=== PATIENT | female | born 1950 | race Caucasian/White ===

== ENCOUNTER 2022-04-30 12:49 | Outpatient (CLI) | payer MEDICARE, BC, SELFPAY ==
--- NOTE | 2022-04-30 13:10 | CRLHL7_ITS ---
For Patients: As a result of the Century Cures Act, medical imaging exams and procedure reports are released immediately into your electronic medical record. You may view this report before your referring provider. If you have questions, please contact your health care provider. Indication: foot pain, radiculopathy Technique: Noncontrast CT lumbar spine. Please note that all CT scans at this facility use dose modulation, iterative reconstruction, and/or weight-based dosing when appropriate to reduce radiation dose to as low as reasonably achievable. Comparison: MRI lumbar spine 05/05/2020 Findings: Multilevel solid osseous posterior fusion noted from the lower thoracic spine extending to the iliac bones. Multilevel fixation screw hardware intact. No fracture. Stable alignment at L5-S1. Dense vascular calcifications. No disc herniation. No foraminal or canal stenosis. Stable circumscribed fluid collection posterior to the spine with peripheral heterotopic calcification representing chronic postop seroma. Impression: No significant interval change since the prior exam. No foraminal or canal stenosis. Intact fusion hardware. Please note that all CT scans at this facility use dose modulation, iterative reconstruction, and/or weight-based dosing when appropriate to reduce radiation dose to as low as reasonably achievable. Dictated by Rei Ulloa MD @ 04/30/2022 2:25:19 PM (Electronically Signed)
== END 2022-04-30 12:50 | disposition home or self-care (01) ==
PROVIDERS: PCP Physician Assistant Medical
DX: M54.16 Radiculopathy, lumbar region (principal); M79.673 Pain in unspecified foot
CPT/HCPCS: 72131

== ENCOUNTER 2022-05-20 08:25 | Outpatient (CLI) | payer MEDICARE, BC, SELFPAY ==
[2022-05-20 08:43] LABS: Hematocrit 38.5 % (33.0-51.0); Hemoglobin* 12.4 gm/dL (12.0-16.0); Mean Corpuscular HGB Conc 32 gm/dL (32-36); Mean Corpuscular Hemoglobin 32 pg (26-34); Mean Corpuscular Volume 101 fL (80-100); Platelet Count* 241 K/uL (140-440); Red Blood Count 3.83 m/uL (4.00-5.20); White Blood Count* 8.12 K/uL (4.50-11.00)
[2022-05-20 08:45] LABS: Slide Review Reflex No
[2022-05-20 13:49] LABS: Albumin* 4.6 g/dL (3.3-5.0); Chloride* 99 mmol/L (96-114)
[2022-05-20 13:50] LABS: Potassium* 4.8 mmol/L (3.6-5.1); Sodium* 138 mmol/L (135-149)
[2022-05-20 13:52] LABS: Alkaline Phosphatase* 117 U/L (40-150); Aspartate Amino Transferase* 29 U/L (12-35); Bilirubin Total* 0.3 mg/dL (0.1-1.5); Blood Urea Nitrogen* 28 mg/dL (7-30); Carbon Dioxide* 30 mmol/L (20-32); Creatinine* 1.2 mg/dL (0.5-1.5); Estimated Glomerular Filt Rate 48 ml/min; Glucose* 156 mg/dL (60-115); Total Protein* 6.9 g/dL (6.0-8.3)
[2022-05-20 13:53] LABS: Alanine Aminotransferase* 22 U/L (4-35); Calcium* 10.1 mg/dL (8.4-10.6)
== END 2022-05-20 08:26 | disposition home or self-care (01) ==
LOC: FRMREF 08:27
PROVIDERS: PCP Physician Assistant Medical; Visit Provider Dermatology
DX: Z79.899 Other long term (current) drug therapy (principal); L20.9 Atopic dermatitis, unspecified
CPT/HCPCS: 80053; 85027

== ENCOUNTER 2022-05-21 13:22 | Outpatient (CLI) | payer MEDICARE, BC, SELFPAY ==
--- NOTE | 2022-05-21 13:56 | CRLHL7_ITS ---
For Patients: As a result of the Century Cures Act, medical imaging exams and procedure reports are released immediately into your electronic medical record. You may view this report before your referring provider. If you have questions, please contact your health care provider. Indication: Bilateral hip pain Technique: Pelvis and both hips 5 views Comparison: None Findings: Postop changes of lumbar fusion extend to the iliac bones. Small ossicle adjacent to the lateral acetabulum bilaterally. No acute fracture or intrinsic osseous lesion. Impression: Mild degenerative joint disease both hips. Dictated by Rei Ulloa MD @ 05/21/2022 2:40:40 PM (Electronically Signed)
== END 2022-05-21 13:23 | disposition home or self-care (01) ==
PROVIDERS: PCP Physician Assistant Medical; Visit Provider Psychiatry & Neurology Neurology
DX: M25.552 Pain in left hip (principal); M25.551 Pain in right hip; M16.0 Bilateral primary osteoarthritis of hip
CPT/HCPCS: 73521

== ENCOUNTER 2022-06-01 14:17 | Outpatient (CLI) | payer MEDICARE, BC, SELFPAY ==
--- NOTE | 2022-06-01 14:30 | CRLHL7_ITS ---
For Patients: As a result of the Century Cures Act, medical imaging exams and procedure reports are released immediately into your electronic medical record. You may view this report before your referring provider. If you have questions, please contact your health care provider. Examination: Bilateral lower extremity arterial Duplex ultrasound. Indication: Hip and foot pain. Technique: The bilateral lower extremity arteries were examined. Ultrasound performed using real-time cardenas scale imaging (B-mode 2D), color-flow Doppler and spectral analysis. Comparison: None available Findings: On the right, there is a triphasic waveform in the common femoral artery that persists throughout the profunda femoral, superficial femoral, popliteal, peroneal, posterior tibial, anterior tibial, and dorsalis pedis arteries. No focal velocity elevation to suggest hemodynamically significant stenosis. On the left, triphasic waveforms in the common femoral artery persists throughout the superficial femoral, popliteal, anterior tibial, and dorsalis pedis arteries. However, in the distal peroneal and posterior tibial arteries there is monophasic flow with significantly reduced velocity as compared to the other vessels. Impression: 1. No sonographic evidence of hemodynamically significant stenosis or arterial occlusion in the right leg. 2. On the left, no evidence of significant disease from the level of the common femoral artery through the popliteal artery. Decreased velocities and diminished waveforms in the left peroneal and posterior tibial arteries suggests some degree of disease in that region. Dictated by Parveen Miguel MD @ 06/02/2022 1:23:48 PM (Electronically Signed)
== END 2022-06-01 14:18 | disposition home or self-care (01) ==
LOC: US 14:18
PROVIDERS: PCP Physician Assistant Medical; Visit Provider Psychiatry & Neurology Neurology
DX: I70.213 Atherosclerosis of native arteries of extremities with intermittent claudication, bilateral legs (principal)
CPT/HCPCS: 93926

== ENCOUNTER 2022-06-18 23:21 | Emergency (ER) | payer MEDICARE, BC, SELFPAY ==
[2022-06-18 23:37] VITALS: BP 109/69; PULSE 90; RESP 18; TEMP 36.6; O2SAT 99; BMI 24.1
--- NOTE | 2022-06-18 23:46 | ED.GENADULT ---
HPI - General Adult General Chief complaint: Skin/Abscess/Foreign Body Stated complaint: Skin Rash, med reaction Time Seen by Provider: 06/18/22 23:22 History of Present Illness HPI narrative: Pt has a fungal skin infection for which she is under the care of a field human resources manager. She did reasonably well with topical terbinafine but after her second dose of oral terbinafine today, she has developed a drug eruption involving most of her torso and extremities. No mucus membrane involvement. No fever or chills. No bleeding. Rash is slightly raised and erythematous. No blisters or skin breakdown. Severe itching noted. Last dose of medication was 13 hours ago and rash followed 6 hours ago. No treatment taken prior to coming in. No other symptoms. Related Data Home Medications Medication Instructions Recorded Confirmed aspirin 81 mg tablet,delayed mg PO .Bedtime 05/20/22 06/02/22 release bimatoprost 0.01 % eye drops drp ophthalmic (eye) 05/20/22 06/02/22 bupropion HCl 300 mg 24 hr tablet, 300 mg PO DAILY 05/20/22 06/02/22 extended release carbidopa 25 mg-levodopa 100 mg 1 tab PO TID 05/20/22 06/02/22 tablet duloxetine 60 mg capsule,delayed 60 mg PO DAILY 05/20/22 06/02/22 release loperamide 2 mg capsule mg PO DAILY 05/20/22 05/20/22 mecobalamin (vitamin B12) 5,000 5,000 tab PO DAILY 05/20/22 06/02/22 mcg disintegrating tablet meloxicam 15 mg tablet mg PO DAILY 05/20/22 06/02/22 omeprazole 40 mg capsule,delayed mg PO DAILY 05/20/22 06/02/22 release fexofenadine 180 mg tablet 180 mg PO Q24H 06/02/22 06/02/22 (Neli Allergy) gabapentin 300 mg capsule mg PO BID 06/02/22 06/02/22 Previous Rx's Medication Instructions Recorded chlorthalidone 25 mg tablet 12.5 mg PO QDAY #45 tabs 05/04/22 folic acid 1 mg tablet 1 mg PO QDAY #90 tabs 05/25/22 mupirocin 2 % topical ointment 1 applic topical BID #15 grams 06/02/22 lisinopril 40 mg tablet 40 mg PO DAILY #90 tabs 06/10/22 pravastatin 40 mg tablet 40 mg PO .Bedtime #90 tabs 06/10/22 Allergies Allergy/AdvReac Type Severity Reaction Status Date / Time No Known Allergies Allergy Unknown Verified 06/18/22 23:39 Review of Systems Status of ROS: Reports: 10 or more systems reviewed and unremarkable except as noted in History and below PFSH PFSH Surgical History History of colonoscopy History of finger joint replacement History of laminectomy History of rotator cuff surgery History of surgical procedure Status post appendectomy Family History Mother Family history of stroke or transient ischemic attack in mother Social History Narrative: Does not use illicit drugs Non-smoker Smoking Status: Current every day smoker What tobacco products do you use: cigarettes Do you use any of these nicotine containing products: None Second hand tobacco smoke exposure: Yes How often do you have a drink containing alcohol: never How often do you have six or more drinks on one occasion: Never AUDIT-C Alcohol total score: 0 Non-prescribed substance use: denies use Exam Narrative: Exam Narrative: EXAM GENERAL: Patient appears comfortable and well. EYES: No scleral icterus. ENT: Tympanic membranes and oropharynx normal. THYROID: no thyroid nodules or thyromegaly. LYMPH: No supraclavicular or cervical lymphadenopathy. SKIN: Diffuse macular rash noted on the anterior posterior torso as well as extremities. No mucous membrane involvement. EXT: No dependent lower extremity pedal edema. HEART: Regular rate and rhythm with no murmurs, rubs, or gallops. LUNGS: Clear to auscultation bilaterally with no crackles or wheezes. ABD: Soft, non tender, non distended. PSYCH: Good eye contact, speech is not pressured. Const: Vital Signs, click to edit/add: Vital Signs - 24 hr 06/18/22 23:37 Temperature 97.9 F Pulse Rate [Right Pulse Oximeter] 90 Respiratory Rate 18 Blood Pressure [Ri ght Upper Arm] 109/69 Pulse Oximetry 99 Oxygen Delivery Me thod Room Air Course Course Hospital Course: Pt seen and examined Vital Signs Vital signs: Initial Vital Signs Temperature 97.9 F 06/18/22 23:37 Temperature Source Temporal Artery Scan 06/18/22 23:37 Pulse Rate 90 06/18/22 23:37 Respiratory Rate 18 06/18/22 23:37 Blood Pressure 109/69 06/18/22 23:37 Blood Pressure Mean 82 06/18/22 23:37 Blood Pressure Position Sitting 06/18/22 23:37 Pulse Oximetry 99 06/18/22 23:37 Oxygen Delivery Method 06/18/22 23:37 Vital Signs Temperature 97.9 F 06/18/22 23:37 Pulse Rate 90 06/18/22 23:37 Respiratory Rate 18 06/18/22 23:37 Blood Pressure 109/69 06/18/22 23:37 Pulse Oximetry 99 06/18/22 23:37 Oxygen Delivery Method 06/18/22 23:37 Temperature 97.9 F 06/18/22 23:37 Pulse Rate 90 06/18/22 23:37 Respiratory Rate 18 06/18/22 23:37 Blood Pressure 109/69 06/18/22 23:37 Pulse Oximetry 99 06/18/22 23:37 Oxygen Delivery Method 06/18/22 23:37 Medical Decision Making MDM Narrative Medical decision making narrative: Pt presents with drug eruption after starting a new medication. No signs of infection or other significant pathology. Pt treated with removal of the offending agent and prednisone 20 mg twice daily for 5 days and will be in contact with her treating Devulcanizer Head. Differential Diagnosis Differential Diagnosis: Drug Eruption, Evaristo's Lito Syndrome, Cellulitis, Erythema multiforme Discharge Plan Discharge Clinical Impression: Drug eruption Condition: Stable Instructions: General Allergic Reaction (ED) Additional Instructions: Stop your new medication Prednisone 20 mg twice daily for 5 days Contact your Devulcanizer Head for further recommendations Activity Level: No Restrictions Discharge Diet: Regular Prescriptions: No Action fexofenadine [Neli Allergy] 180 mg tablet 180 mg PO Q24H mupirocin 2 % ointment 1 applic topical BID Qty: 15 0RF Rx Instructions: Apply twice daily to affected area in nostril for 2 weeks bupropion HCl 300 mg tablet extended release 24 hr 300 mg PO DAILY omeprazole 40 mg capsule,delayed release(DR/EC) PO DAILY duloxetine 60 mg capsule,delayed release(DR/EC) 60 mg PO DAILY meloxicam 15 mg tablet PO DAILY loperamide 2 mg capsule PO DAILY bimatoprost 0.01 % drops ophthalmic (eye) aspirin 81 mg tablet,delayed release (DR/EC) PO .Bedtime carbidopa-levodopa 25-100 mg tablet 1 tab PO TID mecobalamin (vitamin B12) 5,000 mcg tablet,disintegrating 5,000 tab PO DAILY gabapentin 300 mg capsule PO BID chlorthalidone 25 mg tablet 12.5 mg PO QDAY Qty: 45 0RF folic acid 1 mg tablet 1 mg PO QDAY Qty: 90 2RF lisinopril 40 mg tablet 40 mg PO DAILY Qty: 90 3RF pravastatin 40 mg tablet 40 mg PO .Bedtime Qty: 90 3RF Follow Up/Referrals: Rogers Ho, PANiyahC [Primary Care Provider] - Stand Alone Forms: [employer] Info Instructions
--- OUTSIDE RECORDS SUMMARY | 2022-06-19 00:08 | XMS_ITS | Encounter Summary ---
:1950 Author Organization [place] Address [address] [place] [address] Care Team Providers Name Role Phone Jenifer Decker PA-C Primary Care Provider Unavailable Reason for Visit Reason Comments RECHECK NEW: Pt referred to [facility] by Joaquín Ho PA-C for PAD. ROSE W EX BILAT in Epic 05/28/2020. 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 [place] [address] [place] [phone] Social History Tobacco Use Types Packs/Day Years Used Date Current Every Day Smoker 0.5 Smokeless Tobacco: Never Used Alcohol Use Standard Drinks/Week Comments Not Currently 0 (1 standard drink = 0.6 oz pure alcoho l) Alcohol Habits Answer Date Recorded How often do you have a drink containing alcohol? Never 05/29/2020 How many drinks containing alcohol do you have on a typical Not asked day when you are drinking? How often do you have six or more drinks on one occasion? No t asked Comment: Not asked Sex Assigned at Date Recorded Not on file COVID-19 Exposure Response Date Recorded In the last month, have you been in contact with No / Unsure 05/29/2020 10:30 AM CDT someone who was confirmed or suspected to have Coronavirus / COVID-19? documented as of this encounter Last Filed Vital Signs Vital Sign Reading Time Taken Comments Blood Pressure 130/75 05/29/2020 10:48 AM CDT Pulse 74 05/29/2020 10:35 AM CDT Temperature - - Respiratory Rate 14 05/29/2020 10:35 AM CDT Oxygen Saturation 97% 05/29/2020 10:35 AM CDT Inhaled Oxygen Concentration - - Weight 75.8 kg (167 lb) 05/29/2020 10:35 AM CDT Height 165.1 cm (5' 5) 05/29/2020 10:35 AM CDT Body Mass Index 27.79 05/29/2020 10:35 AM CDT documented in this encounter Progress Notes Clare Ravi CMA - 05/29/2020 10:40 AM CDT Jerica Layton is a 70 year old female who presents for: Chief Complaint Patient presents with ??? RECHECK NEW: Pt referred to [facility] by Rogers Ho PA-C for PAD. ROSE W EX BILAT in Epic 05/28/2020. NV Vitals: Vitals: 05/29/20 1035 05/29/20 1037 BP: 105/65 (!) 150/82 BP Location: Right arm Left arm Patient Position: Chair Chair Cuff Size: Adult Regular Adult Regular Pulse: 74 Resp: 14 SpO2: 97% Weight: 167 lb (75.8 kg) Height: 5' 5 (1.651 m) BMI: Estimated body mass index is 27.79 kg/m?? as calculated from the following: Height as of this encounter: 5' 5 (1.651 m). Weight as of this encounter: 167 lb (75.8 kg). Pain Score: Data Unavailable Clare Ravi CMA Fuad Valiente MD - 05/29/2020 10:40 AM CDT Jerica Layton is a 70 year old female who is presenting at the current time to discuss her diagnosi(es) of Pain of lower extremity, unspecified laterality PAD (peripheral artery disease) (H) . HPI: Jerica Layton is a 70 year old female with IFG, htn, mild hyperlipidemia, and depression referred to the [facility] for evaluation of ongoing lower back and LE pain bought about immediatly after standingor walking 10 to 20 feet. The pain is relieved by sitting down. She was seen by ortho in an outside healthcare system and no ortho spine etiology for the pain was found. Outside MRI (images unavailable) revealed no significant central or foraminal stenoses per outside office notes. Lower extremity arterial duplex performed at [facility] revealed bilateral REFINING MACHINE OPERATOR atherosclerotic disease but without significant stneoses. She was therefore referred to us to ascertain if she could have as yet unrec ognized PAD causing her sxs. Exercise ABIs performed at our institution yesterday revealed no reduced ROSE at rest or post exercise. She has triphasic waveforms distally. She denies nocturnal ischemic rest pain, or tissue loss symptoms. Review Of Systems Skin: negative Eyes: negative Ears/Nose/Throat: negative Respiratory: No shortness of breath, dyspnea on exertion, cough, or hemoptysis Cardiovascular: negative Gastrointestinal: negative Genitourinary: negative Musculoskeletal: positive for symmetrical leg pain as dleineated above Neurologic: negative Psychiatric: negative Hematologic/Lymphatic/Immunologic: negative Endocrine: negative PAST MEDICAL HISTORY: No past medical history on file. PAST SURGICAL HISTORY: No past surgical history on file. CURRENT MEDICATIONS: Current Outpatient Medications Medication Sig Dispense Refill ??? CYMBALTA 60 MG OR CPEP 1 CAPSULE DAILY ??? ENABLEX 15 MG OR TB24 1 TABLET DAILY ??? NEURONTIN 100 MG OR CAPS 1 cap twice during the day and up to 3 tabs at night. 120 2 ??? SIMVASTATIN 40 MG OR TABS 1 TABLET AT BEDTIME ??? WELLBUTRIN SR## 150 MG OR TB12 450 mg a day ??? ZOVIRAX 5 % EX OINT apply to affect area 5-6 times per day. 30 gms 0 ALLERGIES: No Known Allergies SOCIAL HISTORY: Social History Socioeconomic History ??? Marital status: Spouse name: Not on file ??? Number of children: Not on file ??? Years of education: Not on file ??? Highest education level: Not on file Occupational History ??? Not on file Social Needs ??? Financial resource strain: Not on file ??? Food insecurity Worry: Not on file Inability: Not on file ??? Transportation needs Medical: Not on file Non-medical: Not on file Tobacco Use ??? Smoking status: Current Every Day Smoker Packs/day: 0.50 Substance and Sexual Activity ??? Alcohol use: Not on file ??? Drug use: Not on file ??? Sexual activity: Not on file Lifestyle ??? Physical activity Days per week: Not on file Minutes per session: Not on file ??? Stress: Not on file Relationships ??? Social connections Talks on phone: Not on file Gets together: Not on file Attends christianity service: Not on file Active member of club or organization: Not on file Attends meetings of clubs or organizations: Not on file Relationship status: Not on file ??? Intimate partner violence Fear of current or ex partner: Not on file Emotionally abused: Not on file Physically abused: Not on file Forced sexual activity: Not on file Other Topics Concern ??? Parent/sibling w/ CABG, [place] or angioplasty before 65F 55M? Not Asked Social History Narrative ??? Not on file FAMILY HISTORY: No family history on file. Physical exam Reveals: O/P: WNL HEENT: WNL NECK: No JVD, thyromegaly, or lymphadenopathy HEART: RRR, no murmurs, gallops, or rubs LUNGS: CTA bilaterally without rales, wheezes, or rhonchi GI: NABS, nondistended, nontender, soft EXT:without cyanosis, clubbing, or edema; CEAP C3 varicosiities NEURO: nonfocal : no flank tenderness Peripheral arterial: RT femoral 3 plus palpable Right DP 3 plus palpable Right PT 3 plus palpable LT femoral 3 plus palpable Light DP 3 plus palpable Light PT 3 plus palpable ULTRASOUND ROSE DOPPLER WITH EXERCISE BILATERAL May 28, 2020 at 1345 hours ?? HISTORY: 70-year-old patient with pain in both hips and buttocks when walking varying distances. ?? COMPARISON: None. ?? FINDINGS: Resting ROSE in the right lower extremity is 1.09 in the PT and 0.97 in the left PT. Distal waveforms are triphasic. Patient walked on a treadmill for 3.5 minutes at 1.5 miles per hour and 10% grade. Patient had pain in both hips at 50 seconds, increased at 1 minute 10 seconds, pain in both buttocks at 1 minute 20 seconds. Patient increased pain throughout exercise and pain moving down back of thigh at 3 minutes. Exercise stopped at 3 minutes and 40 seconds due to pain. Postexercise ROSE values are 1.08 on the right and 1.1 on the left. ?? IMPRESSION: Normal ROSE examination. Do not suspect arterial insufficiency as cause of pain. ?? LILLIANA BRADFORD MD A/P: (M79.606) Pain of lower extremity, unspecified laterality (primary encounter diagnosis) Comment: this pain is most likely of spinal central canal origin as it is immediately occurring withpositional changes (not occuring after walking distance), is made wrose by climbing stairs. She alsofurther more has easily palpable LE bialterally Plan: present for second orthopedic spinal opinion (I73.9) Bilateral REFINING MACHINE OPERATOR PAD w/o significant steno-occlusive ds, which is not the etiology of bilateralLE pain Comment: although she has mid PAD on outside duplex, this is not the etiology of her sxs. Please seeabove comments. Plan: I advised she discuss atherosclerotic risk factor reduction management with her PCP in the context of her mild HLD and IFG , likely brought about by Cymbalta mediated weight gain. RTC prn. CC: referring PCP documented in this encounter Nursing Notes Kathi Coronado RN - 05/29/2020 10:40 AM CDT Office notes and ROSE US faxed to patients PCP Jenifer Rangel . Referring provider not patients PCP and from hospital stay. 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
--- OUTSIDE RECORDS SUMMARY | 2022-06-19 00:08 | XMS_ITS | Encounter Summary ---
:1950 Author Organization [place] Address [address] [place] [id number] Care Team Providers Name Role Phone Jenifer Decker PA-C Primary Care Provider Unavailable Encounter Details Date Type Department Care Team Description 05/29/2020 Travel Social History Tobacco Use Types Packs/Day Years [...] / COVID-19? documented as of this encounter Plan of Treatment Not on filedocumented as of this encounter Visit Diagnoses Not on filedocumented in this encounter Care Teams Pv Design Engineer Relationship Specialty Start Date End Date Jenifer Decker PA-C PCP - General Physician Broadcasting Equipment Mechanic 03/26/10 documented as of this encounter
--- OUTSIDE RECORDS SUMMARY | 2022-06-19 00:08 | XMS_ITS | Encounter Summary ---
:1950 Author Organization [place] Address [facility] [place] [address] Care Team Providers Name Role Phone Unavailable Primary Care Provider Unavailable Reason for Visit Reason Comments Derm Problem Rash on abd and back Back Pain Encounter Details Date Type Department Care Team Description 03/05/2009 Office Visit [facility] Jenifer Decker Shin gles (Primary Dx) [facility] PA-C [address] [place] [phone] [place] [address] Social History Tobacco Use Types Packs/Day Years Used Date Current Every Day Smoker 0.5 Alcohol Habits Answer Date Recorded How often do you have a drink containing alcohol? Never 05/29/2020 How many drinks containing alcohol do you have on a typical Not asked day when you are drinking? How often do you have six or more drinks on one occasion? No t asked Comment: Not asked Sex Assigned at Date Recorded Not on file documented as of this encounter Last Filed Vital Signs Vital Sign Reading Time Taken Comments Blood Pressure 120/68 03/05/2009 3:50 PM CDT Pulse 100 03/05/2009 3:50 PM CDT Temperature 36.3 ??C (97.3 ??F) 03/05/2009 3:50 PM CDT Respiratory Rate 20 03/05/2009 3:50 PM CDT Oxygen Saturation - - Inhaled Oxygen Concentration - - Weight 68 kg (150 lb) 03/05/2009 3:50 PM CDT Height 165.1 cm (5' 5) 03/05/2009 3:50 PM CDT Body Mass Index 24.96 03/05/2009 3:50 PM CDT documented in this encounter Progress Notes Jenifer Decker - 03/05/2009 4:22 PM CDT SUBJECTIVE: Jerica Layton is a 58 year old female who presents with 2 concerns: 1. right sided back pain: She was sleeping her sister's boat last week and now has increased back pain. She has scoliosis and has had pain; she will be having the scoliosis corrected surgically. Severity is 5. Tried heat, tylenol, ice. Heat seems to help; Movement makes it worse. The pain is sharp. 2. Rash on the abdomen: Present on the right side only. .sme No Known Allergies. OBJECTIVE: Jerica is a cooperative 58 year old female in no apparent distress. BP 120/68 Pulse 100 Temp (Src) 97.3 ??F (36.3 ??C) (Oral) Resp 20 Ht 5' 5 (1.651 m) Wt 150 lb (68.04 kg) Skin and back exam: Dew drop on the jessica petal, Erythematous bases with vesicles on one dermatome. Only one area is beginning scab over. The back pain is due to tenderness across the area of the rash. ASSESSMENT/PLAN: Encounter Diagnoses Code Name Primary? Qualifier ??? 053.9A Shingles Yes A prescription for; ACYCLOVIR 800 MG OR TABS ZOVIRAX 5 % EX OINT NEURONTIN 100 MG OR CAPS May also use NSAIDs(take care to use with food to protect stomach) and tylenol. Cont. to monitor and follow up prn. 15min;Greater that 50% of the time was spent on counseling. Electronically signed by Elie Decker PAC After visit summary printed for patient with medication reconcilliation by Elie Decker PAC documented in this encounter Nursing Notes 03/05/2009 3:00 PM CDT >> CINTHYA BAUTISTA TueMar 05, 2009 3:52 PM Body mass index is 24.96 kg/(m^2). BP cuff size: regular Last 1 Encounter BP Readings: Date: BP: 03/05/2009 120/68] Do you feel safe in your environment? Not asked Does the patient need any medication refills today? no documented in this encounter Plan of Treatment Not on filedocumented as of this encounter Visit Diagnoses Diagnosis Shingles - Primary Herpes zoster without mention of complic ation documented in this encounter
--- OUTSIDE RECORDS SUMMARY | 2022-06-19 00:08 | XMS_ITS | Encounter Summary ---
:1950 Author Organization [place] Address [address] [facility] [place] [address] Care Team Providers Name Role Phone Jenifer Decker PA-C Primary Care Provider Unavailable Reason for Referral Diagnostic Imaging Ultrasound (Routine) - Closed Specialty Diagnoses / Procedures Referred By Contact Refer red To Contact Radiology. Diagnoses PAD (peripheral artery disease) (H) [facility] Ultrasound cc Procedures US ROSE Doppler with Exercise Bilateral [address] [place] [address] [place] [address] Fax: Referral ID Status Reason Start Date Expiration Date Visits Requ ested Visits Authorized [id number] Closed 05/14/2020 05/14/2021 1 1 Reason for Visit Reason Onset Date Comments Referral 05/12/2020 Encounter Details Date Type Department Care Team Description 05/12/2020 Telephone [facility] Nurse, [facility] Referral [place] [address] [place] [address] Social History Tobacco Use Types Packs/Day Years [...] on file documented as of this encounter Miscellaneous Notes Telephone Encounter - Judy Amaya - 05/14/2020 12:44 PM CDT May 14, 2020 Patient is scheduled for US imaging on 05/28/2020 & a new patient consult appointment on 05/29/[address] Valiente at [facility]. Judy Amaya Insurance Loss Adjuster [facility] Office: [phone] Telephone Encounter - Jenifer Arzate - 05/14/2020 11:27 AM CDT LM for patient to call us back. Pt needs to be scheduled for ROSE with exercise and in person consultwith Vascular Medicine. Telephone Encounter - Emely Sapp RN - 05/12/2020 3:17 PM CDT Referral received via fax on 05/12/20. Pt referred to [facility] by Rogers Ho PA-C for PAD. Bilateral lower extremity US report accompanied fax. This was completed at [facility]. 1. No elevated peak systolic velocity to suggest stenosis within the lower extremity arterial run off. 2. Moderate atherosclerotic disease within the proximal common femoral arteries bilaterally without Dopplar waveform evidence of significant inflow disease. Notes sent to [facility]. Pt needs to be scheduled for ROSE with exercise and in person consult with Vascular Medicine. Will route to scheduling to coordinate an appointment at next available. LAMONT Chavez, RN-[facility] documented in this encounter Plan of Treatment Not on filedocumented as of this encounter Results US ROSE Doppler with Exercise Bilateral (05/28/2020 1:45 PM CDT) Anatomical Region Laterality Modality Leg, Ankle, Foot Ultrasound Specimen (Source) Anatomical Location Collection Method / Collectio n Time Received Time / Laterality Volume Impressions 05/28/2020 3:53 PM CDT IMPRESSION: Normal ROSE examination. Do not suspect arterial insufficiency as cause of pain. LILLIANA BRADFORD MD Narrative 05/28/2020 3:53 PM CDT ULTRASOUND ROSE DOPPLER WITH EXERCISE BILATERAL May 28, 2020 at 1345 hours HISTORY: 70-year-old patient with pain i n both hips and buttocks when walking varying distances. COMPARISON: None. FINDINGS: Resting ROSE in the right lower extremity is 1.09 in the PT and 0.97 in the left PT. Distal waveform s are triphasic. Patient walked on a treadmill for 3.5 minutes at 1.5 miles per hour and 10% grade. Patient had pain in both hips at 50 seconds, increased at 1 minute 10 seconds, pain in both buttocks at 1 minute 20 seconds. Patient increased pain throughout exerci se and pain moving down back of thigh at 3 minutes. Exercise stopped at 3 minutes and 40 seconds due to pain. Postexercise ROSE values are 1.08 on the right and 1.1 on the left. Procedure Note Lilliana Bradford MD - 05/28/2020 ULTRASOUND ROSE DOPPLER WITH EXERCISE KEE ATERAL May 28, 2020 at 1345 hours HISTORY: 70-year-old patient with pain i n both hips and buttocks when walking varying distances. COMPARISON: None. FINDINGS: Resting ROSE in the right lower extremity is 1.09 in the PT and 0.97 in the left PT. Distal waveform s are triphasic. Patient walked on a treadmill for 3.5 minutes at 1.5 miles per hour and 10% grade. Patient had pain in both hips at 50 seconds, increased at 1 minute 10 seconds, pain in both buttocks at 1 minute 20 seconds. Patient increased pain throughout exerci se and pain moving down back of thigh at 3 minutes. Exercise stopped at 3 minutes and 40 seconds due to pain. Postexercise ROSE values are 1.08 on the right and 1.1 on the left. IMPRESSION: Normal ROSE examination. Do n ot suspect arterial insufficiency as cause of pain. LILLIANA BRADFORD MD Fuad Valiente MD IMG US ORDERABLES documented in this encounter Visit Diagnoses Diagnosis PAD (peripheral artery disease) (H) - Pr imary Unspecified disorders of arteries and ar terioles PAD (peripheral artery disease) (H) Unspecified disorders of arteries and ar terioles documented in this encounter Care Teams Multicraft Operator Relationship Specialty Start Date End Date Jenifer Decker PA-C PCP - General Physician Franchise Sales Manager 03/26/10 documented as of this encounter
--- OUTSIDE RECORDS SUMMARY | 2022-06-19 00:08 | XMS_ITS | Clinical Summary ---
:1950 Author Organization [place] Address [address] [place] [address] Care Team Providers Name Role Phone Jenifer Decker PA-C Primary Care Provider Unavailable Allergies No known active allergies Medications Medication Sig Dispensed Refills Start Date End Date Status WELLBUTRIN SR## 150 MG 450 mg a day 0 Active OR TB12 CYMBALTA 60 MG OR CPEP 1 CAPSULE DAILY 0 Active SIMVASTATIN 40 MG OR 1 TABLET AT 0 Active TABS BEDTIME ENABLEX 15 MG OR TB24 1 TABLET DAILY 0 Active ZOVIRAX 5 % EX apply to affect 30 gms 0 03/05/2009 Active OINTIndications: area 5-6 times per Shingles day. Additional Information Patient not taking. Reported on 05/29/2020 NEURONTIN 100 MG OR 1 cap twice during the 120 2 009 Active CAPSIndications: Shingles day and up to 3 tabs at night. Additional Information Patient not taking. Reported on 05/29/2020 pravastatin (PRAVACHOL) 40 MG tablet Take 40 mg by mouth daily 0 Active omeprazole (PRILOSEC) [address] capsule Take 40 mg by mouth daily 0 Active propranolol (INDERAL) 40 MG tablet Take 40 mg by mouth 3 times 0 Active daily lisinopril (ZESTRIL) 40 MG tablet Take 40 mg by mouth daily 0 Active chlordiazePOXIDE (LIBRIUM) 25 MG capsule Take 25 mg by mouth 3 times 0 Active daily as needed for anxiety aspirin 81 MG EC tablet Take 81 mg by mouth daily 0 Active UNABLE TO FIND Take by mouth 2 times daily 0 Active Bio Flex calcium carbonate 600 mg-vitamin D 400 Take 1 tablet by mouth 2 times 0 Active units (CALTRATE) 600-400 MG-UNIT per daily tablet Social History Tobacco Use Types Packs/Day Years [...] Assigned at Date Recorded Not on file Last Filed Vital Signs Vital Sign Reading Time Taken Comments Blood Pressure 130/75 05/29/2020 10:48 AM CDT Pulse 74 05/29/2020 10:35 AM CDT Temperature 36.3 ??C (97.3 ??F) 03/05/2009 3:50 PM CDT Respiratory Rate 14 05/29/2020 10:35 AM CDT Oxygen Saturation 97% 05/29/2020 10:35 AM CDT Inhaled Oxygen Concentration - - Weight 75.8 kg (167 lb) 05/29/2020 10:35 AM CDT Height 165.1 cm (5' 5) 05/29/2020 10:35 AM CDT Body Mass Index 27.79 05/29/2020 10:35 AM CDT Plan of Treatment Health Maintenance Due Date Last Done Comments ADVANCE CARE PLANNING 1950 ANNUAL REVIEW OF HM ORDERS 1950 CT COLONOGRAPHY 1950 DEXA 1950 FIT-DNA (Cologuard) 1950 FIT 1950 FLEX SIG 1950 MAMMO SCREENING 1950 COVID-19 Vaccine (#1) 1950 COLONOSCOPY 1960 COLORECTAL CANCER SCREENING 1960 HEPATITIS C SCREENING 1968 DTAP/TDAP/TD IMMUNIZATION (1 1975 - Tdap) LUNG CANCER SCREENING 2000 ZOSTER IMMUNIZATION (1 of 2) 2000 MEDICARE ANNUAL WELLNESS 2015 VISIT Pneumococcal Vaccine: 65+ 03/21/2019 03/21/2018 Years (2 - PPSV23 or PCV20) FALL RISK ASSESSMENT 05/29/2021 05/29/2020 PHQ-2 (once per calendar 09/12/2021 year) INFLUENZA VACCINE (#1) 2022 07/04/2018, 07/18/2017 LIPID 04/29/2025 04/29/2020 HEPATITIS B IMMUNIZATION Aged Out No long er eligible based on patient's age to complete this to pic IPV IMMUNIZATION Aged Out No longer eligi ble based on patient's age to complete this to pic MENINGITIS IMMUNIZATION Aged Out No longe r eligible based on patient's age to complete this to pic Insurance Payer Benefit Plan / Subscriber ID Effective Phone Address T ype Group Dates [place] [id number] 2018-Prese [phone] [address] [address] [address] [place] [address] MEDICARE MEDICARE [id number] 2019-Prese [phone] ATTN MICHAEL MS Medicare nt [address] [facility] [place] [address] JERICA LAYTON Personal/Family Self [birth year] [address]) [place] [address] Care Teams Skate Shop Attendant Relationship Specialty Start Date End Date Jenifer Decker PA-C PCP - General Physician Noxious Weeds And Pest Inspector 03/26/10
--- OUTSIDE RECORDS SUMMARY | 2022-06-19 00:08 | XMS_ITS | Encounter Summary ---
:1950 Author Organization [place] Address [facility] [place] [place] [address] Care Team Providers Name Role Phone Unavailable Primary Care Provider Unavailable Reason for Visit Reason Onset Date Comments Patient Request 03/06/2009 Shingles Encounter Details Date Type Department Care Team Description 03/06/2009 Telephone [facility] Jenifer Decker Pati ent Request [facility] FREIDA (Shingles) [address] [place] [id number] [address] [phone] [place] [address] Social History Tobacco Use Types Packs/Day Years [...] this encounter Miscellaneous Notes Telephone Encounter - Mini Castaneda - 03/06/2009 10:35 AM CDT : 1950 PHONE #'s: [phone] (home) PRESENTING PROBLEM: Was Dx with Shingles yesterday. Was seen in clinic. I have a couple of questions. I'm on vacation now and want to see a lot of friends and relatives. Can I be around other people?Will I give them the Shingles? NURSING ASSESSMENT Description: As above. Onset/duration: Last week Precip. factors: Has shingles Assoc. Sx: pain Improves/worsens Sx: Improved with Neurontin, Zovirax, Acyclovir Pain scale (1-10) 11/19 Sx specific meds: As above LMP/preg/breast feeding: NA Last exam/Tx: 03/05/09 RECOMMENDED DISPOSITION: Home care advice - Shingles is an infection of the skin caused by the same virus that causes chickenpox. You cannot develop shingles unless you have had a previous infection ofchickenpox (usually as a child),. After you have the chickenpox the virus stay in your body, It moves to the roots of your nerve cells in the spinal cord and remains dormant. Later, if the virus becomes active, it presents as shingles. SYMPTOMS: often a burning or sharp pain sensation, tingling , or numbness in or under your skin on one side of your body or face. The most common site is the back or upper abdomen. You may have severe itching or aching. You also may feel tired and ill with fever, chills, headache, and upset stomach, One to 14 days after you started feeling pain, you will notice a rash of small blisters on reddened skin, Within 3 days after they appear, the blisters will turn yellow,then dry and crust over. They tend to follow nerve paths and are usually found in a line or row, butalmost always on one side of the body. They usually don't cross the midline of the body.The rash from the shingles will heal in 1 to 3 weeks, but the pain or irritation from the will usually last longer 3 to 5 weeks and sometimes months, if the virus damaged a nerve. This is called postherpetic neuralgia. YOU CANNOT GET SHINGLES FROM SOMEONE ELSE, However, if you have never had chickenpox, you may get chickenpox from close contact with someone who has shingles because the blisters contain the chicken pox virus. Take meds as prescribed. Use good hand washing technique and ask others before you see them if they have had chickenpox. Will comply with recommendation: YES If further questions/concerns or if Sx do not improve, worsen or new Sx develop, call your PCP or [place] [facility] as soon as possible. NOTES: Disposition was determined by the first positive assessment question, therefore all previous assessment questions were negative. Informed to check provider manual or call insurance company to assure coverage. Guideline used: Shingles ( Herpes Zoster) Clinical References Mini Castaneda RN Telephone Encounter - Deborah Pierson - 03/06/2009 9:51 AM CDT Patient has several questions about shingles. She was just dx with them. Is asking if you can call mai. She is concerned about exposure to others. Mom is in elim home. Also about visus living on objects. Thank you Deborah documented in this encounter Plan of Treatment Not on filedocumented as of this encounter Visit Diagnoses Not on filedocumented in this encounter
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
--- OUTSIDE RECORDS SUMMARY | 2022-06-19 00:08 | XMS_ITS | Encounter Summary ---
:1950 Author Organization [place] Address [address] [facility] [place] [address] Care Team Providers Name Role Phone Jenifer Decker PA-C Primary Care Provider Unavailable Reason for Referral Diagnostic Imaging Ultrasound (Routine) - Closed Specialty Diagnoses / Procedures Referred By Contact Refer red To Contact Radiology. Diagnoses PAD (peripheral artery disease) (H) [facility] [place] Rh Ultrasound Rscc Procedures US ROSE Doppler with Exercise Bilateral [address] [address] [employer] [address] [place] [address] [place] [address] Fax: Referral ID Status Reason Start Date Expiration Date Visits Requ ested Visits Authorized [id number] Closed 05/14/2020 05/14/2021 1 1 Reason for Visit Diagnostic Imaging Ultrasound (Routine) - Closed Specialty Diagnoses / Procedures Referred By Contact Refer red To Contact Radiology. Diagnoses PAD (peripheral artery disease) (H) [facility] Rh Ultrasound Rscc Procedures US ROSE Doppler with Exercise Bilateral [address] [address] [employer] [address] [place] [address] [place] [address] Fax: Referral ID Status Reason Start Date Expiration Date Visits Requ ested Visits Authorized [id number] Closed 05/14/2020 05/14/2021 1 1 Encounter Details Date Type Department Care Team Description 05/28/2020 Hospital Encounter [facility] Brandon Valiente PAD (peripheral [facility] MD [place] artery disease) (H) [facility] [address] [facility] [address] [address] [place] [address] [address] [place] [address] Social History Tobacco Use Types Packs/Day Years [...] been in contact with No / Unsure 05/28/2020 1:05 PM CDT someone who was confirmed or suspected to have Coronavirus / COVID-19? documented as of this encounter Medications at Time of Discharge Medication Sig Dispensed Refills Start Date End Date CYMBALTA 60 MG OR CPEP 1 CAPSULE DAILY 0 ENABLEX 15 MG OR TB24 1 TABLET DAILY 0 NEURONTIN 100 MG OR 1 cap twice during 120 2 03/05/20 09 CAPSIndications: Shingles the day and up to 3 tabs at night. SIMVASTATIN 40 MG OR TABS 1 TABLET AT BEDTIME 0 WELLBUTRIN SR## 150 MG OR 450 mg a day 0 TB12 ZOVIRAX 5 % EX apply to affect area 30 gms 0 03/05/2009 OINTIndications: Shingles 5-6 times per day. documented as of this encounter Plan of Treatment Not on filedocumented as of this encounter Procedures Procedure Name Priority Date/Time Associated Diagnosis Comme nts US ROSE DOPPLER WITH Routine 05/28/2020 1:45 PM PAD (peripheral Results for this EXERCISE BILATERAL CDT artery disease) (H) pr ocedure are in the results section. documented in this encounter Results US ROSE Doppler with [...] Diagnoses Diagnosis PAD (peripheral artery disease) (H) Unspecified disorders of arteries and ar terioles documented in this encounter Care Teams Sheet Turner Relationship Specialty Start Date End Date Jenifer Decker PA-C PCP - General Physician Container Finishing Inspector 03/26/10 documented as of this encounter
--- OUTSIDE RECORDS SUMMARY | 2022-06-19 00:08 | XMS_ITS | Encounter Summary ---
:1950 Author Organization [place] Address [address] [place] [address]. [place] [address] Care Team Providers Name Role Phone Jenifer Decker PA-C Primary Care Provider Unavailable Encounter Details Date Type Department Care Team Description 05/09/2020 Medical Correspondence [facility] Scan, CLINIC REFERRAL Health Info [facility]-Provider [facility] [address] [place] [address] Social History Tobacco Use Types Packs/Day Years [...] on file documented as of this encounter Plan of Treatment Not on filedocumented as of this encounter Visit Diagnoses Not on filedocumented in this encounter Care Teams Car Starter Relationship Specialty Start Date End Date Jenifer Decker PA-C PCP - General Physician Door Liner 03/26/10 documented as of this encounter
--- OUTSIDE RECORDS SUMMARY | 2022-06-19 00:08 | XMS_ITS | Encounter Summary ---
:1950 Author Organization [place] Address [address] [place] [address] Care Team Providers Name Role Phone Jenifer Decker PA-C Primary Care Provider Unavailable Encounter Details Date Type Department Care Team Description 05/28/2020 Travel Social History Tobacco Use Types Packs/Day [...] on filedocumented in this encounter Care Teams Architectural Administrative Assistant Relationship Specialty Start Date End Date Jenifer Decker PA-C PCP - General Physician Train Electronic Technician 03/26/10 documented as of this encounter
--- OUTSIDE RECORDS SUMMARY | 2022-06-19 00:09 | XMS_ITS ---
:1950 Author Organization [facility] Address [address] [place] [address] [place] [address] Care Team Providers Name Role Phone Dano Lennon Unavailable Unavailable PROBLEMS Unknown Problems ALLERGIES No Known Allergies ENCOUNTERS Encounter Location Date Diagnosis [address] [place] [address] [place] [address] [place] [address] [place] [address] [place] [address] [place] [address] [place] Apr, [place] son disease G20 ; Drive [address] Vitamin B12 defi ciency [place], [place] E53.8 ; Hypomagn esemia [address] E83.42 ; Toxic e ffect of antimony or anti yusuf compound, accide ntal or unintentional, i nitial encounter T56.89 1A and Toxic reaction t o chemical, accidental or unintentional, i nitial encounter T65.[address] [place] Apr, Encoun ter for Medicare Drive [address] annual wellness exam Z00.00 [place] [address] [place] Mar, Sarah son disease [address] [place] [address] [place] [address] [place], [place] son disease G20 ; Drive [address] Hypertension I10 ; [place], [place] abnormality R26. 9 ; [address] Parkinson diseas e G20 ; Hyperlipidemia E 78.5 ; Acid reflux K21.9 ; I nsomnia G47.00 ; Osteoar thritis M19.90 ; Depress ion F32.9 and Skin lesions L98.9 IMMUNIZATIONS Vaccine Route Administration Date Status Sars Covid19- 100 mcg/0.5mL IM Intramuscular December 06, 2020 Adm inistered Sars Covid19- 100 mcg/0.5mL IM Intramuscular Nov 08, 2020 Adm inistered SOCIAL HISTORY Qualifiers Date Former Smoker REASON FOR REFERRAL FUNCTIONAL STATUS PLAN OF CARE VITAL SIGNS Temperature 97.3 (t) degrees Fahrenheit 2021-03-19 Height 5' 5 in 2021-04-23 Weight 168.8 lbs 2021-04-23 BMI 28.09 kg/m2 2021-04-23 Oximetry 95% 2021-04-23 Blood pressure systolic 145 mm Hg 2021-04-23 Blood pressure diastolic 82 mm Hg 2021-04-23 MEDICATIONS Medication Instructions Dosage Frequency Start End Duration Statu s Date Date Aspir 81 81 mg orally once a 1 tab(s) 24h 30 day(s) Active day lisinopril 40 mg orally once a 1 tab(s) 24h 30 day(s ) Active day Calcium 600+D 600 orally daily 1 tab(s) 24h Active mg-200 units pravastatin 40 mg orally once a 1 tab(s) 24h 30 day( s) Active day bupropion 150 mg orally daily 2 tabs 24h 90 days Ac tive Cymbalta 60 mg orally once a 1 cap(s) 24h 30 day(s) Active day chlorthalidone 25 orally once a 1 tab(s) 24h 30 day( s) Active mg day meloxicam 15 mg orally once a 1 tab(s) 24h 30 day(s) Active day Imodium Active magnesium orally daily 1 tab(s) 24h Active gluconate 250 mg Sinemet 25 mg-100 orally 3 times a 1 tab(s) 8h 30 d ay(s) Active mg day Osteo Bi-Flex 1500 2 tab 12h Activ e mg/1200 mg omeprazole 40 mg orally once a 1 cap(s) 24h 30 day(s ) Active day melatonin 5 mg orally once a 1 cap(s) Ac tive day (at bedtime) PROCEDURES Procedure Date Ordered Result Body Site DEVICE HANDLING March 19, 2021 ASSAY OF SERUM ALBUMIN March 19, 2021 VITAMIN B-12 March 19, 2021 Routine Venipunct/finger/heel March 19, 2021 BLOOD FOLIC ACID SERUM March 19, 2021 DIMERCAPTOPROPANE SULFONIC ACID 250 MG April 03, 2021 THER/PROPH/DIAG IV INF, INIT April 03, 2021 ASSAY OF PROGESTERONE March 19, 2021 Screen Test Visual Acuity-tamela March 19, 2021 ASSAY OF SEX HORMONE GLOBUL March 19, 2021 Handl/convey Specmn-offic To L April 03, 2021 DEHYDROEPIANDROSTERONE March 19, 2021 ANNUAL [facility] VST; PERSNL PPS INIT Apr 23, 2021 TOTAL CORTISOL March 19, 2021 ASSAY OF MAGNESIUM March 19, 2021 ASSAY OF ESTRADIOL March 19, 2021 ASSAY OF TESTOSTERONE March 19, 2021 ASSAY OF TOTAL TESTOSTERONE March 19, 2021 RESULTS Name Result Date Reference Range DD - URINE TOXIC METALS Pre/Post x2 (ALL PREPAY 2021-04-08 $138) 6 ml min PRE-PROVOCATIVE POST PROVACATIVE GPL-TOX (Toxic NON-METAL Chemical Profile)(09 13 morning urine-Freeze) Patient Prepay $229 ($179 if ordered with MycoTOX)(14 day Turn Around Time) F.A.C.T (Functional Acuity Contrast) 2021-03-19 Left A 6 Left B 4 Left C 2 Left D - Left E - Right A 6 RIght B 4 Right C 2 Right D - Right E - Q-VITAMIN B12/FOLATE, SERUM PANEL (ERIC 2021-03 VIAL)(126.42)(23346,20374) FOLATE, SERUM 8.9 VITAMIN B12 [phone] Q-CORTISOL, P.M.(3pm-5pm) (68.34) 2021-03-19 CORTISOL, P.M. 4.6 Q-MAGNESIUM, RBC (28.08)(07419) 2021-03-19 MAGNESIUM, RBC 3.8 4.0-6.4 Q-Female Hormone Panel(599.10)(2 RED TOP Transfer 2021-03-19 Tube need min of 3ml-REFRIG) ALBUMIN 4.4 3.6-5.1 PROGESTERONE, LC/MS <0.1 CORTISOL, TOTAL 4.6 DHEA SULFATE 281 12-133 ESTRADIOL <15 SEX HORMONE BINDING GLOBULIN 53 14- 73 TESTOSTERONE, TOTAL, MS 26 2-45 TESTOSTERONE, FREE 2.3 0.2-3.7 REASON FOR VISIT Insurance Providers [facility] Health Health Member Patient Patient Patient Patient Patient Subscriber Subscriber Subscriber Group Insurance Plan Plan Plan Plan ID Relationship Address Phone Name Date of ID Name Date of No Type Insurance Insurance Insurance Coverage to Subscriber Address Phone Name Dates Medicare Inc. 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
[2022-06-19 00:17] VITALS: BP 111/65; PULSE 84; RESP 18; TEMP 36.6; O2SAT 99
[2022-06-19 00:18] VITALS: BP 111/65; PULSE 84; RESP 18; TEMP 36.6
== END 2022-06-19 00:18 | disposition home or self-care (01) ==
PROVIDERS: Emergency Provider Internal Medicine; PCP Physician Assistant Medical
DX: R21 Rash and other nonspecific skin eruption (principal); T50.995A Adverse effect of other drugs, medicaments and biological substances, initial encounter
CPT/HCPCS: 99283; 99284

== ENCOUNTER 2022-07-01 14:14 | Outpatient (CLI) | payer MEDICARE, BC, SELFPAY ==
--- OUTSIDE RECORDS SUMMARY | 2022-07-01 14:26 | XMS_ITS | Encounter Summary ---
:1950 Author Organization [place] Address [address] [facility] [place] [address] Care Team Providers Name Role Phone Jenifer Decker PA-C Primary Care Provider Unavailable Reason for Visit Reason Comments RECHECK NEW: Pt referred to [facility] by Joaquín Ho PA-C for PAD. ROSE W EX BILAT in Epic 05/28/2020. [place] Encounter Details Date Type Department Care Team Description [facility] of lower [facility], unspecified laterality (Primary Dx); [facility] MD Omero Bilateral HOME HEALTH CLINICAL LIAISON PAD w/o significant steno- occlusive ds, which is not the etiology of bilateral LE pain [place] [address] [place] [address] [place] [phone] [phone] Social History Tobacco Use Types Packs/Day Years Used Date Smoking Tobacco: Every Day Cigarettes 0.5 Smokeless Tobacco: Never Alcohol Use Standard Drinks/Week Comments Not Currently [...] drinks on one occasion? No t asked Sex Assigned at Date Recorded Not [...] with ??? RECHECK NEW: Pt referred to [facility] by Rogers Ho PA-C for PAD. [...] mild hyperlipidemia, and depression referred to the [facility] for evaluation of ongoing lower back [...] notes. Lower extremity arterial duplex performed at [facility] revealed bilateral HOME HEALTH CLINICAL LIAISON atherosclerotic disease but without significant stneoses. She [...] file Gets together: Not on file Attends anabaptism service: Not on file Active member of club or organization: Not on file Attends meetings of clubs or organizations: Not on file Relationship status: Not on file ??? Intimate partner violence Fear of current or ex partner: Not on file Emotionally abused: Not on file Physically abused: Not on file Forced sexual activity: Not on file Other Topics Concern ??? Parent/sibling w/ CABG, KS or angioplasty before 65F 55M? Not Asked [...] for second orthopedic spinal opinion (I73.9) Bilateral HOME HEALTH CLINICAL LIAISON PAD w/o significant steno-occlusive ds, which is [...] and from hospital stay. Kathi MIGUEL, RN [facility] Office: [phone] documented in this encounter Plan of Treatment Not on filedocumented as of this encounter Visit Diagnoses Diagnosis Pain of lower extremity, unspecified lat erality - Primary Bilateral HOME HEALTH CLINICAL LIAISON PAD w/o significant steno- occlusive ds, which is not the etiology of bilateral LE pain Unspecified disorders of arteries and ar terioles documented in this encounter Care Teams Coach Relationship Specialty Start Date End Date Jenifer Decker PA-C PCP - General Physician Canoe Builder 03/26/10 documented as of this encounter
--- OUTSIDE RECORDS SUMMARY | 2022-07-01 14:26 | XMS_ITS ---
:1950 Author Organization [facility] Address [address] [place] [address] [place] [address] Care Team Providers Name Role Phone Dano Lennon Unavailable Unavailable PROBLEMS Unknown Problems ALLERGIES No Known Allergies ENCOUNTERS Encounter Location Date Diagnosis [address] [place] [address], [address] [place] [address] [place] [address] [place] [address] [place] [address] [place] [address] [place] Apr, [place] son disease G20 ; Drive [address] Vitamin B12 defi ciency [place], [place] E53.8 ; Hypomagn esemia [address] E83.42 ; Toxic e ffect of antimony or anti yusuf compound, accide ntal or unintentional, i nitial encounter T56.89 1A and Toxic reaction t o chemical, accidental or unintentional, i nitial encounter T65.[address] [place] Apr, Encoun ter for Medicare Drive [address] annual wellness exam Z00.00 [place] [address] [place] Mar, Sarah son disease [address] [place] [address] [place] [address] [place] Mar, [place] son disease G20 ; Drive [address] Hypertension I10 ; [place]ait [place], [place] abnormality R26. 9 ; [address] Parkinson diseas e G20 ; Hyperlipidemia E [...] 03, 2021 DEHYDROEPIANDROSTERONE March 19, 2021 ANNUAL [facility] VST; PERSNL PPS INIT Apr 23, 2021 [...] - Q-VITAMIN B12/FOLATE, SERUM PANEL (ERIC 2021-03 VIAL)(126.42)([id number],14287) FOLATE, SERUM 8.9 VITAMIN B12 [phone] Q-CORTISOL, P.M.(3pm-5pm) (68.34) 2021-03-19 CORTISOL, P.M. 4.6 Q-MAGNESIUM, RBC (28.08)(34229) 2021-03-19 MAGNESIUM, RBC 3.8 4.0-6.4 Q-Female Hormone Panel(599.10)(2 RED TOP Transfer 2021-03-19 Tube need min of 3ml-REFRIG) ALBUMIN 4.4 3.6-5.1 PROGESTERONE, LC/MS <0.1 CORTISOL, TOTAL 4.6 DHEA SULFATE 281 12-133 ESTRADIOL <15 SEX HORMONE BINDING GLOBULIN 53 14- 73 TESTOSTERONE, TOTAL, MS 26 2-45 TESTOSTERONE, FREE 2.3 0.2-3.7 REASON FOR VISIT Insurance Providers [facility] Health Health Member Patient Patient Patient Patient Patient Subscriber Subscriber Subscriber Group Insurance Plan Plan Plan Plan ID Relationship Address Phone Name Date of ID Name Date of No Type Insurance Insurance Insurance Coverage to Subscriber Address Phone Name Dates Medicare Inc. HELENE [phone] Medicare self [place] [id number] [id number] [address] [place] [address] [place] [address] [facility] [phone] [facility] self Jerica [id number] J [id number] [place] [address] [facility] [address] MEDICAL (GENERAL) HISTORY Type Description Date Medical [...]
--- OUTSIDE RECORDS SUMMARY | 2022-07-01 14:26 | XMS_ITS | Encounter Summary ---
:1950 Author Organization [facility] Address [address] [place] [address]. [place] [address] Care Team Providers Name Role Phone Jenifer Decker PA-C Primary Care Provider Unavailable Encounter Details Date Type Department Care Team Description 05/09/2020 Medical Correspondence [facility] Scan, CLINIC REFERRAL Health Info [facility] Non-Provider [facility]ICS [address] [place] [address] Social History Tobacco Use Types Packs/Day Years Used Date Smoking Tobacco: Every Day Cigarettes 0.5 Alcohol Habits Answer Date Recorded How [...] on filedocumented in this encounter Care Teams Grinder Set Up Operator Surface Relationship Specialty Start Date End Date Jenifer Decker PA-C PCP - General Physician Machine Printer Hose 03/26/10 documented as of this encounter
--- OUTSIDE RECORDS SUMMARY | 2022-07-01 14:26 | XMS_ITS | Encounter Summary ---
:1950 Author Organization [facility] Address [facility] [place] [address] Care Team Providers Name Role Phone Unavailable Primary Care Provider Unavailable Reason for Visit Reason Onset Date Comments Patient Request 03/06/2009 Shingles Encounter Details Date Type Department Care Team Description 03/06/2009 Telephone [facility] Jenifer Decker Pati ent Request [facility] FREIDA (Shingles) [address] [place] [address] [address] [phone] [place] [address] Social History Tobacco Use Types Packs/Day Years [...] 10:35 AM CDT : 1950 PHONE #'s: [phone] (home) PRESENTING PROBLEM: Was Dx with Shingles [...] new Sx develop, call your PCP or [facility] as soon as possible. NOTES: [...]
--- OUTSIDE RECORDS SUMMARY | 2022-07-01 14:26 | XMS_ITS | Encounter Summary ---
:1950 Author Organization [facility] Address [facility] [place] [address] Care Team Providers Name Role Phone Unavailable Primary Care Provider Unavailable Reason for Visit Reason Comments Derm Problem Rash on abd and back Back Pain Encounter Details Date Type Department Care Team Description 03/05/2009 Office Visit [facility] Jenifer Decker Shin gles (Primary Dx) [facility] PA-C [address] [place] [address] [address] [phone] [place] [address] Social History Tobacco Use Types Packs/Day Years [...] 03/05/2009 3:00 PM CDT >> CINTHYA BAUTISTA Wed Mar 05, 2009 3:52 PM Body mass index [...]
--- OUTSIDE RECORDS SUMMARY | 2022-07-01 14:26 | XMS_ITS | Clinical Summary ---
:1950 Author Organization [facility] [place] [address] Care Team Providers Name Role Phone Rogers [...] (PRAVACHOL) 40 mg mouth at bedtime. tablet Daaqyrqgosq-Nqpuv-DQU- Take 1 tablet by 0 03/29/2019 Active [...] - Respiratory Rate 16 07/19/2017 1:13 PM NOTE SPECIALIST Oxygen Saturation 97% 03/29/2019 3:09 PM CDT Inhaled Oxygen Concentration - - Weight 71.6 kg (157 lb 12.8 oz) 03/29/2019 3:09 PM CDT Height 165 cm (5' 4.96) 07/19/2017 1:13 PM NOTE SPECIALIST Body Mass Index 26.29 07/19/2017 1:13 PM NOTE SPECIALIST Plan of Treatment Health Maintenance Due Date [...] Group MEDICARE PART B MEDICARE PART B [id number] 2016-Presen ATTN: CLAIMS - HB USE ONLY HB ONLY t [address] [place] [address] [facility] HPI-OPEN ACCESS [id number] Effective for [address] [place] [address] MEDICARE - PB MEDICARE PB [id number] 2016-Presen ATTN : CLAIMS USE ONLY ONLY t [address] [place] [address] BLUE CROSS BLUE CROSS OF [id number] 2018-Presen [address] [facility] [place] [address] Care Teams Wireline Supervisor Relationship Specialty Start Date End Date Rogers Ho, PANiyahC PCP - General Physician Manager Of Patient 06/20/17
--- OUTSIDE RECORDS SUMMARY | 2022-07-01 14:26 | XMS_ITS | Encounter Summary ---
:1950 Author Organization [facility] Address [address] [facility] [place] [address] Care Team Providers Name Role Phone Jenifer Decker PA-C Primary Care Provider Unavailable Reason for Referral Diagnostic Imaging Ultrasound (Routine) - Closed Specialty Diagnoses / Procedures Referred By Contact Refer red To Contact Radiology. Diagnoses PAD (peripheral artery disease) (H) [facility] Rh Ultrasound cc Procedures US ROSE Doppler with Exercise Bilateral [address] [place] [address] [place] [address] Fax: Referral ID Status Reason Start Date Expiration Date Visits Requ ested Visits Authorized [id number] Closed 05/14/2020 05/14/2021 1 1 Reason for Visit Reason Onset Date Comments Referral 05/12/2020 Encounter Details Date Type Department Care Team Description 05/12/[address] [facility] Vascular Clinic Nurse, [facility] Referral [place] [address] [place] [address] Social History Tobacco Use Types Packs/Day [...] appointment on 05/29/[address] Valiente at [facility]. Judy Amaya Curator Of Collections [facility] Office: [phone] Telephone Encounter - Jenifer Arzate - 05/14/2020 11:27 AM CDT LM for patient to call us back. Pt needs to be scheduled for ROSE with exercise and in person consultwith Vascular Medicine. Telephone Encounter - Emely Sapp RN - 05/12/2020 3:17 PM CDT Referral received via fax on 05/12/20. Pt referred to [facility] by Rogers Ho PA-C for PAD. Bilateral lower extremity US report accompanied fax. This was completed at [facility]. 1. No elevated peak systolic [...] an appointment at next available. LAMONT Chavez, RN-[facility] documented in this encounter Plan of Treatment [...] terioles documented in this encounter Care Teams R&D Engineer Relationship Specialty Start Date End Date Jenifer Decker PA-C PCP - General Physician Hide House Supervisor 03/26/10 documented as of this encounter
--- OUTSIDE RECORDS SUMMARY | 2022-07-01 14:26 | XMS_ITS | Encounter Summary ---
:1950 Author Organization [place] Address [facility] [place] [address] Care Team Providers Name Role Phone Jenifer [...] on filedocumented in this encounter Care Teams Director Behavioral Health Relationship Specialty Start Date End Date Jenifer Decker PA-C PCP - General Physician Mechanical Planner 03/26/10 documented as of this encounter
--- OUTSIDE RECORDS SUMMARY | 2022-07-01 14:26 | XMS_ITS | Clinical Summary ---
:1950 Author Organization [facility] Address [facility] [place] [address] Care Team Providers Name Role Phone Jenifer [...] (Cologuard) 1950 FIT 1950 FLEX SIG 1950 HEPATITIS B IMMUNIZATION (1 1950 of 3 - 3-dose series) MAMMO SCREENING 1950 COVID-19 Vaccine (#1) 1950 COLONOSCOPY 1960 COLORECTAL CANCER SCREENING 1960 HEPATITIS C SCREENING 1968 DTAP/TDAP/TD IMMUNIZATION (1 1975 - Tdap) LUNG CANCER SCREENING 2000 ZOSTER IMMUNIZATION (1 of 2) 2000 MEDICARE ANNUAL WELLNESS 2015 VISIT Pneumococcal Vaccine: 65+ 03/21/2019 03/21/2018 Years (2 - PPSV23 if available, else PCV20) FALL RISK ASSESSMENT 05/29/2021 05/29/2020 PHQ-2 (once per calendar 09/12/2021 year) INFLUENZA VACCINE (#1) 2022 07/04/2018, 07/18/2017 LIPID 04/29/2025 04/29/2020 IPV IMMUNIZATION Aged Out No longer eligi ble based on patient's age to complete this to pic MENINGITIS IMMUNIZATION Aged Out No longe r eligible based on patient's age to complete this to pic Insurance Payer Benefit Plan / Subscriber ID Effective Phone Address T ype Group Dates [place] [id number] 2018-Prese [phone] [address] [address] [address] [place] [address] MEDICARE MEDICARE [id number] 2019-Prese [phone] ATTN MICHAEL DE Medicare nt 40 [address] [place] [address] JERICA LAYTON Personal/Family Self [birth year] [address] (Home) [place] [address] Care Teams Steward/Stewardess Second Class Relationship Specialty Start Date End Date Jenifer Decker PA-C PCP - General Physician Merchandise Marker 03/26/10
--- OUTSIDE RECORDS SUMMARY | 2022-07-01 14:26 | XMS_ITS | Encounter Summary ---
:1950 Author Organization [place] Address [address] [facility] [place] [address] Care Team Providers Name Role Phone Jenifer Decker PA-C Primary Care Provider Unavailable Reason for Referral Diagnostic Imaging Ultrasound (Routine) - Closed Specialty Diagnoses / Procedures Referred By Contact Refer red To Contact Radiology. Diagnoses PAD (peripheral artery disease) (H) [facility] Rh Ultrasound Rscc Procedures US ROSE Doppler with Exercise Bilateral [address] [address] [address] [place] [address] [place] [address] Fax: Referral ID Status Reason Start Date Expiration Date Visits Requ ested Visits Authorized [id number] Closed 05/14/2020 05/14/2021 1 1 Reason for Visit Diagnostic Imaging Ultrasound (Routine) - Closed Specialty Diagnoses / Procedures Referred By Contact Refer red To Contact Radiology. Diagnoses PAD (peripheral artery disease) (H) [facility] Rh Ultrasound Rscc Procedures US ROSE Doppler with Exercise Bilateral [address] [address] [address] [place] [address] [place] [address] Fax: Referral ID Status Reason Start Date Expiration Date Visits Requ ested Visits Authorized [id number] Closed 05/14/2020 05/14/2021 1 1 Encounter Details Date Type Department Care Team Description 05/28/2020 Hospital Encounter [facility] Brandon Valiente PAD (peripheral [place] Specialty MD Omero artery disease) (H) [facility] [address] [address] [place] [address] [address] [place] [address] Social History Tobacco Use Types [...] suspect arterial insufficiency as cause of pain. RA BRADFORD MD Narrative 05/28/2020 3:53 PM CDT [...] and 1.1 on the left. Procedure Note Ra Bradford MD - 05/28/2020 ULTRASOUND ROSE DOPPLER [...] suspect arterial insufficiency as cause of pain. RA BRADFORD MD Fuad Valiente MD IMG US ORDERABLES documented in this encounter Visit Diagnoses Diagnosis PAD (peripheral artery disease) (H) Unspecified disorders of arteries and ar terioles documented in this encounter Care Teams Toolman Relationship Specialty Start Date End Date Jenifer Decker PA-C PCP - General Physician Consulting Engineer 03/26/10 documented as of this encounter
--- OUTSIDE RECORDS SUMMARY | 2022-07-01 14:26 | XMS_ITS | Encounter Summary ---
:1950 Author Organization [place] Address [facility] [place] [address] Care Team Providers Name Role Phone Jenifer [...] on filedocumented in this encounter Care Teams Marketing Recruiter Relationship Specialty Start Date End Date Jenifer Decker PA-C PCP - General Physician Classification Clerk 03/26/10 documented as of this encounter
--- NOTE | 2022-07-01 14:30 | CRLHL7_ITS ---
For Patients: As a result of the Century Cures Act, medical imaging exams and procedure reports are released immediately into your electronic medical record. You may view this report before your referring provider. If you have questions, please contact your health care provider. CLINICAL INFORMATION: Claudication. TECHNIQUE: Contrast enhanced MR Angiogram of the pelvis with bilateral lower extremity runoff. Standard MR sequences were performed including Time Resolved MR Angiography (TR-MRA). 3D and/or MIP angiographic reconstructions were performed on a separate independent workstation with concurrent supervision of the image post processing in order to further delineate the angiographic anatomy for accurate interpretation. Contrast: 40 mL Dotarem was injected intravenously without any adverse events. COMPARISON: Lower extremity ultrasound 06/01/2022. FINDINGS: MR Angiography Findings: Abdominal aorta: Normal in course and caliber. No aneurysm or dissection. RIGHT lower extremity: : Common iliac artery: Patent. Internal iliac artery: Patent. External iliac artery: Patent. Common femoral artery: Patent. Deep femoral artery: Patent. Superficial femoral artery: Patent. Popliteal artery: Patent. Anterior tibial artery: Patent. Peroneal artery: Patent. Posterior tibial artery: Patent. LEFT lower extremity: : Common iliac artery: Patent. Internal iliac artery: Patent. External iliac artery: Patent. Common femoral artery: Patent. Deep femoral artery: Patent. Superficial femoral artery: Patent. Popliteal artery: Patent. Anterior tibial artery: Patent. Peroneal artery: Patent. Posterior tibial artery: Scattered mid and distal disease but otherwise patent. Visceral Findings: Limited evaluation on this nondedicated study. Visualized portions of the kidneys are unremarkable. Visualized bowel is normal caliber without evidence of obstruction. IMPRESSION: 1. Bilateral lower extremity arterial systems are patent without evidence of hemodynamically significant stenoses or occlusions. 2. Scattered disease in the mid and distal left posterior tibial artery. Three-vessel runoff is otherwise grossly preserved bilaterally. Dictated by Henrry Alvarenga MD @ 07/02/2022 2:59:28 PM (Electronically Signed)
== END 2022-07-01 14:15 | disposition home or self-care (01) ==
LOC: MRI 14:14
PROVIDERS: PCP Physician Assistant Medical; Visit Provider Psychiatry & Neurology Neurology
DX: G62.9 Polyneuropathy, unspecified (principal); I77.89 Other specified disorders of arteries and arterioles; M25.559 Pain in unspecified hip; M79.673 Pain in unspecified foot; R25.1 Tremor, unspecified; R51.9 Headache, unspecified; S16.1XXA Strain of muscle, fascia and tendon at neck level, initial encounter; S39.012A Strain of muscle, fascia and tendon of lower back, initial encounter; S49.90XA Unspecified injury of shoulder and upper arm, unspecified arm, initial encounter; V89.2XXA Person injured in unspecified motor-vehicle accident, traffic, initial encounter
CPT/HCPCS: 72198; 73725; A9575

== ENCOUNTER 2022-10-30 16:08 | Emergency (ER) | payer MEDICARE, BC, SELFPAY ==
[2022-10-30 16:16] VITALS: BP 101/63; PULSE 83; RESP 18; TEMP 35.9; O2SAT 98; BMI 29.1
--- NOTE | 2022-10-30 16:33 | ED_ITS ---
HPI - General Adult General Chief complaint: Extremity Pain/Injury, Lower Stated complaint: Cant Walk on Leg Time Seen by Provider: 10/30/22 16:22 Source: patient Mode of arrival: ambulatory Limitations: no limitations History of Present Illness HPI narrative: 72-year-old female coming in today complaining of anterior left thigh pain. This pain started 2 days ago. She denies any trauma, tripping or falling. She denies ever having pain like this before. She states that it feels like on the electric shock going down her anterior thigh. Does not go past the knee. She denies any lateral pain or posterior pain. She has no low back pain. She has no saddle anesthesia. She has no loss of bowel or bladder function. She has no systemic symptoms such as fevers, chills, nausea, vomiting. She does have a hi story of peripheral neuropathy, Parkinson's disease and renal failure. She denies any diabetes of those she does state that she is prediabetic. She denies any new focal neurologic deficits. Any movement of that leg makes the pain worse. Sitting still makes it better. She has no difficulty sleeping. Related Data Home Medications Medication Instructions Recorded Confirmed aspirin 81 mg tablet,delayed 81 mg PO .Bedtime 05/20/22 10/30/22 release bimatoprost 0.01 % eye drops 1 drp ophthalmic (eye) DAILY 05/20/22 10/30/22 carbidopa 25 mg-levodopa 100 mg 1 tab PO TID 05/20/22 10/30/22 tablet loperamide 2 mg capsule 2 mg PO DAILY 05/20/22 10/30/22 mecobalamin (vitamin B12) 5,000 5,000 tab PO DAILY 05/20/22 10/30/22 mcg disintegrating tablet gabapentin 300 mg capsule 600 mg PO HS 06/02/22 10/30/22 cetirizine 10 mg capsule (All Day 20 mg PO BID PRN 10/12/22 10/30/22 Allergy (cetirizine)) Previous Rx's Medication Instructions Recorded folic acid 1 mg tablet 1 mg PO QDAY #90 tabs 05/25/22 mupirocin 2 % topical ointment 1 applic topical BID #15 grams 06/02/22 lisinopril 40 mg tablet 40 mg PO DAILY #90 tabs 06/10/22 pravastatin 40 mg tablet 40 mg PO .Bedtime #90 tabs 06/10/22 meloxicam 15 mg tablet 15 mg PO DAILY #90 tabs 07/08/22 duloxetine 60 mg capsule,delayed 60 mg PO QDAY #90 caps 10/12/22 release bupropion HCl 300 mg 24 hr tablet, See Rx Instructions .Route 10/14/22 extended release .COMPLEX #90 tabs chlorthalidone 25 mg tablet 12.5 mg PO QDAY #45 tabs 10/14/22 omeprazole 40 mg capsule,delayed 40 mg PO DAILY #90 caps 10/14/22 release methylprednisolone 4 mg tablets in See Rx Instructions PO .COMPLEX 10/30/22 a dose pack (Medrol (Liam)) #21 ea Allergies Allergy/AdvReac Type Severity Reaction Status Date / Time No Known Allergies Allergy Unknown Verified 10/12/22 12:35 Review of Systems Status of ROS: Reports: 10 or more systems reviewed and unremarkable except as noted in History and below PFSH PFSH Surgical History History of colonoscopy History of finger joint replacement History of laminectomy History of rotator cuff surgery History of surgical procedure Status post appendectomy Family History Mother Family history of stroke or transient ischemic attack in mother Social History Narrative: Does not use illicit drugs Non-smoker Smoking Status: Never smoker Do you use any of these nicotine containing products: None Second hand tobacco smoke exposure: Yes How often do you have a drink containing alcohol: 4 or more times a week How many standard drinks containing alcohol do you have on a typical day: 1 or 2 How often do you have six or more drinks on one occasion: Never AUDIT-C Alcohol total score: 4 Non-prescribed substance use: denies use Little interest or pleasure in doing things: not at all Feeling down, depressed, or hopeless: not at all Exam Narrative: Exam Narrative: Well-nourished well-developed patient in no acute distress. She has an essential tremor. Alert and oriented x3. Answers questions appropriately. Mood and affect are appropriate. Thoughts are goal oriented and rational. No tangential or magical thinking noted. Patient speaks in full sentences without needing to catch her breath. HEENT: Normocephalic atraumatic. Pupils are equally round reactive to light. Extraocular muscles are intact. Conjunctivae are moist without any icterus noted. Abdomen: Soft and nontender nondistended with normal bowel sounds. Extremities: Bilateral lower extremities are without edema. Normal DP and PT pulses. Thighs have normal appearance. She has no tenderness over the greater trochanter. She has no low back tenderness with palpation. She has good range of motion at the hip and knee, however any movement to the leg causes a zinging sensation down the anterior thigh. Skin: Well perfused without any obvious rashes. Strength is 5/5 of the lower extremities, at both proximal and distal muscle groups. Const: Vital Signs, click to edit/add: Vital Signs - 24 hr 10/30/22 16:16 Temperature 96.6 F L Pulse Rate [Pulse Oximeter] 83 Respiratory Rate 18 Blood Pressure [Ri ght Upper Arm] 101/63 Pulse Oximetry 98 Oxygen Delivery Me thod Room Air Course Vital Signs Vital signs: Initial Vital Signs Temperature 96.6 F L 10/30/22 16:16 Temperature Source Temporal Artery Scan 10/30/22 16:16 Pulse Rate 83 10/30/22 16:16 Pulse Rhythm 10/30/22 16:16 Respiratory Rate 18 10/30/22 16:16 Blood Pressure 101/63 10/30/22 16:16 Blood Pressure Mean 75 10/30/22 16:16 Blood Pressure Position Semi-Fowlers 10/30/22 16:16 Pulse Oximetry 98 10/30/22 16:16 Oxygen Delivery Method 10/30/22 16:16 Vital Signs Temperature 96.6 F L 10/30/22 16:16 Pulse Rate 83 10/30/22 16:16 Respiratory Rate 18 10/30/22 16:16 Blood Pressure 101/63 10/30/22 16:16 Pulse Oximetry 98 10/30/22 16:16 Oxygen Delivery Method 10/30/22 16:16 Temperature 96.6 F L 10/30/22 16:16 Pulse Rate 83 10/30/22 16:16 Respiratory Rate 18 10/30/22 16:16 Blood Pressure 101/63 10/30/22 16:16 Pulse Oximetry 98 10/30/22 16:16 Oxygen Delivery Method 10/30/22 16:16 Medical Decision Making MDM Narrative Medical decision making narrative: 72-year-old female with anterior thigh pain consistent with a femoral nerve or lateral femoral cutaneous nerve impingement. At this time will treat with a Medrol Dosepak. We discussed tight fitting clothing and belts. If this is not improving over the next several weeks recommend follow-up with neurologist. 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 The sensation can last several weeks before gets better, however hopefully it gets a little bit better over the next several days with steroid therapy. If you feel like you are not improving over the next several weeks follow-up with your primary care provider or your neurologist. If you develop worsening symptoms which include fever, vomiting, nausea or weakness of that leg you should be seen right away. Prescriptions: New methylprednisolone [Medrol (Liam)] 4 mg tablets,dose pack See Rx Instructions .ROUTE .COMPLEX Qty: 21 0RF Rx Instructions: orally per package directions No Action mupirocin 2 % ointment 1 applic topical BID Qty: 15 0RF Rx Instructions: Apply twice daily to affected area in nostril for 2 weeks loperamide 2 mg capsule 2 mg PO DAILY bimatoprost 0.01 % drops 1 drp ophthalmic (eye) DAILY aspirin 81 mg tablet,delayed release (DR/EC) 81 mg PO .Bedtime carbidopa-levodopa 25-100 mg tablet 1 tab PO TID mecobalamin (vitamin B12) 5,000 mcg tablet,disintegrating 5,000 tab PO DAILY gabapentin 300 mg capsule 600 mg PO HS All Day Allergy (cetirizine) 10 mg capsule 20 mg PO BID PRN duloxetine 60 mg capsule,delayed release(DR/EC) 60 mg PO QDAY Qty: 90 3RF folic acid 1 mg tablet 1 mg PO QDAY Qty: 90 2RF lisinopril 40 mg tablet 40 mg PO DAILY Qty: 90 3RF pravastatin 40 mg tablet 40 mg PO .Bedtime Qty: 90 3RF meloxicam 15 mg tablet 15 mg PO DAILY Qty: 90 3RF chlorthalidone 25 mg tablet 12.5 mg PO QDAY Qty: 45 3RF omeprazole 40 mg capsule,delayed release(DR/EC) 40 mg PO DAILY Qty: 90 3RF bupropion HCl 300 mg tablet extended release 24 hr See Rx Instructions .ROUTE .COMPLEX Qty: 90 3RF Dose Instruction: TAKE 1 TABLET EVERY DAY Rx Instructions: TAKE 1 TABLET EVERY DAY Follow Up/Referrals: Rogers Ho PA-C [Primary Care Provider] - Stand Alone Forms: [facility] Info Instructions
== END 2022-10-30 17:40 | disposition home or self-care (01) ==
PROVIDERS: Emergency Provider Family Medicine; PCP Physician Assistant Medical
DX: G57.22 Lesion of femoral nerve, left lower limb (principal)
CPT/HCPCS: 99283; 99284

== ENCOUNTER 2023-03-17 14:30 | Outpatient (RCR) | payer MEDICARE, BC, SELFPAY ==
--- NOTE | 2023-01-25 15:43 | PT.OPE ---
PT [place] Outpatient Eval PT [facility] Outpatient Eval Start: 01/25/23 08:10 Freq: Status: Active Protocol: Document 01/25/23 14:38 LSL (Rec: 01/25/23 15:19 LSL [id number]) E-signed By Christina Blount PT Physical Therapy Outpatient Evaluation Insurance Information Recert Due Date 04/22/23 Insurance Name Medicare B Medical Diagnosis Closed R hip fracture, L partial HR Treating Diagnosis weakness, pain, impaired gait, impaired balance Referring MD Ho Subjective Subjective Pt. reports her L leg was broken for 5 weeks before being diagnosed and then spent 2 weeks in SNF before having home health for a couple weeks . HEP supine hip abductor stretch, LAQ, heel slides sitting and SLR. She is using the walker for longer distances and the SPC for short distances and using SPC in house. No stairs to navigate regularly at home, but does have a downstairs. To be able to get back to walking normally and have improved balance. Pain is a constant ache that worsens slightly when I stand up. Mini posterior approach Pain Comments 12/20 Date of Last Physician Visit 12/30/22 Date of Surgery (If applicable) 12/02/22 Current Work Status Retired Precautions Treatment Precautions/Contraindications Parkinson's, full spinal fusion T-L Therapy Limitations/Systems Review Other Medical Problem Objective Range of Motion AROM R L extension -35 -45 abduction 35 17 IR 20 25 ER 32 34 Knee R lacks 12 degrees extension and L lacks 21 degrees extension Strength Quads 5/5 HS 5/5 hip flexion 5/5 IR/ER 5/5 hip extension and abduction 3/ 5 in available ROM Swelling mild edema about scar Palpation ITB, TFL, adductors, glut med all tender to palpation, taught around scar Balance & Gait decreased stance L with increased knee flexion without AD, with SPC variable step to and step through gait with intermittently properly coordinated use of AD, limited foot clearance or heel toe gait B Posture flexed trunk, flexed knees Assessment Assessment/Impression Pt. is a 72 y/o woman who presents with impaired gait and balance due to weakness s/ p partial L hip replacement after having a fractured hip for 5 weeks. She initially went to a SNF followed by home health and is now ready to begin outpatient PT to improve strength, balance and gait. Her posture is predisposed to flexion at the hips and knees due to spinal fusion and exacerbated by Parkinson's disease. Treatment will consist of therex, NM re-ed, manual therapy and gait training to effect most functional outcome. Treatment may take longer due to comorbidities. Primary Functional Limitations walking, running errands Plan of Care Rehabilitation Potential Good Physical Therapy Goals SHORT TERM GOALS: (4 weeks) 1. Pt. able to ambulate 100 ft . with SPC. 2. Pt. to have L knee extension to that of right or better. 3. Pt. able to get up off a surface that puts her at 90/90 . SHELTER GOALS: (8+ weeks) 1. Pt. able to walk independently for 20 minutes. 2. Pt. able to participate in BIG and LOUD program. 3. Pt. able to safely go up/ down her stairs to the basement. Coordination/Communication With Referral Source Treatment Plan/Direct Interventions Gait Training,Manual Therapy, Neuromuscular Re-ed,Self-Care/ Home Management,Therapeutic Exercises Evaluation Billing Untimed Code Treatment Minutes 35 Complexity Low Certification Information Initial Certification Date 01/25/23 Ending Certification Date 04/22/23 Provider Signature Shows Agreement With POC & Medical Necessity Physician Signature & Date Requested Please Sign/Date Here Physician Comment/Change : Physician NPI Number #
== END 2023-04-21 15:20 | disposition home or self-care (01) ==
PROVIDERS: PCP Physician Assistant Medical; Visit Provider Physician Assistant Medical
DX: S72.001D Fracture of unspecified part of neck of right femur, subsequent encounter for closed fracture with routine healing (principal); Z51.89 Encounter for other specified aftercare
CPT/HCPCS: 97110; 97140; 97161; 97530

== ENCOUNTER 2023-07-04 13:45 | Outpatient (RCR) | payer MEDICARE, BC, SELFPAY ==
--- NOTE | 2023-05-04 15:06 | PT.OPE ---
PT [facility] Outpatient Eval PT [facility] Outpatient Eval Start: 05/03/23 14:49 Freq: Status: Active Protocol: Document 05/04/23 10:44 MAURYT (Rec: 05/04/23 14:45 MAURYT [id number]) E-signed By Eliel Melgar PT Physical Therapy Outpatient Evaluation Insurance Information Recert Due Date 08/02/23 Insurance Name Medicare B Medical Diagnosis G20 - Parkinson's Disease Treating Diagnosis R26.1 - unsteady gait R26.81 - unsteadiness on feet Referring Rogers Bailey Subjective Subjective Pt presents for LSVT BIG evaluation. Pt is taking levodopa daily and this has been keeping her symptoms well -managed. Feels her symptoms that she has been noticing may be due to stress at this time . Notes that other people notice her tremors more than she does. Has had some dyskinesia in her R arm over the past few months - notes that her hand will just waved out to the side occasionally. Pt is noticing that her mobility is gradually getting worse. Has been having to use her walker more and more, prefers to use a cane if she can. Pt reports her balance is not very good. Turning in the bathroom causes her to feel unstable. Pt lives in a condo with her Maximo. No steps to enter. Pt does have steps down to her basement, but doesn't usually go downstairs. Going from carpet to hardwood and vice/versa is challenging for her with her walker. Pt sits in a chair in her tub showering when bathing . Grab bar is in the shower. Raised toilet seat with no grab bars. Pts bedrooms are carpet, other floors are hard wood. Very few rugs in her home. Pt drives herself still. No issues with driving. Pt has T1-L5 spinal fusion ( 2009). Pt denies back pain but her neck has been bothering her the past few years. Date of Last Physician Visit 12/31/22 Current Work Status Retired Preferred Name Pat Precautions Therapy Limitations/Systems Review Not Limited Objective Range of Motion LE AROM WNL Thoracic and lumbar spine - T1 -L5 fusion Strength R hip flexors: 5/5 MMT R quad: 5/5 MMT R hamstrin/5 MMT R ankle DF: R ankle DF: 4+/5 MMT L hip flexors: 4/5 MMT L quad: 4+/5 MMT L hamstrin+/5 MMT L ankle DF: 4/5 MMT Balance & Gait 2 minute walk: 321 ft w/ 4WW Posture Fair, slight forward rounding of shoulders Other/Pertinent Objective 5 Times Xry-co-ktxlk: 19 seconds 30-second STS: 9 reps TU.23 seconds TUG AD (4WW): 16.31 seconds Cognitive Tu.18 seconds Rapid Alternating Movements: - Finger to nose in sitting, decreased coordination and accuracy with increased speed; no change in accuracy with eyes closed. - Alternating Ankle PF/DF, normal Functional Test Performed & Score FCTs: handwriting, taking a sip of water from a cup Assessment Assessment/Impression Estelle is a very pleasant 72 year old female who presents to our clinic today for LSVT BIG evaluation. She has already been scheduled for treatment and is eager to start next week. Testing reveals deficits in pts LE strength - deficits greater on L following L JACQUI earlier this year. Pts functional strength and transfers are also limited at this time and show room for improvement. Today, Pat and I reviewed foundations of the LSVT BIG program as well as expected participation and potential outcomes. She is hoping to improve her mobility and walk with her walker less and regain confidence with her cane. Pt does have a T1-L5 spinal fusion that was completed in 2009. She does not have much back pain but is very limited in her motion due to this hardware. The nature of the pts condition was explained and all questions were answered to the pts satisfaction. Skilled PT services are medically necessary to address deficits and return patient to highest level of function. Recommend physical therapy sessions 4/ week for 4-12 weeks. Pt agrees with this plan. Printout of HEP was given for I completion and pt gives verbal understanding of each exercise . Primary Functional Limitations Walking, transfers Plan of Care Rehabilitation Potential Good Physical Therapy Goals Goals to be met in 4 weeks at discharge: 1. Patient will be able to get up from various surfaces and heights in her home confidently on 1st attempt 90% of the time to allow for safe access of home environment. 2. Patient will improve TUG scores to 13 seconds or less showing decreased risk of falls and improved stability with functional mobility. 3. Patient will be able to write her checks with improved legibility 50% of the time, reported by patient or spouse in order to decrease caregiver burden. 5. Patient will improve 5 Times Kbm-bg-Jctgw time to 12 seconds or less to show decreased risk of falls and improved functional strength and endurance for transfers. 6. Patient will ambulate with improved stride length and arm swing to allow for proper coordination of appendages and reduce risk of falls Treatment Plan/Direct Interventions Gait Training,Neuromuscular Re -ed,Therapeutic Activities, Therapeutic Exercises Frequency/Duration LSVT BIG protocol: 4/week for 4 weeks - 16 treatment sessions Patient Will Be Discharged From Therapy Completion of LTG(s),Skills Plateau,Independent w/HEP, Independently Progressing Evaluation Billing Untimed Code Treatment Minutes 75 PT Eval No Charge No Complexity Low Certification Information Initial Certification Date 05/04/23 Ending Certification Date 08/02/23 Provider Signature Shows Agreement With POC & Medical Necessity Physician Signature & Date Requested Please Sign/Date Here Physician Comment/Change : Physician NPI Number #
== END 2023-08-12 11:39 | disposition home or self-care (01) ==
PROVIDERS: PCP Physician Assistant Medical; Visit Provider Physician Assistant Medical
DX: R26.89 Other abnormalities of gait and mobility (principal); R26.81 Unsteadiness on feet; Z51.89 Encounter for other specified aftercare
CPT/HCPCS: 97112; 97116; 97140; 97161; 97530

== ENCOUNTER 2023-07-11 11:10 | Outpatient (CLI) | payer MEDICARE, BC, SELFPAY ==
--- OUTSIDE RECORDS SUMMARY | 2023-07-14 00:23 | XMS_ITS | Continuity of Care Document ---
Author Name Unknown Organization [facility] Address [address] [place] [address] Phone Care Team Providers Care Yarn Wrapper Name Role Phone Unavailable Unavailable Unavailable Allergies, Adverse Reactions, Alerts Substance Reaction Status Criticality No Known Allergies Active No Inform ation Procedures Procedure Date Office/Outpatient Visit,[facility] 2019 Advance Directives Directive Yes / No Effective Date File Name No Information Encounters Encounter Description Practice Location Reason(s) For Visit Diagnoses Date Provider Providers Copied on Encounter [facility], [address], [place], [place], [id number], [place] tel:[phone] [facility] No Information No Information Office/Outpat ient Visit,[facility], [address], [place], [place], [id number], [place] tel:[phone] [facility] Arthrodesis statusOther spondylosis, cervical region 0 Garfield Lara. [facility], [address] [place] [address], [place], [address], [place]. tel:[phone] Referring Provider: Rogers Ho [facility] [address] [facility], [place], [address]. tel:[phone] Family History Family Member Type Diagnosis Age At Onset No Information Payers Payer name Insurance type Covered democrat ID Authoriza tion(s) No Information Social History Type Description Quantity Date Captured [...]
--- OUTSIDE RECORDS SUMMARY | 2023-07-14 00:23 | XMS_ITS | Continuity of Care Document ---
Author Name Unknown Organization [facility] enter Address [address] [place] [address] [address] [place] [address] Phone Care Team Providers Care Class A Lineman Name Role Phone [facility] Unavailable Unava ilable Procedures Procedure [...] Diagnoses Date Provider Providers Copied on Encounter [facility], [address] [place] [address] [address] [facility] [address], [place], [id number], tel:[phone] [facility] No Information [facility]. [address] [place] [address] [place] [address], [id number], . tel:[phone] Referring Provider: Anny Levy, [address] [facility] [place], [address] . tel:[phone] [facility], [address] [place] [address], [id number], tel:[phone] [place] [address] No Information 2 [facility]. [address] [place] [address], [id number], . tel:[phone] Referring Provider: Anny Levy[facility] [address] [facility] [place], [address] . tel:[phone] [facility], [address] [place] [address], [id number], tel:[phone] [place] [address] No Information 2 [facility]. [address] [place] [address], [id number], . tel:[phone] Referring Provider: Anny Levy, [address] [facility] [place], [address] . tel:[phone] [facility], [address] [place] [address], [id number], tel:[phone] [place] [address] No Information 2 [facility]. [address] [place] [address], [id number], . tel:[phone] Referring Provider: Anny Levy, [address] [place], [address] . tel:[phone] Family History Family Member Type Diagnosis Age At Onset No Information Payers Payer name Insurance type Covered libertarian ID Authorwendya pete(s) Medicare MB [id number] [facility] Senior Gold Supplement [id number] Social History Type Description Quantity Date Captured [...]
--- OUTSIDE RECORDS SUMMARY | 2023-07-14 00:25 | XMS_ITS | Patient Health Record ---
Author Name Unknown Organization [facility] ter Address [address] [place] [address] [place] [address] Care Team Providers Care Government Guard Name Role Phone AngKathleen webbhan Unavailable [phone] Evaristo Mullins Unavailable [phone] ALLERGIES No Known Allergies ENCOUNTERS from 1950 to 2023-07-14 Encounter Location Date Provider Diagnosis [address] [id number] 15 May, [address] [address] May, [address] [place] [address] Apr, [address] [address] Apr, Dano Lennon Parkinson disease G2 0 ; Vitamin B12 deficiency E53.8 ; Hypomagnesemia E83.42 ; Toxic effect of antimony or antimony compound, accidental or unintentional, initial encounter T56.891A and Toxic reaction to chemical, accidental or unintentional, initial encounter T65.91XA [address] [address] Apr, Evaristo Mullins Encounter for Medica re annual wellness exam Z00.[address] [address] Mar, Evaristo Mullins Parkinson disease G2 [address] [place] [address] Mar, Dano Lennon Parkinson disease G2 0 ; Hypertension I10 ; Gait abnormality R26.9 ; Parkinson disease G20 ; Hyperlipidemia E78.5 ; Acid reflux K21.9 ; Insomnia G47.00 ; Osteoarthritis M19.90 ; Depression F32.9 and Skin lesions L98.9 IMMUNIZATIONS Vaccine Route Administration Date Status Sars Covid19- 100 mcg/0.5mL IM Intramuscular December 06, 2020 Administered Sars Covid19- 100 mcg/0.5mL IM Intramuscular Nov 08 Administered SOCIAL HISTORY Tobacco Use: Social History Observation Description Date Details (start date - stop date) Former Smoker Sex Assigned At : Social History Observation Description Sex Assigned At Unknown alcohol screening_smart Question Answer Notes Did you have a drink contain ing alcohol in the past year? Yes Points 5 Interpretation Positive How often did you have six o r more drinks on one occasion in the past year? Never (0 points) How many drinks did you have on a typical day when you were drinking in the past year? 3 or 4 (1 point) How often did you have a dri nk containing alcohol in the past year? Four or more times a week (4 points) sexual hx Question Answer Notes Had sex in the past 12 months (vaginal, oral or anal) No Have you ever had an STD? No Tobacco assessment Question Answer Notes Are you a: former smoker How long has it been since you last smoked? >10 years REASON FOR REFERRAL No Information VITAL SIGNS from 1950 to 2023-07-14 Temperature 97.3 (t) degrees Fahrenheit 08 J 2020 Height 5' 5 in Apr, Weight 168.8 lbs Apr, BMI 28.09 kg/m2 Apr, Oximetry 95% Apr, Blood pressure systolic 145 mm Hg Apr, Blood pressure diastolic 82 mm Hg Apr, MEDICATIONS Medication SIG (Take, Route, Frequency, Duration) Notes Start Date End Date Status Imodium Active chlorthalidone 25 mg 1 tab(s) orally onc e a day for 30 day(s) Active Aspir 81 81 mg 1 tab(s) orally once a day for 30 day(s) Active lisinopril 40 mg 1 tab(s) orally once a day for 30 day(s) Active melatonin 5 mg 1 cap(s) orally once a day (at bedtime) Active magnesium gluconate 250 mg 1 tab(s) orally daily Active Cymbalta 60 mg 1 cap(s) orally once a day for 30 day(s) Active bupropion 150 mg 2 tabs orally daily for 90 days Active meloxicam 15 mg 1 tab(s) orally once a day for 30 day(s) Active Sinemet 25 mg-100 mg 1 tab(s) orally 3 t imes a day for 30 day(s) Active Calcium 600+D 600 mg-200 units 1 tab(s) orally daily Active pravastatin 40 mg 1 tab(s) orally once a day for 30 day(s) Active omeprazole 40 mg 1 cap(s) orally once a day for 30 day(s) Active Osteo Bi-Flex 1500 mg/1200 mg 2 tab BID Active RESULTS from 1950 to 2023-07-14 Component Value Reference Range Notes DD - URINE TOXIC METALS Pre/ Post x2 (ALL PREPAY $158) 6 ml min Reviewed date:04/14/2021 15:49:24 Interpretation:Abnormal Performing Lab:[facility], ,[id number] Notes/Report: PRE-PROVOCATIVE POST PROVACATIVE GPL-TOX (Toxic NON-METAL Kenyetta mical Profile)(1st morning urine-Freeze) Patient Prepay $235(14 day Turn Around Time) Reviewed date:04/15/2021 13:09:05 Interpretation:Abnormal Performing Lab:[facility], ,[id number] Notes/Report: GenaroT (Functional Acuity C ontrast) Reviewed date:04/05/2021 11:19:01 Interpretation:Abnormal Performing Lab:[facility], ,[id number] Notes/Report: Left A 6 Left B 4 Left C 2 Left D - Left E - Right A 6 RIght B 4 Right C 2 Right D - Right E - Q-VITAMIN B12/FOLATE, SERUM PANEL (ERIC VIAL)(126.42)([id number]) Reviewed date:04/05/2021 11:18:56 Interpretation:Low 235 Performing Lab:[facility], CB, [facility], [address] [place], [address] Alec Saini M.D., ,[id number] Notes/Report: FOLATE, SERUM 8.9 ng/mL VITAMIN B12 235 pg/mL 200-1100 pg/mL Q-CORTISOL, P.M.(3pm-5pm) (6 8.34) Reviewed date:04/05/2021 11:18:46 Interpretation:Normal Performing Lab:[facility], CB, [facility], [address] [place], [address] Alec Saini M.D., ,[id number] Notes/Report: CORTISOL, P.M. 4.6 mcg/dL Q-MAGNESIUM, RBC (28.08)(837 35) Reviewed date:04/05/2021 11:19:07 Interpretation:3.8 Performing Lab:[facility], [facility], [employer], [address] , [place], [address] Isidro Schneider M.D.,PhD, ,[id number] Notes/Report: MAGNESIUM, RBC 3.8 mg/dL 4.0-6.4 mg/dL Q-Female Hormone Panel(599.1 0)(2 RED TOP Transfer Tube need min of 3ml-REFRIG) Reviewed date:04/05/2021 11:19:19 Interpretation:DHEA 281 Performing Lab:[facility], , [facility], [address] [facility], [place], [address] Alec Saini M.D.~, Phone - [place], Director - [phone] [employer],, ,[id number] Notes/Report: ALBUMIN 4.4 g/dL 3.6-5.1 g/dL PROGESTERONE, LC/MS <0.1 ng/mL CORTISOL, TOTAL 4.6 mcg/dL DHEA SULFATE 281 mcg/dL 12-133 mcg/dL ESTRADIOL <15 pg/mL SEX HORMONE BINDING GLOBULIN 53 nmol/L 14-73 nmol/L TESTOSTERONE, TOTAL, MS 26 ng/dL 2-45 ng/dL TESTOSTERONE, FREE 2.3 pg/mL 0.2-3.7 pg/mL REASON FOR VISIT No Information MEDICAL (GENERAL) HISTORY Type Description Date Medical History GERD Medical History Depression/Anxiety Medical History Parkinson's Medical History Hyperlipidemia Medical History Hypertension Medical History Osteoarthritis in neck and back Medical History Insomnia Medical History glaucoma Surgical History scoliosis surgery 2010 Surgical History left 2nd mcp joint replacemenet x2 2008 Surgical History tonsilectomy Surgical History poplys in bladder Surgical History rotator cuff repair Surgical History appy 2020 Surgical History bilateral cataract removal Hospitalization History childbirth x3 MENTAL STATUS No Information ASSESSMENTS Encounter Date Diagnosis Assessment Notes Treatment Notes Treatment Clinical Notes Apr, Encounter for Medicare annual wellness exam (ICD-10 - Z00.00) Apr, Vitamin B12 deficiency (ICD-10 - E53.8) Apr, Parkinson disease (ICD-10 - G20) Apr, Hypomagnesemia (ICD-10 - E83.42) Apr, Toxic effect of antimony or antimony compound, accidental or unintentional, initial encounter (ICD-10 - T56.891A) Apr, Toxic reaction to chemical, accidental or unintentional, initial encounter (ICD-10 - T65.91XA) Apr, Other We discussed treatment options, she will try glutathione and N-acetylcysteine to help her of the toxicity, another option is chelation but it depends on what they want to do. We also discussed that chelation does not guarantee her Parkinson's, fatigue, or muscle weakness will improve however. She will start to take vitamin B12 1000 mcg for four weeks, then monthly thereafter, N-acetylcysteine 600 mg, and magnesium 200 mg BID for hypomagnesemia. She will bring back the information to her neurologist. She will follow up if she would like to do the chelation and we would be happy to help her. Patient verbalizes understanding and agrees with treatment plan today. Today I spent 30 minutes in regards to this visit. Today I prepared for the visit by reviewing her lab results, reviewed my previous visit with me, counseled the patient (and ) about her medical issues, ordered medications, and documented clinical information into the EMR. She could have a Vitamin D test. We talked about it but never got her over to lab to have it tested. Mar, Parkinson disease (ICD-10 - G20) Mar, Parkinson disease (ICD-10 - G20) FACT test showed poor response. Consider ATP Fuel. 10 caps daily x 30 days then 5 caps daily thereafter is my suggestion. We will call her or mail her results with this suggestion included. Talked to Dr Mullins about her case and labs to suggest drawing on her that would be pertinent to Parkinson's. Mar, Hypertension (ICD-10 - I10) Mar, Gait abnormality (ICD-10 - R26.9) Mar, Parkinson disease (ICD-10 - G20) FACT test showed poor response. Consider ATP Fuel. 10 caps daily x 30 days then 5 caps daily thereafter is my suggestion. We will call her or mail her results with this suggestion included. Talked to Dr Mullins about her case and labs to suggest drawing on her that would be pertinent to Parkinson's. Mar, Hyperlipidemia (ICD-10 - E78.5) Mar, Acid reflux (ICD-10 - K21.9) Mar, Insomnia (ICD-10 - G47.00) Mar, Osteoarthritis (ICD-10 - M19.90) Mar, Depression (ICD-10 - F32.9) Mar, Skin lesions (ICD-10 - L98.9) suggested cortisone cream prn PLAN OF TREATMENT Treatment Notes Assessment Notes Clinical Notes Parkinson disease FACT test showed poo r response. Consider ATP Fuel. 10 caps daily x 30 days then 5 caps daily thereafter is my suggestion. We will call her or mail her results with this suggestion included. Talked to Dr Mullins about her case and labs to suggest drawing on her that would be pertinent to Parkinson's. Parkinson disease FACT test showed poo r response. Consider ATP Fuel. 10 caps daily x 30 days then 5 caps daily thereafter is my suggestion. We will call her or mail her results with this suggestion included. Talked to Dr Mullins about her case and labs to suggest drawing on her that would be pertinent to Parkinson's. Skin lesions suggested cortisone cream prn Insurance Providers Payer Name Payer Address Payer Phone Insured Name Patient Relationship to Insured Coverage Start Date Coverage End Date Subscriber Number Group Number Medicare [employer] [address] [place] [phone] Barney Layton tti Self - patient is the insured [id number] [facility] [address] [address] [facility] [address] [phone] Barney Layton tti Self - patient is the insured [id number]
== END 2023-07-11 11:11 | disposition home or self-care (01) ==
LOC: NFLDREF 07-14 00:19
PROVIDERS: PCP Physician Assistant Medical; Referring Provider Physician Assistant Medical; Visit Provider Physician Assistant Medical
DX: Z00.00 Encounter for general adult medical examination without abnormal findings (principal); E78.2 Mixed hyperlipidemia; I10 Essential (primary) hypertension; N18.31 Chronic kidney disease, stage 3a; R73.03 Prediabetes
CPT/HCPCS: 80053; 80061; 82607; 84443

== ENCOUNTER 2023-10-20 13:39 | Outpatient (CLI) | payer MEDICARE, BC, SELFPAY ==
--- NOTE | 2023-10-20 13:40 | CRLHL7_ITS ---
For Patients: As a result of the Century Cures Act, medical imaging exams and procedure reports are released immediately into your electronic medical record. You may view this report before your referring provider. If you have questions, please contact your health care provider. BILATERAL SCREENING MAMMOGRAM WITH COMPUTER-AIDED DETECTION AND TOMOSYNTHESIS TECHNIQUE: CC and MLO views were obtained. These mammographic images have been obtained using full-field digital technique. These mammographic images were interpreted with the benefit of computer-aided detection. Breast Tomosynthesis was used in this interpretation. COMPARISON FILM: 07/16/21, 04/26/19, 04/03/18. FINDINGS: There are scattered areas of fibroglandular density. IMPRESSION: There is no radiographic evidence for malignancy. ASSESSMENT: BI-RADS Category 1: Negative RECOMMENDATION: Routine screening mammogram in 1 year. A lay language report of this examination will be provided to the patient. Rei Ulloa M.D. Diagnostic Radiologist [email or web address] SP/Dictated by: Rei Ulloa MD @ 10/21/2023 8:18:00 AM (Electronically Signed)
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
--- OUTSIDE RECORDS SUMMARY | 2023-10-20 13:45 | XMS_ITS | Referral Summary ---
Author Name Unknown Organization [facility] Address [address] [place] [address] Care Team Providers Care Cylinder Machine Operator Pulp Drier Name Role Phone Unavailable Primary Care Provider Unavailabl e Source Comments Patient records contain information from all sites at [facility]. For routine questions regarding patient records, call [phone] during business hours, M-F 8:00 AM - 5:00 PM Central Time. Record requests for emergency care only can be directed to [phone] at any time.[facility] Medications Medication Sig Dispensed Refills Start Date End Date Status aspirin [address] tablet Take 81 mg by mouth daily. 0 06/22/2017 Active lisinopriL (PRINIVIL,ZESTRIL) 40 mg tablet Take 40 mg by mouth daily. 0 06/22/2017 Active pravastatin (PRAVACHOL) 40 mg tablet Take 40 mg by mouth daily. 0 03/29/2019 Active gabapentin (NEURONTIN) 300 mg capsule GABAPENTIN 300 MG CAPS 0 04/28/2022 Active clonazePAM (KlonoPIN) 0.5 mg tablet CLONAZEPAM 0.5 MG TABS 0 04/26/2022 Active carbidopa-levodopa (SINEMET) 25-100 mg per tablet CARBIDOPA-LEVODOPA 25-100 MG TABS 0 11/30/2021 Active buPROPion XL (WELLBUTRIN XL) 150 mg 24 hr tablet Take 300 mg by mouth. 0 05/09/2017 Active omeprazole (PriLOSEC) [address] capsule Take 40 mg by mouth daily. 0 Active DULoxetine (Cymbalta) [address] capsule Take 1 capsule by mouth daily. 0 05/09/2017 Active oqxfjoemyzn-whneg-q sm-vit C-Mn 500-400-166.6 mg tablet Take 1 tablet by mouth. 0 03/29/2019 Active chlordiazePOXIDE (LIBRIUM) 25 mg capsule Take 25 mg by mouth. 0 Acti ve loperamide (IMODIUM A-D) 2 mg capsule Take 4mg by mouth with 1st loose stool, then 2mg with each subsequent loose stool. Max 16 mg in 24 hrs 0 03/29/2019 Active magnesium oxide (MAG-OX) 250 mg of magnesium tablet Take 250 mg by mouth 2 (two) times a day. 0 Active melatonin 5 mg tablet Take 5 mg by mouth at bedtime. 0 Active cyanocobalamin (VITAMIN B12) 100 mcg tablet Take 2,500 mcg by mouth daily. 0 Active hydrocortisone (HYTONE) 2.5 % creamIndications:De rmatitis Apply 1 application topically 2 (two) times a day. Apply to affected areas on face, groin and skin folds. 30 g 11 08/10/2022 Active mometasone (ELOCON) 0.1 % creamIndications:De rmatitis Apply 1 application. topically 2 (two) times a day. Apply twice daily to affected areas on extremities and trunk. Use at outlined in communication for wet wraps. 45 g 11 08/12/2022 Active Social History Tobacco Use Types Packs/Day Years Used Date Smoking Tobacco: Never Assessed Nutrition Answer Date Recorded Nutrition: EVOO Fat Source Unknown 07/05 Nutrition: Servings of Fruits/Vegetables per Day Not on file 07/05/2022 Dental Answer Date Recorded Dental: Regular Dentist Unknown 07/05/20 22 Sex and Gender Information Value Date Recorded Sex Assigned at Not on file Gender Identity Not on file Sexual Orientation Not on file Plan of Treatment Not on file
--- OUTSIDE RECORDS SUMMARY | 2023-10-20 13:45 | XMS_ITS ---
Author Name Unknown Organization [facility] Address [address] [place] [address] Care Team Providers Care Hydroponics Grower Name Role Phone Unavailable Unavailable Unavailable Surgery Details Not on file Complications Check Surgery Details section. Procedure Estimated Blood Loss Check Surgery Details section. Procedure Findings Check Surgery Details section. Procedure Specimens Taken Check Surgery Details section.
--- OUTSIDE RECORDS SUMMARY | 2023-10-20 13:45 | XMS_ITS | Continuity of Care Document ---
Author Name Unknown Organization [facility] Address [address] [place] [address] Phone Care Team Providers Care Asphalt Still Operator Name Role Phone Unavailable Unavailable Unavailable Allergies, Adverse Reactions, Alerts Substance Reaction Status Criticality No Known Allergies Active No Inform ation Procedures Procedure Date Office/Outpatient Visit,[facility], [facility] 2019 Advance Directives Directive Yes / No Effective Date File Name No Information Encounters Encounter Description Practice Location Reason(s) For Visit Diagnoses Date Provider Providers Copied on Encounter [facility], [address], [place], [place], [id number], [place] tel:[phone] [facility] No Information No Information Office/Outpat ient Visit,[facility], [facility], [address], [place], [place], [id number], [place] tel:[phone] [facility] Arthrodesis statusOther spondylosis, cervical region 0 Garfield Lara. [facility], [address] [place] [address], [place], [address], [place]. tel:[phone] Referring Provider: Rogers Ho [facility] [address] [facility], [place], [address]. tel:[phone] Family History Family Member Type Diagnosis Age At Onset No Information Payers Payer name Insurance type Covered alliance party ID Authoriza tion(s) No Information Social History [...]
--- OUTSIDE RECORDS SUMMARY | 2023-10-20 13:45 | XMS_ITS | Continuity of Care Document ---
Author Name Unknown Organization [facility] melissa Address [address] [facility] [place] [address] Phone Care Team Providers Care Fuel Quality Tech Name Role Phone Anny Levy MD [...] 1 capsule by oral route every day 60 MG - Active bupropion HCl XL 300 mg [...] Diagnoses Date Provider Providers Copied on Encounter [facility], [address] [place], [place], [id number] , [place] tel:[phone] [facility] Other spondylosis, cervical region May- 2 Mildred Mccormick. [address] [place], [place], [id number] , [place]. tel:[phone] Referring Provider: [facility] [address], [place], [address]. tel:[phone] OFFICE/OUTPA TIENT VISIT, EST [facility], [address], [place], [id number] , [place] tel:[phone] [facility] [place] [facility] Pain (chief complaint) Parkinson's diseaseChronic pain syndromeScoliosi sOther spondylosis, cervical regionRadiculopa thy, cervical regionPostlamine ctomy syndrome, not elsewhere classifiedOther group home (current) drug therapy Sep- 2 Kat Lin. [facility], [place], [id number] , [place]. tel:[phone] Referring Provider: [facility] [address] [place] [address], [place], [address]. tel:[phone] [facility], [address] [place] [address], [id number] , [place] tel:[phone] [facility] Other spondylosis, cervical region January-0 2 Mildred Mccormick. [address] [place] [address] [facility] [place], [id number] , [place]. tel:[phone] Referring Provider: [facility] [address] [place] [address], [place], [address]. tel:[phone] OFFICE/OUTPA TIENT VISIT, EST [facility], [address] [place] [address], [id number] , [place] tel:[phone] [facility] Neck Pain (chief complaint) Parkinson's diseaseChronic pain syndromeScoliosi sOther spondylosis, cervical regionRadiculopa thy, cervical regionPostlamine ctomy syndrome, not elsewhere classifiedOther intermediate teacher (current) drug therapy Apr-2 2 Kat Lin. [facility], [place], [id number] , [place]. tel:[phone] Referring Provider: [facility] [address] [place] [address], [place], [address]. tel:[phone] [facility], [address] [place] [address], [id number] , [place] tel:[phone] [facility] Other spondylosis, cervical region Nov- 2 Mildred Mccormick. [address] [place] [address] [place], [place], [id number] , [place]. tel:[phone] Referring Provider: [facility] [address] [place] [address], [place], [address]. tel:[phone] OFFICE/OUTPA TIENT VISIT, EST [facility], [address] [place] [address], [id number] , [place] tel:[phone] [facility] [place] Pain (chief complaint) Parkinson's diseaseChronic pain syndromeScoliosi sOther spondylosis, cervical regionRadiculopa thy, cervical regionPostlamine ctomy syndrome, not elsewhere classifiedOther intermediate teacher (current) drug therapy 2 Kat Lin. [address], [place], [id number] , [place]. tel:[phone] Referring Provider: [facility] [address] [place] [address] [address], [place], [address]. tel:[phone] [facility], [address] [place] [address] [place], [place], [id number] , [place] [phone] [facility] No Information 2 Mildred Mccormick. [address] [facility] [place], [place], [id number] , [place]. tel:[phone] Referring Provider: [facility]an [address] [place] [address] [address], [place], [address]. tel:[phone] OFFICE/OUTPA TIENT VISIT, NEW [facility], [address] [place] [address] [place], [place], [id number] , [place] tel:[phone] [facility] Neck Pain (chief complaint) Chronic pain syndromePostlami nectomy syndrome, not elsewhere classifiedOther spondylosis, cervical regionRadiculopa thy, cervical regionScoliosisO ther intermediate teacher (current) drug therapyEncounter for screening for other disorderParkinso n's disease 2 Stephens Riley. [address] [place] [address] [address], [place], [id number] , [place]. [phone] Referring Provider: [facility] [address] [place] [address] [address], [place], [address]. tel:[phone] Family History Family Member Type Diagnosis Age At Onset No Information Payers Payer name Insurance type Covered alliance party ID Authoriza tijosh(s) Medicare MB [id number] [facility] Senior Gold Supplement [id number] Social History Type Description Quantity Date Captured [...] Goal Height. Due on d ue Goal PHQ-9. Due on du e Goal [...] current medication regimen. No other concerns today. Comments: Jerica presents for a follow up. [...] referred by Dr. Parveen Hill MD through [facility]. The patient is a 71y/o female [...] interested in pain management options offered through [facility]. Specifically, she is interested in injections. She is not accompanied and has no other concerns today. Functional Status Date Functional Assessmen t No Information Instructions Date Instruction Additional Infor mation No Information Assessments Type Assessment Date No Information Patient Care Teams Name Effective Dates (start - stop) Status Members No Information
--- OUTSIDE RECORDS SUMMARY | 2023-10-20 13:45 | XMS_ITS | Clinical Summary ---
Author Name Unknown Organization [facility] Address [address] [place] [address] Care Team Providers Care Supervisor Dry Cleaning Name Role Phone Rogers Ho PA-C Primary Care Provider [phone] Allergies No known active allergies Medications Medication Sig Dispensed Refills Start Date End Date Status WELLBUTRIN SR## 150 MG OR TB12 450 mg a day 0 Active CYMBALTA 60 MG OR CPEP 1 CAPSULE DAILY 0 Active pravastatin (PRAVACHOL) 40 MG tablet Take 40 mg by mouth daily 0 Active omeprazole (PRILOSEC) [address] capsule Take 40 mg by mouth daily 0 Active lisinopril (ZESTRIL) 40 MG tablet Take 40 mg by mouth At Bedtime 0 Active calcium carbonate 600 mg-vitamin D 400 units (CALTRATE) 600-400 MG-UNIT per tablet Take 1 tablet by mouth 2 times daily 0 Active Bioflavonoid Products (BIOFLEX) TABS Take 2 tablets by mouth every morning 0 Active carbidopa-levodopa (SINEMET) 25-100 MG tablet Take 1 tablet by mouth 3 times daily 0 Active chlorthalidone (HYGROTON) 12.5 mg TABS half-tab Take 12.5 mg by mouth every morning 0 Active acetaminophen (TYLENOL) 325 MG tabletIndications:Hi p fracture, left, closed, initial encounter (H) Take 3 tablets (975 mg) by mouth every 8 hours as needed for mild pain 100 tablet 0 11/25/2022 Active HYDROmorphone (DILAUDID) 2 MG tabletIndications:Hi p fracture, left, closed, initial encounter (H) Take 0.5 tablets (1 mg) by mouth every 4 hours as needed for severe pain (7-10) 12 tablet 0 11/25/2022 Active ondansetron (ZOFRAN ODT) 4 MG ODT tabIndications:Hip fracture, left, closed, initial encounter (H) Take 1 tablet (4 mg) by mouth every 6 hours as needed for nausea or vomiting 5 tablet 0 11/25/2022 Active senna-docusate (SENOKOT-S/PERICOLAC E) 8.6-50 MG tabletIndications:Hi p fracture, left, closed, initial encounter (H) Take 1 tablet by mouth 2 times daily 21 tablet 0 11/25/2022 Active clonazePAM (KLONOPIN) 0.5 MG tabletIndications:Hi p fracture, left, closed, initial encounter (H) Take 1 tablet (0.5 mg) by mouth At Bedtime 10 tablet 0 11/26/2022 Active gabapentin (NEURONTIN) 100 MG capsuleIndications:H ip fracture, left, closed, initial encounter (H) Take 2 capsules (200 mg) by mouth At Bedtime 30 capsule 0 11/26/2022 Active Active Problems Problem Noted Date Diagnosed Date Hip fracture, left, closed, initial encounter Social History Tobacco Use Types Packs/Day Years Used Date Smoking Tobacco: Every Day Cigarettes 0.5 Smokeless Tobacco: Never Alcohol Use Standard Drinks/Week Comments Not Currently 0 (1 standard drink = 0.6 oz pur e alcohol) AUDIT-C Answer Date Recorded Q1: How often do you have a drink containing alc ohol? Never 05/29/2020 Average Number of Drinks Not on file 020 Frequency of Binge Drinking Not on file 05/13 Adolescent Education Answer Date Record ed Getting School Help Needed Not on file 06/10 Sex and Gender Information Value Date Recorded Sex Assigned at Not on file Gender Identity Not on file Sexual Orientation Not on file Last Filed Vital Signs Vital Sign Reading Time Taken Comments Blood Pressure 129/64 11/26/2022 7:39 AM CDT Pulse 86 11/26/2022 7:39 AM CDT Temperature 36.7 ??C (98.1 ??F) 11/26/2022 7:39 AM CD T Respiratory Rate 16 11/26/2022 7:39 AM CDT Oxygen Saturation 92% 11/26/2022 7:39 AM CDT Inhaled Oxygen Concentration - - Weight 82.6 kg (182 lb 3.2 oz) 11/26/2022 5:55 A M CDT Height 165.1 cm (5' 5) 11/23/2022 10:24 PM CDT Body Mass Index 30.32 11/23/2022 10:24 PM CDT Plan of Treatment Health Maintenance Due Date Last Done Comments ADVANCE CARE PLANNING 1950 ANNUAL REVIEW OF HM ORDERS 1950 CT COLONOGRAPHY 1950 DEXA 1950 FIT 1950 FLEX SIG 1950 MAMMO SCREENING 1950 NICOTINE/TOBACCO CESSATION COUNSELING Q 1 YR 1950 sDNA (Cologuard) 1950 COLONOSCOPY 1960 COLORECTAL CANCER SCREENING 1960 HEPATITIS C SCREENING 1968 DTAP/TDAP/TD IMMUNIZATION (1 - Tdap) 1975 LUNG CANCER SCREENING 2000 RSV VACCINE ( & 60+) (1 - 1-dose 60+ series) 2010 MEDICARE ANNUAL WELLNESS VISIT 2015 FALL RISK ASSESSMENT 05/29/2021 05/29/2020 COVID-19 Vaccine (2022- season) 2023 12/23/2021, 07/13/2021, 12/06/2020, Additional history exists INFLUENZA VACCINE (#1) 2023 , 07/04/2018, 07/04/2018, Additional history exists PHQ-2 (once per calendar year) 2023 LIPID 04/29/2025 04/29/2020 GLUCOSE 12/02/2025 12/02/2022, 11/10, 11/25/2022, Additional history exists Pneumococcal Vaccine: 65+ Years Completed 03/21/2018, 06/20/2015 ZOSTER IMMUNIZATION Completed 09/23/2020, 08/27/2020, 07/16/2020 HPV IMMUNIZATION Aged Out No longer e ligible based on patient's age to complete this topic IPV IMMUNIZATION Aged Out No longer e ligible based on patient's age to complete this topic MENINGITIS IMMUNIZATION Aged Out No l onger eligible based on patient's age to complete this topic RSV MONOCLONAL ANTIBODY Aged Out No l onger eligible based on patient's age to complete this topic Medical Devices Implanted Type Area Supervisor Dry Cleaning Device Identifier Shelf Expiration Date Model / Serial / Lot Bone Cement Restrictor Donovan Femoral 18.5mm [id number] - [id number] Implanted:Qty: 1 on 11/24/2022 by Jean Ayala MD at [facility] Cement, Bone Left: Hip [employer]-R [id number] 07/19/2032 [id number] / / [id number] Imp Head Femoral Strk V40 Vitallim Cocr 28mm -4mm 6260-5-028 - [id number] Implanted:Qty: 1 on 11/24/2022 by Jean Ayala MD at [facility] Total Joint Component /Insert Left: Hip [employer] [id number] 10/31/2026 6260-5-02 [id number] Advance Directives For more information, please contact: [phone] Latest Code Status on File Code Status Date Activated Date Inactivated Comments Full Code 11/23/2022 10:30 PM 11/26/2022 2:53 PM All basic and advanced life-sustaining interventions are performed as appropriate Question Answer Comments Code status determined by: Unable to discuss and no AD/POLST on file; continue PREVIOUSLY ORDERED code status Care Teams Supervisor Dry Cleaning Relationship Specialty Start Date End Date Rogers Ho PA-C [facility] [address] [place] [address] PCP - General 11/23/22
--- OUTSIDE RECORDS SUMMARY | 2023-10-20 13:45 | XMS_ITS | Continuity of Care Document ---
Author Name Unknown Organization [facility] Address [address] [place] [address] Phone Care Team Providers Care Writer Technical Publications Name Role Phone Newton MELENDEZ, Souleymane Unavailable Unavailable Medications Medication Instructions Dosage Effective [...] route every day 60 MG - Active lisinopril 40 mg tablet [...] Diagnoses Date Provider Providers Copied on Encounter [facility], [address], [place], [address], [place] tel:[phone] [facility] No Information Newton Comer . [address], [address], [place], [address]. tel:[phone] [facility], [address], [place], [address], [place] tel:[phone] [facility] No Information Newton Comer . [address] [facility], [address], [place], [address]. tel:[phone] OFFICE/OUTPAT IENT VISIT, EST [facility], [address], [place], [address], [place] tel:[phone] [facility] 1 Murmur (chief complaint) General Cardiac Concerns (chief complaint) Chest pain, unspecified chest pain typeFormer smokerCardiac murmurEssential hypertension Newton Comer . [address] [facility] [address], [address], [place], [address]. tel:[phone] Referring Provider: Veronica Brady MD, [address], [place], [address]. tel:[phone] [facility], [address], [place], [address], [place] tel:[phone] [facility] 1 No Information Newton Comer . [address] [facility], [address], [place], [address]. tel:[phone] Referring Provider: Souleymane Yanes, [address], [place], [address]. tel:[phone] [facility], [address], [place], [address], [place] tel:[phone] [facility] 1 No Information 5 Parveen Stewart. [address] [facility], [address], [place], [address]. tel:[phone] Referring Provider: Souleymane Yanes, [address], [place], [address]. tel:[phone] OFFICE/OUTPAT IENT VISIT, NEW [facility], [address] [facility], [place], [address], tel:[phone] [facility] 1 Follow Up of Hospital (chief complaint) Chest pain, unspecified chest pain typePAD (peripheral artery disease)Soila Umaña, cardiac Jun- 5 Newton Comer . [address], [address], [place], [address]. [phone] Referring Provider: Veronica Brday MD, [address] [facility] [address], [place], [address]. tel:[phone] [facility], [address] [facility], [place], [address], [place] tel:[phone] [facility] Other chest pain Newton Comer . [address] [facility] [address], [address], [place], [address]. [phone] Referring Provider: Fuad Sosa MD [facility], [address], [place], [address]. tel:[phone] Family History Family Member Type Diagnosis Age At Onset No Information Payers Payer name Insurance type Covered democrat ID Authoriza tion(s) [facility] CI [id number] Social History Type Description Quantity Date Captured [...]
--- OUTSIDE RECORDS SUMMARY | 2023-10-20 13:45 | XMS_ITS | Clinical Summary ---
Author Name Unknown Organization [facility] Address [address] [place] [address] Care Team Providers Care School Bus Operator Name Role Phone Unavailable Primary Care Provider Unavailabl e Source Comments Patient records contain information from all sites at [facility]. For routine questions regarding patient records, call [phone] during business hours, M-F 8:00 AM - 5:00 PM Central Time. Record requests for emergency care only can be directed to [phone] at any time.[facility] Medications Medication Sig Dispensed Refills Start Date [...] capsule by mouth daily. 0 05/09/2017 Active fpqcmpcjdyw-dxxom-g sm-vit C-Mn 500-400-166.6 mg tablet Take 1 [...] Orientation Not on file Plan of Treatment Health Maintenance Due Date Last Done Comments Bone Density Scan (Osteoporo sis Screen) 1950 CT Colonography 1950 Cologuard 1950 Colonoscopy 1950 Colorectal Cancer Screening 1950 FIT 1950 Hepatitis C Screening 1950 Mammogram 1950 Sodium Level 1950 Creatinine Level (Kidney Fun ction Test) 04/29/2021 04/29/2020 Potassium Level 04/29/2021 04/29/2020 Fasting Glucose for Diabetes Screening 04/29/2023 04/29/2020 Depression Screening (Annual PHQ-2) 09/12/2023 Fall Risk Screen (Annual) 09/12/2023 DTaP,Tdap,and Td Vaccines (2 - Td or Tdap) 07/14/2033 07/14/2023 Pneumococcal vaccine (65+ years) Completed 03/21/20 18, 06/20/2015 Zoster Vaccines Completed 09/23/2020, 08/12, 07/16/2020 Influenza Vaccine Completed 07/14/2023, , 07/04/2018, Additional history exists COVID-19 Vaccine Completed 08/16/2023, , 07/13/2021, Additional history exists
--- OUTSIDE RECORDS SUMMARY | 2023-10-20 13:45 | XMS_ITS | Continuity of Care Document ---
Author Name Unknown Organization [facility] enter Address [address] [place] [address] [address] [place] [address] Phone Care Team Providers Care Physician Locums Urgent Care Name Role Phone [facility] Unavailable Unava ilable Procedures Procedure Date RF [...] Diagnoses Date Provider Providers Copied on Encounter [facility], [address] [place] [address] [address] [facility] [address], [place], [id number], tel:[phone] [facility] No Information [facility]. [address] [place] [address] [place] [address], [id number], . tel:[phone] Referring Provider: Anny Levy, [address] [facility] [place], [address] . tel:[phone] [facility], [address] [place] [address], [id number], tel:[phone] [place] [address] No Information 2 [facility]. [address] [place] [address], [id number], . tel:[phone] Referring Provider: Anny Levy, [address] [facility] [place], [address] . tel:[phone] [facility], [address] [place] [address], [id number], tel:[phone] [place] [address] No Information 2 [facility]. [address] [place] [address], [id number], . tel:[phone] Referring Provider: Anny Levy, [address] [facility] [place], [address] . tel:[phone] [facility], [address] [place] [address], [id number], tel:[phone] [place] [address] No Information 2 [facility]. [address] [place] [address], [id number], . tel:[phone] Referring Provider: Anny Levy, [address] [place], [address] . tel:[phone] Family History Family Member Type Diagnosis Age At Onset No Information Payers Payer name Insurance type Covered constitution party ID Authorwendya pete(s) Medicare MB [id number] [facility] Senior Gold Supplement [id number] Social History Type Description Quantity Date Captured [...]
--- OUTSIDE RECORDS SUMMARY | 2023-10-20 13:45 | XMS_ITS | Referral Summary ---
Author Name Unknown Organization [facility] Address [address] [place] [address] Care Team Providers Care Spinner Hydraulic Name Role Phone Rogers Ho PA-C Primary Care Provider [phone] Allergies No known active allergies Medications Medication [...] 11/23/2022 10:24 PM CDT Plan of Treatment Not on file Medical Devices Implanted Type Area Chronic Care Nurse Device Identifier Shelf Expiration Date Model / Serial / Lot Bone Cement Restrictor Donovan Femoral 18.5mm [id number] - [id number] Implanted:Qty: 1 on 11/24/2022 by Jean Ayala MD at [facility] Cement, Bone Left: Hip [employer]-R [id number] 07/19/2032 [id number] / / [id number] Imp Head Femoral Strk V40 Vitallim Cocr 28mm -4mm 6260-5-028 - [id number] Implanted:Qty: 1 on 11/24/2022 by Jean Ayala MD at [facility] Total Joint Component /Insert Left: Hip [employer] [id number] 10/31/2026 6260-5-02 [id number] Insurance Payer Benefit Plan / Group Subscriber ID Effective Dates Phone Address Type MEDICARE MEDICARE [id number] 2019-Prese nt ATTN CLAIMS [address] [place] [address] Medicare BC[place] BCBS OF [place] [id number] 2018-Pr jannie nt [address] [address] [place] [address] Indemnity Advance Directives For more information, please contact: [phone] Latest Code Status on File Code Status Date Activated Date Inactivated Comments Full Code 11/23/2022 10:30 PM 11/26/2022 2:53 PM All basic and advanced life-sustaining interventions are performed as appropriate Question Answer Comments Code status determined by: Unable to discuss and no AD/POLST on file; continue PREVIOUSLY ORDERED code status Care Teams Spinner Hydraulic Relationship Specialty Start Date End Date Rogers Ho PA-C [address] [place] [address] PCP - General 11/23/22
--- OUTSIDE RECORDS SUMMARY | 2023-10-20 13:46 | XMS_ITS | Patient Health Record ---
Author Name Unknown Organization [facility] ter Address [address] [place] [address] [place] [address] Care Team Providers Care Zipper Cutter Name Role Phone AngKathleen webbhan Unavailable [phone] Evaristo Mullins Unavailable [phone] ALLERGIES No Known Allergies ENCOUNTERS from 1950 to 2023-10-20 Encounter Location Date Provider Diagnosis [address] [phone] 15 May, [address] [place] [phone] May, [address] [place] [phone] Apr, [address] [address] Apr, Dano Lennon Parkinson disease G2 0 ; Vitamin B12 deficiency E53.8 ; Hypomagnesemia E83.42 ; Toxic effect of antimony or antimony compound, accidental or unintentional, initial encounter T56.891A and Toxic reaction to chemical, accidental or unintentional, initial encounter T65.91XA [address] [address] Apr, Evaristo Mullins Encounter for Medica re annual wellness exam Z00.[address] [address] Mar, Evaristo Mullins Parkinson disease G2 [address] [place] [address] Mar, Dano Lennon Parkinson disease G2 0 [...] No Information VITAL SIGNS from 1950 to 2023-10-20 Temperature 97.3 (t) degrees Fahrenheit 08 J [...] tab BID Active RESULTS from 1950 to 2023-10-20 Component Value Reference Range Notes DD - URINE TOXIC METALS Pre/ Post x2 (ALL PREPAY $158) 6 ml min Reviewed date:04/14/2021 15:49:24 Interpretation:Abnormal Performing Lab:[facility], ,[id number] Notes/Report: PRE-PROVOCATIVE POST PROVACATIVE GPL-TOX (Toxic NON-METAL Kenyetta mical Profile)(1st morning urine-Freeze) Patient Prepay $235(14 day Turn Around Time) Reviewed date:04/15/2021 13:09:05 Interpretation:Abnormal Performing Lab:[facility], ,[id number] Notes/Report: GenaroT (Functional Acuity C ontrast) Reviewed date:04/05/2021 11:19:01 Interpretation:Abnormal Performing Lab:[facility], ,[id number] Notes/Report: Left A 6 Left B 4 Left C 2 Left D - Left E - Right A 6 RIght B 4 Right C 2 Right D - Right E - Q-VITAMIN B12/FOLATE, SERUM PANEL (ERIC VIAL)(126.42)([address],41019) Reviewed date:04/05/2021 11:18:56 Interpretation:Low 235 Performing Lab:[facility], CB, [facility], [address] [place], [address] Alec Saini M.D., ,[id number] Notes/Report: FOLATE, SERUM 8.9 ng/mL VITAMIN B12 235 pg/mL 200-1100 pg/mL Q-CORTISOL, P.M.(3pm-5pm) (6 8.34) Reviewed date:04/05/2021 11:18:46 Interpretation:Normal Performing Lab:[facility], [place], [facility], [address] [place], [address] Alec Saini M.D., ,[id number] Notes/Report: CORTISOL, P.M. 4.6 mcg/dL Q-MAGNESIUM, RBC (28.08)(837 35) Reviewed date:04/05/2021 11:19:07 Interpretation:3.8 Performing Lab:[facility], [facility], [facility], [address] , [place], [address] Isidro Schneider M.D.,PhD, ,[id number] Notes/Report: MAGNESIUM, RBC 3.8 mg/dL 4.0-6.4 mg/dL Q-Female Hormone Panel(599.1 0)(2 RED TOP Transfer Tube need min of 3ml-REFRIG) Reviewed date:04/05/2021 11:19:19 Interpretation:DHEA 281 Performing Lab:[facility], , [facility], [address] [facility], [place], [address] Alec Saini M.D.~, Phone - [place], Director - [phone] [facility],, ,[id number] Notes/Report: ALBUMIN 4.4 g/dL 3.6-5.1 g/dL PROGESTERONE, [...] End Date Subscriber Number Group Number [employer] [address] [place] [phone] Barney Layton tti Self - patient is the insured [id number] [facility] [address] [address] [facility] [address] [phone] Barney Layton tti Self - patient is the insured [id number]
--- OUTSIDE RECORDS SUMMARY | 2023-10-20 13:46 | XMS_ITS | Encounter Summary ---
Author Name Unknown Organization [place] Address [address] [place] [id number] Care Team Providers Care Gear Inspector Name Role Phone Rogers Ho PA-C Primary Care Provider [phone] Reason for Visit * Reason Comments Leg Pain * Auth/Cert (Routine) Specialty Diagnoses / Procedures Referred By Contac t Referred To Contact Surgery Diagnoses Hip fracture, left, closed, initial encounter (H) Hip fracture, left, closed, initial encounter (H) Main Or [address] [place] [address] Referral ID Status Reason Start Date Expiration Date Visits Re quested Visits Authorized [id number] 1 1 Encounter Details Date Type Department Care Team (Late st Contact Info) Description 11/24/2022 7:15 AM CDT - 11/24/2022 10:05 AM CDT Surgery [facility] [address] [place] [address] Jean Ayala MD [facility] [address] [place], [place] [id number] Left hip hemiarthroplasty anterior lateral approach Surgery Details Date/Time Status Location OR Service Patient Class Case Class Case Type Trauma Case? 11/24/22 7:15 AM Posted [facility] OR OR 06 Orthopedics Inpatient Panel 1 Procedure LRB Anes Op Region Wound Class Comments Left hip hemiarthroplasty an terior lateral approach Left General Hip I-Clean Surgeon Surgeon Role Service Panel Jean Ayala MD Primary Orthopedics 1 Isidro [place] PA-C Assisting 1 documented in this encounter Social History Tobacco Use Types Packs/Day [...] of Binge Drinking Not on file 05/13 Sex and Gender Information Value Date Recorded Sex Assigned at Not on file Gender Identity Not on file Sexual Orientation Not on file COVID-19 Exposure Response Date Recorded In the last 10 days, have yo u been in contact with someone who was confirmed or suspected to have Coronavirus/COVID-19? No / Unsure 11/23/2022 7:20 PM CDT documented as of this encounter Last Filed Vital Signs Vital Sign Reading Time Taken Comments Blood Pressure 135/70 11/24/2022 10:00 AM CDT Pulse 84 11/24/2022 10:00 AM CDT Temperature 36.4 ??C (97.5 ??F) 11/24/2022 9:45 AM CD T Respiratory Rate 12 11/24/2022 10:00 AM CDT Oxygen Saturation 96% 11/24/2022 10:00 AM CDT Inhaled Oxygen Concentration - - Weight 81.4 kg (179 lb 8 oz) 11/24/2022 5:03 AM CDT Height 165.1 cm (5' 5) 11/23/2022 10:24 PM CDT Body Mass Index 30.32 11/23/2022 10:24 PM CDT documented in this encounter Discharge Summaries * Britta Faustin MD - 11/26/2022 12:22 PM CDT Images from the original note were not included. [facility] Discharge Summary Jerica Layton Date of : 1950 Age: [age] year old Date of Admission: 11/23/2022 Date of Discharge: 11/26/2022 Admitting Physician: Emely Johansen DO Discharge Physician: Britta Faustin MD Discharging Service: Hospitalist Primary Provider: Rogers Ho Primary Care Physician Discharge Diagnoses/Problem Oriented Hospital Course (Providers): Jerica Layton was admitted on 11/23/2022 by Emely Johansen DO and I would refer you to their history and physical. The following problems were addressed during her hospitalization: Ms. Jerica Layton is a 72 year old female with a history of history of??parkinson's, hypertension, hyperlipidemia, and osteoarthrosis?? admitted on 11/23/2022 with acute femoral neck fracture after having worsening pain for the last few weeks and difficulty ambulating. She was found to have a left alvarado bcapital femoral neck fracture and underwent a left hip hemiarthroplasty on 11/24. She tolerated this procedure well, now pending placement at transitional care facility. ?? S/p left hip hemiarthroplasty, 11/24 Left subcapital femoral neck fracture, noted on imaging She reportedly fell about 5 or 6 weeks ago and presented to an outside hospital in [place] whereshe was informed to watch and wait. Her pain persisted. She continued to walk on her lower extremity with a walker and today suffered from increasing pain which prompted her visit here. On exam, LLE shortened and externally rotated. Here, imaging revealed a renal neck fracture. Orthopedics consulted and performed left hip hemiarthroplasty, 11/24. Patient tolerated the procedure well, pending placement -Orthopedics following -Aspirin enteric coated 325 mg daily for DVT prophylaxis. -Weightbearing as tolerated with a walker x 6 weeks. ? -Keep dressing on for 2 weeks. ??OK to shower. ??No submerging wound. -Follow-up: 2 weeks post-op with Dr. Jean Ayala/Estelle Mustafa PA-C -Osteoporosis workup and treatment with primary care provider within 2 months -Plan 2??or 6??week wound check with x-rays.?Dressing can come off at 2 weeks.?This could also be done at patients rehab facility with x-rays sent to [facility]. -Eight-week followup with X-rays. -Pain control PRN, reports no pain on exam today ?? BRANDO , worsening Cr improved to 1.18 today encouarge oral fluid intake ?? Acute post op anemia No evidence of active bleeding hgb stable at 8.9-9.4 ?? Parkinson's disease - [employer] carbidopa-levodopa ?? HTN - [employer]GER antihypertensives resumed 11/24/22 ?? MDD/anxiety/insomnia - [employer] med regimen resumed 11/24/22 ?? HLD - [employer] MA[employer]GER statin ?? GERD ?? Overweight: Estimated body mass index is 29.87 kg/m? Diet: Advance Diet as Tolerated: Regular Diet Adult DVT Prophylaxis: Pneumatic Compression Devices Pizarro Catheter: Not present Lines: None Cardiac Monitoring: None Code Status: Full Code ? Clinically Significant Risk Factors ? Disposition Plan Expected Discharge Date: discharge today per Ortho Britta Faustin MD Page [phone](7AM-6PM) Code Status: Full Code Important Results: Please see below Pending Results: Unresulted Labs Ordered in the Past 30 Days of this Admission No orders found from 10/24/2022 to 11/24/2022. Discharge Instructions and Follow-Up: Follow-up Appointments Follow Up and recommended labs and tests Follow up with Dr. Jean Ayala/Estelle Mustafa PA-C at [facility] ([place] or [place]) within 14 days postoperatively. No follow up labs or test are needed prior to visit. At this visit x-rays will be taken, sutures/darlin removed, and questions to be answered. Bring any needed forms with to appointment. Call for appointment: [phone] After hours: [phone] or [phone] Follow Up and recommended [facility] and [facility]he[facility], BMP in 1week Discharge Disposition: Discharged to short-term care facility Discharge Medications: Current Discharge Medication List START taking these medications Details acetaminophen (TYLENOL) 325 MG tablet Take 3 tablets (975 mg) by mouth every 8 hours as needed for mild pain Qty: 100 tablet, Refills: 0 Associated Diagnoses: Hip fracture, left, closed, initial encounter (H) HYDROmorphone (DILAUDID) 2 MG tablet Take 0.5 tablets (1 mg) by mouth every 4 hours as needed for severe pain (7-10) Qty: 12 tablet, Refills: 0 Associated Diagnoses: Hip fracture, left, closed, initial encounter (H) ondansetron (ZOFRAN ODT) 4 MG ODT tab Take 1 tablet (4 mg) by mouth every 6 hours as needed for nausea or vomiting Qty: 5 tablet, Refills: 0 Associated Diagnoses: Hip fracture, left, closed, initial encounter (H) senna-docusate (SENOKOT-S/PERICOLACE) 8.6-50 MG tablet Take 1 tablet by mouth 2 times daily Qty: 21 tablet, Refills: 0 Associated Diagnoses: Hip fracture, left, closed, initial encounter (H) CONTINUE these medications which have CHANGED Details aspirin (ASA) 325 MG EC tablet Take 1 tablet (325 mg) by mouth daily for 42 days Qty: 42 tablet, Refills: 0 Associated Diagnoses: Hip fracture, left, closed, initial encounter (H) clonazePAM (KLONOPIN) 0.5 MG tablet Take 1 tablet (0.5 mg) by mouth At Bedtime Qty: 10 tablet, Refills: 0 Associated Diagnoses: Hip fracture, left, closed, initial encounter (H) gabapentin (NEURONTIN) 100 MG capsule Take 2 capsules (200 mg) by mouth At Bedtime Qty: 30 capsule, Refills: 0 Associated Diagnoses: Hip fracture, left, closed, initial encounter (H) CONTINUE these medications which have NOT CHANGED Details Bioflavonoid Products (BIOFLEX) TABS Take 2 tablets by mouth every morning calcium carbonate 600 mg-vitamin D 400 units (CALTRATE) 600-400 MG-UNIT per tablet Take 1 tablet bymouth 2 times daily carbidopa-levodopa (SINEMET) 25-100 MG tablet Take 1 tablet by mouth 3 times daily chlorthalidone (HYGROTON) 12.5 mg TABS half-tab Take 12.5 mg by mouth every morning CYMBALTA 60 MG OR CPEP 1 CAPSULE DAILY lisinopril (ZESTRIL) 40 MG tablet Take 40 mg by mouth At Bedtime omeprazole (PRILOSEC) [address] capsule Take 40 mg by mouth daily pravastatin (PRAVACHOL) 40 MG tablet Take 40 mg by mouth daily WELLBUTRIN SR## 150 MG OR TB12 450 mg a day Allergies: No Known Allergies Consultations This Hospital Stay: Consultation during this admission received from internal medicine and orthopedics Condition and Physical Exam on Discharge: Discharge condition: Stable Discharge vitals: Blood pressure 129/64, pulse 86, temperature 98.1 ??F (36.7 ??C), temperature source Temporal, resp. rate 16, height 1.651 m (5' 5), weight 82.6 kg (182 lb 3.2 oz), SpO2 92 %. Constitutional: Alert, awake, NAD Lungs: CTA b/l Cardiovascular: RRR Abdomen: Soft, NT, ND,BS+ Skin: Warm and dry Other: Discharge Orders for Skilled Facility (from Discharge Orders): After Care Instructions Activity - Up with assistive device Activity - Up with nursing assistance Additional Discharge Instructions Pain after surgery is normal and expected. You will have some amount of pain for several weeks after surgery. Your pain will improve with time. There are several things you can do to help reduce yourpain including: rest, ice, elevation, and using pain medications as needed. Contact your Surgeon Team if you have pain that persists or worsens after surgery despite rest, ice, elevation, and taking your medication(s) as prescribed. Contact your Surgeon Team if you have new numbness, tingling, or weakness in your operative extremity. Swelling and/or bruising of the surgical extremity is common and may persist for several months after surgery. Contact your Surgeon Team if your swelling increases and is NOT associated with an increase in your activity level, or if your swelling increases and is associated with redness and pain. Ice can be used to control swelling and discomfort after surgery. Place a thin towel over your operative site and apply the ice pack overtop. Leave ice pack in place for 20 minutes, then remove for 20 minutes. Repeat this 20 minutes on/20 minutes off routine as often as tolerated. Diet Follow this diet upon discharge: Orders Placed This Encounter Advance Diet as Tolerated: Regular Diet Adult Fall precautions General info for SNF Length of Stay Estimate: Short Term Care: Estimated # of Days <30 Condition at Discharge: Stable Level of care:skilled Rehabilitation Potential: Fair Admission H&P remains valid and up-to-date: Yes Recent Chemotherapy: N/A Use Senior Living Standing Orders: Yes Mantoux instructions Give two-step Mantoux (PPD) Per Facility Policy Yes Weight bearing status WBAT LLE with walker. Wound care Please leave dressing intact for 2 weeks postoperatively. Okay to change if saturated >50% or peeling. Okay to shower. No soaking or submersion. Please contact your orthopedic surgical team if persistent drainage or redness develops around the surgical site. Rehab orders for Skilled Facility (from Discharge Orders): Referrals Future Labs/Procedures Occupational Therapy Adult Consult Comments: Evaluate and treat as clinically indicated. Reason: S/p left hip hemiarthroplasty for femoral neck fracture (DOS: 11/24/22) Physical Therapy Adult Consult Comments: Evaluate and treat as clinically indicated. Reason: S/p left hip hemiarthroplasty for femoral neck fracture (DOS: 11/24/22) Discharge Time: Greater than 30 minutes. Image Results From This Hospital Stay (For Non-EPIC Providers): Results for orders placed or performed during the hospital encounter of 11/23/22 XR Femur Left 2 Views Narrative EXAM: XR FEMUR LEFT 2 VIEWS LOCATION: [facility] DATE/TIME: 11/23/2022 8:45 PM INDICATION: Left hip pain. COMPARISON: None. Impression IMPRESSION: 1. Left subcapital femoral neck fracture. Mild impaction and mild-moderate superior displacement. 2. The femoral head remains seated in the acetabulum. 3. The left femur is otherwise unremarkable. 4. Normal knee alignment. 5. Postoperative changes at the lumbosacral interspace and left sacroiliac joint noted. Lumbar spine XR, 2-3 views Narrative EXAM: XR LUMBAR SPINE 2/3 VIEWS LOCATION: [facility] DATE/TIME: 11/23/2022 8:45 PM INDICATION: Left hip and leg pain, inability to ambulate, eval lumbar spine. COMPARISON: None. Impression IMPRESSION: Partially visualized multilevel thoracolumbar and cemented spinal fusion construct [id number] with transpedicular screws T10-S1, bilateral sacroiliac joint screws with interconnecting rods and interbody spacer at L5-S1. Fracture of the right posterior interconnecting regi between the L4 and L5 transpedicular screws. Fracture of the left interconnecting regi between the left transpedicular screws at L3 and L4. Solid dorsal bony ankylosis L2-pelvis. Multilevel laminectomy defects. Normal vertebral body heights and alignment. No fracture or traumatic subluxation. Mild to moderate degenerative convex left scoliotic curvature with apex at L1. Exaggeration of the normal lumbar lordotic curvature. The extraspinal soft tissues are unremarkable. XR Pelvis w Hip Port Left 1 View Narrative XR PELVIS AND HIP PORTABLE LEFT 1 VIEW 11/24/2022 10:24 AM HISTORY: Status post Hip surgery COMPARISON: None. Impression IMPRESSION: Postoperative changes left bipolar hip endoprosthesis. The components appear well seated. Right hip negative for fracture. Postoperative changes lower lumbar spine and sacrum. No evidence for acute fracture. PHILIPP HENSLEY MD SYSTEM ID: [id number] Most Recent Lab Results In [facility] (For Non-[facility] Providers): Most Recent 3 CBC's: Recent Labs Lab Test 11/26/22 0840 11/25/22 0640 11/24/2214 11/23/221951 WBC 8.0 -- 6.4 7.6 HGB 9.4* 8.9* 10.7* 11.9 MCV 102* -- 100 98 PLT 254 -- 238 256 Most Recent 3 BMP's: Recent Labs Lab Test 11/26/22 0840 11/25/22 0640 11/24/2261311/23/221951 NA 139 -- 135* 136 POTASSIUM 4.6 4.4 4.3 4.3 CHLORIDE 100 -- 95* 95* CO2 29 -- 29 28 BUN 24.7* -- 33.6* 29.4* CR 1.18* -- 1.62* 1.20* ANIONGAP 10 -- 11 13 MARIBETH 10.0 -- 9.6 10.0 GLC 146* 158* 150* 140* Most Recent 3 Troponin's:No lab results found. Invalid input(s): TROP, TROPONINIES Most Recent 3 INR's:No lab results found. Most Recent 2 LFT's: Recent Labs Lab Test 04/29/20 0000 AST 37* ALT 42* Most Recent Cholesterol Panel: Recent Labs Lab Test 04/29/20 0000 CHOL 261* LDL 105* HDL 118 TRIG 190 Most Recent 6 Bacteria Isolates From Any Culture (See EPIC Reports for Culture Details):No lab results found. Most Recent TSH, T4 and HgbA1c: Recent Labs Lab Test 04/29/20 0000 A1C 6.4 documented in this encounter Medications at Time of Discharge Medication Sig Dispensed Refills Start Date End Date acetaminophen (TYLENOL) 325 MG tabletIndications:Hip fracture, left, closed, initial encounter (H) Take 3 tablets (975 mg) by mouth every 8 hours as needed for mild pain 100 tablet 0 11/25/2022 Bioflavonoid Products (BIOFLEX) TABS Take 2 tablets by mouth every morning 0 calcium carbonate 600 mg-vitamin D 400 units (CALTRATE) 600-400 MG-UNIT per tablet Take 1 tablet by mouth 2 times daily 0 carbidopa-levodopa (SINEMET) 25-100 MG tablet Take 1 tablet by mouth 3 times daily 0 chlorthalidone (HYGROTON) 12.5 mg TABS half-tab Take 12.5 mg by mouth every morning 0 clonazePAM (KLONOPIN) 0.5 MG tabletIndications:Hip fracture, left, closed, initial encounter (H) Take 1 tablet (0.5 mg) by mouth At Bedtime 10 tablet 0 11/26/2022 CYMBALTA 60 MG OR CPEP 1 CAPSULE DAILY 0 gabapentin (NEURONTIN) 100 MG capsuleIndications:Hip fracture, left, closed, initial encounter (H) Take 2 capsules (200 mg) by mouth At Bedtime 30 capsule 0 11/26/2022 HYDROmorphone (DILAUDID) 2 MG tabletIndications:Hip fracture, left, closed, initial encounter (H) Take 0.5 tablets (1 mg) by mouth every 4 hours as needed for severe pain (7-10) 12 tablet 0 11/25/2022 lisinopril (ZESTRIL) 40 MG tablet Take 40 mg by mouth At Bedtime 0 omeprazole (PRILOSEC) [address] capsule Take 40 mg by mouth daily 0 ondansetron (ZOFRAN ODT) 4 MG ODT tabIndications:Hip fracture, left, closed, initial encounter (H) Take 1 tablet (4 mg) by mouth every 6 hours as needed for nausea or vomiting 5 tablet 0 11/25/2022 pravastatin (PRAVACHOL) 40 MG tablet Take 40 mg by mouth daily 0 senna-docusate (SENOKOT-S/PERICOLACE) 8.6-50 MG tabletIndications:Hip fracture, left, closed, initial encounter (H) Take 1 tablet by mouth 2 times daily 21 tablet 0 11/25/2022 WELLBUTRIN SR## 150 MG OR TB12 450 mg a day 0 aspirin (ASA) 325 MG EC tabletIndications:VTE Prophylaxis Take 1 tablet (325 mg) by mouth daily for 42 days 42 tablet 0 11/25/2022 01/06/2023 documented as of this encounter Progress Notes * Rhianna Chandra RN - 11/26/2022 12:48 PM CDT Patient is A/O x 4. Vss, RA. Afebrile. Voiding. Saline locked. Drsg CDI. Cms-2+ edema & cool toes. Skin pale with scabbed-abrasion to left foot. Pain managed with Tylenol. Patient discharged to Tcu, discharge belongings GIVEN. * Wanda Nelson RN - 11/26/2022 11:14 AM CDT Care Management Discharge Note Discharge Date: 11/26/2022 Discharge Disposition: [facility] Discharge Services: rehab Discharge Transportation: family or friend will provide Private pay costs discussed: private room/amenity fees PAS Confirmation Code: [id number] Patient/family educated on Medicare website which has current facility and service quality ratings:yes Education Provided on the Discharge Plan: yes Persons Notified of Discharge Plans: patient, Staffand rn charge Patient/Family in Agreement with the Plan: yes Handoff Referral Completed: No Additional Information: Patient being discharged today to [facility] for TCU/Rehab. Paged Ortho PA and the Hospitalist for orders. PAS completed and discharge orders were faxed to the facility. Patient being transported by . Sherry Nelson RN, BSN, CM Inpatient Care Coordination [facility] [phone] * Emely Johansen DO - 11/25/2022 12:39 PM CDT [facility] Medicine Progress Note - Hospitalist Service Date of Admission: 11/23/2022 Assessment & Plan Ms. Jerica Layton is a 72 year old female with a history of history of parkinson's, hypertension, hyperlipidemia, and osteoarthrosis admitted on 11/23/2022 with acute femoral neck fracture after having worsening pain for the last few weeks and difficulty ambulating. She was found to have a left subca pital femoral neck fracture and underwent a left hip hemiarthroplasty on 11/24. She tolerated this procedure well, now pending placement at transitional care facility. S/p left hip hemiarthroplasty, 11/24 Left subcapital femoral neck fracture, noted on imaging She reportedly fell about 5 or 6 weeks ago and presented to an outside hospital in [place] whereshe was informed to watch and wait. Her pain persisted. She continued to walk on her lower extremity with a walker and today suffered from increasing pain which prompted her visit here. On exam, LLE shortened and externally rotated. Here, imaging revealed a renal neck fracture. Orthopedics consulted and performed left hip hemiarthroplasty, 11/24. Patient tolerated the procedure well, pending placement -Orthopedics following -Aspirin enteric coated 325 mg daily for DVT prophylaxis. -Weightbearing as tolerated with a walker x 6 weeks. ? -Keep dressing on for 2 weeks. OK to shower. No submerging wound. -Follow-up: 2 weeks post-op with Dr. Jean Ayala/Estelle Mustafa PA-C -Osteoporosis workup and treatment with primary care provider within 2 months -Plan 2 or 6 week wound check with x-rays. Dressing can come off at 2 weeks. This could also be done at patients rehab facility with x-rays sent to [facility]. -Eight-week followup with X-rays. -Pain control PRN, reports no pain on exam today BRANDO , worsening - BMP in AM - encourage PO intake Acute post op anemia No evidence of active bleeding - CBC in AM Parkinson's disease - [employer]GER carbidopa-levodopa HTN - [employer]GER antihypertensives resumed 11/24/22 MDD/anxiety/insomnia - [employer]GER med regimen resumed 11/24/22 HLD - [employer] MA[employer]GER statin GERD Overweight: Estimated body mass index is 29.87 kg/m?? Diet: Advance Diet as Tolerated: Regular Diet Adult DVT Prophylaxis: Pneumatic Compression Devices Pizarro Catheter: Not present Lines: None Cardiac Monitoring: None Code Status: Full Code Clinically Significant Risk Factors Disposition Plan Expected Discharge Date: 11/25/2022 Discharge Comments: Home Emely Johansen DO Hospitalist Service [facility] Securely message with [email or web address] (more info) Text page via [employer] Paging/Directory Interval History She is doing well and pain is well controlled, reports pain essentially at 0 She underwent evaluation with a physical therapist and reports that they recommended a TCU which she is open to pursuing He denies any injury or trauma since surgery, she has no numbness tingling or sensation changes, she has no other new concerns or complaints today Physical Exam Vital Signs: Temp: 97.1 ??F (36.2 ??C) Temp src: Temporal BP: (!) 152/73 (just got back from walking) Pulse: 81 Resp: 18 SpO2: 95 % O2 Device: None (Room air) Oxygen Delivery: 2 LPM Weight: 183 lbs 1.6 oz Constitutional: awake, alert, cooperative, no apparent distress, and appears stated age HEENT: Normocephalic, atraumatic Respiratory: Normal work of breathing, good air exchange, clear to auscultation bilaterally, no crackles or wheezing Cardiovascular: Regular rate and rhythm, no murmurs appreciated GI: Soft and nontender to palpation, nondistended, no rebound or guarding Skin: normal skin color, texture, turgor Musculoskeletal: Sensation intact throughout bilateral LEs No deformities noted on exam today Postoperative dressing clean and dry, no active drainage Neurologic: Alert and oriented, no focal deficits Neuropsychiatric: General: normal, calm and normal eye contact ?? Data PAST 24 HR DATA REVIEWED I have personally reviewed the following data over the past 24 hrs: N/A \ 8.9 (L) / N/A N/A N/A N/A / 158 (H) 4.4 N/A N/A \ Imaging results reviewed over the past 24 hrs: No results found for this or any previous visit (from the past 24 hour(s)). * Edwige Mccauley PA-C - 11/25/2022 11:52 AM CDT Orthopedic Surgery Jerica Lucila Kinjal 11/25/2022 Admit Date: 11/23/2022 POD: 1 Day Post-Op Procedure(s): Left hip hemiarthroplasty anterior lateral approach Patient resting comfortably in chair. Pain controlled and minimal at this time. Denies calf pain and cramping. Denies numbness and tingling. Tolerating oral intake. Awaiting breakfast. Denies nausea or vomiting. Denies chest pain or shortness of breath. No acute events overnight. Temp: [97 ??F (36.1 ??C)-97.8 ??F (36.6 ??C)] 97.1 ??F (36.2 ??C) Pulse: [81-90] 81 Resp: [16-18] 18 BP: (123-152)/(64-73) 152/73 SpO2: [91 %-100 %] 95 % Alert and oriented. Left hip dressing is clean, dry, and intact. No erythema of the surrounding skin. Minimal left thigh and hip swelling. Bilateral calves are soft, non-tender. Left lower extremity is NVI. Sensation intact bilateral lower extremities. Patient able to resist dorsi and plantar flexion bilaterally. DP pulse palpable. Labs: Recent Labs Lab Test 11/25/22 0640 11/24/22 0614 11/23/221951 WBC -- 6.4 7.6 HGB 8.9* 10.7* 11.9 PLT -- 238 256 A/P 1. S/p left hip hemiarthroplasty for a femoral neck fracture Continue ASA 325 mg daily x 6 weeks for DVT prophylaxis. Mobilize with PT/OT. WBAT LLE with walker. Continue current pain regimen. Dressings: Keep intact. Change if >50% saturated or peeling. Follow-up: 2 weeks post-op with Dr. Jean Ayala/Estelle Mustafa PA-C 2. Disposition Anticipate d/c to TCU when medically cleared and progressing in PT. Alejandrina Mccauley PA-C [facility] * Kamini Roblero, PT - 11/25/2022 9:04 AM CDT 11/25/22 [id number] Appointment Info Signing Clinician's Name / Credentials (PT) Kamini Roblero DPBogdan Living Environment People in Home spouse Current Living Arrangements house Home Accessibility no concerns Transportation Anticipated family or friend will provide Self-Care Usual Activity Tolerance moderate Current Activity Tolerance fair Equipment Currently Used at Home walker, rolling Fall history within last six months yes Number of times patient has fallen within last six months 2 Activity/Exercise/Self-Care Comment Pt IND at baseline, has been using a 4WW for the past few weeks. Pt reports her cannot provide assist General Information Onset of Illness/Injury or Date of Surgery 11/23/22 Referring Physician Isidro Mustafa PA-C Patient/Family Therapy Goals Statement (PT) Return home Pertinent History of Current Problem (include personal factors and/or comorbidities that impact thePOC) Ms. Jerica Layton is a 72 year old female POD #1 following L hip hemiarthroplasty with a history of history of parkinson's, hypertension, hyperlipidemia, and osteoarthrosis admitted on 11/23/2022with acute femoral neck fracture after having worsening pain for the last few weeks and difficulty ambulating. Existing Precautions/Restrictions fall Weight-Bearing Status - LLE weight-bearing as tolerated General Observations Pt supine in bed upon therapist arrival, agreeable to PT Cognition Affect/Mental Status (Cognition) WFL Orientation Status (Cognition) oriented x 4 Follows Commands (Cognition) WFL Pain Assessment Patient Currently in Pain No Integumentary/Edema Integumentary/Edema Comments Incision not observed, covered by bandage Posture Posture Forward head position;Protracted shoulders Range of Motion (ROM) Range of Motion ROM deficits secondary to surgical procedure Strength (Manual Muscle Testing) Strength (Manual Muscle Testing) Deficits observed during functional mobility;Able to perform R SLR Bed Mobility Comment, (Bed Mobility) Supine to sit SBA Transfers Comment, (Transfers) Sit to stand Min A Gait/Stairs (Locomotion) Comment, (Gait/Stairs) Pt amb w/ FWW and Min A Balance Balance Comments Fair seated and standing Sensory Examination Sensory Perception patient reports no sensory changes Clinical Impression Criteria for Skilled Therapeutic Intervention Yes, treatment indicated PT Diagnosis (PT) Impaired functional mobility and gait Influenced by the following impairments Pain, weakness, impaired balance, decreased activity tolerance Functional limitations due to impairments Limited functional mobility requiring AD and assist Clinical Presentation (PT Evaluation Complexity) Stable/Uncomplicated Clinical Presentation Rationale Based on PMH, current status, and social support Clinical Decision Making (Complexity) low complexity Planned Therapy Interventions (PT) balance training;bed mobility training;gait training;strengthening;transfer training;progressive activity/exercise Risk & Benefits of therapy have been explained evaluation/treatment results reviewed;care plan/treatment goals reviewed;risks/benefits reviewed;current/potential barriers reviewed;participants voiced agreement with care plan;participants included;patient PT Total Evaluation Time PT Eval, Low Complexity Minutes (04718) 10 Plan of Care Review Plan of Care Reviewed With patient Physical Therapy Goals PT Frequency 5x/week PT Predicted Duration/Target Date for Goal Attainment 12/02/22 PT Goals Bed Mobility;Transfers;Gait PT: Bed Mobility Modified independent;Supine to/from sit PT: Transfers Modified independent;Sit to/from stand;Assistive device PT: Gait Modified independent;Assistive device;100 feet Interventions Interventions Quick Adds Therapeutic Activity Therapeutic Activity Therapeutic Activities: dynamic activities to improve functional performance Minutes (48676) 19 Symptoms Noted During/After Treatment Fatigue;Increased pain Treatment Detail/Skilled Intervention Pt on RA throughout session, difficulty getting SpO2 reading,pt denied SOB throughout session. Pt performed sit <> stand from EOB x4 rep throughout session w/ Min A - CGA. Pt stepped onto scale w/ Min A. Pt stood on scale w/ SBA. Pt backed up to EOB, seated rest break. Pt reported feeling shaky, resolved after seated break. Pt amb 10' to recliner w/ FWW and Min A, pt mildly unsteady. Pt sat in recliner, able to shift hips BWD, SpO2 96%. Pt in recliner at end of session, chair alarm on, all needs w/in reach, feet elevated, RN updated. PT Discharge Planning PT Plan Progress transfers and amb PT Discharge Recommendation (DC Rec) Transitional Care Facility PT Rationale for DC Rec Pt below baseline, currently Ax1 for mobility. Pt reports her cannot provide assist at home. Recommend TCU to increase strength and functional mobility PT Brief overview of current status Bed mob SBA, transfers Min A, amb Min A Total Session Time Timed Code Treatment Minutes 19 Total Session Time (sum of timed and untimed services) 29 * Emely Johansen, - 11/24/2022 2:40 PM CDT [facility] Medicine Progress Note - Hospitalist Service Date of Admission: 11/23/2022 Assessment & Plan Ms. Jerica Layton is a 72 year old female with a history of history of parkinson's, hypertension, hyperlipidemia, and osteoarthrosis admitted on 11/23/2022 with acute femoral neck fracture after having worsening pain for the last few weeks and difficulty ambulating. Pending orthopedic evaluation and clinical improvement. S/p left hip hemiarthroplasty, 11/24 Left subcapital femoral neck fracture, noted on imaging She reportedly fell about 5 or 6 weeks ago and presented to an outside hospital in [place] whereshe was informed to watch and wait. Her pain persisted. She continued to walk on her lower extremity with a walker and today suffered from increasing pain which prompted her visit here. On exam, LLE shortened and externally rotated. Here, imaging revealed a renal neck fracture. Orthopedics consulted and performed Left hip hemiarthroplasty, 11/24. Patient tolerated the procedure well -Orthopedics following -PT pending -Ancef x 24 hours. -Aspirin enteric coated 325 mg daily for DVT prophylaxis. -Weightbearing as tolerated with a walker x 6 weeks. ? -Keep dressing on for 2 weeks. OK to shower. No submerging wound. -Osteoporosis workup and treatment with primary care provider within 2 months -Plan 2 or 6 week wound check with x-rays. Dressing can come off at 2 weeks. This could also be done at patients rehab facility with x-rays sent to [facility]. -Eight-week followup with X-rays. -discontinue IVF today -Pain control PRN BRANDO , worsening - BMP in AM - encourage PO intake Parkinson's disease - [employer] MA[employer]GER carbidopa-levodopa HTN - [employer]GER antihypertensives resumed 11/24/22 MDD/anxiety/insomnia - [employer]GER med regimen resumed 11/24/22 HLD - [employer] MANAGER statin GERD Overweight: Estimated body mass index is 29.87 kg/m?? Diet: Advance Diet as Tolerated: Regular Diet Adult DVT Prophylaxis: Pneumatic Compression Devices Pizarro Catheter: Not present Lines: None Cardiac Monitoring: None Code Status: Full Code Clinically Significant Risk Factors Present on Admission # Hypertension: home medication list includes antihypertensive(s) Disposition Plan Expected Discharge Date: 11/25/2022 Emely Johansen DO Hospitalist Service [facility] Securely message with [email or web address] (more info) Text page via [employer] Paging/Directory Interval History Patient is seen post operatively She is doing well and pain is well controlled Her family is visiting at bedside and she is conversing and laughing with them during interview She and her expressed concerns with her coming straight home given the fact that he has active cancer and is being treated, they are worried about her mobility in the home and are awaiting PTevaluation She reports no new symptoms, concerns or complaints Physical Exam Vital Signs: Temp: 97.1 ??F (36.2 ??C) Temp src: Temporal BP: 128/69 Pulse: 90 Resp: 16 SpO2: 95 % O2 Device: Nasal cannula Oxygen Delivery: 2 LPM Weight: 179 lbs 8 oz Constitutional: awake, alert, cooperative, no apparent distress, and appears stated age HEENT: Normocephalic, atraumatic Respiratory: Normal work of breathing, good air exchange, clear to auscultation bilaterally, no crackles or wheezing Cardiovascular: Regular rate and rhythm, no murmurs appreciated GI: Soft and nontender to palpation, nondistended, no rebound or guarding Skin: normal skin color, texture, turgor Musculoskeletal: Sensation intact throughout bilateral LEs No deformities noted on exam today Postoperative dressing clean and dry, no active drainage Neurologic: Alert and oriented, no focal deficits Neuropsychiatric: General: normal, calm and normal eye contact ?? Data PAST 24 HR DATA REVIEWED I have personally reviewed the following data over the past 24 hrs: 6.4 \ 10.7 (L) / 238 135 (L) 95 (L) 33.6 (H) / 150 (H) 4.3 29 1.62 (H) \ Imaging results reviewed over the past 24 hrs: Recent Results (from the past 24 hour(s)) XR Femur Left 2 Views Narrative EXAM: XR FEMUR LEFT 2 VIEWS LOCATION: [facility] DATE/TIME: 11/23/2022 8:45 PM INDICATION: Left hip pain. COMPARISON: None. Impression IMPRESSION: 1. Left subcapital femoral neck fracture. Mild impaction and mild-moderate superior displacement. 2. The femoral head remains seated in the acetabulum. 3. The left femur is otherwise unremarkable. 4. Normal knee alignment. 5. Postoperative changes at the lumbosacral interspace and left sacroiliac joint noted. Lumbar spine XR, 2-3 views Narrative EXAM: XR LUMBAR SPINE 2/3 VIEWS LOCATION: [facility] DATE/TIME: 11/23/2022 8:45 PM INDICATION: Left hip and leg pain, inability to ambulate, eval lumbar spine. COMPARISON: None. Impression IMPRESSION: Partially visualized multilevel thoracolumbar and cemented spinal fusion construct [id number] with transpedicular screws T10-S1, bilateral sacroiliac joint screws with interconnecting rods and interbody spacer at L5-S1. Fracture of the right posterior interconnecting regi between the L4 and L5 transpedicular screws. Fracture of the left interconnecting regi between the left transpedicular screws at L3 and L4. Solid dorsal bony ankylosis L2-pelvis. Multilevel laminectomy defects. Normal vertebral body heights and alignment. No fracture or traumatic subluxation. Mild to moderate degenerative convex left scoliotic curvature with apex at L1. Exaggeration of the normal lumbar lordotic curvature. The extraspinal soft tissues are unremarkable. XR Pelvis w Hip Port Left 1 View Narrative XR PELVIS AND HIP PORTABLE LEFT 1 VIEW 11/24/2022 10:24 AM HISTORY: Status post Hip surgery COMPARISON: None. Impression IMPRESSION: Postoperative changes left bipolar hip endoprosthesis. The components appear well seated. Right hip negative for fracture. Postoperative changes lower lumbar spine and sacrum. No evidence for acute fracture. 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 Stopped by to evaluated Ms. Layton who had a left hip hemiarthroplasty this morning. Ms. Layton states that she is aware of this lumbar hardware failure but is not symptomatic or having any concerns. This procedure was performed in [place]. Ms. Layton is not interested in a consult from us. She is certainly welcome to follow-up with us as an outpatient should she wish to further discuss operative and non-operative treatments. We will sign off. This has been discussed with Dr. Dumont. BAYRON Burns PA-C [facility] Neurosurgery [facility] Pager: [phone] * Jean Ayala MD - 11/23/2022 9:49 PM CDT Ortho Brief - 72 yo F with a history of parkinson's and displaced left femoral neck fracture. NPO p MN Plan OR Evert vs JACQUI tomorrow Jean Ayala MD documented in this encounter H&P Notes * Emely Johansen DO - 11/23/2022 9:26 PM CDT [facility] History and Physical - Hospitalist Service Date of Admission: 11/23/2022 Assessment & Plan Ms. Jerica Layton is a 72 year old female with a history of history of parkinson's, hypertension, hyperlipidemia, and osteoarthrosis admitted on 11/23/2022 with acute femoral neck fracture after having worsening pain for the last few weeks and difficulty ambulating. Pending orthopedic evaluation and clinical improvement. Left subcapital femoral neck fracture, noted on imaging She reportedly fell about 5 or 6 weeks ago and presented to an outside hospital in [place] whereshe was informed to watch and wait. Her pain persisted. She continued to walk on her lower extremity with a walker and today suffered from increasing pain which prompted her visit here. On exam, LLE shortened and externally rotated. Here, imaging revealed a renal neck fracture. Orthopedics consulted with plans for surgical intervention in AM. -Orthopedics consulted -Plan OR Evert vs JACQUI tomorrow -N.p.o. at midnight -IV fluids while p.o. -PT postoperatively -Bedrest until intervention -Pain control BRANDO - BMP in AM - IVF at midnight once NPO Parkinson's disease - [employer]GER carbidopa-levodopa HTN - holding antihypertensives with normal BP, pending medication reconciliation MDD/anxiety/insomnia - pending medication reconciliation HLD - [employer] MANAGER statin once verified GERD Diet: NPO per Anesthesia Guidelines for Procedure/Surgery Except for: Meds Combination Diet Regular Diet Adult DVT Prophylaxis: Pneumatic Compression Devices Pizarro Catheter: Not present Lines: None Cardiac Monitoring: ACTIVE order. Indication: murmur, surgical intervention pending Code Status: Full Code Clinically Significant Risk Factors Present on Admission # Hypertension: home medication list includes antihypertensive(s) Disposition Plan Expected Discharge Date: 11/25/2022 Emely Johansen DO Hospitalist Service [facility] Securely message with [email or web address] (more info) Text page via [facility] Paging/Directory Chief Complaint Fall, hip pain History is obtained from the patient, electronic health record, emergency department physician and patient's spouse History of Present Illness Ms. Jerica Layton is a 72 year old female with a history of history of parkinson's, hypertension, hyperlipidemia, and osteoarthrosis admitted on 11/23/2022 with acute femoral neck fracture after having worsening pain for the last few weeks and difficulty ambulating. She reportedly fell about 5 or 6 weeks ago and presented to an outside hospital in [place] whereshe was informed to watch and wait. Her pain persisted. She continued to walk on her lower extremity with a walker and today suffered from increasing pain which prompted her visit here. No other concerns or complaints today. Past Medical History No past medical history on file. PMH as above Past Surgical History No past surgical history on file. Has had multiple surgeries in the past with no complications. No history of bleeding or clotting disorders. Prior to Admission Medications Prior to Admission Medications Prescriptions Last Dose Informant Patient Reported? Taking? Bioflavonoid Products (BIOFLEX) TABS 11/23/2022 Yes Yes Sig: Take 2 tablets by mouth every morning CYMBALTA 60 MG OR CPEP 11/23/2022 at am Yes Yes Si CAPSULE DAILY NEURONTIN 100 MG OR CAPS 11/22/2022 No Yes Si cap twice during the day and up to 3 tabs at night. Patient taking differently: Take 200 mg by mouth At Bedtime WELLBUTRIN SR## 150 MG OR TB12 11/23/2022 at am Yes Yes Si mg a day aspirin 81 MG EC tablet 11/23/2022 at am Yes Yes Sig: Take 81 mg by mouth daily calcium carbonate 600 mg-vitamin D 400 units (CALTRATE) 600-400 MG-UNIT per tablet 11/22/2022 Yes Yes Sig: Take 1 tablet by mouth 2 times daily carbidopa-levodopa (SINEMET) 25-100 MG tablet 11/23/2022 at x2 Yes Yes Sig: Take 1 tablet by mouth 3 times daily chlorthalidone (HYGROTON) 12.5 mg TABS half-tab 11/23/2022 at am Yes Yes Sig: Take 12.5 mg by mouth every morning clonazePAM (KLONOPIN) 0.5 MG tablet 11/22/2022 Yes Yes Sig: Take 0.5 mg by mouth At Bedtime lisinopril (ZESTRIL) 40 MG tablet 11/22/2022 Yes Yes Sig: Take 40 mg by mouth At Bedtime omeprazole (PRILOSEC) [address] capsule 11/23/2022 at am Yes Yes Sig: Take 40 mg by mouth daily pravastatin (PRAVACHOL) 40 MG tablet 11/22/2022 at hs Yes Yes Sig: Take 40 mg by mouth daily Facility-Administered Medications: None Physical Exam Vital Signs: Temp: 98 ??F (36.7 ??C) Temp src: Temporal BP: 127/70 Pulse: 94 Resp: 18 SpO2: 97 % [id number]: None (Room air) Weight: 175 lbs 0 oz Constitutional: awake, alert, cooperative, no apparent distress, and appears stated age HEENT: Normocephalic, atraumatic Respiratory: Normal work of breathing, good air exchange, clear to auscultation bilaterally, no crackles or wheezing Cardiovascular: Regular rate and rhythm, no murmurs appreciated GI: Soft and nontender to palpation, nondistended, no rebound or guarding Skin: normal skin color, texture, turgor Musculoskeletal: LLE shortened and externally rotated. Sensation intact throughout Neurologic: Alert and oriented, no focal deficits Neuropsychiatric: General: normal, calm and normal eye contact Data PAST 24 HR DATA REVIEWED I have personally reviewed the following data over the past 24 hrs: 7.6 \ 11.9 / 256 136 95 (L) 29.4 (H) / 140 (H) 4.3 28 1.20 (H) \ Imaging results reviewed over the past 24 hrs: Recent Results (from the past 24 hour(s)) XR Femur Left 2 Views Narrative EXAM: XR FEMUR LEFT 2 VIEWS LOCATION: [facility] DATE/TIME: 11/23/2022 8:45 PM INDICATION: Left hip pain. COMPARISON: None. Impression IMPRESSION: 1. Left subcapital femoral neck fracture. Mild impaction and mild-moderate superior displacement. 2. The femoral head remains seated in the acetabulum. 3. The left femur is otherwise unremarkable. 4. Normal knee alignment. 5. Postoperative changes at the lumbosacral interspace and left sacroiliac joint noted. Lumbar spine XR, 2-3 views Narrative EXAM: XR LUMBAR SPINE 2/3 VIEWS LOCATION: [facility] DATE/TIME: 11/23/2022 8:45 PM INDICATION: Left hip and leg pain, inability to ambulate, eval lumbar spine. COMPARISON: None. Impression IMPRESSION: Partially visualized multilevel thoracolumbar and cemented spinal fusion construct [id number] with transpedicular screws T10-S1, bilateral sacroiliac joint screws with interconnecting rods and interbody spacer at L5-S1. Fracture of the right posterior interconnecting regi between the L4 and L5 transpedicular screws. Fracture of the left interconnecting regi between the left transpedicular screws at L3 and L4. Solid dorsal bony ankylosis L2-pelvis. Multilevel laminectomy defects. Normal vertebral body heights and alignment. No fracture or traumatic subluxation. Mild to moderate degenerative convex left scoliotic curvature with apex at L1. Exaggeration of the normal lumbar lordotic curvature. The extraspinal soft tissues are unremarkable. documented in this encounter Consult Notes * Wanda Nelson RN - 11/25/2022 2:26 PM CDTAssociated Order(s): CARE MANAGEMENT / SOCIAL WORK IP CONSULT Care Management Initial Consult General Information Assessment completed with: Patient, Spouse or significant other, Maximo Pizano Type of CM/SW Visit: Initial Assessment Primary Care Provider verified and updated as needed: Yes Readmission within the last 30 days: no previous admission in last 30 days Reason for Consult: discharge planning, care coordination/care conference Advance Care Planning: Communication Assessment Patient's communication style: spoken language (Australian or Bilingual) Hearing Difficulty or Deaf: no Wear Glasses or Blind: yes Cognitive Cognitive/Neuro/Behavioral: WDL Level of Consciousness: alert Arousal Level: opens eyes spontaneously Orientation: oriented x 4 Mood/Behavior: cooperative, calm Living Environment: People in home: spouse Maximo Pizano Current living Arrangements: other (see comments), condominium (townhouse) Able to return to prior arrangements: no Living Arrangement Comments: PT recs TCU Family/Social Support: Care provided by: self, spouse/significant other Provides care for: no one Marital Status: , Children Maximo Description of Support System: Involved, Supportive Support Assessment: Adequate social supports, Adequate family and caregiver support Current Resources: Patient receiving home care services: No Community Resources: None Equipment currently used at home: walker, rolling Supplies currently used at home: None Lifestyle & Psychosocial Needs: Social Determinants of Health Tobacco Use: High Risk ??? Smoking Tobacco Use: Every Day ??? Smokeless Tobacco Use: Never ??? Passive Exposure: Not on file Alcohol Use: Not on file Financial Resource Strain: Not on file Food Insecurity: Not on file Transportation Needs: Not on file Physical Activity: Not on file Stress: Not on file Social Connections: Not on file Intimate Partner Violence: Not on file Depression: Not on file Housing Stability: Not on file Functional Status: Prior to admission patient needed assistance: Dependent ADLs:: Bathing, Dressing, Transfers (Patient was previously independent, sulma needed spouse assist) Dependent IADLs:: Cleaning, Cooking, Laundry, Shopping, Meal Preparation (Patient has been needing help with IADL's. Normally independent) Assesssment of Functional Status: Not at functional baseline, Not at baseline with mobility, Not atbaseline with ADL Functioning Additional Information: Patient had onset of pain approximately 1 month ago. Presented to the ED, and was found to have L hip fracture. She underwent surgery on 11/24/22. She is being followed by Ortho, PT, OT, Neurosurgery and the Hospitalist. Case Management met with patient at he bedsidePatient had onset of L hip pain around the middle of October. Prior to that time she was independent in both ADL's and IADL's. Since October she has needed assist with bathing, dressing and household tasks. She did not have home care and did not use any community services. Verified PCP and address. Transportation. to be provided by her . Discussed TCU packet and Medicare.gov website. Referrals were sent with patient choices. Case Management will continue to follow for discharge planning to TCU. Sherry Nelson RN, BSN, CM Inpatient Care Coordination [facility] [phone] * Jean Ayala MD - 11/24/2022 10:19 AM CDTAssociated Order(s): ORTHOPEDIC SURGERY IP CONSULT [facility] Orthopedics Consultation Date of Admission: 11/23/2022 Assessment & Plan Jerica Layton is a 72 year old female who was admitted on 11/23/2022 with Parkinson's and 1 month ofleft hip pain with imaging demonstrating a displaced left femoral neck fracture. Discussed both operative and nonoperative management. Risks of surgery discussed included but not limited to bleeding, infection, damage to surrounding neurovascular structures, leg length inequality, dislocation, periprosthetic fracture, need for revision surgery, blood clots, pulmonary embolus, stroke, anesthetic complications and even . No guarantees given or implied. Patient and family thoughtfully acknowledges risks and wishes to proceed with left hip hemiarthroplasty. Higher dislocation risk due to Parkinson's, hip fracture, and previous lumbar fusion. Will use anterior lateral approach and due a hemiarthroplasty. Jean Ayala MD, MD Code Status Full Code Reason for Consult Reason for consult: I was asked by Dr. Johansen to evaluate this patient for left femoral neck fracture. Primary Care Physician Rogers Ho History of Present Illness Ms. Jerica Layton is a 72 year old female who reportedly fell about 5 or 6 weeks ago and presented to an outside hospital. Pain has been increasing and imaging now shows displaced left femoral neck fracture. PMH includes: ??parkinson's, hypertension, hyperlipidemia, and osteoarthrosis. She has continued to walk on her lower extremity with a walker with increasing pain. at bedside. Previous spine fusion. MEDS: No current outpatient medications on file. PAST MEDICAL HISTORY: History reviewed. No pertinent past medical history. PAST SURGICAL HISTORY: History reviewed. No pertinent surgical history. FAMILY HISTORY: History reviewed. No pertinent family history. SOCIAL HISTORY: Social History Tobacco Use ??? Smoking status: Every Day Packs/day: 0.50 Types: Cigarettes ??? Smokeless tobacco: Never Substance Use Topics ??? Alcohol use: Not Currently ALLERGIES: No Known Allergies ROS: 10 point ROS neg other than the symptoms noted above in the HPI. Physical Exam Temp: 97.5 ??F (36.4 ??C) Temp src: Temporal BP: 135/70 Pulse: 85 Resp: (!) 9 SpO2: 94 % O2 Device:Nasal cannula Oxygen Delivery: 2 LPM Vital Signs with Ranges Temp: [97.2 ??F (36.2 ??C)-98 ??F (36.7 ??C)] 97.5 ??F (36.4 ??C) Pulse: [81-94] 85 Resp: [9-18] 9 BP: (127-160)/(70-92) 135/70 SpO2: [90 %-99 %] 94 % 179 lbs 8 oz Constitutional: Pleasant, alert, appropriate, following commands. Slight tremor. HEENT: Head atraumatic normocephalic. Pupils equal round and reactive to light. Respiratory: Unlabored breathing no audible wheeze Cardiovascular: Regular rate and rhythm GI: Abdomen soft nontender nondistended. Lymph/Hematologic: No lymphadenopathy in areas examined Genitourinary: No pizarro Skin: No rashes, no cyanosis, no edema. Musculoskeletal: LLE shortened and external rotated. NVI. Skin intact, pain with motion. Full painless rom BUE and RLE. Neurologic: normal without focal findings, mental status, speech normal, alert and oriented x iii, KATHY, reflexes normal and symmetric, intention tremor of hand Data Results for orders placed or performed during the hospital encounter of 11/23/22 (from the past 24 hour(s)) CBC with platelets differential Narrative The following orders were created for panel order CBC with platelets differential. Procedure Abnormality Status --------- ------ CBC with platelets and d...[[id number]] Abnormal Final result Please view results for these tests on the individual orders. Basic metabolic panel Result Value Ref Range Sodium 136 136 - 145 mmol/L Potassium 4.3 3.4 - 5.3 mmol/L Chloride 95 (L) 98 - 107 mmol/L Carbon Dioxide (CO2) 28 22 - 29 mmol/L Anion Gap 13 7 - 15 mmol/L Urea Nitrogen 29.4 (H) 8.0 - 23.0 mg/dL Creatinine 1.20 (H) 0.51 - 0.95 mg/dL Calcium 10.0 8.8 - 10.2 mg/dL Glucose 140 (H) 70 - 99 mg/dL GFR Estimate 48 (L) >60 mL/min/1.73m2 Magnesium Result Value Ref Range Magnesium 2.0 1.7 - 2.3 mg/dL CBC with platelets and differential Result Value Ref Range WBC Count 7.6 4.0 - 11.0 10e3/uL RBC Count 3.77 (L) 3.80 - 5.20 10e6/uL Hemoglobin 11.9 11.7 - 15.7 g/dL Hematocrit 37.1 35.0 - 47.0 % MCV 98 78 - 100 fL MCH 31.6 26.5 - 33.0 pg MCHC 32.1 31.5 - 36.5 g/dL RDW 12.6 10.0 - 15.0 % Platelet Count 256 150 - 450 10e3/uL % Neutrophils 65 % % Lymphocytes 21 % % Monocytes 10 % % Eosinophils 3 % % Basophils 1 % % Immature Granulocytes 0 % NRBCs per 100 WBC 0 <1 /100 Absolute Neutrophils 4.9 1.6 - 8.3 10e3/uL Absolute Lymphocytes 1.6 0.8 - 5.3 10e3/uL Absolute Monocytes 0.7 0.0 - 1.3 10e3/uL Absolute Eosinophils 0.2 0.0 - 0.7 10e3/uL Absolute Basophils 0.1 0.0 - 0.2 10e3/uL Absolute Immature Granulocytes 0.0 <=0.4 10e3/uL Absolute NRBCs 0.0 10e3/uL XR Femur Left 2 Views Narrative EXAM: XR FEMUR LEFT 2 VIEWS LOCATION: [facility] DATE/TIME: 11/23/2022 8:45 PM INDICATION: Left hip pain. COMPARISON: None. Impression IMPRESSION: 1. Left subcapital femoral neck fracture. Mild impaction and mild-moderate superior displacement. 2. The femoral head remains seated in the acetabulum. 3. The left femur is otherwise unremarkable. 4. Normal knee alignment. 5. Postoperative changes at the lumbosacral interspace and left sacroiliac joint noted. Lumbar spine XR, 2-3 views Narrative EXAM: XR LUMBAR SPINE 2/3 VIEWS LOCATION: [facility] DATE/TIME: 11/23/2022 8:45 PM INDICATION: Left hip and leg pain, inability to ambulate, eval lumbar spine. COMPARISON: None. Impression IMPRESSION: Partially visualized multilevel thoracolumbar and cemented spinal fusion construct [id number] with transpedicular screws T10-S1, bilateral sacroiliac joint screws with interconnecting rods and interbody spacer at L5-S1. Fracture of the right posterior interconnecting regi between the L4 and L5 transpedicular screws. Fracture of the left interconnecting regi between the left transpedicular screws at L3 and L4. Solid dorsal bony ankylosis L2-pelvis. Multilevel laminectomy defects. Normal vertebral body heights and alignment. No fracture or traumatic subluxation. Mild to moderate degenerative convex left scoliotic curvature with apex at L1. Exaggeration of the normal lumbar lordotic curvature. The extraspinal soft tissues are unremarkable. Basic metabolic panel Result Value Ref Range Sodium 135 (L) 136 - 145 mmol/L Potassium 4.3 3.4 - 5.3 mmol/L Chloride 95 (L) 98 - 107 mmol/L Carbon Dioxide (CO2) 29 22 - 29 mmol/L Anion Gap 11 7 - 15 mmol/L Urea Nitrogen 33.6 (H) 8.0 - 23.0 mg/dL Creatinine 1.62 (H) 0.51 - 0.95 mg/dL Calcium 9.6 8.8 - 10.2 mg/dL Glucose 150 (H) 70 - 99 mg/dL GFR Estimate 33 (L) >60 mL/min/1.73m2 CBC with platelets Result Value Ref Range WBC Count 6.4 4.0 - 11.0 10e3/uL RBC Count 3.36 (L) 3.80 - 5.20 10e6/uL Hemoglobin 10.7 (L) 11.7 - 15.7 g/dL Hematocrit 33.5 (L) 35.0 - 47.0 % MCV 100 78 - 100 fL MCH 31.8 26.5 - 33.0 pg MCHC 31.9 31.5 - 36.5 g/dL RDW 12.6 10.0 - 15.0 % Platelet Count 238 150 - 450 10e3/uL Magnesium Result Value Ref Range Magnesium 2.0 1.7 - 2.3 mg/dL Phosphorus Result Value Ref Range Phosphorus 4.6 (H) 2.5 - 4.5 mg/dL documented in this encounter ED Notes * Vicki Hale RN - 11/23/2022 9:33 PM CDT [facility] ED Nurse Handoff Report Jerica Layton is a 72 year old female ED Chief complaint: Leg Pain . ED Diagnosis: Final diagnoses: Hip fracture, left, closed, initial encounter (H) Allergies: No Known Allergies Code Status: Full Code Activity level - Baseline/Home: Independent. Activity Level - Current: Assist X 2. Lift room needed: No. Bariatric: No Credit Consultant Needed: No Isolation: No. Infection: Not Applicable. Vital Signs: Vitals: 11/23/22 1921 BP: (!) 160/92 Pulse: 85 Resp: 18 Temp: 98 ??F (36.7 ??C) TempSrc: Oral SpO2: 98% Weight: 79.4 kg (175 lb) Cardiac Rhythm: , Pain level: Patient confused: No. Patient Falls Risk: Yes. Elimination Status: Has not needed to void. Patient Report - Initial Complaint: hip/leg pain. Focused Assessment: 72 year old female with a history of parkinson's, hypertension, hyperlipidemia, and osteoarthrosis who presents with leg pain. The patient reports that she has been having left hip pain for the past month. The patient was seen inthe ED, by her primary care physician and neurology. The patient states she was told that they believe it was a pinched nerve and they increased her gabapentin. They have not gotten any imaging of her leg or back. She reports that she was prescribed [place] today and took it without any relief in symptoms. The patient states she is unable to ambulate or move the leg without pain. The patient deniesany falls or trauma. The patient denies any loss of bowel or bladder control. Tests Performed: imaging, labs. Abnormal Results: Abnormal Labs Resulted from Time of ED Arrival to Time of ED Departure BASIC METABOLIC PANEL - Abnormal Result Value Sodium 136 Potassium 4.3 Chloride 95 (*) Carbon Dioxide (CO2) 28 Anion Gap 13 Urea Nitrogen 29.4 (*) Creatinine 1.20 (*) Calcium 10.0 Glucose 140 (*) GFR Estimate 48 (*) CBC WITH PLATELETS AND DIFFERENTIAL - Abnormal WBC Count 7.6 RBC Count 3.77 (*) Hemoglobin 11.9 Hematocrit 37.1 MCV 98 MCH 31.6 MCHC 32.1 RDW 12.6 Platelet Count 256 % Neutrophils 65 % Lymphocytes 21 % Monocytes 10 % Eosinophils 3 % Basophils 1 % Immature Granulocytes 0 NRBCs per 100 WBC 0 Absolute Neutrophils 4.9 Absolute Lymphocytes 1.6 Absolute Monocytes 0.7 Absolute Eosinophils 0.2 Absolute Basophils 0.1 Absolute Immature Granulocytes 0.0 Absolute NRBCs 0.0 Treatments provided: see MAR Family Comments: Involved and supportive OBS brochure/video discussed/provided to patient: N/A ED Medications: Medications HYDROmorphone (PF) (DILAUDID) injection 0.5 mg (has no administration in time range) ketorolac (TORADOL) injection 15 mg (has no administration in time range) ketorolac (TORADOL) injection 15 mg (15 mg Intravenous $Given 11/23/221952) HYDROmorphone (PF) (DILAUDID) injection 0.5 mg (0.5 mg Intravenous $Given 11/23/221952) Drips infusing: No For the majority of the shift, the patient's behavior Green. Interventions performed were NA. Sepsis treatment initiated: No Patient tested for COVID 19 prior to admission: NO ED Nurse Name/Phone Number: Kaia Bennett RN, 9:33 PM RECEIVING UNIT ED HANDOFF REVIEW Above ED Nurse Handoff Report was reviewed: Yes Reviewed by: Vicki Hale RN on November 23, 2022 at 10:08 PM * Kaia Bennett RN - 11/23/2022 7:23 PM CDT Pt biba from home for ongoing L leg pain that starts at the hip and shoots down the leg. Pain started one month ago and has persisted. Has seen PCP and neurology. Was prescribed a pain med today (norco) that didn't touch it. Hx of parkinsons. Has not had any imaging yet. Denies loss of bowel and bladder. Per EMS, pt was an assist of 2-3 due to pt's inability to bear weight. Pt normally lives athome independently w/ her . * Ra Hu MD - 11/23/2022 7:18 PM CDT History Chief Complaint: Leg Pain HPI Jerica Layton is a 72 year old female with a history of parkinson's, hypertension, hyperlipidemia, and osteoarthrosis who presents with leg pain. The patient reports that she has been having left hippain for the past month. The patient was seen in the ED, by her primary care physician and neurology. The patient states she was told that they believe it was a pinched nerve and they increased her gabapentin. They have not gotten any imaging of her leg or back. She reports that she was prescribed [place] today and took it without any relief in symptoms. The patient states she is unable to ambulateor move the leg without pain. The patient denies any falls or trauma. The patient denies any loss of bowel or bladder control. Independent Historian: None - Patient Only Review of External Notes: none ROS: Review of Systems ROS: ROS neg other than the symptoms noted above in the HPI. Allergies: No Known Allergies Medications: Aspirin Librium Cymbalta Enablex Lisinopril Neurontin Omeprazole Pravastatin Propranolol Simvastatin Wellbutrin Past Medical History: Parkinson's Anxiety Depression Hyperlipidemia Hypertension Insomnia GERD Insomnia Osteoarthritis Past Surgical History: Appendectomy Tonsillectomy and adenoidectomy Cataract removal Scoliosis surgery MCP joint replacement Social History: The patient presents alone via EMS. reports that she has been smoking. She has been smoking an average of .5 packs per day. She has never used smokeless tobacco. She reports that she does not currently use alcohol. She reports that shedoes not use drugs. PCP: Jenifer Decker Physical Exam Patient Vitals for the past 24 hrs: BP Temp Temp src Pulse Resp SpO2 Weight 11/23/221920 (!) 160/92 98 ??F (36.7 ??C) Oral 85 18 98 % 79.4 kg (175 lb) Physical Exam Vitals reviewed. Constitutional: Appearance: She is obese. HENT: Head: Normocephalic. Cardiovascular: Rate and Rhythm: Normal rate. Pulmonary: Effort: Pulmonary effort is normal. Abdominal: General: Abdomen is flat. Palpations: Abdomen is soft. Musculoskeletal: Comments: Left hip patient slightly shortened and externally rotated. Distal DP PT pulse. Unable tolift hip off bed. Skin: General: Skin is warm. Capillary Refill: Capillary refill takes less than 2 seconds. Neurological: General: No focal deficit present. Mental Status: She is alert and oriented to person, place, and time. Psychiatric: Mood and Affect: Mood normal. Emergency Department Course Imaging: Lumbar spine XR, 2-3 views Preliminary Result IMPRESSION: Partially visualized multilevel thoracolumbar and cemented spinal fusion construct [id number] with transpedicular screws T10-S1, bilateral sacroiliac joint screws with interconnecting rods and interbody spacer at L5-S1. Fracture of the right posterior interconnecting regi between the L4 and L5 transpedicular screws. Fracture of the left interconnecting regi between the left transpedicular screws at L3 and L4. Solid dorsal bony ankylosis L2-pelvis. Multilevel laminectomy defects. Normal vertebral body heights and alignment. No fracture or traumatic subluxation. Mild to moderate degenerative convex left scoliotic curvature with apex at L1. Exaggeration of the normal lumbar lordotic curvature. The extraspinal soft tissues are unremarkable. XR Femur Left 2 Views Final Result IMPRESSION: 1. Left subcapital femoral neck fracture. Mild impaction and mild-moderate superior displacement. 2. The femoral head remains seated in the acetabulum. 3. The left femur is otherwise unremarkable. 4. Normal knee alignment. 5. Postoperative changes at the lumbosacral interspace and left sacroiliac joint noted. Report per radiology Laboratory: Labs Ordered and Resulted from Time of ED Arrival to Time of ED Departure BASIC METABOLIC PANEL - Abnormal Result Value Sodium 136 Potassium 4.3 Chloride 95 (*) Carbon Dioxide (CO2) 28 Anion Gap 13 Urea Nitrogen 29.4 (*) Creatinine 1.20 (*) Calcium 10.0 Glucose 140 (*) GFR Estimate 48 (*) CBC WITH PLATELETS AND DIFFERENTIAL - Abnormal WBC Count 7.6 RBC Count 3.77 (*) Hemoglobin 11.9 Hematocrit 37.1 MCV 98 MCH 31.6 MCHC 32.1 RDW 12.6 Platelet Count 256 % Neutrophils 65 % Lymphocytes 21 % Monocytes 10 % Eosinophils 3 % Basophils 1 % Immature Granulocytes 0 NRBCs per 100 WBC 0 Absolute Neutrophils 4.9 Absolute Lymphocytes 1.6 Absolute Monocytes 0.7 Absolute Eosinophils 0.2 Absolute Basophils 0.1 Absolute Immature Granulocytes 0.0 Absolute NRBCs 0.0 MAGNESIUM - Normal Magnesium 2.0 Procedures Emergency Department Course & Assessments: Interventions: Medications ketorolac (TORADOL) injection 15 mg (15 mg Intravenous $Given 11/23/221952) HYDROmorphone (PF) (DILAUDID) injection 0.5 mg (0.5 mg Intravenous $Given 11/23/221952) Assessments: 1734 I obtained history and examined the patient as noted above. 2050 I returned to check on patient. We discussed findings and plan of care. Independent Interpretation (X-rays, CTs, rhythm strip): Consultations/Discussion of Management or Tests: I spoke with Dr. Johansen of the Hospitalist service from [facility] regarding patient's presentation, findings, and plan of care. Social Determinants of Health affecting care: None Disposition: The patient was admitted to the hospital under the care of Dr. Johansen Impression & Plan [facility] Diagnoses: None Medical Decision Making: Patient presents with severe left hip pain unable to bear weight. No clear history of trauma but there is a remote history of possible falling. Patient's examination is concerning for hip fracture due to shortening and external rotation x-rays confirm this. Care was discussed with the patient and re commended pain control admission and orthopedic consultation. No signs of pathological fracture on plain x-ray. We will consider further imaging if more suspicion is held by the orthopedist. Care wasdiscussed with the hospitalist when is admitted in stable condition. Critical Care time: was 0 minutes for this patient excluding procedures. Diagnosis: ICD-10-CM 1. Hip fracture, left, closed, initial encounter (H) S72.002A [facility] [employer] aspirin (ASA) 325 MG EC tablet acetaminophen (TYLENOL) 325 MG tablet HYDROmorphone (DILAUDID) 2 MG tablet ondansetron (ZOFRAN ODT) 4 MG ODT tab senna-docusate (SENOKOT-S/PERICOLACE) 8.6-50 MG tablet Scribe Disclosure: I, Vanda Hollis, am serving as a scribe at 7:34 PM on 11/23/2022 to document services personally performed by Ra Hu MD based on my observations and the provider's statements to me. 11/23/2022 Ra Hu MD Goodman, Brian Samuel, MD 11/25/22 1516 documented in this encounter Miscellaneous Notes * Plan of Care - Kamini Roblero, PT - 11/26/2022 12:48 PM CDT Physical Therapy Discharge Summary Reason for therapy discharge: Discharged to transitional care facility. Progress towards therapy goal(s). See goals on Care Plan in [facility] electronic health record for goal details. Goals not met. Barriers to achieving goals: discharge from facility. Therapy recommendation(s): Continued therapy is recommended. Rationale/Recommendations: Patient would benefit from PT eval at TCU in order to increase strength, activity tolerance, balance and independence with mobility. * Plan of Care - Candi Miller RN - 11/26/2022 7:56 AM CDT Goal Outcome Evaluation: Vss. Afebrile. Lungs clr-room air mid 90s. Is done. +gas. Lbm 11/22/22. Voiding. Saline locked. Drsg-cdi. Cms-2+ edema & cool toes. Skin pale with scabbed- abrasion to left foot. Pain managed withTylenol. Tolerating ice. Repositioning self. No other significant issues noted overnight. * Plan of Care - Ryann Issa RN - 11/25/2022 4:12 PM CDT Goal Outcome Evaluation: Plan of Care Reviewed With: patient, spouse Overall Patient Progress: improvingOverall Patient Progress: improving 7a-7p RN Patient vital signs are at baseline: Yes Patient able to ambulate as they were prior to admission or with assist devices provided by therapies during their stay: Yes Patient MUST void prior to discharge: Yes Patient able to tolerate oral intake: Yes Pain has adequate pain control using Oral analgesics: Yes Does patient have an identified personal development coach: No, Reason: lives w/spouse who has cancer and is unable to help much with transfers Has goal D/C date and time been discussed with patient: Yes Drsg C/D/I, CMS+, minimal pain, Tylenol only so far, hypo BS, flatus+, SW following for TCU placement, spouse at b/s. * Plan of Care - Tiera Silva OT - 11/25/2022 10:51 AM CDT Occupational Therapy: Orders received. Chart reviewed and discussed with care team.? Occupational Therapy not indicated as pt with plans to discharge to TCU as pt is requiring increased assist at this time. Most appropriate to defer OT eval to next level of care. PT to continue to address mobility needs.? Defer discharge recommendations to PT/care team.? Will complete IP OT orders. * Plan of Care - Vicki Hale RN - 11/25/2022 7:40 AM CDT Goal Outcome Evaluation: Plan of Care Reviewed With: patient Overall Patient Progress: improvingOverall Patient Progress: improving Patient vital signs are at baseline: No, Reason: requiring 2LPM via NC. Patient able to ambulate as they were prior to admission or with assist devices provided by therapies during their stay: Yes Patient MUST void prior to discharge: Yes Patient able to tolerate oral intake: Yes Pain has adequate pain control using Oral analgesics: Yes Does patient have an identified personal development coach: Yes Has goal D/C date and time been discussed with patient: Yes Pt A/O x4. VVs; except 2LPM via NC. Pain managed with scheduled tylenol. Assist x1 with walker and gait belt. Voiding good amounts. Tolerating a regular diet well. CMS intact. Dressing CDI. Plan is home at discharge. * Plan of Care - Vicki Morse RN - 11/24/2022 5:10 PM CDT Arrived back to room 645 from PACU at 1045 via bed. Patient vital signs are at baseline: No, Reason: requiring 2L O2, capnography monitoring. Patient able to ambulate as they were prior to admission or with assist devices provided by therapies during their stay: Yes-Ax1, using gait belt, and walker. Patient MUST void prior to discharge: Yes Patient able to tolerate oral intake: Yes-regular diet. Pain has adequate pain control using Oral analgesics: Yes-PO scheduled tylenol. Does patient have an identified personal development coach: Yes-spouse. Has goal D/C date and time been discussed with patient: Yes-pending therapy. Pt A&O x4. CMS intact. Dressing CDI. * Op Note - Jean Ayala MD - 11/24/2022 8:27 AM CDT [facility] Operative Note Anterior Lateral Hip Hemiarthroplasty - Jerica Layton Date of : 1950 Procedure Date: 11/24/2022 Age: [age] year old PREOPERATIVE DIAGNOSIS: 1. Displaced femoral neck fracture, left hip. 2. Parkinson's POSTOPERATIVE DIAGNOSIS: 1. Displaced femoral neck fracture, left hip. 2. Parkinson's PROCEDURE PERFORMED: Left hip hemiarthroplasty. Anterior lateral approach. SURGEON: Jean Ayala M.D. RADIOLOGY PHYSICIAN ASSISTANT: Isidro Mustafa PA-C, whose was critical for positioning, retraction during exposure, placement of implants, and closure. ANESTHESIA: General. ESTIMATED BLOOD LOSS: 200 mL. IMPLANTS USED: Howard 37.5 125 mm N1 [place] stem, -4 28mm 47 bipolar head used due to her relatively young age wanting to maximize head size in Parkinson's patient with previous spinal fusion INDICATIONS FOR PROCEDURE: Jerica Layton is a 72 year oldnlj-jobu-dyy female with a displaced femoral neck fracture. Discussed operative risks and nonoperative treatment with patient and family, risks and benefits of each. Risks of hip fracture in surgery discussed including but not limited to bleeding, infection, damage to surrounding neurovascular structures, hip dislocation, periprosthetic fracture, leg length inequality, blood clots to go to the heart, lung or brain, anesthetic complications or even . No guarantees given or implied. The patient and family understands and wishes to proceed. Consent sign. DESCRIPTION OF PROCEDURE: The patient identified in the preoperative holding area per hospital policy, correct operative site marked, to the OR onto the OR table. 1g Ancef and 1g tranexamic acid given preoperatively. Chlorhexidine pre- scribe, ChloraPrep and draped. A timeout was performed; all in the room agreed. Performed an anterolateral approach after dissecting through the IT band-gluteus vernon fascia, raised the anterior third of the hip abductors and tagged capsule. The femoral neck was cut. The head was dislocated and sized at a 47. Found a 47 mm head to fit most appropriately in the socket. Copiously irrigated the hip socket, removing all bony debris. Broache. Hip reduced and trialed a 47 bipolar head and found the -4 to be most appropriate. During trialing was found to have a appropriate amount of shuck. Leg lengths felt symmetric. Stable external rotation with the straight leg sleeping position and with the hip flexed and internally rotated. Cemented stem using modern technique and restri ctor. Cement allowed to fully harden. After trialing found size -4 head to be appropriate. Impactedthe head onto clean and dried taper. The hip was reduced. Performed a brush Betadine lavage protocol. Copiously irrigated the wound. A gram of vancomycin placed deep. Repaired down the gluteus minimus, and gluteus medius through bony tunnels with #5 Ethibond. Closed IT band #1 Vicryl, 0 Vicryl fatty layer, 2-0 Vicryl subcutaneous, 4-0 Monocryl and Dermabond for skin. Sterile dressings applied. Awakened, transferred stable to the PACU. Postoperatively: 1. Ancef x 24 hours. 2. Aspirin enteric coated 325 mg daily for DVT prophylaxis. 3. PACU x-rays. 4. Weightbearing as tolerated with a walker x 6 weeks. 5. Physical therapy/occupational therapy. 6. Keep dressing on for 2 weeks. OK to shower. No submerging wound. 7. Osteoporosis workup and treatment with primary care provider within 2 months. FOLLOWUP: 1. Plan 2 or 6 week wound check with x-rays. Dressing can come off at 2 weeks. This could also be done at patients rehab facility with x-rays sent [facility]. 2. Eight-week followup with X-rays. * Plan of Care - Vicki Hale RN - 11/24/2022 6:55 AM CDT Goal Outcome Evaluation: Plan of Care Reviewed With: patient Overall Patient Progress: no changeOverall Patient Progress: no change Arrived to room 645 from ER at 2220 via cart, alert and oriented x 4, oriented to room and call system, IV patent and infusing, rates pain 02/19, reviewed welcome folder and pain/medication information packet with patient. Admission profile completed. Patient vital signs are at baseline: Yes Patient able to ambulate as they were prior to admission or with assist devices provided by therapies during their stay: No, Reason: Bedrest Patient MUST void prior to discharge: yes Patient able to tolerate oral intake: No, Reason: NPO since midnight Pain has adequate pain control using Oral analgesics: No, Reason: 1 dose of IV dilaudid over night. Does patient have an identified personal development coach: Yes Pt A/O x4. VVS. PIV infusing. Pain managed with PRN PO dilaudid, one dose IV dilaudid and scheduledtylenol. Strict bedrest. Voiding. Has been NPO since midnight. CMS intact. Surgical bath completed.CHD wipes done. Scheduled for OR at 0730. Pt transferred to PACU around 0540. * Pharmacy-Admission Medication History - Flo Segura RPH - 11/23/2022 10:49 PM CDT Admission medication history interview status for this patient is complete. See [facility] admission navigator for allergy information, prior to admission medications and immunization status. Medication history interview source(s):Patient Medication history resources (including written lists, pill bottles, clinic record):outside meds Changes made to [employer] medication list: Added: sinemet, klonopin, chlorthalidone Deleted: inderal, zocor, zovirax oint, Librium, Enablex Changed: gabapentin, bioflex Actions taken by pharmacist (provider contacted, etc):None Additional medication history information:None Medication reconciliation/reorder completed by provider prior to medication history? No Prior to Admission medications Medication Sig Last Dose Taking? Auth Provider M[facility] End Date aspirin 81 MG EC tablet Take 81 mg by mouth daily 11/23/2022 at am Yes Reported, Patient Bioflavonoid Products (BIOFLEX) TABS Take 2 tablets by mouth every morning 11/23/2022 Yes Unknown, Entered By History calcium carbonate 600 mg-vitamin D 400 units (CALTRATE) 600-400 MG-UNIT per tablet Take 1 tablet bymouth 2 times daily 11/22/2022 Yes Reported, Patient carbidopa-levodopa (SINEMET) 25-100 MG tablet Take 1 tablet by mouth 3 times daily 11/23/2022 at x2 Yes Unknown, Entered By History Yes chlorthalidone (HYGROTON) 12.5 mg TABS half-tab Take 12.5 mg by mouth every morning 11/23/2022 at amYes Unknown, Entered By History Yes clonazePAM (KLONOPIN) 0.5 MG tablet Take 0.5 mg by mouth At Bedtime 11/22/2022 Yes Unknown, Entered By History Yes CYMBALTA 60 MG OR CPEP 1 CAPSULE DAILY 11/23/2022 at am Yes Reported, Patient lisinopril (ZESTRIL) 40 MG tablet Take 40 mg by mouth At Bedtime 11/22/2022 Yes Reported, Patient Yes NEURONTIN 100 MG OR CAPS 1 cap twice during the day and up to 3 tabs at night. Patient taking differently: Take 200 mg by mouth At Bedtime 11/22/2022 Yes Jenifer Decker, FREIDA omeprazole (PRILOSEC) [address] capsule Take 40 mg by mouth daily 11/23/2022 at am Yes Reported, Patient pravastatin (PRAVACHOL) 40 MG tablet Take 40 mg by mouth daily 11/22/2022 at hs Yes Reported, Patient Yes WELLBUTRIN SR## 150 MG OR TB12 450 mg a day 11/23/2022 at am Yes Reported, Patient documented in this encounter Plan of Treatment Not on file documented as of this encounter Procedures Procedure Name Priority Date/Time Associated Diagnosis Comments PHOSPHORUS Routine 11/26/2022 8:40 AM CDT MAGNESIUM Routine 11/26/2022 8:40 AM CDT BASIC METABOLIC PANEL Routine 11/26/2022 8:40 AM CDT CBC WITH PLATELETS Routine 11/26/2022 8: 40 AM CDT POTASSIUM Routine 11/25/2022 6:40 AM CDT MAGNESIUM Routine 11/25/2022 6:40 AM CDT HEMOGLOBIN Routine 11/25/2022 6:40 AM CDT GLUCOSE Routine 11/25/2022 6:40 AM CDT XR PELVIS AND HIP PORTABLE LEFT 1 VIEW STAT 11/24/2022 10:24 AM CDT HEMIARTHROPLASTY, HIP, BIPOLAR 11/24/2022 7:26 AM CDT Femoral neck fracture (H) PHOSPHORUS Routine 11/24/2022 6:14 AM CDT MAGNESIUM Routine 11/24/2022 6:14 AM CDT BASIC METABOLIC PANEL Routine 11/24/2022 6:14 AM CDT CBC WITH PLATELETS Routine 11/24/2022 6: 14 AM CDT XR LUMBAR SPINE 2/3 VIEWS STAT 11/23/2022 8:45 PM CDT XR FEMUR LEFT 2 VIEWS STAT 11/23/2022 8:45 PM CDT CBC WITH PLATELETS AND DIFFERENTIAL STAT 11/23/2022 7:52 PM CDT CBC WITH PLATELETS & DIFFERENTIAL STAT 11/23/2022 7:52 PM CDT MAGNESIUM STAT 11/23/2022 7:52 PM CDT BASIC METABOLIC PANEL STAT 11/23/2022 7:52 PM CDT documented in this encounter Results * Phosphorus (11/26/2022 8:40 AM CDT) Phosphorus 3.3 2.5 - 4.5 mg/dL 11/26/2022 9:25 AM CDT LABORATORY Blood STRUCTURE OF RIGHT UPPER LIMB / Unknown Venipuncture / Unknown 11/26/2022 8:40 AM CDT 11/26/2022 8:49 AM CDT Emely Eleno DO LAB - BLOOD ORDERA BLES LABORATORY [facility] Acute Care Lab [address] Lab (1st floor, no room number) [place] [address], [facility] [phone] * (ABNORMAL) Basic metabolic panel (11/26/2022 8:40 AM CDT) Sodium 139 136 - 145 mmol/L 11/26/2022 9:25 AM CDT LABORATORY Potassium 4.6 3.4 - 5.3 mmol/L 11/26/2022 9:25 AM CDT LABORATORY Chloride 100 98 - 107 mmol/L 11/26/2022 9:25 AM CDT LABORATORY Carbon Dioxide (CO2) 29 22 - 29 mmol/L 11/26/2022 9:25 AM CDT LABORATORY Anion Gap 10 7 - 15 mmol/L 11/26/2022 9:25 AM CDT LABORATORY Urea Nitrogen 24.7(H) 8.0 - 23.0 mg/dL 11/26/2022 9:25 AM CDT LABORATORY Creatinine 1.18(H) 0.51 - 0.95 mg/dL 11/26/2022 9:25 AM CDT LABORATORY Calcium 10.0 8.8 - 10.2 mg/dL 11/26/2022 9:25 AM CDT LABORATORY Glucose 146(H) 70 - 99 mg/dL 11/26/2022 9:25 AM CDT LABORATORY GFR Estimate 49(L) >60 mL/min/1.7 3m2 11/26/2022 9:25 AM CDT LABORATORY Comment:eGFR calculated usin g 2020 CKD-EPI equation. Blood STRUCTURE OF RIGHT UPPER LIMB / Unknown Venipuncture / Unknown 11/26/2022 8:40 AM CDT 11/26/2022 8:49 AM CDT Emely Johansen DO LAB - BLOOD ORDERA BLES LABORATORY [facility] Acute Care Lab [address] Lab (1st floor, no room number) [place] [address], [facility] [phone] * (ABNORMAL) CBC with platelets (11/26/2022 8:40 AM CDT) [facility] WBC Count 8.0 4.0 - 11.0 10e3/uL 11/26/2022 8:53 AM CDT [facility] LABORATORY RBC Count 2.96(L) 3.80 - 5.20 10e6/uL 11/26/2022 8:53 AM CDT [facility] LABORATORY Hemoglobin 9.4(L) 11.7 - 15.7 g/dL 11/26/2022 8:53 AM CDT [facility] LABORATORY Hematocrit 30.3(L) 35.0 - 47.0 % 11/26/2022 8:53 AM CDT [facility] LABORATORY MCV 102(H) 78 - 100 fL 11/26/2022 8:53 AM CDT [facility] LABORATORY MCH 31.8 26.5 - 33.0 pg 11/26/2022 8:53 AM CDT [facility] LABORATORY MCHC 31.0(L) 31.5 - 36.5 g/dL 11/26/2022 8:53 AM CDT RH LABORATORY RDW 12.7 10.0 - 15.0 % 11/26/2022 8:53 AM CDT RH LABORATORY Platelet Count 254 150 - 450 10e3/uL 11/26/2022 8:53 AM CDT RH LABORATORY Blood STRUCTURE OF RIGHT UPPER LIMB / Unknown Venipuncture / Unknown 11/26/2022 8:40 AM CDT 11/26/2022 8:49 AM CDT Emely Johansen DO LAB - BLOOD ORDERA BLES LABORATORY [facility] Acute Care Lab [address] Lab (1st floor, no room number) [place] [address], [place] [phone] * (ABNORMAL) Magnesium (11/26/2022 8:40 AM CDT) Magnesium 1.6(L) 1.7 - 2.3 mg/dL 11/26/2022 9:25 AM CDT RH LABORATORY Blood STRUCTURE OF RIGHT UPPER LIMB / Unknown Venipuncture / Unknown 11/26/2022 8:40 AM CDT 11/26/2022 8:49 AM CDT Emely Eleno LAB - BLOOD ORDERA BLES LABORATORY [facility] Lab [address] Lab (1st floor, no room number) [place] [address], [facility] [phone] * (ABNORMAL) Glucose (11/25/2022 6:40 AM CDT) Glucose 158(H) 70 - 99 mg/dL 11/25/2022 7:23 AM CDT RH LABORATORY Blood STRUCTURE OF LEFT UPPER LIMB / Unknown Venipuncture / Unknown 11/25/2022 6:40 AM CDT 11/25/2022 6:59 AM CDT Emely Eleno CISNEROS LAB - BLOOD ORDERA BLES LABORATORY [facility] Acute Care Lab [address] Lab (1st floor, no room number) [place] [address], [facility] [phone] * (ABNORMAL) Hemoglobin (11/25/2022 6:40 AM CDT) Hemoglobin 8.9(L) 11.7 - 15.7 g/dL 11/25/2022 7:07 AM CDT RH LABORATORY Blood STRUCTURE OF LEFT UPPER LIMB / Unknown Venipuncture / Unknown 11/25/2022 6:40 AM CDT 11/25/2022 7:00 AM CDT Isidro Mustafa PA-C LAB - BLOOD ORDERABL ES LABORATORY [facility] Acute Care Lab [address] Lab (1st floor, no room number) [place] [phone], [facility] [phone] * Magnesium (11/25/2022 6:40 AM CDT) Magnesium 1.9 1.7 - 2.3 mg/dL 11/25/2022 7:23 AM CDT RH LABORATORY Blood STRUCTURE OF LEFT UPPER LIMB / Unknown Venipuncture / Unknown 11/25/2022 6:40 AM CDT 11/25/2022 6:59 AM CDT Emely Johansen DO LAB - BLOOD ORDERA BLES LABORATORY [facility] Care Lab [address] Lab (1st floor, no room number) [place] [phone], [facility] [phone] * Potassium (11/25/2022 6:40 AM CDT) Potassium 4.4 3.4 - 5.3 mmol/L 11/25/2022 7:23 AM CDT RH LABORATORY Blood STRUCTURE OF LEFT UPPER LIMB / Unknown Venipuncture / Unknown 11/25/2022 6:40 AM CDT 11/25/2022 6:59 AM CDT Emely Johansen DO LAB - BLOOD ORDERA BLES LABORATORY [facility] Care Lab [address] Lab (1st floor, no room number) [place] [phone], [facility] [phone] * XR Pelvis w Hip Port Left 1 View (11/24/2022 10:24 AM CDT) Anatomical Region Laterality Modality Abdomen/Pelvis Left Digital Radiogra phy Impressions 11/24/2022 10:32 AM CDT IMPRESSION: Postoperative changes left bipolar hip endoprosthesis. The components appear well seated. Right hip negative for fracture. Postoperative changes lower lumbar spine and sacrum. No evidence for acute fracture. PHILIPP HENSLEY MD SYSTEM ID: [id number] Narrative 11/24/2022 10:32 AM CDT XR PELVIS AND HIP PORTABLE LEFT 1 VIEW 11/24/2022 10:24 AM HISTORY: Status post Hip surgery COMPARISON: None. Procedure Note Philipp Hensley MD - 11/24/2022 XR PELVIS AND HIP PORTABLE LEFT 1 VIEW 11/24/2022 10:24 AM HISTORY: Status post Hip surgery COMPARISON: None. IMPRESSION: Postoperative changes left bipolar hip endoprosthesis. The components appear well seated. Right hip negative for fracture. Postoperative changes lower lumbar spine and sacrum. No evidence for acute fracture. PHILIPP HENSLEY MD SYSTEM ID: [id number] Isidro Mustafa PA-C IMG DIAGNOSTIC IMAGI NG ORDERABLES * (ABNORMAL) Phosphorus (11/24/2022 6:14 AM CDT) Phosphorus 4.6(H) 2.5 - 4.5 mg/dL 11/24/2022 6:43 AM CDT RH LABORATORY Blood STRUCTURE OF LEFT UPPER LIMB / Unknown Venipuncture / Unknown 11/24/2022 6:14 AM CDT 11/24/2022 6:17 AM CDT Emely Johansen DO LAB - BLOOD ORDERA BLES LABORATORY [facility] Lab [address] Lab (1st floor, no room number) [place] [address], [facility] [phone] * Magnesium (11/24/2022 6:14 AM CDT) Magnesium 2.0 1.7 - 2.3 mg/dL 11/24/2022 6:43 AM CDT RH LABORATORY Blood STRUCTURE OF LEFT UPPER LIMB / Unknown Venipuncture / Unknown 11/24/2022 6:14 AM CDT 11/24/2022 6:17 AM CDT Emely Johansen DO LAB - BLOOD ORDERA BLES LABORATORY [facility] Lab [address] Lab (1st floor, no room number) [place] [address], [facility] [phone] * (ABNORMAL) CBC with platelets (11/24/2022 6:14 AM CDT) [facility] Signature WBC Count 6.4 4.0 - 11.0 10e3/uL 11/24/2022 6:22 AM CDT RH LABORATORY RBC Count 3.36(L) 3.80 - 5.20 10e6/uL 11/24/2022 6:22 AM CDT RH LABORATORY Hemoglobin 10.7(L) 11.7 - 15.7 g/dL 11/24/2022 6:22 AM CDT RH LABORATORY Hematocrit 33.5(L) 35.0 - 47.0 % 11/24/2022 6:22 AM CDT RH LABORATORY MCV 100 78 - 100 fL 11/24/2022 6:22 AM CDT RH LABORATORY MCH 31.8 26.5 - 33.0 pg 11/24/2022 6:22 AM CDT RH LABORATORY MCHC 31.9 31.5 - 36.5 g/dL 11/24/2022 6:22 AM CDT RH LABORATORY RDW 12.6 10.0 - 15.0 % 11/24/2022 6:22 AM CDT RH LABORATORY Platelet Count 238 150 - 450 10e3/uL 11/24/2022 6:22 AM CDT RH LABORATORY Blood STRUCTURE OF LEFT UPPER LIMB / Unknown Venipuncture / Unknown 11/24/2022 6:14 AM CDT 11/24/2022 6:17 AM CDT Emely Johansen DO LAB - BLOOD ORDERA BLES LABORATORY [facility] Lab [address] Lab (1st floor, no room number) [place] [address], [facility] [phone] * (ABNORMAL) Basic metabolic panel (11/24/2022 6:14 AM CDT) Sodium 135(L) 136 - 145 mmol/L 11/24/2022 6:43 AM CDT LABORATORY Potassium 4.3 3.4 - 5.3 mmol/L 11/24/2022 6:43 AM CDT LABORATORY Chloride 95(L) 98 - 107 mmol/L 11/24/2022 6:43 AM CDT LABORATORY Carbon Dioxide (CO2) 29 22 - 29 mmol/L 11/24/2022 6:43 AM CDT LABORATORY Anion Gap 11 7 - 15 mmol/L 11/24/2022 6:43 AM CDT LABORATORY Urea Nitrogen 33.6(H) 8.0 - 23.0 mg/dL 11/24/2022 6:43 AM CDT LABORATORY Creatinine 1.62(H) 0.51 - 0.95 mg/dL 11/24/2022 6:43 AM CDT LABORATORY Calcium 9.6 8.8 - 10.2 mg/dL 11/24/2022 6:43 AM CDT LABORATORY Glucose 150(H) 70 - 99 mg/dL 11/24/2022 6:43 AM CDT LABORATORY GFR Estimate 33(L) >60 mL/min/1.7 3m2 11/24/2022 6:43 AM CDT LABORATORY Comment:eGFR calculated usin g 2020 CKD-EPI equation. Blood STRUCTURE OF LEFT UPPER LIMB / Unknown Venipuncture / Unknown 11/24/2022 6:14 AM CDT 11/24/2022 6:17 AM CDT Emely Johansen DO LAB - BLOOD ORDERA BLES LABORATORY [facility] Lab [address] Lab (1st floor, no room number) [place] [address], [facility] [phone] * Lumbar spine XR, 2-3 views (11/23/2022 8:45 PM CDT) Anatomical Region Laterality Modality Spine, T-spine, L-spine, Abdomen/Pelvis Digital Radiography 11/23/2022 8:45 PM CDT Impressions 11/23/2022 9:52 PM CDT IMPRESSION: Partially visualized multilevel thoracolumbar and cemented spinal fusion construct [id number] with transpedicular screws T10-S1, bilateral sacroiliac joint screws with interconnecting rods and interbody spacer at L5-S1. Fracture of the right posterior interconnecting regi between the L4 and L5 transpedicular screws. Fracture of the left interconnecting regi between the left transpedicular screws at L3 and L4. Solid dorsal bony ankylosis L2-pelvis. Multilevel laminectomy defects. Normal vertebral body heights and alignment. No fracture or traumatic subluxation. Mild to moderate degenerative convex left scoliotic curvature with apex at L1. Exaggeration of the normal lumbar lordotic curvature. The extraspinal soft tissues are unremarkable. Narrative 11/23/2022 9:52 PM CDT EXAM: XR LUMBAR SPINE 2/3 VIEWS LOCATION: [facility] DATE/TIME: 11/23/2022 8:45 PM INDICATION: Left hip and leg pain, inability to ambulate, eval lumbar spine. COMPARISON: None. Procedure Note Ashwin Solis MD - 11/23/2022 EXAM: XR LUMBAR SPINE 2/3 VIEWS LOCATION: [facility] DATE/TIME: 11/23/2022 8:45 PM INDICATION: Left hip and leg pain, inability to ambulate, eval lumbarspine. COMPARISON: None. IMPRESSION: Partially visualized multilevel thoracolumbar and cementedspinal fusion construct [id number] with transpedicular screws T10-S1,bilateral sacroiliac joint screws with interconnecting rods and interbodyspacer at L5-S1. Fracture of the right posterior interconnecting regi between the L4 and L5 transpedicular screws.Fracture of the left interconnecting regi between the left transpedicularscrews at L3 and L4. Solid dorsal bony ankylosis L2-pelvis. Multilevellaminectomy defects. Normal vertebral body heights and alignment. No fracture or traumaticsubluxation. Mild to moderate degenerative convex left scoliotic curvaturewith apex at L1. Exaggeration of the normal lumbar lordotic curvature. Theextraspinal soft tissues are unremarkable. Ra Hu MD [facility] ORDERABLES * XR Femur Left 2 Views (11/23/2022 8:45 PM CDT) Anatomical Region Laterality Modality Hip, Thigh, Knee Left Digital Radiogr aphy 11/23/2022 8:45 PM CDT Impressions 11/23/2022 8:57 PM CDT IMPRESSION: 1. ??Left subcapital femoral neck fracture. Mild impaction and mild-moderate superior displacement. 2. ??The femoral head remains seated in the acetabulum. 3. ??The left femur is otherwise unremarkable. 4. ??Normal knee alignment. 5. ??Postoperative changes at the lumbosacral interspace and left sacroiliac joint noted. Narrative 11/23/2022 8:57 PM CDT EXAM: XR FEMUR LEFT 2 VIEWS LOCATION: [facility] DATE/TIME: 11/23/2022 8:45 PM INDICATION: Left hip pain. COMPARISON: None. Procedure Note Wilber Melton MD - 11/23/2022 EXAM: XR FEMUR LEFT 2 VIEWS LOCATION: [facility] DATE/TIME: 11/23/2022 8:45 PM INDICATION: Left hip pain. COMPARISON: None. IMPRESSION: 1. Left subcapital femoral neck fracture. Mild impaction andmild-moderate superior displacement. 2. The femoral head remains seated in the acetabulum. 3. The left femur is otherwise unremarkable. 4. Normal knee alignment. 5. Postoperative changes at the lumbosacral interspace and leftsacroiliac joint noted. Ra Hu MD [facility] ORDERABLES * (ABNORMAL) CBC with platelets and differential (11/23/2022 7:52 PM CDT) [facility] WBC Count 7.6 4.0 - 11.0 10e3/uL 11/23/2022 8:02 PM CDT [facility] LAB[facility]ORY RBC Count 3.77(L) 3.80 - 5.20 10e6/uL 11/23/2022 8:02 PM CDT [facility] Hemoglobin 11.9 11.7 - 15.7 g/dL 11/23/2022 8:02 PM CDT [facility] Hematocrit 37.1 35.0 - 47.0 % 11/23/2022 8:02 PM CDT [facility] MCV 98 78 - 100 fL 11/23/2022 8:02 PM CDT [facility] MCH 31.6 26.5 - 33.0 pg 11/23/2022 8:02 PM CDT [facility] MCHC 32.1 31.5 - 36.5 g/dL 11/23/2022 8:02 PM CDT [facility] RDW 12.6 10.0 - 15.0 % 11/23/2022 8:02 PM CDT [facility] Platelet Count 256 150 - 450 10e3/uL 11/23/2022 8:02 PM CDT [facility] % Neutrophils 65 % 11/23/2022 8:02 PM CDT [facility] % Lymphocytes 21 % 11/23/2022 8:02 PM CDT [facility] % Monocytes 10 % 11/23/2022 8:02 PM CDT [facility] % Eosinophils 3 % 11/23/2022 8:02 PM CDT [facility] % Basophils 1 % 11/23/2022 8:02 PM CDT [facility] % Immature Granulocytes 0 % 11/23/2022 8:02 PM CDT [facility] NRBCs per 100 WBC 0 <1 /100 023 8:02 PM CDT [facility] Absolute Neutrophils 4.9 1.6 - 8.3 10e3/uL 11/23/2022 8:02 PM CDT [facility] Absolute Lymphocytes 1.6 0.8 - 5.3 10e3/uL 11/23/2022 8:02 PM CDT [facility] LAB[facility] Absolute Monocytes 0.7 0.0 - 1.3 10e3/uL 11/23/2022 8:02 PM CDT [facility] Absolute Eosinophils 0.2 0.0 - 0.7 10e3/uL 11/23/2022 8:02 PM CDT [facility] Absolute Basophils 0.1 0.0 - 0.2 10e3/uL 11/23/2022 8:02 PM CDT [facility] LAB[facility] Absolute Immature Granulocytes 0.0 <=0.4 10e3/uL 11/23/2022 8:02 PM CDT [facility] LAB[facility] Absolute NRBCs 0.0 10e3/uL 11/23/2022 8:02 PM CDT [facility] Blood STRUCTURE OF RIGHT UPPER LIMB / Unknown Venipuncture / Unknown 11/23/2022 7:52 PM CDT 11/23/2022 7:59 PM CDT Ra Hu MD LAB - BLOOD ZAIDA SHERMAN LABORATORY [facility] Care Lab [address] Lab (1st floor, no room number) [place] [address], [place] [phone] * Magnesium (11/23/2022 7:52 PM CDT) Magnesium 2.0 1.7 - 2.3 mg/dL 11/23/2022 8:20 PM CDT RH LABORATORY Blood STRUCTURE OF RIGHT UPPER LIMB / Unknown Venipuncture / Unknown 11/23/2022 7:52 PM CDT 11/23/2022 7:59 PM CDT Ra Hu MD LAB - BLOOD ZAIDA SHERMAN LABORATORY [facility] Lab [address] Lab (1st floor, no room number) [place] [address], [place] [phone] * (ABNORMAL) Basic metabolic panel (11/23/2022 7:52 PM CDT) Sodium 136 136 - 145 mmol/L 11/23/2022 8:20 PM CDT RH LAB[facility]ATORY Potassium 4.3 3.4 - 5.3 mmol/L 11/23/2022 8:20 PM CDT RH LAB[facility]ATORY Chloride 95(L) 98 - 107 mmol/L 11/23/2022 8:20 PM CDT [facility] Carbon Dioxide (CO2) 28 22 - 29 mmol/L 11/23/2022 8:20 PM CDT RH LAB[facility] Anion Gap 13 7 - 15 mmol/L 11/23/2022 8:20 PM CDT [facility] Urea Nitrogen 29.4(H) 8.0 - 23.0 mg/dL 11/23/2022 8:20 PM CDT LABORATORY Creatinine 1.20(H) 0.51 - 0.95 mg/dL 11/23/2022 8:20 PM CDT LABORATORY Calcium 10.0 8.8 - 10.2 mg/dL 11/23/2022 8:20 PM CDT LABORATORY Glucose 140(H) 70 - 99 mg/dL 11/23/2022 8:20 PM CDT LABORATORY GFR Estimate 48(L) >60 mL/min/1.7 3m2 11/23/2022 8:20 PM CDT LABORATORY Comment:eGFR calculated us2020 CKD-EPI equation. Blood STRUCTURE OF RIGHT UPPER LIMB / Unknown Venipuncture / Unknown 11/23/2022 7:52 PM CDT 11/23/2022 7:59 PM CDT Ra Hu MD LAB - BLOOD ZAIDA SHERMAN [facility] Organization Address City/State/ZIP Co de Phone Number [facility] Acute Care Lab [address] [facility] Lab (1st floor, no room number) [place] [address], [facility] [phone] documented in this encounter Visit Diagnoses Diagnosis Hip fracture, left, closed, initial encounter (H)- Primary Hip fracture, left, closed, initial encounter (H) Shingles Herpes zoster without mention of complication Femoral neck fracture (H) Closed fracture of unspecified part of neck of femur documented in this encounter Admitting Diagnoses Diagnosis Hip fracture, left, closed, initial encounter (H) documented in this encounter Administered Medications Inactive Administered Medications - up to 3 most recent administrations Medication Order MAR Action Action Date Dose Rate Site acetaminophen (TYLENOL) tablet 975 mg 975 mg, Oral, EVERY 8 HOURS, First dose on Tue11/23/22 at 2300, Maximum acetaminophen dose from all sources = 75 mg/kg/day not to exceed 4 grams/day. $Given 11/26/2022 8:06 AM CDT 975 mg $Given 11/26/2022 12:22 AM CDT 975 mg $Given 11/25/2022 3:55 PM CDT 975 mg aspirin (ASA) EC tablet 325 mg 325 mg, Oral, DAILY, First dose on Tue11/24/22 at 1100, Indications: VTE Prophylaxis, DO NOT CRUSH. $Given 11/26/2022 8:05 AM CDT 325 mg $Given 11/25/2022 8:52 AM CDT 325 mg $Given 11/24/2022 1:45 PM CDT 325 mg buPROPion (WELLBUTRIN XL) 24 hr tablet 450 mg 450 mg, Oral, DAILY, First dose on Tue11/24/22 at 1130, DO NOT CRUSH. $Given 11/26/2022 8:05 AM CDT 450 mg $Given 11/25/2022 8:52 AM CDT 450 mg $Given 11/24/2022 1:45 PM CDT 450 mg carbidopa-levodopa (SINEMET) 25-100 MG per tablet 1 tablet 1 tablet, Oral, 3 TIMES DAILY, First dose on Tue11/24/22 at 1400 $Given 11/26/2022 8:05 AM CDT 1 tablet $Given 11/25/2022 9:08 PM CDT 1 tablet $Given 11/25/2022 2:58 PM CDT 1 tablet chlorthalidone (HYGROTON) half-tab 12.5 mg 12.5 mg, Oral, EVERY MORNING, First dose on Tue11/24/22 at 1130 $Given 11/26/2022 8:05 AM CDT 12.5 mg $Given 11/25/2022 8:17 AM CDT 12.5 mg $Given 11/24/2022 1:46 PM CDT 12.5 mg clonazePAM (klonoPIN) tablet 0.5 mg 0.5 mg, Oral, AT BEDTIME, First dose on Tue11/24/22 at 2200 $Given 11/25/2022 9:07 PM CDT 0.5 mg $Given 11/24/2022 10:35 PM CDT 0.5 mg DULoxetine (CYMBALTA) DR capsule 60 mg 60 mg, Oral, DAILY, First dose on Tue11/24/22 at 1130 $Given 11/26/2022 8:05 AM CDT 60 mg $Given 11/25/2022 8:52 AM CDT 60 mg $Given 11/24/2022 1:45 PM CDT 60 mg gabapentin (NEURONTIN) capsule 200 mg 200 mg, Oral, AT BEDTIME, First dose on Tue11/24/22 at 2200 $Given 11/25/2022 9:07 PM CDT 200 mg $Given 11/24/2022 10:35 PM CDT 200 mg HYDROmorphone (DILAUDID) half-tab 1 mg 1 mg, Oral, EVERY 4 HOURS PRN, moderate pain, IF pain not managed with non-pharmacological and non-opioid interventions, Starting on Tue11/23/22 at 2230, May use concomitant with non-opioid analgesics. $Given 11/24/2022 3:25 AM CDT 1 mg lisinopril (ZESTRIL) tablet 40 mg 40 mg, Oral, AT BEDTIME, First dose on Tue11/24/22 at 2200 $Given 11/25/2022 9:08 PM CDT 40 mg $Given 11/24/2022 10:35 PM CDT 40 mg naloxone (NARCAN) injection 0.2 mg 0.2 mg, Intravenous, EVERY 2 MIN PRN, opioid reversal, Starting on Tue11/23/22 at 2244, Administer intravenous route when available and notify provider when administered. For unintended sedation or respiratory depression if all of the below criteria are met: ~ respiratory rate LESS than or EQUAL to 8. ~SaO2 less than 92% and or/end-tidal CO2 is greater than 50. ~ the patient is receiving an opioid, has unintended sedations assessed as RASS (-3), and is currently not on mechanical ventilation. RASS scale moderate (-3) is movement or eye opening to voice but no eye contact. Patient Monitoring Once the patient has demonstrated a response to the naloxone, continue to monitor respiratory rate, depth, oxygen saturation and end-tidal CO2 (if available) every 15 minutes x 2, then every 30 minutes x 2, then every 1 hour x 1 after each naloxone dose. Consider transfer to ICU if patient respiratory parameters have not improved after 4 naloxone doses. naloxone (NARCAN) injection 0.2 mg 0.2 mg, Intramuscular, EVERY 2 MIN PRN, opioid reversal, Starting on Tue11/23/22 at 2244, Administer intramuscular if an intravenous route is not available and notify provider when administered. For unintended sedation or respiratory depression if all of the below criteria are met: ~ respiratory rate LESS than or EQUAL to 8. ~SaO2 less than 92% and or/end-tidal CO2 is greater than 50. ~ the patient is receiving an opioid, has unintended sedations assessed as RASS (-3), and is currently not on mechanical ventilation. RASS scale moderate (-3) is movement or eye opening to voice but no eye contact. Patient Monitoring Once the patient has demonstrated a response to the naloxone, continue to monitor respiratory rate, depth, oxygen saturation and end-tidal CO2 (if available) every 15 minutes x 2, then every 30 minutes x 2, then every 1 hour x 1 after each naloxone dose. Consider transfer to ICU if patient respiratory parameters have not improved after 4 naloxone doses. naloxone (NARCAN) injection 0.4 mg 0.4 mg, Intravenous, EVERY 2 MIN PRN, opioid reversal, Starting on Tue11/23/22 at 2244, Administer intravenous route when available and notify provider when administered. For unintended sedation or respiratory depression if all of the below criteria are met: ~ respiratory rate LESS than or EQUAL to 8. ~ SaO2 less than 92% and or/end-tidal CO2 is greater than 50. ~ the patient is receiving an opioid, has unintended sedation assessed as RASS (-4) or (-5) and patient is currently not on mechanical ventilation. RASS scale (-4) is deep sedation with no response to voice but movement or eye opening to physical stimulation. RASS scale (-5) is unarousable. Patient Monitoring Once the patient has demonstrated a response to the naloxone, continue to monitor respiratory rate, depth, oxygen saturation and end-tidal CO2 (if available) every 15 minutes x 2, then every 30 minutes x 2, then every 1 hour x 1 after each naloxone dose. Consider transfer to ICU if patient respiratory parameters have not improved after 4 naloxone doses. naloxone (NARCAN) injection 0.4 mg 0.4 mg, Intramuscular, EVERY 2 MIN PRN, opioid reversal, Starting on Tue11/23/22 at 2244, Administer intramuscular if an intravenous route is not available and notify provider when administered. For unintended sedation or respiratory depression if all of the below criteria are met: ~ respiratory rate LESS than or EQUAL to 8. ~ SaO2 less than 92% and or/end-tidal CO2 is greater than 50. ~ the patient is receiving an opioid, has unintended sedation assessed as RASS (-4) or (-5) and patient is currently not on mechanical ventilation. RASS scale (-4) is deep sedation with no response to voice but movement or eye opening to physical stimulation. RASS scale (-5) is unarousable. Patient Monitoring Once the patient has demonstrated a response to the naloxone, continue to monitor respiratory rate, depth, oxygen saturation and end-tidal CO2 (if available) every 15 minutes x 2, then every 30 minutes x 2, then every 1 hour x 1 after each naloxone dose. Consider transfer to ICU if patient respiratory parameters have not improved after 4 naloxone doses. ondansetron (ZOFRAN ODT) ODT tab 4 mg 4 mg, Oral, EVERY 6 HOURS PRN, nausea, vomiting, Starting on Tue11/23/22 at 2230, This is Step 1 of nausea and vomiting management. If nausea not resolved in 15 minutes, go to Step 2 prochlorperazine (COMPAZINE). With dry hands, peel back foil backing and gently remove tablet. Do not push oral disintegrating tablet through foil backing. Administer immediately on tongue and oral disintegrating tablet dissolves in seconds, then swallow with saliva. Liquid not required. ondansetron (ZOFRAN) injection 4 mg 4 mg, Intravenous, EVERY 6 HOURS PRN, nausea, vomiting, Administer over 2-5 Minutes, Starting on Tue11/23/22 at 2230, Give IF patient unable to tolerate oral medication. This is Step 1 of nausea and vomiting management. If nausea not resolved in 15 minutes, go to Step 2 prochlorperazine (COMPAZINE). Irritant. pantoprazole (PROTONIX) EC tablet 40 mg 40 mg, Oral, 2 TIMES DAILY BEFORE MEALS, First dose on Tue11/24/22 at 1630 $Given 11/26/2022 8:05 AM CDT 40 mg $Given 11/25/2022 3:55 PM CDT 40 mg $Given 11/25/2022 8:17 AM CDT 40 mg pravastatin (PRAVACHOL) tablet 40 mg 40 mg, Oral, AT BEDTIME, First dose on Tue11/24/22 at 2200 $Given 11/25/2022 9:07 PM CDT 40 mg $Given 11/24/2022 10:35 PM CDT 40 mg prochlorperazine (COMPAZINE) injection 5 mg 5 mg, Intravenous, EVERY 6 HOURS PRN, nausea, vomiting, Administer over 1-2 Minutes, Starting on Tue11/23/22 at 2229, IF patient unable to tolerate oral medication. This is Step 2 of nausea and vomiting management. Give if nausea not resolved 15 minutes after giving ondansetron (ZOFRAN). prochlorperazine (COMPAZINE) suppository 12.5 mg 12.5 mg, Rectal, EVERY 12 HOURS PRN, nausea, vomiting, Starting on Tue11/23/22 at 2229, This is Step 2 of nausea and vomiting management. Give if nausea not resolved 15 minutes after giving ondansetron (ZOFRAN). prochlorperazine (COMPAZINE) tablet 5 mg 5 mg, Oral, EVERY 6 HOURS PRN, vomiting, Starting on Tue11/23/22 at 2229, This is Step 2 of nausea and vomiting management. Give if nausea not resolved 15 minutes after giving ondansetron (ZOFRAN). ropivacaine (NAROPIN) 150 mg, ketorolac (TORADOL) 30 mg, EPINEPHrine (ADRENALIN) 0.6 mg in sodium chloride 0.9 % 50 mL (ORTHO WINNIE LOW DOSE) INTRA-ARTICULAR, MANAGER BUSINESS CONTINUITY TO O.R., Starting on Tue11/24/22 at 0546, For 1 dose, NOT FOR IV INJECTION. Used by provider at the end of surgery., Pre-procedure $Given 11/24/2022 9:22 AM CDT senna-docusate (SENOKOT-S/PERICOLACE) 8.6-50 MG per tablet 1 tablet 1 tablet, Oral, 2 TIMES DAILY PRN, constipation, Starting on Tue11/23/22 at 2229, If no bowel movement in 24 hours, increase to 2 tablets by mouth. IF more than 1 constipation PRN medication is ordered, administer step-chen as indicated, moving to the next step ONLY if prior step ineffective. Step 1: senna-docusate (SENOKOT-S; PERICOLACE) OR bisacodyl (DULCOLAX) EC tablet Step 2: magnesium hydroxide (MILK OF MAGNESIA) OR polyethylene glycol (MIRALAX/GLYCOLAX) Step 3: bisacodyl (DULCOLAX) suppository Step 4: sodium phosphate (FLEET ENEMA) Hold for loose stools. $Given 11/25/2022 9:01 AM CDT 1 tablet senna-docusate (SENOKOT-S/PERICOLACE) 8.6-50 MG per tablet 2 tablet 2 tablet, Oral, 2 TIMES DAILY PRN, constipation, Starting on Tue11/23/22 at 2229, IF more than 1 constipation PRN medication is ordered, administer step-chen as indicated, moving to the next step ONLY if prior step ineffective. Step 1: senna-docusate (SENOKOT-S; PERICOLACE) OR bisacodyl (DULCOLAX) EC tablet Step 2: magnesium hydroxide (MILK OF MAGNESIA) OR polyethylene glycol (MIRALAX/GLYCOLAX) Step 3: bisacodyl (DULCOLAX) suppository Step 4: sodium phosphate (FLEET ENEMA) Hold for loose stools. sodium chloride (PF) 0.9% PF flush 3 mL 3 mL, Intracatheter, EVERY 8 HOURS, First dose on Tue11/24/22 at 1100, to lock peripheral IV dormant line $Given 11/25/2022 9:09 PM CDT 3 mLs $Given 11/25/2022 1:16 PM CDT 3 mLs $Given 11/25/2022 3:44 AM CDT 3 mLs vancomycin (VANCOCIN) topical powder PRN, Starting on Tue11/24/22 at 0910, Intra-procedure $Given 11/24/2022 9:10 AM CDT 1 g Operative Site/Surgi maribeth Site documented in this encounter Active and Recently Administered Medications Times are shown in CDT. Scheduled Medication Order 11/24/2022 11/25/2022 11/26/2022 acetaminophen (TYLENOL) tablet 975 mg 975 mg, Oral, EVERY 8 HOURS, First dose on Tue11/23/22 at 2300, Maximum acetaminophen dose from all sources = 75 mg/kg/day not to exceed 4 grams/day. 0546 (Auto Hold - Provider: Orders Generic Provider - Reason: Transfer to a procedural area)0700 (Automatically Held - Provider: Orders Generic Provider)1040 (Unhold - Provider: Orders Generic Provider)1615 ($Given - Provider: Vicki Morse RN)2235 ($Given - Provider: Vicki Hale RN) 0817 ($Given - Provider: Ryann Issa RN)1555 ($Given - Provider: Ryann Issa RN) 0022 ($Given - Provider: Candi Miller RN)0806 ($Given - Provider: Rhianna Chandra, IBIS) aspirin (ASA) EC tablet 325 mg 325 mg, Oral, DAILY, First dose on Tue11/24/22 at 1100, Indications: VTE Prophylaxis, DO NOT CRUSH. 1345 ($Given - Provider: Vicki Morse RN) 0852 ($Given - Provider: Ryann Issa RN) 0805 ($Given - Provider: Rhianna Chandra, IBIS) buPROPion (WELLBUTRIN XL) 24 hr tablet 450 mg 450 mg, Oral, DAILY, First dose on Tue11/24/22 at 1130, DO NOT CRUSH. 1345 ($Given - Provider: Vicki Morse RN) 0852 ($Given - Provider: Ryann Issa RN) 0805 ($Given - Provider: Rhianna Chandra RN) carbidopa-levodopa (SINEMET) 25-100 MG per tablet 1 tablet (COMPLETED) 1 tablet, Oral, ONCE, On Tue11/24/22 at 0630, For 1 dose 0622 ($Given - Provider: Kody Smart RN) carbidopa-levodopa (SINEMET) 25-100 MG per tablet 1 tablet 1 tablet, Oral, 3 TIMES DAILY, First dose on Tue11/24/22 at 1400 1346 ($Given - Provider: Vicki Morse RN)2029 ($Given - Provider: Vicki Hale RN) 0817 ($Given - Provider: Ryann Issa RN)1458 ($Given - Provider: Ryann Issa RN)2108 ($Given - Provider: Suzy Urias RN) 0805 ($Given - Provider: Rhianna Chandra RN)1400 (Canceled Entry - Provider: Orders Generic Provider - Comment: Automatically canceled at discontinue of medication order) ceFAZolin (ANCEF) 2 g in 100 mL D5W intermittent infusion (COMPLETED) Routine, 2 g, Intravenous, EVERY 8 HOURS, First dose on Tue11/24/22 at 1600, For 2 doses, First post-op dose due 8 hours after intra-op dose, see eMAR. , Indications: Perioperative Pharmacoprophylaxis 1616 ($New Bag - Provider: Vicki Morse RN) 0025 ($New Bag - Provider: Vicki Hale RN) ceFAZolin Sodium (ANCEF) injection 2 g (COMPLETED) Routine, 2 g, Intravenous, PRE-OP/PRE-PROCEDURE, Starting on Tue11/24/22 at 0546, For 1 dose, Give first dose within 1 hour PRIOR to incision. If patient weight is greater than or equal to 120 kg increase dose to 3 g., Indications: Perioperative Pharmacoprophylaxis, Pre-procedure 0738 ($Given - Provider: August Ramirez APRN STUDIO DESIGNER) chlorthalidone (HYGROTON) half-tab 12.5 mg 12.5 mg, Oral, EVERY MORNING, First dose on Tue11/24/22 at 1130 1346 ($Given - Provider: Vicki Morse RN) 0817 ($Given - Provider: Ryann Issa RN) 0805 ($Given - Provider: Rhianna Chandra RN) clonazePAM (klonoPIN) tablet 0.5 mg 0.5 mg, Oral, AT BEDTIME, First dose on Tue11/24/22 at 2200 2235 ($Given - Provider: Vicki Hale RN) 210 ($Given - Provider: Suzy Urias RN) DULoxetine (CYMBALTA) DR capsule 60 mg 60 mg, Oral, DAILY, First dose on Tue11/24/22 at 1130 1345 ($Given - Provider: Vicki Morse RN) 0852 ($Given - Provider: Ryann Issa RN) 0805 ($Given - Provider: Rhianna Chandra, IBIS) gabapentin (NEURONTIN) capsule 200 mg 200 mg, Oral, AT BEDTIME, First dose on Tue11/24/22 at 2200 2235 ($Given - Provider: Vicki Hale RN) 210 ($Given - Provider: Suzy Urias RN) lisinopril (ZESTRIL) tablet 40 mg 40 mg, Oral, AT BEDTIME, First dose on Tue11/24/22 at 2200 2235 ($Given - Provider: Vicki Hale RN) 210 ($Given - Provider: Suzy Urias RN) pantoprazole (PROTONIX) EC tablet 40 mg 40 mg, Oral, 2 TIMES DAILY BEFORE MEALS, First dose on Tue11/24/22 at 1630 1615 (Not Given - Provider: Vicki Morse RN - Reason: Patient/family refused) 0817 ($Given - Provider: Ryann Issa, RN)1555 ($Given - Provider: Ryann Issa RN) 0805 ($Given - Provider: Rhianna Chandra RN) pravastatin (PRAVACHOL) tablet 40 mg 40 mg, Oral, AT BEDTIME, First dose on Tue11/24/22 at 2200 2235 ($Given - Provider: Vicki Hale RN) 2107 ($Given - Provider: Suzy Urias RN) ropivacaine (NAROPIN) 150 mg, ketorolac (TORADOL) 30 mg, EPINEPHrine (ADRENALIN) 0.6 mg in sodium chloride 0.9 % 50 mL (ORTHO WINNIE LOW DOSE) (COMPLETED) INTRA-ARTICULAR, MANAGER BUSINESS CONTINUITY TO O.R., Starting on Tue11/24/22 at 0546, For 1 dose, NOT FOR IV INJECTION. Used by provider at the end of surgery., Pre-procedure 0922 ($Given - Provider: Jean Ayala MD) sodium chloride (PF) 0.9% PF flush 3 mL 3 mL, Intracatheter, EVERY 8 HOURS, First dose on Tue11/24/22 at 1100, to lock peripheral IV dormant line 1107 (Not Given - Provider: Vicki Morse RN - Reason: IV Infusing)202 ($Given - Provider: Vicki Hale RN) 0344 ($Given - Provider: Vicki Hale, IBIS)1316 ($Given - Provider: Ryann Issa RN)2109 ($Given - Provider: Suzy Urias RN) 0400 (Not Given - Provider: Candi Miller RN - Reason: Patient sleeping)1200 (Canceled Entry - Provider: Orders Generic Provider - Comment: Automatically canceled at discontinue of medication order) tranexamic acid (LYSTEDA) tablet 1,950 mg (COMPLETED) 1,950 mg, Oral, ONCE, On Tue11/24/22 at 0600, For 1 dose, Administer with a sip of water in PRE OP area 90 minutes PRIOR to leaving Pre-op area., Pre-procedure 0601 ($Given - Provider: Kody Smart RN) Continuous Medication Order 11/24/2022 11/25/2022 11/26/2022 lactated ringers infusion (CANCELED) at 10 mL/hr, Intravenous, CONTINUOUS, IF patient NOT on dialysis., Pre-procedure, Starting on Tue11/24/22 at 0600, Until Tue11/24/22 at 0943 0604 ($New Bag - Provider: Kody Smart RN)0737 (Paused - Provider: August Ramirez APRN CRNA - Comment: Switch to gravity)0738 (Restarted - Provider: August Ramirez APRN CRNA)0821 ($New Bag - Provider: August Ramirez APRN CRNA)0933 (Anesthesia Volume Adjustment - Provider: August Ramirez APRN CRNA) PRN Medication Order 11/24/2022 11/25/2022 11/26/2022 hydrALAZINE (APRESOLINE) injection 10 mg 10 mg, Intravenous, EVERY 6 HOURS PRN, high blood pressure, SBP > 180, Administer over 1 Minutes, Starting on Tue11/23/22 at 2230 0546 (Auto Hold - Provider: Orders Generic Provider - Reason: Transfer to a procedural area)1040 (Unhold - Provider: Orders Generic Provider) HYDROmorphone (DILAUDID) half-tab 1 mg 1 mg, Oral, EVERY 4 HOURS PRN, moderate pain (4-6), IF pain not managed with non-pharmacological and non-opioid interventions, Starting on Tue11/23/22 at 2230, May use concomitant with non-opioid analgesics. 0325 ($Given - Provider: Vicki Hale RN)0546 (Auto Hold - Provider: Orders Generic Provider - Reason: Transfer to a procedural area)1040 (Unhold - Provider: Orders Generic Provider) lidocaine (LMX4) cream Topical, EVERY 1 HOUR PRN, pain, with VAD insertion, Starting on Tue11/23/22 at 2230, Apply at least 30 minutes prior to VAD insertion in divided doses as needed for size of site for insertion. MAX Dose: 2.5 g (?? of 5 g tube) Do NOT give if patient has a history of allergy to any local anesthetic or any dino product. Do NOT use both lidocaine intradermal/subcutaneous injection and the lidocaine cream on the same site. 0546 (Auto Hold - Provider: Orders Generic Provider - Reason: Transfer to a procedural area)1040 (Unhold - Provider: Orders Generic Provider) lidocaine 1 % 0.1-1 mL 0.1-1 mL, Other, EVERY 1 HOUR PRN, mild pain with VAD insertion, Starting on Tue11/24/22 at 1046, MAX dose 1 mL subcutaneous OR intradermal along the side of the vein in divided doses as needed for VAD insertion. Do NOT give if patient has a history of allergy to any local anesthetic or any dino product. Do NOT use both lidocaine intradermal/subcutaneous injection and the lidocaine cream on the same site. melatonin tablet 1 mg 1 mg, Oral, AT BEDTIME PRN, sleep, Starting on Tue11/23/22 at 2230, Do not give unless at least 6 hours of uninterrupted sleep is expected. 0546 (Auto Hold - Provider: Orders Generic Provider - Reason: Transfer to a procedural area)1040 (Unhold - Provider: Orders Generic Provider) naloxone (NARCAN) injection 0.2 mg(Linked Group 1) 0.2 mg, Intravenous, EVERY 2 MIN PRN, opioid reversal, Starting on Tue11/23/22 at 2244, Administer intravenous route when available and notify provider when administered. For unintended sedation or respiratory depression if all of the below criteria are met: ~ respiratory rate LESS than or EQUAL to 8. ~SaO2 less than 92% and or/end-tidal CO2 is greater than 50. ~ the patient is receiving an opioid, has unintended sedations assessed as RASS (-3), and is currently not on mechanical ventilation. RASS scale moderate (-3) is movement or eye opening to voice but no eye contact. Patient Monitoring Once the patient has demonstrated a response to the naloxone, continue to monitor respiratory rate, depth, oxygen saturation and end-tidal CO2 (if available) every 15 minutes x 2, then every 30 minutes x 2, then every 1 hour x 1 after each naloxone dose. Consider transfer to ICU if patient respiratory parameters have not improved after 4 naloxone doses. 0546 (Auto Hold - Provider: Orders Generic Provider - Reason: Transfer to a procedural area)1040 (Unhold - Provider: Orders Generic Provider) naloxone (NARCAN) injection 0.2 mg(Linked Group 1) 0.2 mg, Intramuscular, EVERY 2 MIN PRN, opioid reversal, Starting on Tue11/23/22 at 2244, Administer intramuscular if an intravenous route is not available and notify provider when administered. For unintended sedation or respiratory depression if all of the below criteria are met: ~ respiratory rate LESS than or EQUAL to 8. ~SaO2 less than 92% and or/end-tidal CO2 is greater than 50. ~ the patient is receiving an opioid, has unintended sedations assessed as RASS (-3), and is currently not on mechanical ventilation. RASS scale moderate (-3) is movement or eye opening to voice but no eye contact. Patient Monitoring Once the patient has demonstrated a response to the naloxone, continue to monitor respiratory rate, depth, oxygen saturation and end-tidal CO2 (if available) every 15 minutes x 2, then every 30 minutes x 2, then every 1 hour x 1 after each naloxone dose. Consider transfer to ICU if patient respiratory parameters have not improved after 4 naloxone doses. 0546 (Auto Hold - Provider: Orders Generic Provider - Reason: Transfer to a procedural area)1040 (Unhold - Provider: Orders Generic Provider) naloxone (NARCAN) injection 0.4 mg(Linked Group 1) 0.4 mg, Intravenous, EVERY 2 MIN PRN, opioid reversal, Starting on Tue11/23/22 at 2244, Administer intravenous route when available and notify provider when administered. For unintended sedation or respiratory depression if all of the below criteria are met: ~ respiratory rate LESS than or EQUAL to 8. ~ SaO2 less than 92% and or/end-tidal CO2 is greater than 50. ~ the patient is receiving an opioid, has unintended sedation assessed as RASS (-4) or (-5) and patient is currently not on mechanical ventilation. RASS scale (-4) is deep sedation with no response to voice but movement or eye opening to physical stimulation. RASS scale (-5) is unarousable. Patient Monitoring Once the patient has demonstrated a response to the naloxone, continue to monitor respiratory rate, depth, oxygen saturation and end-tidal CO2 (if available) every 15 minutes x 2, then every 30 minutes x 2, then every 1 hour x 1 after each naloxone dose. Consider transfer to ICU if patient respiratory parameters have not improved after 4 naloxone doses. 0546 (Auto Hold - Provider: Orders Generic Provider - Reason: Transfer to a procedural area)1040 (Unhold - Provider: Orders Generic Provider) naloxone (NARCAN) injection 0.4 mg(Linked Group 1) 0.4 mg, Intramuscular, EVERY 2 MIN PRN, opioid reversal, Starting on Tue11/23/22 at 2244, Administer intramuscular if an intravenous route is not available and notify provider when administered. For unintended sedation or respiratory depression if all of the below criteria are met: ~ respiratory rate LESS than or EQUAL to 8. ~ SaO2 less than 92% and or/end-tidal CO2 is greater than 50. ~ the patient is receiving an opioid, has unintended sedation assessed as RASS (-4) or (-5) and patient is currently not on mechanical ventilation. RASS scale (-4) is deep sedation with no response to voice but movement or eye opening to physical stimulation. RASS scale (-5) is unarousable. Patient Monitoring Once the patient has demonstrated a response to the naloxone, continue to monitor respiratory rate, depth, oxygen saturation and end-tidal CO2 (if available) every 15 minutes x 2, then every 30 minutes x 2, then every 1 hour x 1 after each naloxone dose. Consider transfer to ICU if patient respiratory parameters have not improved after 4 naloxone doses. 0546 (Auto Hold - Provider: Orders Generic Provider - Reason: Transfer to a procedural area)1040 (Unhold - Provider: Orders Generic Provider) ondansetron (ZOFRAN ODT) ODT tab 4 mg(Linked Group 2) 4 mg, Oral, EVERY 6 HOURS PRN, nausea, vomiting, Starting on Tue11/23/22 at 2230, This is Step 1 of nausea and vomiting management. If nausea not resolved in 15 minutes, go to Step 2 prochlorperazine (COMPAZINE). With dry hands, peel back foil backing and gently remove tablet. Do not push oral disintegrating tablet through foil backing. Administer immediately on tongue and oral disintegrating tablet dissolves in seconds, then swallow with saliva. Liquid not required. 0546 (Auto Hold - Provider: Orders Generic Provider - Reason: Transfer to a procedural area)1040 (Unhold - Provider: Orders Generic Provider) ondansetron (ZOFRAN) injection 4 mg(Linked Group 2) 4 mg, Intravenous, EVERY 6 HOURS PRN, nausea, vomiting, Administer over 2-5 Minutes, Starting on Tue11/23/22 at 2230, Give IF patient unable to tolerate oral medication. This is Step 1 of nausea and vomiting management. If nausea not resolved in 15 minutes, go to Step 2 prochlorperazine (COMPAZINE). Irritant. 0546 (Auto Hold - Provider: Orders Generic Provider - Reason: Transfer to a procedural area)1040 (Unhold - Provider: Orders Generic Provider) prochlorperazine (COMPAZINE) injection 5 mg(Linked Group 3) 5 mg, Intravenous, EVERY 6 HOURS PRN, nausea, vomiting, Administer over 1-2 Minutes, Starting on Tue11/23/22 at 2229, IF patient unable to tolerate oral medication. This is Step 2 of nausea and vomiting management. Give if nausea not resolved 15 minutes after giving ondansetron (ZOFRAN). 0546 (Auto Hold - Provider: Orders Generic Provider - Reason: Transfer to a procedural area)1040 (Unhold - Provider: Orders Generic Provider) prochlorperazine (COMPAZINE) suppository 12.5 mg(Linked Group 3) 12.5 mg, Rectal, EVERY 12 HOURS PRN, nausea, vomiting, Starting on Tue11/23/22 at 2229, This is Step 2 of nausea and vomiting management. Give if nausea not resolved 15 minutes after giving ondansetron (ZOFRAN). 0546 (Auto Hold - Provider: Orders Generic Provider - Reason: Transfer to a procedural area)1040 (Unhold - Provider: Orders Generic Provider) prochlorperazine (COMPAZINE) tablet 5 mg(Linked Group 3) 5 mg, Oral, EVERY 6 HOURS PRN, vomiting, Starting on Tue11/23/22 at 2229, This is Step 2 of nausea and vomiting management. Give if nausea not resolved 15 minutes after giving ondansetron (ZOFRAN). 0546 (Auto Hold - Provider: Orders Generic Provider - Reason: Transfer to a procedural area)1040 (Unhold - Provider: Orders Generic Provider) senna-docusate (SENOKOT-S/PERICOLACE) 8.6-50 MG per tablet 1 tablet(Linked Group 4) 1 tablet, Oral, 2 TIMES DAILY PRN, constipation, Starting on Tue11/23/22 at 2229, If no bowel movement in 24 hours, increase to 2 tablets by mouth. IF more than 1 constipation PRN medication is ordered, administer step-chen as indicated, moving to the next step ONLY if prior step ineffective. Step 1: senna-docusate (SENOKOT-S; PERICOLACE) OR bisacodyl (DULCOLAX) EC tablet Step 2: magnesium hydroxide (MILK OF MAGNESIA) OR polyethylene glycol (MIRALAX/GLYCOLAX) Step 3: bisacodyl (DULCOLAX) suppository Step 4: sodium phosphate (FLEET ENEMA) Hold for loose stools. 0546 (Auto Hold - Provider: Orders Generic Provider - Reason: Transfer to a procedural area)1040 (Unhold - Provider: Orders Generic Provider) 0901 ($Given - Provider: Ryann Issa RN) senna-docusate (SENOKOT-S/PERICOLACE) 8.6-50 MG per tablet 2 tablet(Linked Group 4) 2 tablet, Oral, 2 TIMES DAILY PRN, constipation, Starting on Tue11/23/22 at 2229, IF more than 1 constipation PRN medication is ordered, administer step-chen as indicated, moving to the next step ONLY if prior step ineffective. Step 1: senna-docusate (SENOKOT-S; PERICOLACE) OR bisacodyl (DULCOLAX) EC tablet Step 2: magnesium hydroxide (MILK OF MAGNESIA) OR polyethylene glycol (MIRALAX/GLYCOLAX) Step 3: bisacodyl (DULCOLAX) suppository Step 4: sodium phosphate (FLEET ENEMA) Hold for loose stools. 0546 (Auto Hold - Provider: Orders Generic Provider - Reason: Transfer to a procedural area)1040 (Unhold - Provider: Orders Generic Provider) 0901 (See Alternative - Provider: Ryann Issa RN) sodium chloride (PF) 0.9% PF flush 3 mL 3 mL, Intracatheter, EVERY 1 MIN PRN, line flush, other, to ensure patency or to lock dormant line, Starting on Tue11/24/22 at 1046 vancomycin (VANCOCIN) topical powder (CANCELED) PRN, Starting on Tue11/24/22 at 0910, Intra-procedure 0910 ($Given - Provider: Jean Ayala MD) Linked Groups Order Group 1: naloxone (NARCAN) injection 0.2 mgJump to med 0.2 mg, Intravenous, EVERY 2 MIN PRN, opioid reversal, Starting on Tue11/23/22 at 2244, Administer intravenous route when available and notify provider when administered. For unintended sedation or respiratory depression if all of the below criteria are met: ~ respiratory rate LESS than or EQUAL to 8. ~SaO2 less than 92% and or/end-tidal CO2 is greater than 50. ~ the patient is receiving an opioid, has unintended sedations assessed as RASS (-3), and is currently not on mechanical ventilation. RASS scale moderate (-3) is movement or eye opening to voice but no eye contact. Patient Monitoring Once the patient has demonstrated a response to the naloxone, continue to monitor respiratory rate, depth, oxygen saturation and end-tidal CO2 (if available) every 15 minutes x 2, then every 30 minutes x 2, then every 1 hour x 1 after each naloxone dose. Consider transfer to ICU if patient respiratory parameters have not improved after 4 naloxone doses. Or naloxone (NARCAN) injection 0.4 mgJump to med 0.4 mg, Intravenous, EVERY 2 MIN PRN, opioid reversal, Starting on Tue11/23/22 at 2244, Administer intravenous route when available and notify provider when administered. For unintended sedation or respiratory depression if all of the below criteria are met: ~ respiratory rate LESS than or EQUAL to 8. ~ SaO2 less than 92% and or/end-tidal CO2 is greater than 50. ~ the patient is receiving an opioid, has unintended sedation assessed as RASS (-4) or (-5) and patient is currently not on mechanical ventilation. RASS scale (-4) is deep sedation with no response to voice but movement or eye opening to physical stimulation. RASS scale (-5) is unarousable. Patient Monitoring Once the patient has demonstrated a response to the naloxone, continue to monitor respiratory rate, depth, oxygen saturation and end-tidal CO2 (if available) every 15 minutes x 2, then every 30 minutes x 2, then every 1 hour x 1 after each naloxone dose. Consider transfer to ICU if patient respiratory parameters have not improved after 4 naloxone doses. Or naloxone (NARCAN) injection 0.2 mgJump to med 0.2 mg, Intramuscular, EVERY 2 MIN PRN, opioid reversal, Starting on Tue11/23/22 at 2244, Administer intramuscular if an intravenous route is not available and notify provider when administered. For unintended sedation or respiratory depression if all of the below criteria are met: ~ respiratory rate LESS than or EQUAL to 8. ~SaO2 less than 92% and or/end-tidal CO2 is greater than 50. ~ the patient is receiving an opioid, has unintended sedations assessed as RASS (-3), and is currently not on mechanical ventilation. RASS scale moderate (-3) is movement or eye opening to voice but no eye contact. Patient Monitoring Once the patient has demonstrated a response to the naloxone, continue to monitor respiratory rate, depth, oxygen saturation and end-tidal CO2 (if available) every 15 minutes x 2, then every 30 minutes x 2, then every 1 hour x 1 after each naloxone dose. Consider transfer to ICU if patient respiratory parameters have not improved after 4 naloxone doses. Or naloxone (NARCAN) injection 0.4 mgJump to med 0.4 mg, Intramuscular, EVERY 2 MIN PRN, opioid reversal, Starting on Tue11/23/22 at 2244, Administer intramuscular if an intravenous route is not available and notify provider when administered. For unintended sedation or respiratory depression if all of the below criteria are met: ~ respiratory rate LESS than or EQUAL to 8. ~ SaO2 less than 92% and or/end-tidal CO2 is greater than 50. ~ the patient is receiving an opioid, has unintended sedation assessed as RASS (-4) or (-5) and patient is currently not on mechanical ventilation. RASS scale (-4) is deep sedation with no response to voice but movement or eye opening to physical stimulation. RASS scale (-5) is unarousable. Patient Monitoring Once the patient has demonstrated a response to the naloxone, continue to monitor respiratory rate, depth, oxygen saturation and end-tidal CO2 (if available) every 15 minutes x 2, then every 30 minutes x 2, then every 1 hour x 1 after each naloxone dose. Consider transfer to ICU if patient respiratory parameters have not improved after 4 naloxone doses. Group 2: ondansetron (ZOFRAN ODT) ODT tab 4 mgJump to med 4 mg, Oral, EVERY 6 HOURS PRN, nausea, vomiting, Starting on Tue11/23/22 at 2230, This is Step 1 of nausea and vomiting management. If nausea not resolved in 15 minutes, go to Step 2 prochlorperazine (COMPAZINE). With dry hands, peel back foil backing and gently remove tablet. Do not push oral disintegrating tablet through foil backing. Administer immediately on tongue and oral disintegrating tablet dissolves in seconds, then swallow with saliva. Liquid not required. Or ondansetron (ZOFRAN) injection 4 mgJump to med 4 mg, Intravenous, EVERY 6 HOURS PRN, nausea, vomiting, Administer over 2-5 Minutes, Starting on Tue11/23/22 at 2230, Give IF patient unable to tolerate oral medication. This is Step 1 of nausea and vomiting management. If nausea not resolved in 15 minutes, go to Step 2 prochlorperazine (COMPAZINE). Irritant. Group 3: prochlorperazine (COMPAZINE) injection 5 mgJump to med 5 mg, Intravenous, EVERY 6 HOURS PRN, nausea, vomiting, Administer over 1-2 Minutes, Starting on Tue11/23/22 at 2229, IF patient unable to tolerate oral medication. This is Step 2 of nausea and vomiting management. Give if nausea not resolved 15 minutes after giving ondansetron (ZOFRAN). Or prochlorperazine (COMPAZINE) tablet 5 mgJump to med 5 mg, Oral, EVERY 6 HOURS PRN, vomiting, Starting on Tue11/23/22 at 2229, This is Step 2 of nausea and vomiting management. Give if nausea not resolved 15 minutes after giving ondansetron (ZOFRAN). Or prochlorperazine (COMPAZINE) suppository 12.5 mgJump to med 12.5 mg, Rectal, EVERY 12 HOURS PRN, nausea, vomiting, Starting on Tue11/23/22 at 2229, This is Step 2 of nausea and vomiting management. Give if nausea not resolved 15 minutes after giving ondansetron (ZOFRAN). Group 4: senna-docusate (SENOKOT-S/PERICOLACE) 8.6-50 MG per tablet 1 tabletJump to med 1 tablet, Oral, 2 TIMES DAILY PRN, constipation, Starting on Tue11/23/22 at 2229, If no bowel movement in 24 hours, increase to 2 tablets by mouth. IF more than 1 constipation PRN medication is ordered, administer step-chen as indicated, moving to the next step ONLY if prior step ineffective. Step 1: senna-docusate (SENOKOT-S; PERICOLACE) OR bisacodyl (DULCOLAX) EC tablet Step 2: magnesium hydroxide (MILK OF MAGNESIA) OR polyethylene glycol (MIRALAX/GLYCOLAX) Step 3: bisacodyl (DULCOLAX) suppository Step 4: sodium phosphate (FLEET ENEMA) Hold for loose stools. Or senna-docusate (SENOKOT-S/PERICOLACE) 8.6-50 MG per tablet 2 tabletJump to med 2 tablet, Oral, 2 TIMES DAILY PRN, constipation, Starting on Tue11/23/22 at 2229, IF more than 1 constipation PRN medication is ordered, administer step-chen as indicated, moving to the next step ONLY if prior step ineffective. Step 1: senna-docusate (SENOKOT-S; PERICOLACE) OR bisacodyl (DULCOLAX) EC tablet Step 2: magnesium hydroxide (MILK OF MAGNESIA) OR polyethylene glycol (MIRALAX/GLYCOLAX) Step 3: bisacodyl (DULCOLAX) suppository Step 4: sodium phosphate (FLEET ENEMA) Hold for loose stools. documented in this encounter Care Teams Gear Inspector Relationship Specialty Start Date End Date Rogers Ho PA-C [place] [id number] [place] [address] PCP - General 11/23/22 documented as of this encounter
--- OUTSIDE RECORDS SUMMARY | 2023-10-20 13:46 | XMS_ITS | Encounter Summary ---
Author Name Unknown Organization [facility] Address [address] [place] [id number] Care Team Providers Care Database Security Expert Name Role Phone Rogers Ho PA-C Primary Care Provider [phone] Reason for Visit * Reason Comments Leg Pain * Auth/Cert (Routine) Specialty Diagnoses / Procedures Referred By Contac t Referred To Contact Surgery Diagnoses Hip fracture, left, closed, initial encounter (H) Hip fracture, left, closed, initial encounter (H) Main Or [address] [place] [address] Referral ID Status Reason Start Date Expiration Date Visits Re quested Visits Authorized [id number] 1 1 Encounter Details Date Type Department Care Team (Late st Contact Info) Description 11/23/2022 7:18 PM CDT - 11/26/2022 12:48 PM CDT Hospital Encounter [facility] Orth[facility] Spine [address] [place] [address] Ra Hu MD [facility] [address] [place] [address] Emely Johansen DO [address] [place] [address] [id number] Hip fracture, left, closed, initial encounter (H); Shingles Discharge Disposition: Retirement Facility Social History Tobacco Use Types Packs/Day Years [...] from the original note were not included. [facility] Discharge Summary Jerica Layton Date of [...] and presented to an outside hospital in [place] whereshe was informed to watch and wait. [...] patients rehab facility with x-rays sent to [facility]. -Eight-week followup with X-rays. -Pain control PRN, reports no pain on exam today ?? BRANDO , worsening Cr improved to 1.18 today encouarge oral fluid intake ?? Acute post op anemia No evidence of active bleeding hgb stable at 8.9-9.4 ?? Parkinson's disease - BONDED STRUCTURES REPAIRER carbidopa-levodopa ?? HTN - BONDED STRUCTURES REPAIRER antihypertensives resumed 11/24/22 ?? MDD/anxiety/insomnia - BONDED STRUCTURES REPAIRER med regimen resumed 11/24/22 ?? HLD - BONDED STRUCTURES REPAIRER statin ?? GERD ?? Overweight: Estimated body mass index is 29.87 kg/m? Diet: Advance Diet as Tolerated: Regular Diet Adult DVT Prophylaxis: Pneumatic Compression Devices Pizarro Catheter: Not present Lines: None Cardiac Monitoring: None Code Status: Full Code ? Clinically Significant Risk Factors ? Disposition Plan Expected Discharge Date: discharge today per Ortho Britta Faustin MD Page [phone](7AM-6PM) Code Status: Full Code Important Results: Please see below Pending Results: Unresulted Labs Ordered in the Past 30 Days of this Admission No orders found from 10/24/2022 to 11/24/2022. Discharge Instructions and Follow-Up: Follow-up Appointments Follow Up and recommended labs and tests Follow up with Dr. Jean Ayala/Estelle Mustafa PA-C at [facility] ([place] or [place]) within 14 days postoperatively. No follow up labs or test are needed prior to visit. At this visit x-rays will be taken, sutures/darlin removed, and questions to be answered. Bring any needed forms with to appointment. Call for appointment: [phone] After hours: [phone] or [phone] Follow Up and recommended labs and tests F/u with ME moni. Recheck CBC, BMP in 1week Discharge Disposition: [...] and up-to-date: Yes Recent Chemotherapy: N/A Use Long Term Standing Orders: Yes Mantoux instructions Give two-step [...] EXAM: XR FEMUR LEFT 2 VIEWS LOCATION: [facility] DATE/TIME: 11/23/2022 8:45 PM INDICATION: Left [...] EXAM: XR LUMBAR SPINE 2/3 VIEWS LOCATION: [facility] DATE/TIME: 11/23/2022 8:45 PM INDICATION: Left hip and leg pain, inability to ambulate, eval lumbar spine. COMPARISON: None. Impression IMPRESSION: Partially visualized multilevel thoracolumbar and cemented spinal fusion construct [id number] with transpedicular screws T10-S1, bilateral sacroiliac joint [...] acute fracture. PHILIPP HENSLEY MD SYSTEM ID: [id number] Most Recent Lab Results In [facility] (For Non-[facility] Providers): Most Recent 3 CBC's: Recent Labs Lab Test 11/26/22 0840 11/25/22 0640 11/24/22 0614 11/23/221951 WBC 8.0 -- 6.4 7.6 HGB 9.4* 8.9* 10.7* 11.9 MCV 102* -- 100 98 PLT 254 -- 238 256 Most Recent 3 BMP's: Recent Labs Lab Test 11/26/22 0840 11/25/22 0640 11/24/22 0614 11/23/221951 NA 139 -- 135* 136 POTASSIUM 4.6 [...] Discharge Note Discharge Date: 11/26/2022 Discharge Disposition: [facility] Discharge Services: rehab Discharge Transportation: family or friend will provide Private pay costs discussed: private room/amenity fees PAS Confirmation Code: 68570 Patient/family educated on Medicare website which has current facility and service quality ratings:yes Education Provided on the Discharge Plan: yes Persons Notified of Discharge Plans: patient, Staffand charge histotechnologist Patient/Family in Agreement with the Plan: yes Handoff Referral Completed: No Additional Information: Patient being discharged today to [facility] for TCU/Rehab. Paged Ortho PA and the Hospitalist for orders. PAS completed and discharge orders were faxed to the facility. Patient being transported by . Sherry Nelson RN, BSN, CM Inpatient Care Coordination [facility] [phone] * Emely Johansen DO - 11/25/2022 12:39 PM CDT [facility] Medicine Progress Note - Hospitalist [...] and presented to an outside hospital in [place] whereshe was informed to watch and wait. [...] patients rehab facility with x-rays sent to [facility]. -Eight-week followup with X-rays. -Pain control PRN, reports no pain on exam today BRANDO , worsening - BMP in AM - encourage PO intake Acute post op anemia No evidence of active bleeding - CBC in AM Parkinson's disease - BONDED STRUCTURES REPAIRER carbidopa-levodopa HTN - BONDED STRUCTURES REPAIRER antihypertensives resumed 11/24/22 MDD/anxiety/insomnia - BONDED STRUCTURES REPAIRER med regimen resumed 11/24/22 HLD - BONDED STRUCTURES REPAIRER statin GERD Overweight: Estimated body mass index is 29.87 kg/m?? Diet: Advance Diet as Tolerated: Regular Diet Adult DVT Prophylaxis: Pneumatic Compression Devices Pizarro Catheter: Not present Lines: None Cardiac Monitoring: None Code Status: Full Code Clinically Significant Risk Factors Disposition Plan Expected Discharge Date: 11/25/2022 Discharge Comments: Home Emely Johansen DO Hospitalist Service [facility] Securely message with Jhonathan (more info) Text page via [facility] Paging/Directory Interval History She is doing well [...] 11/25/2022 11:52 AM CDT Orthopedic Surgery Jerica Layton 11/25/2022 Admit Date: 11/23/2022 POD: 1 Day [...] and progressing in PT. Alejandrina Mccauley PA-C [facility] * Kamini Roblero PT - 11/25/2022 9:04 AM CDT 11/25/22 3708 Appointment Info Signing Clinician's Name / Credentials (PT) Kamini Roblero DPT Living Environment People in Home spouse Current [...] Evaluation Time PT Eval, Low Complexity Minutes (13749) 10 Plan of Care Review Plan of [...] dynamic activities to improve functional performance Minutes (44038) 19 Symptoms Noted During/After Treatment Fatigue;Increased pain [...] and untimed services) 29 * Emely Johansen, DO - 11/24/2022 2:40 PM CDT [facility] Medicine Progress Note - Hospitalist Service Date [...] and presented to an outside hospital in [place] whereshe was informed to watch and wait. [...] patients rehab facility with x-rays sent to [facility]. -Eight-week followup with X-rays. -discontinue IVF today -Pain control PRN BRANDO , worsening - BMP in AM - encourage PO intake Parkinson's disease - BONDED STRUCTURES REPAIRER carbidopa-levodopa HTN - BONDED STRUCTURES REPAIRER antihypertensives resumed 11/24/22 MDD/anxiety/insomnia - BONDED STRUCTURES REPAIRER med regimen resumed 11/24/22 HLD - BONDED STRUCTURES REPAIRER statin GERD Overweight: Estimated body mass index is 29.87 kg/m?? Diet: Advance Diet as Tolerated: Regular Diet Adult DVT Prophylaxis: Pneumatic Compression Devices Pizarro Catheter: Not present Lines: None Cardiac Monitoring: None Code Status: Full Code Clinically Significant Risk Factors Present on Admission # Hypertension: home medication list includes antihypertensive(s) Disposition Plan Expected Discharge Date: 11/25/2022 Emely Johansen DO Hospitalist Service [facility] Securely message with Jhonathan (more info) Text page via [facility] Paging/Directory Interval History Patient is seen post [...] EXAM: XR FEMUR LEFT 2 VIEWS LOCATION: [facility] DATE/TIME: 11/23/2022 8:45 PM INDICATION: Left [...] EXAM: XR LUMBAR SPINE 2/3 VIEWS LOCATION: [facility] DATE/TIME: 11/23/2022 8:45 PM INDICATION: Left hip and leg pain, inability to ambulate, eval lumbar spine. COMPARISON: None. Impression IMPRESSION: Partially visualized multilevel thoracolumbar and cemented spinal fusion construct [id number] with transpedicular screws T10-S1, bilateral sacroiliac joint [...] acute fracture. 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 Stopped by to evaluated Ms. Layton who had a left hip hemiarthroplasty this morning. Ms. Layton states that she is aware of this lumbar hardware failure but is not symptomatic or having any concerns. This procedure was performed in [place]. Ms. Layton is not interested in a consult from us. She is certainly welcome to follow-up with us as an outpatient should she wish to further discuss operative and non-operative treatments. We will sign off. This has been discussed with Dr. Dumont. BAYRON Burns PA-C [facility] Neurosurgery [facility] Pager: [phone] * Jean Ayala MD - 11/23/2022 9:49 PM CDT Ortho Brief - 72 yo F with a history of parkinson's and displaced left femoral neck fracture. NPO p [place] Plan OR Evert vs JACQUI tomorrow Jean Ayala MD documented in this encounter H&P Notes * Emely Johansen DO - 11/23/2022 9:26 PM CDT [facility] History and Physical - Hospitalist [...] and presented to an outside hospital in [place] wheree was informed to watch and wait. Her [...] at midnight once NPO Parkinson's disease - BONDED STRUCTURES REPAIRER carbidopa-levodopa HTN - holding antihypertensives with normal BP, pending medication reconciliation MDD/anxiety/insomnia - pending medication reconciliation HLD - BONDED STRUCTURES REPAIRER statin once verified GERD Diet: NPO per [...] Date: 11/25/2022 Emely Johansen DO Hospitalist Service [facility] Securely message with [employer] (more info) Text page via [facility] Paging/Directory Chief Complaint Fall, hip pain History [...] and presented to an outside hospital in [place] whereshe was informed to watch and wait. [...] Pulse: 94 Resp: 18 SpO2: 97 % [id number]: None (Room air) Weight: 175 lbs 0 [...] EXAM: XR FEMUR LEFT 2 VIEWS LOCATION: [facility] DATE/TIME: 11/23/2022 8:45 PM INDICATION: Left [...] EXAM: XR LUMBAR SPINE 2/3 VIEWS LOCATION: [facility] DATE/TIME: 11/23/2022 8:45 PM INDICATION: Left hip and leg pain, inability to ambulate, eval lumbar spine. COMPARISON: None. Impression IMPRESSION: Partially visualized multilevel thoracolumbar and cemented spinal fusion construct [id number] with transpedicular screws T10-S1, bilateral sacroiliac joint [...] Communication Assessment Patient's communication style: spoken language (Kazakh or Bilingual) Hearing Difficulty or Deaf: no [...] Nelson RN, BSN, CM Inpatient Care Coordination [facility] [phone] * Jean Ayala MD - 11/24/2022 10:19 AM CDTAssociated Order(s): ORTHOPEDIC SURGERY IP CONSULT [facility] Orthopedics Consultation Date of Admission: [...] Status --------- ------ CBC with platelets and d...[[id number]] Abnormal Final result Please view results for [...] EXAM: XR FEMUR LEFT 2 VIEWS LOCATION: [facility] DATE/TIME: 11/23/2022 8:45 PM INDICATION: Left [...] EXAM: XR LUMBAR SPINE 2/3 VIEWS LOCATION: [facility] DATE/TIME: 11/23/2022 8:45 PM INDICATION: Left hip and leg pain, inability to ambulate, eval lumbar spine. COMPARISON: None. Impression IMPRESSION: Partially visualized multilevel thoracolumbar and cemented spinal fusion construct [id number] with transpedicular screws T10-S1, bilateral sacroiliac joint [...] Hale RN - 11/23/2022 9:33 PM CDT [facility] ED Nurse Handoff Report Jerica Layton is a 72 year old female ED Chief complaint: Leg Pain . ED Diagnosis: Final diagnoses: Hip fracture, left, closed, initial encounter (H) Allergies: No Known Allergies Code Status: Full Code Activity level - Baseline/Home: Independent. Activity Level - Current: Assist X 2. Lift room needed: No. Bariatric: No Liquid Sugar Melter Needed: No Isolation: No. Infection: Not Applicable. [...] back. She reports that she was prescribed [place] today and took it without any relief [...] back. She reports that she was prescribed [place] today and took it without any relief [...] that shedoes not use drugs. PCP: Jenifer Deckre Physical Exam Patient Vitals for the past 24 hrs: BP Temp Temp src Pulse Resp SpO2 Weight 11/23/22 1921 (!) 160/92 98 ??F (36.7 ??C) Oral [...] multilevel thoracolumbar and cemented spinal fusion construct [id number] with transpedicular screws T10-S1, bilateral sacroiliac joint [...] Dr. Johansen of the Hospitalist service from [facility] regarding patient's presentation, findings, and plan of care. Social Determinants of Health affecting care: None Disposition: The patient was admitted to the hospital under the care of Dr. Johansen Impression & Plan [facility] Diagnoses: None Medical Decision Making: Patient presents [...] goal(s). See goals on Care Plan in Epic electronic health record for goal details. Goals [...] analgesics: Yes Does patient have an identified gymnastics coach or instructor: No, Reason: lives w/spouse who has cancer [...] analgesics: Yes Does patient have an identified gymnastics coach or instructor: Yes Has goal D/C date and time [...] scheduled tylenol. Does patient have an identified gymnastics coach or instructor: Yes-spouse. Has goal D/C date and time been discussed with patient: Yes-pending therapy. Pt A&O x4. CMS intact. Dressing CDI. * Op Note - Jean Ayala MD - 11/24/2022 8:27 AM CDT [facility] Operative Note Anterior Lateral Hip Hemiarthroplasty - Jerica Layton Date of : 1950 Procedure Date: 11/24/2022 Age: [age] year old PREOPERATIVE DIAGNOSIS: 1. Displaced femoral neck fracture, left hip. 2. Parkinson's POSTOPERATIVE DIAGNOSIS: 1. Displaced femoral neck fracture, left hip. 2. Parkinson's PROCEDURE PERFORMED: Left hip hemiarthroplasty. Anterior lateral approach. SURGEON: Jean Ayala M.D. ARMATURE WINDER REPAIR: Isidro Mustafa PA-C, whose was critical for positioning, retraction during exposure, placement of implants, and closure. ANESTHESIA: General. ESTIMATED BLOOD LOSS: 200 mL. IMPLANTS USED: [place] 37.5 125 mm N1 Rosie stem, -4 28mm 47 bipolar head used due to her relatively young age wanting to maximize head size in Parkinson's patient with previous spinal fusion INDICATIONS FOR PROCEDURE: Jerica Layton is a 72 year oldyxg-vvtn-edg female with a displaced femoral neck fracture. [...] patients rehab facility with x-rays sent to [place] at [facility]. 2. Eight-week followup with X-rays. * Plan of Care - Vicki Hale RN - 11/24/2022 6:55 AM CDT Goal Outcome Evaluation: Plan of Care Reviewed With: patient Overall Patient Progress: no changeOverall Patient Progress: no change Arrived to room 645 from ER at 2220 via cart, alert and oriented x 4, oriented to room and call system, IV patent and infusing, rates pain 6/10, reviewed welcome folder and pain/medication information packet [...] over night. Does patient have an identified gymnastics coach or instructor: Yes Pt A/O x4. VVS. PIV infusing. [...] status for this patient is complete. See [facility] admission navigator for allergy information, prior to admission medications and immunization status. Medication history interview source(s):Patient Medication history resources (including written lists, pill bottles, clinic record):outside meds Changes made to BONDED STRUCTURES REPAIRER medication list: Added: sinemet, klonopin, chlorthalidone Deleted: inderal, zocor, zovirax oint, Librium, Enablex Changed: gabapentin, bioflex Actions taken by pharmacist (provider contacted, etc):None Additional medication history information:None Medication reconciliation/reorder completed by provider prior to medication history? No Prior to Admission medications Medication Sig Last Dose Taking? Auth Provider Fpc End Date aspirin 81 MG EC tablet [...] by mouth At Bedtime 11/22/2022 Yes Jenifer Decker PA-C omeprazole (PRILOSEC) [address] capsule Take [...] - 4.5 mg/dL 11/26/2022 9:25 AM CDT [facility] Blood STRUCTURE OF RIGHT UPPER LIMB / Unknown Venipuncture / Unknown 11/26/2022 8:40 AM CDT 11/26/2022 8:49 AM CDT Emely Johansen DO LAB - BLOOD ORDERA BLES LABORATORY [facility] [address] Lab (1st floor, no room number) [place] [address], [facility] [phone] * (ABNORMAL) Basic metabolic panel (11/26/2022 8:40 AM CDT) [facility] Signature Sodium 139 136 - 145 mmol/L 11/26/2022 [...] 11/26/2022 9:25 AM CDT LABORATORY Comment:eGFR calculated 2020 CKD-EPI equation. Blood STRUCTURE OF RIGHT UPPER LIMB / Unknown Venipuncture / Unknown 11/26/2022 8:40 AM CDT 11/26/2022 8:49 AM CDT Emely Johansen DO LAB - BLOOD ORDERA BLES LABORATORY [facility] [address] Lab (1st floor, no room number) [place] [address], [facility] [phone] * (ABNORMAL) CBC with platelets (11/26/2022 8:40 AM CDT) WBC Count 8.0 4.0 - 11.0 10e3/uL [...] DO LAB - BLOOD ORDERA BLES LABORATORY [facility] [address] Lab (1st floor, no room number) [place] [address], [facility] [phone] * (ABNORMAL) Magnesium (11/26/2022 8:40 AM CDT) Magnesium 1.6(L) 1.7 - 2.3 mg/dL 11/26/2022 9:25 AM CDT LABORATORY Blood STRUCTURE OF RIGHT UPPER LIMB / Unknown Venipuncture / Unknown 11/26/2022 8:40 AM CDT 11/26/2022 8:49 AM CDT Emely Johansen DO LAB - BLOOD ORDERA BLES Performing Organization Address City/[facility]/ZIP Co de Phone Number [facility] [address] Lab (1st floor, no room number) [place] [address], [facility] [phone] * (ABNORMAL) Glucose (11/25/2022 6:40 AM CDT) Glucose 158(H) 70 - 99 mg/dL 11/25/2022 7:23 AM CDT LABORATORY Blood STRUCTURE OF LEFT UPPER LIMB / Unknown Venipuncture / Unknown 11/25/2022 6:40 AM CDT 11/25/2022 6:59 AM CDT Emely Johansen DO LAB - BLOOD ORDERA BLES Performing Organization Address [facility] Co de Phone Number [facility] [address] Lab (1st floor, no room number) [place] [address], [facility] [phone] * (ABNORMAL) Hemoglobin (11/25/2022 6:40 AM CDT) Hemoglobin 8.9(L) 11.7 - 15.7 g/dL 11/25/2022 7:07 AM CDT LABORATORY Blood STRUCTURE OF LEFT UPPER LIMB / Unknown Venipuncture / Unknown 11/25/2022 6:40 AM CDT 11/25/2022 7:00 AM CDT Isidro Mustafa PA-C LAB - BLOOD ORDERABL ES Performing Organization Address City/[facility]/ZIP Co de Phone Number [facility] [address] Lab (1st floor, no room number) [place] [address], [facility] [phone] * Magnesium (11/25/2022 6:40 AM CDT) Magnesium 1.9 1.7 - 2.3 mg/dL 11/25/2022 7:23 AM CDT [facility] Blood STRUCTURE OF LEFT UPPER LIMB / Unknown Venipuncture / Unknown 11/25/2022 6:40 AM CDT 11/25/2022 6:59 AM CDT Emely Johansen DO LAB - BLOOD ORDERA BLES LABORATORY [facility] Lab [address] Lab (1st floor, no room number) [place] [address], [facility] [phone] * Potassium (11/25/2022 6:40 AM CDT) Potassium 4.4 3.4 - 5.3 mmol/L 11/25/2022 7:23 AM CDT LABORATORY Blood STRUCTURE OF LEFT UPPER LIMB / Unknown Venipuncture / Unknown 11/25/2022 6:40 AM CDT 11/25/2022 6:59 AM CDT Emely Johansen DO LAB - BLOOD ORDERA BLES LABORATORY [facility] [address] Lab (1st floor, no room number) [place] [address], [facility] [phone] * XR Pelvis w Hip Port Left 1 View (11/24/2022 10:24 AM CDT) Anatomical Region Laterality Modality Abdomen/Pelvis Left Digital Radiogra phy Impressions 11/24/2022 10:32 AM CDT IMPRESSION: Postoperative changes left bipolar hip endoprosthesis. The components appear well seated. Right hip negative for fracture. Postoperative changes lower lumbar spine and sacrum. No evidence for acute fracture. PHILIPP HENSLEY MD SYSTEM ID: [id number] Narrative 11/24/2022 10:32 AM CDT XR PELVIS [...] acute fracture. PHILIPP HENSLEY MD SYSTEM ID: [id number] Isidro Mustafa PA-C IMG DIAGNOSTIC IMAGI NG ORDERABLES * (ABNORMAL) Phosphorus (11/24/2022 6:14 AM CDT) Phosphorus 4.6(H) 2.5 - 4.5 mg/dL 11/24/2022 6:43 AM CDT [facility] Blood STRUCTURE OF LEFT UPPER LIMB / Unknown Venipuncture / Unknown 11/24/2022 6:14 AM CDT 11/24/2022 6:17 AM CDT Emely Johansen DO LAB - BLOOD ORDERA BLES LABORATORY [facility] [address] [facility] Lab (1st floor, no room number) [place] [address], [facility] [phone] * Magnesium (11/24/2022 6:14 AM CDT) Magnesium 2.0 1.7 - 2.3 mg/dL 11/24/2022 6:43 AM CDT [facility] Blood STRUCTURE OF LEFT UPPER LIMB / Unknown Venipuncture / Unknown 11/24/2022 6:14 AM CDT 11/24/2022 6:17 AM CDT Emely Johansen DO LAB - BLOOD ORDERA BLES LABORATORY [facility] [address] Lab (1st floor, no room number) [place] [address], [facility] [phone] * (ABNORMAL) CBC with platelets (11/24/2022 6:14 AM CDT) [facility] Signature WBC Count 6.4 4.0 - 11.0 [...] DO LAB - BLOOD ORDERA BLES LABORATORY [facility] [address] Lab (1st floor, no room number) [place] [address], [facility] [phone] * (ABNORMAL) Basic metabolic panel (11/24/2022 6:14 [...] 6:43 AM CDT LABORATORY Comment:eGFR calculated usin 2020 CKD-EPI equation. Blood STRUCTURE OF LEFT UPPER LIMB / Unknown Venipuncture / Unknown 11/24/2022 6:14 AM CDT 11/24/2022 6:17 AM CDT Emely Johansen DO LAB - BLOOD ORDERA BLES LABORATORY [facility] [address] Lab (1st floor, no room number) [place] [address], [facility] [phone] * Lumbar spine XR, 2-3 views (11/23/2022 8:45 PM CDT) Anatomical Region Laterality Modality Spine, T-spine, L-spine, Abdomen/Pelvis Digital Radiography 11/23/2022 8:45 PM CDT Impressions 11/23/2022 9:52 PM CDT IMPRESSION: Partially visualized multilevel thoracolumbar and cemented spinal fusion construct [id number] with transpedicular screws T10-S1, bilateral sacroiliac joint [...] EXAM: XR LUMBAR SPINE 2/3 VIEWS LOCATION: [facility] DATE/TIME: 11/23/2022 8:45 PM INDICATION: Left hip and leg pain, inability to ambulate, eval lumbar spine. COMPARISON: None. Procedure Note Ashwin Solis MD - 11/23/2022 EXAM: XR LUMBAR SPINE 2/3 VIEWS LOCATION: [facility] DATE/TIME: 11/23/2022 8:45 PM INDICATION: Left hip and leg pain, inability to ambulate, eval lumbarspine. COMPARISON: None. IMPRESSION: Partially visualized multilevel thoracolumbar and cementedspinal fusion construct [id number] with transpedicular screws T10-S1,bilateral sacroiliac joint screws [...] soft tissues are unremarkable. Ra Hu MD IMG DIAGNOSTIC I MAGING ORDERABLES * XR Femur [...] EXAM: XR FEMUR LEFT 2 VIEWS LOCATION: [facility] DATE/TIME: 11/23/2022 8:45 PM INDICATION: Left hip pain. COMPARISON: None. Procedure Note Wilber Melton MD - 11/23/2022 EXAM: XR FEMUR LEFT 2 VIEWS LOCATION: [facility] DATE/TIME: 11/23/2022 8:45 PM INDICATION: Left hip pain. COMPARISON: None. IMPRESSION: 1. Left subcapital femoral neck fracture. Mild impaction andmild-moderate superior displacement. 2. The femoral head remains seated in the acetabulum. 3. The left femur is otherwise unremarkable. 4. Normal knee alignment. 5. Postoperative changes at the lumbosacral interspace and leftsacroiliac joint noted. Ra Hu MD [facility] DIAGNOSTIC I MAGING ORDERABLES * (ABNORMAL) CBC with platelets and differential (11/23/2022 7:52 PM CDT) WBC Count 7.6 4.0 - 11.0 10e3/uL [...] CDT Ra Hu MD LAB - BLOOD ORDApurva [facility] [address] Lab (1st floor, no room number) [place] [address], [facility] [phone] * Magnesium (11/23/2022 7:52 PM CDT) Magnesium 2.0 1.7 - 2.3 mg/dL 11/23/2022 8:20 PM CDT LABORATORY Blood STRUCTURE OF RIGHT UPPER LIMB / Unknown Venipuncture / Unknown 11/23/2022 7:52 PM CDT 11/23/2022 7:59 PM CDT Ra Hu MD LAB - BLOOD ZAIDA SHERMAN Performing Organization Address City/[facility]/ZIP Co de Phone Number LABORATORY [facility] [address] Lab (1st floor, no room number) [place] [address], [facility] [phone] * (ABNORMAL) Basic metabolic panel (11/23/2022 7:52 [...] - 23.0 mg/dL 11/23/2022 8:20 PM CDT [facility] LABORATORY Creatinine 1.20(H) 0.51 - 0.95 mg/dL 11/23/2022 8:20 PM CDT LABORATORY Calcium 10.0 8.8 - 10.2 mg/dL 11/23/2022 8:20 PM CDT LABORATORY Glucose 140(H) 70 - 99 mg/dL 11/23/2022 8:20 PM CDT LABORATORY GFR Estimate 48(L) >60 mL/min/1.7 3m2 11/23/2022 8:20 PM CDT LABORATORY Comment:eGFR calculated usin 2020 CKD-EPI equation. Blood STRUCTURE OF RIGHT UPPER LIMB / Unknown Venipuncture / Unknown 11/23/2022 7:52 PM CDT 11/23/2022 7:59 PM CDT Ra Hu MD LAB - BLOOD ZAIDA SHER[facility] Organization Address City/State/ZIP Co de Phone Number LABORATORY [facility] [address] [facility] Lab (1st floor, no room number) [place] [address], [facility] [phone] documented in this encounter Visit Diagnoses Diagnosis Hip fracture, left, closed, initial encounter (H)- Primary Hip fracture, left, closed, initial encounter (H) Shingles Herpes zoster without mention of complication documented in this encounter Admitting Diagnoses Diagnosis [...] per tablet 1 tablet 1 tablet, Oral, ONCE, On Tue11/24/22 at 0630, For 1 dose $Given 11/24/2022 6:22 AM CDT 1 tablet carbidopa-levodopa (SINEMET) 25-100 MG per tablet 1 tablet 1 tablet, Oral, 3 TIMES DAILY, First dose on Tue11/24/22 at 1400 $Given 11/26/2022 8:05 AM CDT 1 tablet $Given 11/25/2022 9:08 PM CDT 1 tablet $Given 11/25/2022 2:58 PM CDT 1 tablet ceFAZolin (ANCEF) 2 g in 100 mL D5W intermittent infusion Routine, 2 g, Intravenous, EVERY 8 HOURS, First dose on Tue11/24/22 at 1600, For 2 doses, First post-op dose due 8 hours after intra-op dose, see eMAR. , Indications: Perioperative Pharmacoprophylaxis $New Bag 11/25/2022 12:25 AM CDT 2 g 200 mL/hr $New Bag 11/24/2022 4:16 PM CDT 2 g 200 mL/hr chlorthalidone (HYGROTON) half-tab 12.5 mg 12.5 mg, [...] $Given 11/24/2022 10:35 PM CDT 0.5 mg dextrose 5% and 0.9% NaCl infusion at 50 mL/hr, Intravenous, CONTINUOUS, Starting on Tue11/24/22 at 0000, Until Tue11/24/22 at 1159 $New Bag 11/23/2022 11:43 PM CDT 50 mL/hr DULoxetine (CYMBALTA) DR capsule 60 mg 60 [...] $Given 11/24/2022 3:25 AM CDT 1 mg HYDROmorphone (PF) (DILAUDID) injection 0.5 mg 0.5 mg, Intravenous, ONCE, On Tue11/23/22 at 1945, For 1 dose $Given 11/23/2022 7:53 PM CDT 0.5 mg HYDROmorphone (PF) (DILAUDID) injection 0.5 mg 0.5 mg, Intravenous, EVERY 30 MIN PRN, severe pain, Starting on Tue11/23/22 at 2128, For 3 doses $Given 11/23/2022 11:36 PM CDT 0.5 mg $Given 11/23/2022 9:50 PM CDT 0.5 mg ketorolac (TORADOL) injection 15 mg 15 mg, Intravenous, ONCE, On Tue11/23/22 at 1945, For 1 dose, Can cause pain on injection. If ordered intravenously (IV) : administer through a running maintenance fluid over 1 minute followed by a flush. If patient complains of pain on injection, may dilute 15-30 mg in 5 mL and push over 1 to 2 minutes. $Given 11/23/2022 7:53 PM CDT 15 mg ketorolac (TORADOL) injection 15 mg 15 mg, Intravenous, ONCE, On Tue11/23/22 at 2130, For 1 dose, Can cause pain on injection. If ordered intravenously (IV) : administer through a running maintenance fluid over 1 minute followed by a flush. If patient complains of pain on injection, may dilute 15-30 mg in 5 mL and push over 1 to 2 minutes. $Given 11/23/2022 9:50 PM CDT 15 mg lactated ringers infusion at 10 mL/hr, Intravenous, CONTINUOUS, IF patient NOT on dialysis., Pre-procedure, Starting on Tue11/24/22 at 0600, Until Tue11/24/22 at 0943 $New Bag 11/24/2022 8:21 AM CDT Restarted 11/24/2022 7:38 AM CDT $New Bag 11/24/2022 6:04 AM CDT 10 mL/hr lisinopril (ZESTRIL) tablet 40 mg 40 mg, [...] resolved 15 minutes after giving ondansetron (ZOFRAN). senna-docusate (SENOKOT-S/PERICOLACE) 8.6-50 MG per tablet 1 [...] Intracatheter, EVERY 8 HOURS, First dose on Tue11/23/22 at 2300, to lock peripheral IV dormant line $Given 11/23/2022 11:36 PM CDT 3 mLs sodium chloride (PF) 0.9% PF flush 3 mL 3 mL, Intracatheter, EVERY 8 HOURS, First dose on Tue11/24/22 at 1100, to lock peripheral IV dormant line $Given 11/25/2022 9:09 PM CDT 3 mLs $Given 11/25/2022 1:16 PM CDT 3 mLs $Given 11/25/2022 3:44 AM CDT 3 mLs tranexamic acid (LYSTEDA) tablet 1,950 mg 1,950 mg, Oral, ONCE, On Tue11/24/22 at 0600, For 1 dose, Administer with a sip of water in PRE OP area 90 minutes PRIOR to leaving Pre-op area., Pre-procedure $Given 11/24/2022 6:01 AM CDT 1,950 mg documented in this encounter Active and Recently [...] Candi Miller RN)0806 ($Given - Provider: Rhianna Chandra RN) aspirin (ASA) EC tablet 325 mg 325 mg, Oral, DAILY, First dose on Tue11/24/22 at 1100, Indications: VTE Prophylaxis, DO NOT CRUSH. 1345 ($Given - Provider: Vicki Morse RN) 0852 ($Given - Provider: Ryann Issa RN) 0805 ($Given - Provider: Rhianna Chandra RN) buPROPion (WELLBUTRIN XL) 24 hr tablet 450 [...] at 1400 1346 ($Given - Provider: Vicki Mosre RN)2029 ($Given - Provider: Vicki Hale RN) 0817 ($Given - Provider: Ryann Issa RN)1458 ($Given - Provider: Ryann Issa RN)2108 ($Given - Provider: Suzy Urias RN) 0805 ($Given - Provider: Rhianna Chandra, IBIS)1400 (Canceled Entry - Provider: Orders Generic Provider [...] RN) 0025 ($New Bag - Provider: Vicki Hale, IBIS) ceFAZolin Sodium (ANCEF) injection 2 g (COMPLETED) Routine, 2 g, Intravenous, PRE-OP/PRE-PROCEDURE, Starting on Tue11/24/22 at 0546, For 1 dose, Give first dose within 1 hour PRIOR to incision. If patient weight is greater than or equal to 120 kg increase dose to 3 g., Indications: Perioperative Pharmacoprophylaxis, Pre-procedure 0738 ($Given - Provider: August Ramirez APRN PROPAGATOR) chlorthalidone (HYGROTON) half-tab 12.5 mg 12.5 mg, Oral, EVERY MORNING, First dose on Tue11/24/22 at 1130 1346 ($Given - Provider: Vicki Morse RN) 0817 ($Given - Provider: Ryann Issa, IBIS) 0805 ($Given - Provider: Rhianna Chandra, IBIS) clonazePAM (klonoPIN) tablet 0.5 mg 0.5 mg, Oral, AT BEDTIME, First dose on Tue11/24/22 at 2200 2235 ($Given - Provider: Vicki Hale, IBIS) 2107 ($Given - Provider: Suzy Urias RN) DULoxetine (CYMBALTA) DR capsule 60 mg 60 mg, Oral, DAILY, First dose on Tue11/24/22 at 1130 1345 ($Given - Provider: Vicki Morse RN) 0852 ($Given - Provider: Ryann Issa, IBIS) 0805 ($Given - Provider: Rhianna M Melese, RN) gabapentin (NEURONTIN) capsule 200 mg 200 mg, Oral, AT BEDTIME, First dose on Tue11/24/22 at 2200 2235 ($Given - Provider: Vicki Hale RN) 2106 ($Given - Provider: Suzy Urias RN) lisinopril (ZESTRIL) tablet 40 mg 40 mg, Oral, AT BEDTIME, First dose on Tue11/24/22 at 2200 2235 ($Given - Provider: Vicki Hale RN) 210 ($Given - Provider: Suzy Urias RN) pantoprazole (PROTONIX) EC tablet 40 mg 40 mg, Oral, 2 TIMES DAILY BEFORE MEALS, First dose on Tue11/24/22 at 1630 1615 (Not Given - Provider: iVcki Morse RN - Reason: Patient/family refused) 0817 ($Given - Provider: Ryann Issa RN)1555 ($Given - Provider: Ryann Issa RN) 0805 ($Given - Provider: Rhianna Chandra RN) pravastatin (PRAVACHOL) tablet 40 mg 40 mg, Oral, AT BEDTIME, First dose on Tue11/24/22 at 2200 2235 ($Given - Provider: Vicki Hale RN) 2106 ($Given - Provider: Suzy Urias RN) ropivacaine (NAROPIN) 150 mg, ketorolac (TORADOL) 30 mg, EPINEPHrine (ADRENALIN) 0.6 mg in sodium chloride 0.9 % 50 mL (ORTHO WINNIE LOW DOSE) (COMPLETED) INTRA-ARTICULAR, SOLE SCRAPER TO O.R., Starting on Tue11/24/22 at 0546, [...] Provider: Vicki Morse RN - Reason: IV Infusing)2028 ($Given - Provider: Vicki Hale RN) 034 ($Given - Provider: Vicki Hale, IBIS)1316 ($Given - Provider: Ryann Issa, RN)2109 ($Given - Provider: Suzy Urias, IBIS) 0400 (Not Given - Provider: Candi Miller [...] ($New Bag - Provider: August Ramirez APRN PROPAGATOR)0933 (Anesthesia Volume Adjustment - Provider: August Ramirez [...] stools. documented in this encounter Care Teams Database Security Expert Relationship Specialty Start Date End Date Rogers Ho PA-C [facility] [address] [place], [place] [address] PCP - General 11/23/22 documented as of this encounter
--- OUTSIDE RECORDS SUMMARY | 2023-10-20 13:46 | XMS_ITS | Encounter Summary ---
Author Name Unknown Organization [place] Address [address] [place] [address] Care Team Providers Care Business Integration Manager Name Role Phone Rogers Ho PA-C Primary Care Provider [phone] Reason for Visit * Auth/Cert (Routine) Specialty Diagnoses / Procedures Referred By Contac t Referred To Contact Surgery Diagnoses Hip fracture, left, closed, initial encounter (H) Hip fracture, left, closed, initial encounter (H) Main Or [address] [place] [address] Referral ID Status Reason Start Date Expiration Date Visits Re quested Visits Authorized [id number] 1 1 Encounter Details Date Type Department Care Team (Late st Contact Info) Description 11/24/2022 7:38 AM CDT Anesthesia Event [facility] PeriOp Services [address] [place] [address] Rhett Reyes MD [facility] ANESTHESIA [address] [place] [address] Flo Hendrix MD [facility] ANESTHESIA [address] [place] [address] Anesthesia Record Procedure Summary Procedure Name Responsible Anesthesiologist Anesthesia Start Time Anesthesia Stop Time Left hip hemiarthroplasty anterior lateral approach (Left: Hip) Rhett Reyes MD 11/24/22 0738 11/24/22 0945 Events Date Time Event Comment 11/24/2022 0712 TELEVISION NEWS REPORTER Ready for Procedure 0738 An Start 0741 An Start Data 0745 Present 0745 An Induction 0746 An Intubation 0748 Present 0802 AN REASSESS I attest that I have identified and re-evaluated the patient immediately before the induction of anesthesia and I am satisfied that the anesthetic plan is suitable for the patient's condition and procedure. The first vital signs recorded are pre- induction. August Ramirez APRN TELEVISION NEWS REPORTER 0823 Anesthesia Ready for Procedu re 0858 Present 0942 AN Extubation All extubation criteria met prior to removal. 0942 an stop data 0945 An Stop Electronically signed by August Ramirez APRN TELEVISION NEWS REPORTER on November 24, 2022 9:45 AM 0947 MD Present Meds Name Total midazolam 1 mg/mL 2 mg fentaNYL 50 mcg/mL 250 mcg lidocaine 2% 50 mg propofol 10 mg/mL 150 mg rocuronium 10 mg/mL 50 mg phenylephrine (LEXUS-SYNEPHRINE) injection 1,200 mcg dexamethasone (DECADRON) 4 mg/mL 4 mg ondansetron 2 mg/mL 4 mg glycopyrrolate 0.2 mg/mL 0.8 mg neostigmine 1 mg/mL 4 mg ceFAZolin Sodium (ANCEF) injection 2 g 2 g lactated ringers infusion 1,800 mL * Agents Name NO HELIOX O2 N2O Air Exp Sevoflurane Exp Isoflurane Exp Desflurane Exp N2O Ins Sevoflurane Ins Isoflurane Ins Desflurane O2 Auxiliary * Blood No blood administrations on file. Lines, Drains, and Airways Type Details Placement Removal Incision/Surgical Site 11/24/22; 912; L eft; Hip; INCISIONS X 1 WITH 4 X 4'S TAGADERM 11/24/22912 by Rebecca Geronimo, RN RETIRE: Peripheral IV 11/23/22; 1952; 20 G; BD; Anterior, Right; Lower forearm; Chlorhexidine 11/23/221952 by Kaia Bennett RN 11/26/22 134 by Inpatient, Nurse External Urinary Catheter 11/24/22; 0509; jl; 11/26/22; 1348 11/24/22 0509 by Carmen Sharp LPN 11/26/22 134 by Inpatient, Nurse ETT Placement Date: 11/10 02/01; Placement Time: 0746 (created via procedure documentation); Mask Ventilation: 1; Induction Type: Intravenous; Ease of Intubation: Easy; Technique: Direct laryngoscopy; ETT Type: Single, Oral; Tube Size: 7 mm; DL Blade Size: Mooney 2; Grade View: 2; Adjucts: Stylet; Placement Person: TELEVISION NEWS REPORTER; Attempts: 1; Depth: 22 cm 11/24/22 0746 by August Ramirez APRN CRNA 11/24/22 0942 by August Ramirez APRN TELEVISION NEWS REPORTER documented in this encounter Social History Tobacco [...] PM CDT documented as of this encounter OR Notes * Anesthesia Postprocedure Evaluation - Rhett Reyes MD - 11/24/2022 12:27 PM CDT Patient: Jerica Layton Procedure: Procedure(s): hemiarthroplasty Anesthesia Type: General Note: Disposition: Inpatient Postop Pain Control: Uneventful Sign Out: Well controlled pain PONV: No Neuro/Psych: Uneventful Sign Out: Acceptable/Baseline neuro status Airway/Respiratory: Uneventful Sign Out: Acceptable/Baseline resp. status CV/Hemodynamics: Uneventful Sign Out: Acceptable CV status; No obvious hypovolemia; No obvious fluid overload Other NRE: NONE DID A NON-ROUTINE EVENT OCCUR? No Last vitals: Vitals Value Taken Time BP 148/80 11/24/22 1025 Temp 97 ??F (36.1 ??C) 11/24/22 1019 Pulse 86 11/24/22 1026 Resp 10 11/24/22 1026 SpO2 98 % 03/15/23 1036 Vitals shown include unvalidated device data. Electronically Signed By: Rhett Reyes MD November 24, 2022 12:27 PM * Anesthesia Procedure Notes - August Ramirez APRN CRNA - 11/24/2022 8:02 AM CDTAssociated Order(s): Airway Airway Patient location during procedure: OR Procedure Start/Stop Times: 11/24/2022 7:46 AM Staff - TELEVISION NEWS REPORTER: August Ramirez APRN CRNA Performed By: TELEVISION NEWS REPORTER Consent for Airway Urgency: elective Indications and Patient Condition Indications for airway management: inga-procedural Induction type:intravenous Mask difficulty assessment: 1 - vent by mask Final Airway Details Final airway type: endotracheal airway Successful airway: ETT - single and Oral Endotracheal Airway Details ETT size (mm): 7.0 Cuffed: yes Successful intubation technique: direct laryngoscopy DL Blade Type: Mooney 2 Grade View of Cords: 2 Adjucts: stylet Position: Right Measured from: gums/teeth Secured at (cm): 22 Bite block used: None Post intubation assessment Placement verified by: capnometry, equal breath sounds and chest rise Number of attempts at approach: 1 Number of other approaches attempted: 0 Secured with: plastic tape Ease of procedure: easy Dentition: Intact Medication(s) Administered Medication Administration Time: 11/24/2022 7:46 AM * Anesthesia Preprocedure Evaluation - Rhett Reyes MD - 11/24/2022 6:55 AM CDT Anesthesia Pre-Procedure Evaluation Patient: Jerica Layton : 1950 Procedure : Procedure(s): hemiarthroplasty possible total hip arthroplasty No past medical history on file. No past surgical history on file. No Known Allergies Social History Tobacco Use ??? Smoking status: Every Day Packs/day: 0.50 Types: Cigarettes ??? Smokeless tobacco: Never Substance Use Topics ??? Alcohol use: Not Currently Wt Readings from Last 1 Encounters: 11/24/22 81.4 kg (179 lb 8 oz) Anesthesia Evaluation Pt has had prior anesthetic. ROS/MED HX ENT/Pulmonary: (+) tobacco use, Current use, (-) sleep apnea Neurologic: (+) Parkinson's disease, Cardiovascular: (+) Dyslipidemia hypertension----- METS/Exercise Tolerance: Hematologic: Musculoskeletal: GI/Hepatic: (+) GERD, Renal/Genitourinary: (+) renal disease, type: CRI, Endo: Psychiatric/Substance Use: Infectious Disease: Malignancy: Other: Physical Exam Airway Mallampati: II TM distance: > 3 FB Neck ROM: full Respiratory Devices and Support Dental Cardiovascular cardiovascular exam normal Pulmonary pulmonary exam normal OUTSIDE LABS: CBC: Lab Results Component Value Date WBC 6.4 11/24/2022 WBC 7.6 11/23/2022 HGB 10.7 (L) 11/24/2022 HGB 11.9 11/23/2022 HCT 33.5 (L) 11/24/2022 HCT 37.1 11/23/2022 PLT 238 11/24/2022 PLT 256 11/23/2022 BMP: Lab Results Component Value Date NA 135 (L) 11/24/2022 NA 136 11/23/2022 POTASSIUM 4.3 11/24/2022 POTASSIUM 4.3 11/23/2022 CHLORIDE 95 (L) 11/24/2022 CHLORIDE 95 (L) 11/23/2022 CO2 29 11/24/2022 CO2 28 11/23/2022 BUN 33.6 (H) 11/24/2022 BUN 29.4 (H) 11/23/2022 CR 1.62 (H) 11/24/2022 CR 1.20 (H) 11/23/2022 GLC 150 (H) 11/24/2022 GLC 140 (H) 11/23/2022 COAGS: No results found for: PTT, INR, FIBR POC: No results found for: BGM, HCG, HCGS HEPATIC: Lab Results Component Value Date ALT 42 (A) 04/29/2020 AST 37 (A) 04/29/2020 OTHER: Lab Results Component Value Date A1C 6.4 04/29/2020 MARIBETH 9.6 11/24/2022 PHOS 4.6 (H) 11/24/2022 MAG 2.0 11/24/2022 Anesthesia Plan ASA Status: 3 NPO Status: NPO Appropriate Anesthesia Type: General. - Airway: ETT Induction: Intravenous. Maintenance: Balanced. Consents Anesthesia Plan(s) and associated risks, benefits, and realistic alternatives discussed. Questions answered and patient/sales promotion representative(s) expressed understanding. - Discussed: - Discussed with: Patient Postoperative Care Pain management: IV analgesics, Oral pain medications. PONV prophylaxis: Dexamethasone or Solumedrol, Ondansetron (or other 5HT-3) Comments: Rhett Reyes MD documented in this encounter Miscellaneous Notes * Anesthesia Care Transfer Note - August Ramirez APRN CRNA - 11/24/2022 9:45 AM CDT Patient: Jerica Layton Procedure: Procedure(s): hemiarthroplasty Diagnosis: Femoral neck fracture (H) [S72.009A] Diagnosis Additional Information: No value filed. Anesthesia Type: General Note: Oropharynx: spontaneously breathing Level of Consciousness: awake Oxygen Supplementation: face mask Independent Airway: airway patency satisfactory and stable Dentition: dentition unchanged Vital Signs Stable: post-procedure vital signs reviewed and stable Report to RN Given: handoff report given Patient transferred to: PACU Handoff Report: Identifed the Patient, Identified the Reponsible Provider, Reviewed the pertinent medical history, Discussed the surgical course, Reviewed Intra-OP anesthesia mangement and issues during anesthesia, Set expectations for post-procedure period and Allowed opportunity for questions andacknowledgement of understanding Vitals: Vitals Value Taken Time BP 145/85 11/24/22 0943 Temp Pulse 88 11/24/22 0943 Resp 10 11/24/22 0945 SpO2 97 % 11/24/22 0945 Vitals shown include unvalidated device data. Electronically Signed By: August Ramirez APRN CRNA November 24, 2022 9:45 AM documented in this encounter Plan of Treatment Not on file documented as of this encounter Procedures Procedure Name Priority Date/Time Associated Diagnosis Comments ANE AIRWAY ETT PERFORMABLE Routine 11/24/2022 7:46 AM CDT documented in this encounter Results * ANE AIRWAY ETT PERFORMABLE (11/24/2022 7:46 AM CDT) Narrative August Ramirez APRN TELEVISION NEWS REPORTER - 11/24/2022 7:46 AM CDT August Ramirez APRN CRNA ? 11/24/2022 ??8:03 AM Airway ? Patient location during procedure: OR ? Procedure Start/Stop Times: 11/24/2022 7:46 AM Staff - ? TELEVISION NEWS REPORTER: August Ramirez APRN CRNA ? Performed By: TELEVISION NEWS REPORTER Consent for Airway ? Urgency: elective Indications and Patient Condition ? Indications for airway management: inga-procedural ? Induction type:intravenous ? Mask difficulty assessment: 1 - vent by mask Final Airway Details ? Final airway type: endotracheal airway ? Successful airway: ETT - single and Oral Endotracheal Airway Details ? ETT size (mm): 7.0 ? Cuffed: yes ? Successful intubation technique: direct laryngoscopy ? DL Blade Type: Mooney 2 ? Grade View of Cords: 2 ? Adjucts: stylet ? Position: Right ? Measured from: gums/teeth ? Secured at (cm): 22 ? Bite block used: None Post intubation assessment ? Placement verified by: capnometry, equal breath sounds and chest rise ? Number of attempts at approach: 1 ? Number of other approaches attempted: 0 ? Secured with: plastic tape ? Ease of procedure: easy ? Dentition: Intact Medication(s) Administered Medication Administration Time: 11/24/2022 7:46 AM Rhett Reyes MD [facility] ANESTHESIA documented in this encounter Visit Diagnoses Not on filedocumented in this encounter Administered Medications Inactive Administered Medications - up to 3 most recent administrations Medication Order MAR Action Action Date Dose Rate Site ceFAZolin Sodium (ANCEF) injection 2 g Routine, 2 g, Intravenous, PRE-OP/PRE-PROCEDURE, Starting on Tue11/24/22 at 0546, For 1 dose, Give first dose within 1 hour PRIOR to incision. If patient weight is greater than or equal to 120 kg increase dose to 3 g., Indications: Perioperative Pharmacoprophylaxis, Pre-procedure $Given 11/24/2022 7:38 AM CDT 2 g dexamethasone (DECADRON) injection Intravenous, PRN, Administer over 1 Minutes, Starting on Tue11/24/22 at 0746, Anesthesia Intra-op $Given 11/24/2022 7:46 AM CDT 4 mg fentaNYL (PF) (SUBLIMAZE) injection Intravenous, PRN, Administer over 3-5 Minutes, Starting on Tue11/24/22 at 0746, Anesthesia Intra-op $Given 11/24/2022 8:34 AM CDT 50 mcg $Given 11/24/2022 7:46 AM CDT 200 mcg glycopyrrolate (ROBINUL) injection Intravenous, PRN, Administer over 1-2 Minutes, Starting on Tue11/24/22 at 0756, Anesthesia Intra-op $Given 11/24/2022 9:23 AM CDT 0.6 mg $Given 11/24/2022 7:56 AM CDT 0.2 mg lactated ringers infusion at 10 mL/hr, Intravenous, CONTINUOUS, IF patient NOT on dialysis., Pre-procedure, Starting on Tue11/24/22 at 0600, Until Tue11/24/22 at 0943 $New Bag 11/24/2022 8:21 AM CDT Restarted 11/24/2022 7:38 AM CDT $New Bag 11/24/2022 6:04 AM CDT 10 mL/hr lidocaine 2% injection (MDV) Intravenous, PRN, Starting on Tue11/24/22 at 0746, Anesthesia Intra-op $Given 11/24/2022 7:46 AM CDT 50 mg midazolam (VERSED) injection Intravenous, Administer over 2 Minutes, PRN, Starting on Tue11/24/22 at 0746, Anesthesia Intra-op $Given 11/24/2022 7:46 AM CDT 2 mg neostigmine (PROSTIGMINE) injection Intravenous, PRN, Starting on Tue11/24/22 at 0923, Anesthesia Intra-op $Given 11/24/2022 9:23 AM CDT 4 mg ondansetron (ZOFRAN) injection Intravenous, PRN, Administer over 2-5 Minutes, Starting on Tue11/24/22 at 0912, Anesthesia Intra-op $Given 11/24/2022 9:12 AM CDT 4 mg phenylephrine (LEXUS-SYNEPHRINE) injection Intravenous, CONTINUOUS PRN, Starting on Tue11/24/22 at 0758, Anesthesia Intra-op $Bolus 11/24/2022 9:12 AM CDT 200 mcg $Bolus 11/24/2022 9:01 AM CDT 200 mcg $Bolus 11/24/2022 8:51 AM CDT 200 mcg propofol (DIPRIVAN) injection 10 mg/mL vial Intravenous, PRN, Starting on Tue11/24/22 at 0746, Anesthesia Intra-op $Given 11/24/2022 7:46 AM CDT 150 mg rocuronium injection Intravenous, PRN, Starting on Tue11/24/22 at 0746, Anesthesia Intra-op $Given 11/24/2022 7:46 AM CDT 50 mg documented in this encounter Care Teams Business Integration Manager Relationship Specialty Start Date End Date Rogers Ho PA-C [address] [place] [address] PCP - General 11/23/22 documented as of this encounter
--- OUTSIDE RECORDS SUMMARY | 2023-10-20 13:46 | XMS_ITS ---
Author Name Unknown Organization [facility] Address [address] [place] [address] Care Team Providers Care Stamping Machine Operator Name Role Phone Rogers Ho PA-C Primary Care Provider Transitional Care Management Status:Closed (Closed) Start date:11/27/2022 End date:11/27/2022 Continued Care and Services Coordination
--- OUTSIDE RECORDS SUMMARY | 2023-10-20 13:46 | XMS_ITS | Encounter Summary ---
Author Name Unknown Organization [facility] Address [address] [place] [address]. [place] [address] Care Team Providers Care Stacking Machine Operator Name Role Phone Rogers Ho PA-C Primary Care Provider [phone] Encounter Details Date Type Department Care Team (Late st Contact Info) Description 11/24/2022 Medical Correspondence [facility] [place] [address] Outside, Provider Social History Tobacco Use Types Packs/Day Years [...] PM CDT documented as of this encounter Plan of Treatment Not on file documented as of this encounter Visit Diagnoses Not on filedocumented in this encounter Care Teams Stacking Machine Operator Relationship Specialty Start Date End Date Rogers Ho PA-C [address] [place], [place] [id number] PCP - General 11/23/22 documented as of this encounter
--- OUTSIDE RECORDS SUMMARY | 2023-10-20 13:46 | XMS_ITS | Encounter Summary ---
Author Name Unknown Organization [facility] Address [address] [place] [address] Care Team Providers Care Facilities Coordinator Name Role Phone Rogers Ho PA-C Primary Care Provider [phone] Encounter Details Date Type Department Care Team (Latest Contact Info) Description 11/23/2022 Travel Social History Tobacco Use Types Packs/Day [...] on filedocumented in this encounter Care Teams Facilities Coordinator Relationship Specialty Start Date End Date Rogers Ho PA-C [place] [address] [place] [address] PCP - General 11/23/22 documented as of this encounter
--- NOTE | 2023-10-20 14:00 | CRLHL7_ITS ---
For Patients: As a result of the Century Cures Act, medical imaging exams and procedure reports are released immediately into your electronic medical record. You may view this report before your referring provider. If you have questions, please contact your health care provider. DXA BONE MINERAL DENSITY STUDY Current height (in): 65.0. Weight (lb): 175.0. Menopause age: 48. Ethnicity: White. Reason for exam: Asymptomatic menopausal state. 1. Have you had a previous hip or vertebral fracture? Yes. 2. Have you had any fractures during your adult life which did not result from significant trauma (e.g., auto accident)? Yes. 3. Did either of your parents have a hip fracture? No. 4. Do you smoke? No. 5. Have you ever taken Glucocorticoids? No. 6. Do you have rheumatoid arthritis? Yes. 7. Do you have secondary osteoporosis? No. 8. Do you drink 3 or more alcoholic drinks per day? Yes. 9. Are you being treated for osteoporosis? No. 10. Have you ever taken any of the following medications: Actonel, Evista, Fosamax, Miacalcin, Reclast, Boniva, Forteo, HRT (i.e. estrogen/hormone therapy), Protelos, Prolia, Vitamin D, Calcium, other ??? please specify. ANSWER: Yes, vitamin D, calcium. 11. Do you have any of the following medical conditions: Anorexia or bulimia, asthma or emphysema, end stage renal disease, hyperparathyroidism, any seizure disorders, cancer, inflammatory bowel diseases, hysterectomy, other ??? please specify. ANSWER: Yes, other. 12. What was your maximum height (inches)? 67. 13. Do you perform weight bearing exercise regularly? No. 14. Do you regularly consume dairy products? No. 15. Do you drink caffeinated beverages? Yes. 16. At what age did your period start? 14. 17. Are you premenopausal? No. 18. How many full term pregnancies have you had? 3. 19. Have you ever missed your period for more than 6 months in a row (not including or menopause)? No. TECHNIQUE: Bone mineral density study was performed using the [employer]. FINDINGS: The results of the study expressed as bone mineral density (BMD) are as follows: Neck Right: BMD: 0.746 g/cm2. T-score: -0.9. Z-score: 1.1 Total Right: BMD: 0.877 g/cm2. T-score: -0.5. Z-score: 1.2 Radius Left 33%: BMD: 0.702 g/cm2. T-score: 0.1. Z-score: 2.5 IMPRESSION: Normal bone density. *Comparison exams done prior to 02/2020 were performed on different unit, [employer]. COMPARISON: Compared with scan of 07/16/2021, the bone mineral density has increased by 6.3 percent at the hip. Rei Ulloa M.D. Diagnostic Radiologist [email or web address] Transcribed: 11:45 am DW/Dictated by: Rei Ulloa MD @ 10/21/2023 9:58:00 AM (Electronically Signed)
== END 2023-10-20 13:40 | disposition home or self-care (01) ==
LOC: MAMMO 13:40
PROVIDERS: PCP Physician Assistant Medical; Visit Provider Physician Assistant Medical
DX: Z12.31 Encounter for screening mammogram for malignant neoplasm of breast (principal); Z78.0 Asymptomatic menopausal state
CPT/HCPCS: 77063; 77067; 77080

== ENCOUNTER 2024-04-05 12:00 | Outpatient (CLI) | payer MEDICARE, BC, SELFPAY ==
--- OUTSIDE RECORDS SUMMARY | 2024-04-06 09:25 | XMS_ITS | Clinical Summary ---
Author Organization [facility] Address [address] [place] [address] Care Team Providers Care Sand And Gravel Plant Operator Name Role Phone Rogers Ho PA-C Primary Care Provider [phone] Allergies No known active allergies Medications Medication Sig Dispensed Refills Start Date End Date Status WELLBUTRIN SR## 150 MG OR TB12 450 mg a day Active CYMBALTA 60 MG OR CPEP 1 CAPSULE DAILY Active pravastatin (PRAVACHOL) 40 MG tablet Take 40 mg by mouth daily Active omeprazole (PRILOSEC) [address] capsule Take 40 mg by mouth daily Active lisinopril (ZESTRIL) 40 MG tablet Take 40 mg by mouth At Bedtime Active calcium carbonate 600 mg-vitamin D 400 units (CALTRATE) 600-400 MG-UNIT per tablet Take 1 tablet by mouth 2 times daily Active Bioflavonoid Products (BIOFLEX) TABS Take 2 tablets by mouth every morning Active carbidopa-levodopa (SINEMET) 25-100 MG tablet Take 1 tablet by mouth 3 times daily Active chlorthalidone (HYGROTON) 12.5 mg TABS half-tab Take 12.5 mg by mouth every morning Active acetaminophen (TYLENOL) 325 MG tabletIndications:Hi p fracture, left, closed, initial encounter (H) Take 3 tablets (975 mg) by mouth every 8 hours as needed for mild pain 100 tablet 11/25/2022 Active HYDROmorphone (DILAUDID) 2 MG tabletIndications:Hi p fracture, left, closed, initial encounter (H) Take 0.5 tablets (1 mg) by mouth every 4 hours as needed for severe pain (7-10) 12 tablet 11/25/2022 Active ondansetron (ZOFRAN ODT) 4 MG ODT tabIndications:Hip fracture, left, closed, initial encounter (H) Take 1 tablet (4 mg) by mouth every 6 hours as needed for nausea or vomiting 5 tablet 11/25/2022 Active senna-docusate (SENOKOT-S/PERICOLAC E) 8.6-50 MG tabletIndications:Hi p fracture, left, closed, initial encounter (H) Take 1 tablet by mouth 2 times daily 21 tablet 11/25/2022 Active clonazePAM (KLONOPIN) 0.5 MG tabletIndications:Hi p fracture, left, closed, initial encounter (H) Take 1 tablet (0.5 mg) by mouth At Bedtime 10 tablet 11/26/2022 Active gabapentin (NEURONTIN) 100 MG capsuleIndications:H ip fracture, left, closed, initial encounter (H) Take 2 capsules (200 mg) by mouth At Bedtime 30 capsule 11/26/2022 Active Active Problems Problem Noted Date Diagnosed Date Hip fracture, left, closed, initial encounter Social History Tobacco Use Types Packs/Day Years Used Date Smoking Tobacco: Every Day Cigarettes Smokeless Tobacco: Never Alcohol Use Standard Drinks/Week [...] series) 2010 MEDICARE ANNUAL WELLNESS VISIT 2015 LIPID 04/29/2021 04/29/2020 FALL RISK ASSESSMENT 05/29/2021 05/29/2020 COVID-19 Vaccine (2022- season) 2023 12/23/2021, 07/13/2021, 12/06/2020, Additional history exists PHQ-2 (once per calendar year) 2023 INFLUENZA VACCINE (#1) 2024 , 07/04/2018, 07/18/2017 GLUCOSE 12/02/2025 12/02/2022, 11/10, 11/25/2022, Additional history [...] this topic Medical Devices Implanted Type Area Steel Floor Pan Placing Supervisor Device Identifier Shelf Expiration Date Model / Serial / Lot Bone Cement Simplex Full Dose 6191-1-001 - [id number] Implanted:Qty: 1 on 11/24/2022 by Jean Ayala MD at [facility] Cement, Bone Left: Hip [employer] [id number] Bone Cement Simplex Full Dose 6191-1-001 - [id number] Implanted:Qty: 1 on 11/24/2022 by Jean Ayala MD at [facility] Cement, Bone Left: Hip [employer] [id number] Bone Cement Restrictor Donovan Femoral 18.5mm [id number] - [id number] Implanted:Qty: 1 on 11/24/2022 by Jean Ayala MD at [facility] Cement, Bone Left: Hip [employer]-R [id number] 07/19/2032 [id number] / / [id number] Imp Head Strk Femoral Uhr Bipolar [id number] 1-47-28 - [id number] Implanted:Qty: 1 on 11/24/2022 by Jean Ayala MD at [facility] Total Joint Component /Insert Left: Hip [employer] [id number] 05/31/2026 UH1-47-28 / / [id number] Imp Stem Femoral Hip Strk Ofst 125x37.5mm 1 0580-3-371 - [id number] Implanted:Qty: 1 on 11/24/2022 by Jean Ayala MD at [facility] Total Joint Component /Insert Left: Hip [employer] [id number] 06/09/2027 0580-3-37 1 / [id number] / [id number] Imp Head Femoral Strk V40 Vitallim Cocr 28mm -4mm 6260-5-028 - [id number] Implanted:Qty: 1 on 11/24/2022 by Jean Ayala MD at [facility] Total Joint Component /Insert Left: Hip [employer] [id number] 10/31/2026 6260-5-02 [id number] Procedures Procedure Name Priority Date/Time Associated Diagnosis Comments BASIC METABOLIC PANEL Routine 12/02/2022 6:18 AM CDT Fracture of unspecified part of neck of left femur, subsequent encounter for closed fracture with routine healing LIPID PROFILE Routine 04/29/2020 from Last 3 Months or Most Recently Relevant to Health Maintenance Results * (ABNORMAL) Basic metabolic panel (12/02/2022 6:18 AM CDT) Pathologist [facility] Sodium 141 136 - 145 mmol/L 12/02/2022 2:05 PM CDT [facility] Potassium 4.0 3.4 - 5.3 mmol/L 12/02/2022 2:05 PM CDT [facility] Chloride 100 98 - 107 mmol/L 12/02/2022 2:05 PM CDT [facility] Carbon Dioxide (CO2) 27 22 - 29 mmol/L 12/02/2022 2:05 PM CDT [facility] Anion Gap 14 7 - 15 mmol/L 12/02/2022 2:05 PM CDT [facility] Urea Nitrogen 20.2 8.0 - 23.0 mg/dL 12/02/2022 2:05 PM CDT [facility] Creatinine 1.78(H) 0.51 - 0.95 mg/dL 12/02/2022 2:05 PM CDT [facility] Calcium 10.1 8.8 - 10.2 mg/dL 12/02/2022 2:05 PM CDT [facility] Glucose 105(H) 70 - 99 mg/dL 12/02/2022 2:05 PM CDT [facility] GFR Estimate 30(L) >60 mL/min/1.7 3m2 12/02/2022 2:05 PM CDT [facility] Comment:eGFR calculated usin 2020 CKD-EPI equation. Blood STRUCTURE OF RIGHT UPPER LIMB / Unknown Venipuncture / Unknown 12/02/2022 6:18 AM CDT 12/02/2022 10:57 AM CDT Heidy Phillips MD LAB - BLOOD ORDERABL ES [facility] [address], [address] [place] [address], [facility] [phone] * (ABNORMAL) Lipid Profile (04/29/2020) Cholesterol 261(A) 90 - 200 mg/dL [facility] Triglycerides 190 40 - 197 mg/dL [facility] HDL Cholesterol 118 >=50 mg/dL [facility] LDL Cholesterol Calculated 105(A) <100 mg/dL [facility] Blood specimen (specimen) 04/29/2020 Narrative [facility] - 04/29/[address] [facility] Provider Outside LAB - BLOOD ORDERABL ES [facility] [address] [place] [address], [facility] [phone] from Last 3 Months or Most Recently Relevant to Health Maintenance Advance Directives For more information, please contact: [phone] * Full Code (Latest Code Status on File) Date Activated Date Inactivated Comments 11/23/2022 10:30 PM 11/26/2022 2:53 PM All basic a nd advanced life-sustaining interventions are performed as appropriate Question Answer Comments Code status determined by: Unable to dis cuss and no AD/POLST on file; continue PREVIOUSLY ORDERED code status Care Teams Sand And Gravel Plant Operator Relationship Specialty Start Date End Date Rogers Ho PA-C [address] [place] [address] PCP - General 11/23/22
--- OUTSIDE RECORDS SUMMARY | 2024-04-06 09:25 | XMS_ITS | Continuity of Care Document ---
Author Organization [facility] Address [address] [place] [address] Phone Care Team Providers Care Chief Revenue Officer Name Role Phone Unavailable Unavailable Unavailable Allergies, Adverse Reactions, Alerts Substance Reaction Status Criticality No Known Allergies Active No Inform ation Procedures Procedure Date Office/Outpatient Visit,[facility], [facility] 2019 Advance Directives Directive Yes / No Effective Date File Name No Information Encounters Encounter Description Practice Location Reason(s) For Visit Diagnoses Date Provider Providers Copied on Encounter [facility], [address], [place], [place], [id number], [place] tel:[phone] [facility] No Information No Information Office/Outpat ient Visit,[facility], [facility], [address], [place], [place], [id number], [place] tel:[phone] [facility] Arthrodesis statusOther spondylosis, cervical region 0 Garfield Lara. [facility], [address] [place] [address], [place], [address], [place]. tel:[phone] Referring Provider: Rogers Ho [facility] [address], [place], [address]. tel:[phone] Family History Family Member Type Diagnosis Age At Onset No Information Payers Payer name Insurance type Covered republican ID Authoriza tion(s) No Information Social History [...]
--- OUTSIDE RECORDS SUMMARY | 2024-04-06 09:25 | XMS_ITS | Continuity of Care Document ---
Author Organization [facility] Address [address] [place] [address] Phone Care Team Providers Care Policyholder Information Clerk Name Role Phone Souleymane Glez MD [...] by oral route every day - Active CHLORTHALIDONE 25MG TAB Take one-half [...] Diagnoses Date Provider Providers Copied on Encounter [facility], [address], [place], [address], [place] tel:[phone] [facility] No Information [place] . [address], [address], [place], [address]. tel:[phone] [facility], [address], [place], [address], [place] tel:[phone] [facility] No Information [place] Comer . [address], [address], [place], [address]. tel:[phone] OFFICE/OUTPAT IENT VISIT, EST [facility], [address], [place], [address], [place] tel:[phone] [facility] 1 Murmur (chief complaint) General Cardiac Concerns (chief complaint) Chest pain, unspecified chest pain typeFormer smokerCardiac murmurEssential hypertension [place] . [address], [address], [place], [address]. tel:[phone] Referring Provider: Veronica Brady MD, [address], [place], [address]. tel:[phone] [facility], [address], [place], [address], [place] tel:[phone] [facility] 1 No Information [place] . [address], [address], [place], [address]. tel:[phone] Referring Provider: Souleymane Yanes, [address], [place], [address]. tel:[phone] [facility], [address], [place], [address], [place] tel:[phone] [facility] 1 No Information Parveen Stewart. [address], [address], [place], [facility], . tel:[phone] Referring Provider: Souleymane Yanes, [address], [place], [place], [facility]. tel:[phone] OFFICE/OUTPAT IENT VISIT, NEW [facility], [address], [place], [place], [facility], tel:[phone] [facility] 1 Follow Up of Hospital (chief complaint) Chest pain, unspecified chest pain typePAD (peripheral artery disease)Soila Umaña, cardiac Oct-0 5 [place] . [address], [address], [place], [place], [facility]. tel:[phone] Referring Provider: Veronica Brady MD, [address] [facility] [address], [place], [place], [facility]. tel:[phone] [facility], [address] [facility], [place], [address], [place] tel:[phone] [facility] Other chest pain Sep-2 5 [place] Com[place] . [address], [address], [place], [place], [facility]. tel:[phone] Referring Provider: Fuad Sosa MD [facility], [address], [place], [facility]. tel:[phone] Family History Family Member Type Diagnosis Age At Onset No Information Payers Payer name Insurance type Covered alliance party ID Authoriza tion(s) [facility] CI [id number] Social History Type Description Quantity Date Captured [...]
--- OUTSIDE RECORDS SUMMARY | 2024-04-06 09:25 | XMS_ITS ---
Author Organization [facility] Address [address] [place] [address] Care Team Providers Care Packing Shed Supervisor Name Role Phone Unavailable Unavailable Unavailable Surgery Details Not on file Complications Check Surgery Details section. Procedure Estimated Blood Loss Check Surgery Details section. Procedure Findings Check Surgery Details section. Procedure Specimens Taken Check Surgery Details section.
--- OUTSIDE RECORDS SUMMARY | 2024-04-06 09:25 | XMS_ITS | Continuity of Care Document ---
Author Organization [facility] melissa Address [address] [facility] [place] [address] Phone Care Team Providers Care Ledger Poster Name Role Phone Anny Levy MD Unavailable [...] Diagnoses Date Provider Providers Copied on Encounter [facility], [address] [place], [place], [id number] , [place] tel:[phone] [facility] Other spondylosis, cervical region May- 2 Mildred Mccormick. [address] [place], [place], [id number] , [place]. tel:[phone] Referring Provider: [facility] [address], [place], [address]. tel:[phone] OFFICE/OUTPA TIENT VISIT, EST [facility], [address], [place], [id number] , [place] tel:[phone] [facility] [place] [facility] (chief complaint) Parkinson's diseaseChronic pain syndromeScoliosi sOther spondylosis, cervical regionRadiculopa thy, cervical regionPostlamine ctomy syndrome, not elsewhere classifiedOther dedicated intermodal truck driver (current) drug therapy Sep- 2 Kat Lin. [address] [facility] [address], [place], [id number] , [place]. tel:[phone] Referring Provider: [facility] [id number] [place] [address] [address], [place], [address]. tel:[phone] [facility], [address] [place] [address] [place], [id number] , [place] tel:[phone] [facility] Other spondylosis, cervical region January-0 2 Mildred Mccormick. [address] [place] [address] [place], [id number] , [place]. tel:[phone] Referring Provider: [facility]A [facility] [address] [place] [address] Suite [facility], [place], [address]. tel:[phone] OFFICE/OUTPA TIENT VISIT, EST [facility], [address] [place] [address], [id number] , [place] tel:[phone] [facility] Ne[facility] Pain (chief complaint) Parkinson's diseaseChronic pain syndromeScoliosi sOther spondylosis, cervical regionRadiculopa thy, cervical regionPostlamine ctomy syndrome, not elsewhere classifiedOther intermediate (current) drug therapy Apr-2 [address] [facility] [facility] [address], [place], [id number] , [place]. tel:[phone] Referring Provider: [facility] [address] [place] [address], [place], [address]. [phone] [facility], [address] [place] [address], [id number] , [place] tel:[phone] [facility] Other spondylosis, cervical region Mar-3 2 Mildred Mccormick. [address] [place] [address] [place], [id number] , [place]. tel:[phone] Referring Provider: [facility] [address] [place] [address] [address], [place], [address]. tel:[phone] OFFICE/OUTPA TIENT VISIT, EST [facility], [address] [place] [address], [id number] , [place] tel:[phone] [facility] [place] Pain (chief complaint) Parkinson's diseaseChronic pain syndromeScoliosi sOther spondylosis, cervical regionRadiculopa thy, cervical regionPostlamine ctomy syndrome, not elsewhere classifiedOther intermediate (current) drug therapy 2 Kat Lin. [address] [facility] [address], [place], [id number] , [place]. tel:[phone] Referring Provider: [facility] [address], [place], [address]. tel:[phone] [facility], [address] [facility] [place], [place], [id number] , [place] [phone] [facility] [place] No Information 2 Mildred Mccormick. [address] [facility] [place], [place], [id number] , [place]. [phone] Referring Provider: [facility] [id number] [place] [address] [address], [place], [address]. tel:[phone] OFFICE/OUTPA TIENT VISIT, NEW [facility], [address] [facility] [place], [place], [id number] , [place] tel:[phone] [facility] Ne[facility] Pain (chief complaint) Chronic pain syndromePostlami nectomy syndrome, not elsewhere classifiedOther spondylosis, cervical regionRadiculopa thy, cervical regionScoliosisO ther dedicated intermodal truck driver (current) drug therapyEncounter for screening for other disorderParkinso n's disease 2 Stephens Riley. [facility] [facility] [address], [place], [id number] , [place]. [phone] Referring Provider: [facility] [address], [place], [address]. tel:[phone] Family History Family Member Type Diagnosis Age At Onset No Information Payers Payer name Insurance type Covered republican ID Authorjayda freeman(s) Medicare MB [id number] [facility] Senior Gold Supplement [id number] Social History Type Description Quantity Date Captured Comments Sex Female Smoking Status No Information Chief Complaint And Reason For Visit No Information Reason For Referral Reason For Referral No Information Plan Of Treatment Date Type Action Status Goal PHQ-9. Due on du e Goal Hepatitis C screening. Due o n due Goal Weight. Due on d ue Goal CT-Colonography. Due on due Goal Medication Reconciliation. D ue on due Goal Zoster vaccine (). Due on due Goal Unhealthy drug use screening . Due on due Goal Height. Due on d ue Goal FIT-DNA. Due on due Goal Review Allergy List. Due on due Goal Update Social History. Due o n due Goal FIT. Due on due Goal Lipid panel. Due on due Goal Tobacco Use. Due on due Goal Unhealthy drug use screening . Due on due Goal PHQ-9. Due on du e Goal Review Allergy List. Due on due Goal Zoster vaccine (). Due on due Goal Update Social History. Due o n due Goal Hepatitis C screening. Due o n due Goal FIT. Due on due Goal Weight. Due on d ue Goal CT-Colonography. Due on due Goal Lipid panel. Due on due Goal Tobacco Use. Due on due Goal Medication Reconciliation. D ue on due Goal FIT-DNA. Due on due Goal Height. Due on d ue Goal FIT-DNA. Due on due Goal Weight. Due on d ue Goal Zoster vaccine (). Due on due Goal FIT. Due on [...] Medication Reconciliation. D ue on due Goal FIT-DNA. Due on due Goal Height. Due on d ue Goal Zoster vaccine (1st). Due on due Goal Update Social History. Due o n due Goal Tobacco Use. Due on due Goal Weight. Due on d ue Goal Review Allergy List. Due on due Goal Hepatitis C screening. Due o n due Goal CT-Colonography. Due on due Goal Lipid panel. Due on due Goal PHQ-9. Due on du e Goal Height. Due on d ue Goal Tobacco Use. Due on due Goal Weight. Due on d ue Goal Medication Reconciliation. D ue on due Goal Review Allergy List. Due on due Goal PHQ-9. Due on du e Goal Update Social History. Due o n due Goal Height. Due on d ue Goal Medication Reconciliation. D ue on due Goal Tobacco Use. Due on due Goal Update Social History. Due o n due Goal PHQ-9. Due on du e Goal Review Allergy List. Due on due Goal Weight. Due on d ue Goal PHQ-9. Due [...] referred by Dr. Parveen Hill MD through [facility]. The patient is a 71y/o [...] [facility]'s disease[facility] The patient is currently managed on Cymbalta 60mg QD, gabapentin 300mg QD, and meloxicam 15mg QD. Patient is interested in pain management options offered through [facility]. Specifically, she is interested in injections. She [...]
--- OUTSIDE RECORDS SUMMARY | 2024-04-06 09:25 | XMS_ITS | Clinical Summary ---
Author Organization [facility] Address [place], [place] [address] Care Team Providers Care Alpaca Farmer Name Role Phone Rogers Ho PA-C Primary Care Provider Allergies No known active allergies Medications Medication Sig Dispensed Refills Start Date End Date Status buPROPion (WELLBUTRIN XL) 150 mg Extended-Release tablet Take 450 mg by mouth once daily. 05/09/2017 Active DULoxetine (CYMBALTA) 60 mg Delayed-release capsule Take 60 mg by mouth once daily. 05/09/2017 Active omeprazole (PRILOSEC) 20 mg Delayed-Release [...] by mouth at bedtime. 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 [employer] Oxygen Saturation 97% 03/29/2019 3:09 PM CDT Inhaled Oxygen Concentration - - Weight 71.6 kg (157 lb 12.8 oz) 03/29/2019 3:09 PM CDT Height 165 cm (5' 4.96) 07/19/2017 1:13 PM [employer] ASSIST[employer] Body Mass Index 26.29 07/19/2017 1:13 PM [employer]IRTUAL ASSIST[employer] Plan of Treatment Health Maintenance Due Date Last Done Comments Tdap 1961 Depression screening for age 12+ [...] day) for age 18+ 07/19/2018 07/19/2017, 06/28/2017 COVID-19 vaccine series (1 - 2022-24 season) 2023 Influenza for age 65+ 05/13/2024 Colonoscopy through age 75 05/29/202905/29, 05/29/2019, 05/29/2019 Procedures Procedure Name Priority Date/Time Associated Diagnosis Comments COLONOSCOPY SCREENING Routine 05/29/2019 1:05 PM CDT Incontinence of feces, unspecified fecal incontinence type Screen for colon cancer XR MAMMO SCREENING BILATERAL (IA) Timed 12/18/2004 1:59 PM CDT LIPID PANEL Timed 09/28/2004 10:57 AM VIRTUAL ASSIST[employer] from Last 3 Months or Most Recently Relevant to Health Maintenance Results * COLONOSCOPY SCREENING (05/29/2019 1:05 PM CDT) Henrique Caldera MD GI PROCEDURE ORD * CM MAMMO SCREENING (12/18/2004 1:59 PM CDT) Anatomical Region Laterality Modality BREASTS, Breast Left, Breast Right Bilateral Mammography 12/18/2004 1:28 PM CDT Narrative 12/21/2004 3:32 PM CDT BILATERAL SCREENING MAMMOGRAM CLINICAL HISTORY THIS IS AN ASYMPTOMATIC ??54-YEAR-OLD PATIENT. FINDINGS THE STUDY IS COMPARED TO PREVIOUS STUDIES FROM [facility] DATED ??09/07/01 AND SHOWS NO SIGNIFICANT CHANGE. MAMMOGRAPHICALLY, THE BREAST TISSUE IS AVERAGE. ??THERE ARE NO MASSES OR CALCIFICATIONS THAT ARE SUSPICIOUS FOR MALIGNANCY. IMPRESSION THERE IS NO RADIOGRAPHIC EVIDENCE FOR MALIGNANCY. ??RECOMMEND ANNUAL MAMMOGRAMS. MAMMOGRAPHIC ASSESSMENT: ??ASYMPTOMATIC, ACR-1. NEGATIVE. [facility] WILL PROVIDE A LETTER TO THE PATIENT REGARDING THE TEST UPON DETERMINATION OF THE RESULTS. SDK/NEDAW Hollie Rodriguez MD MAMMO * (ABNORMAL) LIPID PANEL (09/28/2004 10:57 AM VIRTUAL ASSIST[employer]) CHOLESTEROL,TOTAL 256(H) 110 - 199 mg/dL [facility] TRIGLYCERIDES 62 40 - 149 mg/dL [facility] HDL CHOLESTEROL 82 41 - 95 mg/dL [facility] CHOL/HDL RATIO 3.12 <4.51 [facility] LDL CHOLESTEROL 162(H) 60 - 130 mg/dL [facility] PATIENT STATUS Fasting [facility] 09/28/2004 10:5 7 AM [employer] 09/28/2004 10:47 AM [employer]UAL ASSIST[employer] Jeremy Castellanos MD CHEMISTRY [facility] INTERNAL ZIP [address] [place] [address] from Last 3 Months or Most Recently Relevant to Health Maintenance Care Teams Alpaca Farmer Relationship Specialty Start Date End Date Rogers Ho, PANiyahC PCP - General Physician Outside Physical Damage Appraiser 06/20/17
--- OUTSIDE RECORDS SUMMARY | 2024-04-06 09:25 | XMS_ITS | Clinical Summary ---
Author Organization [facility] Address [address] [place] [address] Care Team Providers Care Pump Servicer Supervisor Name Role Phone Unavailable Primary Care Provider Unavailabl e Source Comments Patient records contain information from all sites at [facility]. For routine questions regarding patient records, call [phone] during business hours, M-F 8:00 AM - 5:00 PM Central Time. Record requests for emergency care only can be directed to [phone] at any time.[facility] Medications Medication Sig Dispensed Refills Start Date End Date Status aspirin [address] tablet Take 81 mg by mouth daily. 06/22/2017 Active lisinopriL (PRINIVIL,ZESTRIL) 40 mg tablet Take 40 mg by mouth daily. 06/22/2017 Active pravastatin (PRAVACHOL) 40 mg tablet Take 40 mg by mouth daily. 03/29/2019 Active gabapentin (NEURONTIN) 300 mg capsule GABAPENTIN 300 MG CAPS 04/28/2022 Active clonazePAM (KlonoPIN) 0.5 mg tablet CLONAZEPAM 0.5 MG TABS 04/26/2022 Active carbidopa-levodopa (SINEMET) 25-100 mg per tablet CARBIDOPA-LEVODOPA 25-100 MG TABS 11/30/2021 Active buPROPion XL (WELLBUTRIN XL) 150 mg 24 hr tablet Take 300 mg by mouth. 05/09/2017 Active omeprazole (PriLOSEC) [address] capsule Take 40 mg by mouth daily. Active DULoxetine (Cymbalta) [address] capsule Take 1 capsule by mouth daily. 05/09/2017 Active lacpduiwiwg-ysjle-e sm-vit C-Mn 500-400-166.6 mg tablet Take 1 tablet by mouth. 03/29/2019 Active chlordiazePOXIDE (LIBRIUM) 25 mg capsule Take 25 mg by mouth. Acti ve loperamide (IMODIUM A-D) 2 mg capsule Take 4mg by mouth with 1st loose stool, then 2mg with each subsequent loose stool. Max 16 mg in 24 hrs 03/29/2019 Active magnesium oxide (MAG-OX) 250 mg of magnesium tablet Take 250 mg by mouth 2 (two) times a day. Active melatonin 5 mg tablet Take 5 mg by mouth at bedtime. Active cyanocobalamin (VITAMIN B12) 100 mcg tablet Take 2,500 mcg by mouth daily. Active hydrocortisone (HYTONE) 2.5 % creamIndications:De rmatitis [...] PHQ-2) 09/12/2023 Fall Risk Screen (Annual) 09/12/2023 COVID-19 Vaccine (2022-2 4 season) 2023 08/16/2023, 12/23/2021, 07/13/2021, Additional history exists Influenza Vaccine (#1) 2024 , 07/09/2020, 07/04/2018, Additional history exists DTaP,Tdap,and Td Vaccines (2 - Td or Tdap) 07/14/2033 07/14/2023 Pneumococcal vaccine (65+ years) Completed 03/21/20 18, 06/20/2015 Zoster Vaccines Completed 09/23/2020, 08/12, 07/16/2020
--- OUTSIDE RECORDS SUMMARY | 2024-04-06 09:25 | XMS_ITS | Referral Summary ---
Author Organization [facility] Address [address] [place] [address] Care Team Providers Care Data Processing Systems Consultant Name Role Phone Unavailable Primary Care Provider Unavailabl e Source Comments Patient records contain information from all sites at [facility]. For routine questions regarding patient records, call [phone] during business hours, M-F 8:00 AM - 5:00 PM Central Time. Record requests for emergency care only can be directed to [phone] at any time.[facility] Medications Medication Sig Dispensed Refills Start Date [...] 1 capsule by mouth daily. 05/09/2017 Active jvgpfrqbevm-lpkls-x sm-vit C-Mn 500-400-166.6 mg tablet Take 1 [...]
--- OUTSIDE RECORDS SUMMARY | 2024-04-06 09:25 | XMS_ITS | Continuity of Care Document ---
Author Organization [facility] Address [address] [place] [address] 11 [facility] [address] [place] [address] Phone Care Team Providers Care Epic Manager Name Role Phone [facility] [...] Diagnoses Date Provider Providers Copied on Encounter [facility], [address] [place] [address] [address] [facility] [address], [place], [id number], [place] tel:[phone] [facility] No Information [facility]. [address] [place] [address] [address] [facility] [address] [place] [address], [id number], . tel:[phone] Referring Provider: Anny Levy, [address] [facility] [place], [address] . tel:[phone] [facility], [address] [place] [address], [id number], tel:[phone] [place] [address] No Information 2 [facility]. [address] [place] [address], [id number], . tel:[phone] Referring Provider: Anny Levy, [address] [facility] [place], [address] . tel:[phone] [facility], [address] [place] [address], [id number], tel:[phone] [place] [address] No Information 2 [facility]. [address] [place] [address], [id number], . tel:[phone] Referring Provider: Anny Levy, [address] [facility] [place], [address] . tel:[phone] [facility], [address] [place] [address], [id number], tel:[phone] [place] [address] No Information 2 [facility]. [address] [place] [address], [id number], . tel:[phone] Referring Provider: Anny Levy, [address] [facility] [place], [address] . tel:[phone] Family History Family Member Type Diagnosis Age At Onset No Information Payers Payer name Insurance type Covered alliance party ID Authorwendya tijosh(s) Medicare MB [id number] [facility] Senior Gold Supplement [id number] Social History Type Description Quantity Date Captured [...]
--- OUTSIDE RECORDS SUMMARY | 2024-04-06 09:26 | XMS_ITS | Referral Summary ---
Author Organization [place] Address [address] [place] [address] Care Team Providers Care Diagrammer And Seamer Name Role Phone Rogers Ho PA-C Primary Care Provider [phone] Allergies No known active allergies Medications Medication [...] on file Medical Devices Implanted Type Area Assembler Fishing Floats Device Identifier Shelf Expiration Date Model / Serial / Lot Bone Cement Simplex Full Dose 6191-1-001 - [id number] Implanted:Qty: 1 on 11/24/2022 by Jean Ayala MD at [facility] Cement, Bone Left: Hip [employer] [id number] / [id number] Bone Cement Simplex Full Dose 6191-1-001 - [id number] Implanted:Qty: 1 on 11/24/2022 by Jean Ayala MD at [facility] Cement, Bone Left: Hip [employer] [id number] / [id number] Bone Cement Restrictor Donovan Femoral 18.5mm [id number] - [id number] Implanted:Qty: 1 on 11/24/2022 by Jean Ayala MD at [facility] Cement, Bone Left: Hip [employer]-R [id number] 07/19/2032 [id number] / / [id number] Imp Head Strk Femoral Uhr Bipolar 13m39al Uh1-47-28 - [id number] Implanted:Qty: 1 on 11/24/2022 by Jean Ayala MD at [facility] Total Joint Component /Insert Left: Hip [employer] [id number] 05/31/2026 UH1-47-28 / / [id number] Imp Stem Femoral Hip Strk Ofst 125x37.5mm [facility] 0580-3-371 - [id number] Implanted:Qty: 1 on 11/24/2022 by Jean Ayala MD at [facility] Total Joint Component /Insert Left: Hip [employer] [id number] 06/09/2027 0580-3-37 [id number] / [id number] Imp Head Femoral Strk V40 Vitallim Cocr 28mm -4mm 6260-5-028 - [id number] Implanted:Qty: 1 on 11/24/2022 by Jean Ayala MD at [facility] Total Joint Component /Insert Left: Hip [employer] [id number] 10/31/2026 6260-5-02 [id number] Procedures Procedure Name Priority Date/Time Associated Diagnosis Comments BASIC METABOLIC PANEL Routine 12/02/2022 6:18 AM CDT Fracture of unspecified part of neck of left femur, subsequent encounter for closed fracture with routine healing LIPID PROFILE Routine 04/29/2020 from Last 3 Months or Most Recently Relevant to Health Maintenance Results * (ABNORMAL) Basic metabolic panel (12/02/2022 6:18 AM CDT) Sodium 141 136 - 145 mmol/L 12/02/2022 [...] PM CDT [facility] Comment:eGFR calculated usin g 2020 CKD-EPI equation. Blood STRUCTURE OF RIGHT UPPER LIMB / Unknown Venipuncture / Unknown 12/02/2022 6:18 AM CDT 12/02/2022 10:57 AM CDT Heidy Phillips MD LAB - BLOOD ORDERABL ES LABORATORY [facility] [address] [facility] [address], [address] [place] [address], [facility] [phone] * (ABNORMAL) Lipid Profile (04/29/2020) Cholesterol 261(A) 90 - 200 mg/dL [facility] Triglycerides 190 40 - 197 mg/dL [facility] HDL Cholesterol 118 >=50 mg/dL [facility] LDL Cholesterol Calculated 105(A) <100 mg/dL [facility] Blood specimen (specimen) 04/29/2020 Narrative [facility] - 04/29/2020 LAB RESULT [facility] Provider Outside LAB - BLOOD ORDERABL ES [facility] [address] [place] [address], [facility] [phone] from Last 3 Months or Most Recently Relevant to Health Maintenance Advance Directives For more information, please contact: [phone] * Full Code (Latest Code Status on File) Date Activated Date Inactivated Comments 11/23/2022 10:30 PM 11/26/2022 2:53 PM All basic a nd advanced life-sustaining interventions are performed as appropriate Question Answer Comments Code status determined by: Unable to dis cuss and no AD/POLST on file; continue PREVIOUSLY ORDERED code status Care Teams Diagrammer And Seamer Relationship Specialty Start Date End Date Rogers Ho PA-C [facility] [address] [place] [address] PCP - General 11/23/22
--- OUTSIDE RECORDS SUMMARY | 2024-04-06 09:26 | XMS_ITS | Patient Health Record ---
Author Organization [facility] ter Address [address] [place] [address] Care Team Providers Care Referral Nurse Name Role Phone Dano Lennon Primary Care Provider [phone] ALLERGIES No Known Allergies REASON FOR REFERRAL No Information MEDICATIONS Medication SIG (Take, Route, Frequency, Duration) Notes Start Date End Date Status pravastatin 40 mg 1 tab(s) orally once a day for 30 day(s) Active melatonin 5 mg 1 cap(s) orally once a day (at bedtime) Active Aspir 81 81 mg 1 tab(s) orally once a day for 30 day(s) Active lisinopril 40 mg 1 tab(s) orally once a day for 30 day(s) Active chlorthalidone 25 mg 1 tab(s) orally onc e a day for 30 day(s) Active bupropion 150 mg 2 tabs orally daily for 90 days Active omeprazole 40 mg 1 cap(s) orally once a day for 30 day(s) Active Sinemet 25 mg-100 mg 1 tab(s) orally 3 t imes a day for 30 day(s) Active Imodium Active Cymbalta 60 mg 1 cap(s) orally once a day for 30 day(s) Active magnesium gluconate 250 mg 1 tab(s) orally daily Active Calcium 600+D 600 mg-200 units 1 tab(s) orally daily Active meloxicam 15 mg 1 tab(s) orally once a day for 30 day(s) Active Osteo Bi-Flex 1500 mg/1200 mg 2 tab BID Active IMMUNIZATIONS Vaccine Route Administration Date Status Comme nts Sars Covid19- 100 mcg/0.5mL IM Intramuscular 11/08/2020 Administered Sars Covid19- 100 mcg/0.5mL IM Intramuscular 12/06/2020 Administered SOCIAL HISTORY Tobacco Use: Social History Observation Description Date Details (start date - stop date) Former Smoker NA - NA Sex Assigned At : Social History Observation Description Sex Assigned At Unknown Tobacco assessment Question Answer Notes Are you a: former smoker How long has it been since you last smoked? > 10 years alcohol screening_smart Question Answer Notes Did you have a drink contain ing alcohol in the past year? Yes How often did you have a dri nk containing alcohol in the past year? Four or more times a week (4 points) How many drinks did you have on a typical day when you were drinking in the past year? 3 or 4 (1 point) How often did you have six o r more drinks on one occasion in the past year? Never (0 points) Points 5 Interpretation Positive sexual hx Question Answer Notes Had sex in the past 12 months (vaginal, oral or anal) No Have you ever had an STD? No PLAN OF TREATMENT No Information Insurance Providers Payer Name Payer Address Payer Phone Subscriber Number Group Number Insured Name Patient Relationship to Insured Coverage Start Date Coverage End Date Medicare [employer] 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
== END 2024-04-05 12:01 | disposition home or self-care (01) ==
LOC: NFLDREF 04-06 09:23
PROVIDERS: PCP Physician Assistant Medical; Referring Provider Physician Assistant Medical; Visit Provider Physician Assistant Medical
DX: R19.7 Diarrhea, unspecified (principal)
CPT/HCPCS: 87493; 87505

== ENCOUNTER 2024-07-03 12:15 | Outpatient (CLI) | payer MEDICARE, BC, SELFPAY ==
--- OUTSIDE RECORDS SUMMARY | 2024-07-03 12:18 | XMS_ITS | Continuity of Care Document ---
Author Organization [facility] melissa Address [address] [place] [address] Phone Care Team Providers Care Manager Android Name Role Phone Anny Levy MD Unavailable [...] times every day 1 tablet - Active aspirin 81 mg tablet,delayed release take 1 tablet by oral route every day 81 MG - Active meloxicam 15 mg tablet take 1 tablet by oral route every day 15 MG - Active pravastatin 40 mg tablet take 1 tablet by oral route every day 40 MG - Active lisinopril 40 mg tablet take 1 tablet by oral route every day 40 MG - Active omeprazole 40 mg capsule,delayed release take 1 capsule by oral route every day before a meal 40 MG - Active bupropion HCl XL 300 mg 24 hr tablet, extended release take 1 tablet by oral route every day 300 MG - Active Cymbalta 60 mg capsule,delayed release take 1 capsule by oral route every day 60 MG - Active Procedures Procedure Date RF [...] Diagnoses Date Provider Providers Copied on Encounter [facility], [address] [place], [place], [id number] , [place] tel:[phone] [facility] Other spondylosis, cervical region May- 2 Mildred Mccormick. [address] [place], [place], [id number] , [place]. tel:[phone] Referring Provider: [facility] [address] [facility] [address], [place], [address]. tel:[phone] OFFICE/OUTPA TIENT VISIT, EST [facility], [address] [place], [place], [id number] , [place] tel:[phone] [facility] [place] [facility] Pain (chief complaint) Parkinson's diseaseChronic pain syndromeScoliosi sOther spondylosis, cervical regionRadiculopa thy, cervical regionPostlamine ctomy syndrome, not elsewhere classifiedOther petroleum terminal plant operator (current) drug therapy Sep- 2 Kat Lin. [address], [place], [id number] , [place]. tel:[phone] Referring Provider: [facility] [address] [place] [address] [address], [place], [address]. tel:[phone] [facility], [address] [place] [address] [place], [id number] , [place] tel:[phone] [facility] Other spondylosis, cervical region January-0 2 Mildred Mccormick. [address] [place] [address] [place], [id number] , [place]. tel:[phone] Referring Provider: [facility] [address] [place] [address] [address] [facility], [place], [address]. tel:[phone] OFFICE/OUTPA TIENT VISIT, EST [facility], [address] [place] [address], [id number] , [place] tel:[phone] [facility] Neck Pain (chief complaint) Parkinson's diseaseChronic pain syndromeScoliosi sOther spondylosis, cervical regionRadiculopa thy, cervical regionPostlamine ctomy syndrome, not elsewhere classifiedOther petroleum terminal plant operator (current) drug therapy Apr-2 2 Kat Lin. [facility], [place], [id number] , [place]. tel:[phone] Referring Provider: [facility] [address] [place] [address], [place], [address]. tel:[phone] [facility], [address] [place] [address], [id number] , [place] tel:[phone] [facility] Other spondylosis, cervical region Mar-3 2 Mildred Mccormick. [address] [place] [address] [place], [id number] , [place]. tel:[phone] Referring Provider: [facility] [address] [place] [address] [address], [place], [address]. tel:[phone] OFFICE/OUTPA TIENT VISIT, EST [facility], [address] [place] [address], [id number] , [place] tel:[phone] [facility] [place] Neck Pain (chief complaint) Parkinson's diseaseChronic pain syndromeScoliosi sOther spondylosis, cervical regionRadiculopa thy, cervical regionPostlamine ctomy syndrome, not elsewhere classifiedOther detention (current) drug therapy 2 Kat Lin. [address], [place], [id number] , [place]. tel:[phone] Referring Provider: [facility] [address], [place], [address]. tel:[phone] [facility], [address] [place], [place], [id number] , [place] [phone] [facility] No Information 2 Mildred Mccormick. [address] [facility] [place], [place], [id number] , [place]. [phone] Referring Provider: [facility] [address], [place], [address]. tel:[phone] OFFICE/OUTPA TIENT VISIT, NEW [facility], [address] [facility] [address] [place], [place], [id number] , [place] tel:[phone] [facility] Neck Pain (chief complaint) Chronic pain syndromePostlami nectomy syndrome, not elsewhere classifiedOther spondylosis, cervical regionRadiculopa thy, cervical regionScoliosisO ther petroleum terminal plant operator (current) drug therapyEncounter for screening for other disorderParkinso n's disease 2 [address] [place]. [facility], [place], [id number] , [place]. [phone] Referring Provider: [facility] [address], [place], [address]. tel:[phone] Family History Family Member Type Diagnosis Age At Onset No Information Payers Payer name Insurance type Covered green party ID Willy freeman(s) Medicare MB [id number] Social History Type Description Quantity Date Captured [...] Goal PHQ-9. Due on du e Goal CT-Colonography. Due on due Goal FIT. Due on due Goal FIT-DNA. Due on due Goal Hepatitis C screening. Due o n due Goal Lipid panel. Due on due Goal Unhealthy drug use screening . Due on due Goal Update Social History. [...] positions. Pertinent negatives include bladder incontinence. Comments: Jerica [...] referred by Dr. Parveen Hill MD through [facility]. The patient is a 71y/o [...] interested in pain management options offered through [facility]. Specifically, she is interested in [...]
--- OUTSIDE RECORDS SUMMARY | 2024-07-03 12:18 | XMS_ITS | Continuity of Care Document ---
Author Organization [facility] enter Address [address] [place] [address] [address] [place] [address] Phone Care Team Providers Care Senior Research Consultant Name Role Phone [facility] Unavailable Unava ilable Procedures Procedure Date [...] Diagnoses Date Provider Providers Copied on Encounter [facility], [address] [place] [address] [address] [facility] [address], [place], [id number], [place] tel:[phone] [facility] No Information [facility]. [address] [place] [address] 11 [facility] [address] [place] [address], [id number], . tel:[phone] Referring Provider: Anny Levy, [address] [facility] [place], [id number] . tel:[phone] [facility], [address] [place] [address], [id number], tel:[phone] [place] [address] No Information 2 [facility]. [address] [place] [address], [id number], . tel:[phone] Referring Provider: Anny Levy, [address] [facility] [place], [id number] . tel:[phone] [facility], [address] [place] [address], [id number], tel:[phone] [place] [address] No Information 2 [facility]. [address] [place] [address], [id number], . tel:[phone] Referring Provider: Anny Levy, [address] [facility] [place], [address] . tel:[phone] [facility], [address] [place] [address], [id number], tel:[phone] [place] [address] No Information 2 [facility]. [address] [place] [address], [id number], . tel:[phone] Referring Provider: Anny Levy, [address] [facility] [place], [id number] . tel:[phone] Family History Family Member Type Diagnosis Age At Onset No Information Payers Payer name Insurance type Covered green party ID Willy freeman(s) Medicare MB [id number] Social History Type Description Quantity Date Captured [...]
--- OUTSIDE RECORDS SUMMARY | 2024-07-03 12:20 | XMS_ITS | Patient Health Record ---
Author Organization [facility] ter Address [address] [place] [address] Care Team Providers Care Old Coin Dealer Name Role Phone Dano Lennon Primary Care Provider ALLERGIES No Known Allergies REASON FOR REFERRAL [...] Date Medicare [employer] [address] [place] [address] [id number] Jerica Layton Self - patient is the insured [facility] [address] [address] [place] [address] [id number] Jerica Layton Self - patient is the [...]
--- OUTSIDE RECORDS SUMMARY | 2024-07-03 12:20 | XMS_ITS | Clinical Summary ---
Author Organization [facility] Address [address] [place] [address] Care Team Providers Care Lead Teacher Name Role Phone Unavailable Primary Care Provider Unavailabl e Source Comments Patient records contain information from all sites at [facility]. For routine questions regarding patient records, call [phone] during business hours, M-F 8:00 AM - 5:00 PM Central Time. Record requests for emergency care only can be directed to [phone] at any time.[facility] Medications * This document contains information received from the source organization and may not represent a complete record from that organization. aspirin [address] tablet Take 81 mg by mouth daily. 7 Active lisinopriL (PRINIVIL,ZEST RIL) 40 mg tablet Take 40 mg by mouth daily. 7 Active pravastatin (PRAVACHOL) 40 mg tablet Take 40 mg by mouth daily. 9 Active gabapentin (NEURONTIN) 300 mg capsule GABAPENTIN 300 MG CAPS 2 Active clonazePAM (KlonoPIN) 0.5 mg tablet CLONAZEPAM 0.5 MG TABS 2 Active carbidopa-levo dopa (SINEMET) 25-100 mg per tablet CARBIDOPA-LEVODOP A 25-100 MG TABS 2 Active buPROPion XL (WELLBUTRIN XL) 150 mg 24 hr tablet Take 300 mg by mouth. 7 Active omeprazole (PriLOSEC) [address] capsule Take 40 mg by mouth daily. Active DULoxetine (Cymbalta) [address] capsule Take 1 capsule by mouth daily. 7 Active glucosamine-ch ond-msm-vit C-Mn 500-400-166.6 mg tablet Take 1 tablet by mouth. 9 Active chlordiazePOXI DE (LIBRIUM) 25 mg capsule Take 25 mg by mouth. Active loperamide (IMODIUM A-D) 2 mg capsule Take 4mg by mouth with 1st loose stool, then 2mg with each subsequent loose stool. Max 16 mg in 24 hrs 9 Active magnesium oxide (MAG-OX) 250 mg of magnesium tablet Take 250 mg by mouth 2 (two) times a day. Active melatonin 5 mg tablet Take 5 mg by mouth at bedtime. Active cyanocobalamin (VITAMIN B12) 100 mcg tablet Take 2,500 mcg by mouth daily. Active hydrocortisone (HYTONE) 2.5 % creamIndicatio ns:Dermatitis Apply 1 application topically 2 (two) times a day. Apply to affected areas on face, groin and skin folds. 30 g 11 2 Active mometasone (ELOCON) 0.1 % creamIndicatio ns:Dermatitis Apply 1 application. topically 2 (two) times a day. Apply twice daily to affected areas on extremities and trunk. Use at outlined in communication for wet wraps. 45 g 11 2 Active Social History Tobacco Use Types Packs/Day Years Used Date Smoking Tobacco: Never Assessed Nutrition Answer Date Recorded Nutrition: EVOO Fat Source Unknown 07/05 Nutrition: Servings of Fruits/Vegetables per Day Not on file 07/05/2022 Dental Answer Date Recorded Dental: Regular Dentist Unknown 07/05/20 22 Comments Unknown Sex and Gender Information Value Date Recorded Sex Assigned at Not on file Legal Sex Female 3:08 PM CDT Gender Identity Not on file Sexual Orientation [...] Fall Risk Screen (Annual) 09/12/2023 COVID-19 Vaccine ( - 2023-2 5 season) 2024 08/16/2023, 12/23/2021, 07/13/2021, Additional history exists Influenza Vaccine (#1) 2024 , 07/09/2020, 07/04/2018, Additional history exists DTaP,Tdap,and Td Vaccines (2 - Td or Tdap) 07/14/2033 07/14/2023 Pneumococcal vaccine (65+ years) Completed 03/21/20, 06/20/2015 Zoster Vaccines Completed 09/23/2020, 08/12, 07/16/2020 Insurance MEDICARE [facility]
--- OUTSIDE RECORDS SUMMARY | 2024-07-03 12:20 | XMS_ITS | Referral Summary ---
Author Organization [facility] Address [address] [place] [address] Care Team Providers Care Vehicle Leasing And Rental Manager Name Role Phone Unavailable Primary Care Provider Unavailabl e Source Comments Patient records contain information from all sites at [facility]. For routine questions regarding patient records, call [phone] during business hours, M-F 8:00 AM - 5:00 PM Central Time. Record requests for emergency care only can be directed to [phone] at any time.[facility] Medications * This document contains information received [...] file Plan of Treatment Not on file Insurance MEDICARE [facility]
--- OUTSIDE RECORDS SUMMARY | 2024-07-03 12:20 | XMS_ITS ---
Author Organization [facility] Address [address] [place] [address] Care Team Providers Care Tax Processor Name Role Phone Unavailable Unavailable Unavailable Surgery Details Not on file Complications Check Surgery Details section. Procedure Estimated Blood Loss Check Surgery Details section. Procedure Findings Check Surgery Details section. Procedure Specimens Taken Check Surgery Details section.
--- OUTSIDE RECORDS SUMMARY | 2024-07-03 12:20 | XMS_ITS | Clinical Summary ---
Author Organization [facility] Address [address] [place] [address] Care Team Providers Care Fuse Coiler Name Role Phone Rogers Ho PA-C Primary [...] 1950 FLEX SIG 1950 MAMMO SCREENING 1950 sDNA (Cologuard) 1950 COLONOSCOPY 1960 COLORECTAL CANCER SCREENING 1960 HEPATITIS C SCREENING 1968 DTAP/TDAP/TD IMMUNIZATION (1 - Tdap) 1975 LUNG CANCER SCREENING 2000 MEDICARE ANNUAL WELLNESS VISIT 2015 LIPID 04/29/2021 04/29/2020 FALL RISK ASSESSMENT 05/29/2021 05/29/2020 PHQ-2 (once per calendar year) 2023 COVID-19 Vaccine ( season) 2024 12/23/2021, 07/13/2021, 12/06/2020, Additional history exists INFLUENZA VACCINE (#1) 2024 , 07/04/2018, 07/18/2017 RSV VACCINE (1 - 1-dose 75+ series) 2025 GLUCOSE 12/02/2025 12/02/2022, 11/10, 11/25/2022, Additional history [...] this topic Medical Devices Implanted Type Area Manager Advertising Device Identifier Shelf Expiration Date Model / Serial / Lot Bone Cement Simplex Full Dose 6191-1-001 - [id number] Implanted:Qty: 1 on 11/24/2022 by Jean Ayala MD at [facility] Cement, Bone Left: Hip [employer] [id number] Bone Cement Simplex Full Dose 6191-1-001 - [id number] Implanted:Qty: 1 on 11/24/2022 by Jean Ayala MD at [facility] Cement, Bone Left: Hip [employer] [id number] 1 / / [id number] Bone Cement Restrictor Donovan Femoral 18.5mm [id number] - [id number] Implanted:Qty: 1 on 11/24/2022 by Jean Ayala MD at [facility] Cement, Bone Left: Hip [employer]-R [id number] 07/19/2032 [id number] / / [id number] Imp Head Strk Femoral Uhr Bipolar [id number] Uh1-47-28 - [id number] Implanted:Qty: 1 on 11/24/2022 by Jean Ayala MD at [facility] Total Joint Component /Insert Left: Hip [employer] [id number] 05/31/2026 UH1-47-28 / / [id number] Imp Stem Femoral Hip Strk Ofst 125x37.5mm 1 0580-3-371 - [id number] Implanted:Qty: 1 on 11/24/2022 by Jean Ayala MD at [facility] Total Joint Component /Insert Left: Hip [employer] [id number] 06/09/2027 0580-3-37 1 [id number] / [id number] Imp Head Femoral Strk V40 Vitallim Cocr 28mm -4mm 6260-5-028 - [id number] Implanted:Qty: 1 on 11/24/2022 by Jean Ayala MD at [facility] Total Joint Component /Insert Left: Hip [employer] [id number] 10/31/2026 6260-5-02 [id number] Procedures Procedure Name Priority Date/Time Associated Diagnosis [...] LAB - BLOOD ORDERABL ES [facility] [place] [facility] [address], [address] [place] [address] [phone] * (ABNORMAL) Lipid Profile (04/29/2020) Cholesterol 261(A) 90 - 200 mg/dL [facility] Triglycerides 190 40 - 197 mg/dL [facility] HDL Cholesterol 118 >=50 mg/dL [facility] LDL Cholesterol Calculated 105(A) <100 mg/dL [facility] Blood specimen (specimen) 04/29/2020 Narrative [facility] - 04/29/2020 LAB RESULT [facility] Provider Outside LAB - BLOOD ORDERABL ES [facility] [address] [place] [address], [facility] [phone] from Last 3 Months or Most Recently Relevant to Health Maintenance Advance Directives For more information, please contact: [phone] * Full Code (Latest Code Status on File) Date Activated Date Inactivated Comments 11/23/2022 10:30 PM 11/26/2022 2:53 PM All basic a nd advanced life-sustaining interventions are performed as appropriate Question Answer Comments Code status determined by: Unable to dis cuss and no AD/POLST on file; continue PREVIOUSLY ORDERED code status Care Teams Fuse Coiler Relationship Specialty Start Date End Date Rogers Ho PA-C [place] [address] [place] [address] PCP - General 11/23/22
--- OUTSIDE RECORDS SUMMARY | 2024-07-03 12:20 | XMS_ITS | Clinical Summary ---
Author Organization [facility] Address [place], [place] [address] Care Team Providers Care Shovel Log Loader Operator Name Role Phone Rogers Ho PA-C [...] by mouth at bedtime. 0 03/29/2019 Active Ongmiyiqbuq-Pigom-CT M-Vit C-Mn tablet Take 1 tablet by mouth 3 times daily with meals. 0 03/29/2019 Active loperamide (IMODIUM) 2 mg capsule Take 4mg by mouth with 1st loose stool, then 2mg with each subsequent loose stool. Max 16 mg in 24 hrs 0 03/29/2019 Active Active Problems Problem Noted Date Diagnosed Date Routine adult health maintenance 05/30/2019 Overview (05/30/2019): Colonoscopy 05/2019 normal biopsies, decreased sphincter tone, [...] - Respiratory Rate 16 07/19/2017 1:13 PM RADIO SPORTSCASTER Oxygen Saturation 97% 03/29/2019 3:09 PM CDT Inhaled Oxygen Concentration - - Weight 71.6 kg (157 lb 12.8 oz) 03/29/2019 3:09 PM CDT Height 165 cm (5' 4.96) 07/19/2017 1:13 PM [employer]IO SPORTSCASTER Body Mass Index 26.29 07/19/2017 1:13 PM [employer]IO SPORTSCASTER Plan of Treatment Health Maintenance Due Date [...] 18+ 07/19/2018 07/19/2017, 06/28/2017 COVID-19 vaccine series (2023- season) 2024 Influenza for age 65+ 05/13/2024 Colonoscopy through age 75 05/29/202905/29, 05/29/2019, 05/29/2019 Procedures Procedure Name Priority Date/Time Associated Diagnosis Comments COLONOSCOPY SCREENING Routine 05/29/2019 1:05 PM CDT Incontinence of feces, unspecified fecal incontinence type Screen for colon cancer XR MAMMO SCREENING BILATERAL (IA) Timed 12/18/2004 1:59 PM CDT LIPID PANEL Timed 09/28/2004 10:57 AM RADIO SPORTSCASTER from Last 3 Months or Most Recently [...] STUDY IS COMPARED TO PREVIOUS STUDIES FROM [facility] DATED ??09/07/01 AND SHOWS NO SIGNIFICANT CHANGE. MAMMOGRAPHICALLY, THE BREAST TISSUE IS AVERAGE. ??THERE ARE NO MASSES OR CALCIFICATIONS THAT ARE SUSPICIOUS FOR MALIGNANCY. IMPRESSION THERE IS NO RADIOGRAPHIC EVIDENCE FOR MALIGNANCY. ??RECOMMEND ANNUAL MAMMOGRAMS. MAMMOGRAPHIC ASSESSMENT: ??ASYMPTOMATIC, ACR-1. NEGATIVE. [facility] WILL PROVIDE A LETTER TO THE PATIENT REGARDING THE TEST UPON DETERMINATION OF THE RESULTS. SDK/PJW Hollie Rodriguez MD MAMMO * (ABNORMAL) LIPID PANEL (09/28/2004 10:57 AM RADIO SPORTSCASTER) CHOLESTEROL,TOTAL 256(H) 110 - 199 mg/dL [facility] TRIGLYCERIDES 62 40 - 149 mg/dL [facility] HDL CHOLESTEROL 82 41 - 95 mg/dL [facility] CHOL/HDL RATIO 3.12 <4.51 [facility] LDL CHOLESTEROL 162(H) 60 - 130 mg/dL [facility] PATIENT STATUS Fasting [facility] 09/28/2004 10:5 7 AM RADIO SPORTSCASTER 09/28/2004 10:47 AM RADIO SPORTSCASTER Jeremy Castellanos MD CHEMISTRY [facility] INTERNAL ZIP [address] [place] [address] from Last 3 Months or Most Recently Relevant to Health Maintenance Care Teams Shovel Log Loader Operator Relationship Specialty Start Date End Date Rogers Ho, ARABELLAC PCP - General Physician Slubber Frame Changer 06/20/17
--- OUTSIDE RECORDS SUMMARY | 2024-07-03 12:20 | XMS_ITS | Continuity of Care Document ---
Author Organization [facility] Address [address] [place] [address] Phone Care Team Providers Care Html Developer Name Role Phone Unavailable Unavailable Unavailable Allergies, Adverse Reactions, Alerts Substance Reaction Status Criticality No Known Allergies Active No Inform ation Procedures Procedure Date Office/Outpatient Visit,[facility], [facility] [place] Advance Directives Directive Yes / No Effective Date File Name No Information Encounters Encounter Description Practice Location Reason(s) For Visit Diagnoses Date Provider Providers Copied on Encounter [facility], [address], [place], [place], [id number], [place] tel:[phone] [facility] No Information No Information Office/Outpat ient Visit,[facility], [facility] [place] [facility], [address], [place], [place], [id number], [place] tel:[phone] [facility] [place] Arthrodesis statusOther spondylosis, cervical region 0 Garfield Lara. [facility], [address] [place] [address], [place], [address], [place]. tel:[phone] Referring Provider: Rogers Ho [facility] [address], [place], [address]. tel:[phone] Family History Family Member Type Diagnosis Age [...]
--- OUTSIDE RECORDS SUMMARY | 2024-07-03 12:20 | XMS_ITS | Referral Summary ---
Author Organization [place] Address [address] [place] [address] Care Team Providers Care Check Viewer Name Role Phone Rogers Ho PA-C Primary Care Provider [phone] Allergies No known active allergies Medications Medication [...] on file Medical Devices Implanted Type Area Grave Digger Device Identifier Shelf Expiration Date Model / Serial / Lot Bone Cement Simplex Full Dose 6191-1-001 - [id number] Implanted:Qty: 1 on 11/24/2022 by Jean Ayala MD at [facility] Cement, Bone Left: Hip [employer] [id number] / [id number] Bone Cement Simplex Full Dose 6191-1-001 - [id number] Implanted:Qty: 1 on 11/24/2022 by Jean Ayala MD at [facility] Cement, Bone Left: Hip [employer] [id number] / [id number] Bone Cement Restrictor Donovan Femoral 18.5mm [id number] - [id number] Implanted:Qty: 1 on 11/24/2022 by Jean Ayala MD at [facility] Cement, Bone Left: Hip [employer]-R [id number] 07/19/2032 [id number] / / [id number] Imp Head Strk Femoral Uhr Bipolar 99d65ay Uh1-47-28 - [id number] Implanted:Qty: 1 on 11/24/2022 by Jean Ayala MD at [facility] Total Joint Component /Insert Left: Hip [employer] [id number] 05/31/2026 UH1-47-28 / / [id number] Imp Stem Femoral Hip Strk Ofst 125x37.5mm [facility] 0580-3-371 - [id number] Implanted:Qty: 1 on 11/24/2022 by Jean Ayala MD at [facility] Total Joint Component /Insert Left: Hip [employer] [facility] [id number] 06/09/2027 0580-3-37 [id number] / [id number] Imp Head Femoral Strk V40 Vitallim Cocr 28mm -4mm 6260-5-028 - [id number] Implanted:Qty: 1 on 11/24/2022 by Jean Ayala MD at [facility] Total Joint Component /Insert Left: Hip [employer] [id number] 10/31/2026 6260-5-02 [id number] Procedures Procedure Name Priority Date/Time Associated Diagnosis [...] MD LAB - BLOOD ORDERABL ES LABORATORY [facility] [address], [address] [place] [address], [facility] [place] [phone] * (ABNORMAL) Lipid Profile (04/29/2020) Cholesterol 261(A) 90 - 200 mg/dL [facility] Triglycerides 190 40 - 197 mg/dL [facility] HDL Cholesterol 118 >=50 mg/dL [facility] LDL Cholesterol Calculated 105(A) <100 mg/dL [facility] Blood specimen (specimen) 04/29/[address] [facility] - 04/29/[address] [facility] Provider Outside LAB - BLOOD ORDERABL ES [facility] [address] [place] [address], [facility] [place] [phone] from Last 3 Months or Most Recently Relevant to Health Maintenance Advance Directives For more information, please contact: [phone] * Full Code (Latest Code Status on File) Date Activated Date Inactivated Comments 11/23/2022 10:30 PM 11/26/2022 2:53 PM All basic a nd advanced life-sustaining interventions are performed as appropriate Question Answer Comments Code status determined by: Unable to dis cuss and no AD/POLST on file; continue PREVIOUSLY ORDERED code status Care Teams Check Viewer Relationship Specialty Start Date End Date Rogers Ho PA-C [facility] [address] [place] [id number] PCP - General 11/23/22
== END 2024-07-03 12:16 | disposition home or self-care (01) ==
LOC: FRMREF 12:15
PROVIDERS: PCP Physician Assistant Medical; Visit Provider Physician Assistant Medical
DX: Z00.00 Encounter for general adult medical examination without abnormal findings (principal); I10 Essential (primary) hypertension; E78.5 Hyperlipidemia, unspecified; R73.03 Prediabetes; E53.8 Deficiency of other specified B group vitamins; N18.30 Chronic kidney disease, stage 3 unspecified; G20.A1 Parkinson's disease without dyskinesia, without mention of fluctuations
CPT/HCPCS: 80053; 80061; 84443

== ENCOUNTER 2024-07-11 11:15 | Outpatient (RCR) | payer MEDICARE, BC, SELFPAY | END 2024-08-14 16:00 | disposition home or self-care (01) | PROVIDERS: PCP Physician Assistant Medical; Visit Provider Psychiatry & Neurology Neurology | DX: M79.652 Pain in left thigh (principal); Z51.89 Encounter for other specified aftercare | CPT/HCPCS: 72148; 73721; 97032; 97110; 97112; 97140; 97163; 97164 ==

== ENCOUNTER 2024-08-13 10:01 | Day surgery (SDC) | payer MEDICARE, BC, SELFPAY ==
[2024-08-13] VITALS (23 sets, daily range): BP systolic 91–135; BP diastolic 39–81; PULSE 60–100; RESP 12–18; TEMP 35.9–37; O2SAT 84–100; BMI 29.0
[2024-08-13] MEDS: fentaNYL 100 MCG/2 ML inj IVP (10:28)
[2024-08-13] MEDS: ACETAMINOPHEN 500 MG TABLET 1000 MG PO ×3 (11:20→22:36)
[2024-08-13] MEDS: OXYCODONE (CR) 10 MG TAB.ER.12H PO (11:20)
--- NOTE | 2024-08-13 11:21 | W.PM.H&PU ---
History & Physical Update History & Physical Update H&P Reviewed and patient assessed: No changes noted
--- NOTE | 2024-08-13 11:22 | CRLHL7_ITS ---
For Patients: As a result of the Century Cures Act, medical imaging exams and procedure reports are released immediately into your electronic medical record. You may view this report before your referring provider. If you have questions, please contact your health care provider. INDICATION: Status post total hip arthroplasty. TECHNIQUE: AP pelvis and lateral right hip. FINDINGS: New right JACQUI. Components appear well seated. Also noted is a left hip hemiarthroplasty and stabilization hardware in the pelvis. Dictated by Dano Coe MD @ 08/14/2024 10:49:53 AM (Electronically Signed)
[2024-08-13] MEDS: SODIUM CHLORIDE 0.9 % (FLUSH) 10 ML SYRINGE IVF (11:32)
[2024-08-13] MEDS: MIDAZOLAM HCL 1 MG/ML inj IVP (11:32)
[2024-08-13] MEDS: LACTATED RINGERS 1000 ML 1,000 ML 100 ML IV (11:35)
--- NOTE | 2024-08-13 11:45 | CRLHL7_ITS ---
For Patients: As a result of the Cures Act, medical imaging exams and procedure reports are released immediately into your electronic medical record. You may view this report before your referring provider. If you have questions, please contact your health care provider. INDICATION: Right JACQUI. TECHNIQUE: Single spot image of the right hip. 20.9 seconds fluoro time. FINDINGS: Right total hip arthroplasty in place. Dictated by Dano Coe MD @ 08/14/2024 9:57:29 AM (Electronically Signed)
--- NOTE | 2024-08-13 11:51 | SUR.PREOP ---
TIME?OUT:?1132 PT/RN/MDA?VERIFICATION?OF?SURGICAL?SITE,?PROCEDURE,?AND?CONSENT OBTAINED?PRIOR?TO?INVASIVE?PROCEDURE. all in agreement.
[2024-08-13] MEDS: CEFAZOLIN 2 GM in 0.9 % SODIUM CHLORIDE Mini-bag 100 ML IVPB ×2 (12:00→16:20)
[2024-08-13] MEDS: TRANEXAMIC ACID 100 MG/ML INJ 1000 MG IV (12:00)
--- NOTE | 2024-08-13 13:05 | PM.ORPRC ---
Procedure Note Date of procedure: 08/13/24 Procedure: PREOPERATIVE DIAGNOSIS: 1. Right hip osteoarthritis, severe, primary POSTOPERATIVE DIAGNOSIS: 1. Right hip osteoarthritis, severe, primary PROCEDURE: 1. Right total hip arthroplasty-anterior approach 2. 08915 - intraoperative fluoroscopy up to 1 hour. SURGEON: Valdo Mcclain MD. B2B ACCOUNT EXECUTIVE: Adolfo Denton PA-C; WENDY Pradhan - Of note, a skilled fws faculty assistant was critical for this case to aid in patient positioning, tissue retraction, limb manipulation/positioning, and closure. ANESTHESIA: General endotracheal anesthetic EBL: 250 mL IMPLANTS: DePuy J&J uncemented total hip [place] cup size 50, hole eliminator, +0 neutral liner Actis stem, high offset, size 6 +1 mm ceramic 32mm head COMPLICATIONS: None evident INDICATIONS: The patient is a pleasant 74-year-old female who has experienced severe right hip pain and difficulty bearing weight. Workup included x-rays which revealed severe osteoarthrosis in the hip. Given the deformity, the dysfunction, and the pain, as well as the failure of nonoperative management, recommendation was made for surgery. FINDINGS: Full-thickness chondral loss diffusely throughout the femoral head. Also around the acetabulum. Osteophytosis from the femoral head/neck junction. Large effusion upon entering the joint. DESCRIPTION OF PROCEDURE: Following a thorough discussion of risks, benefits, and alternatives consent was obtained and the right hip was marked. The patient was brought to the operating room and placed supine on the operating table. Induction of anesthesia was undertaken. 2 g IV Ancef and 1 g tranexamic acid was administered within 1 hr of incision preoperatively. Proper time-out was performed identifying proper patient, site, procedure. The operative extremity was prepped and draped in the appropriate sterile fashion using ChloraPrep after the patient was positioned on the [place] table with head in neutral alignment and all bony prominences well padded. C-arm fluoroscopic imaging was utilized to confirm proper pelvis rotation and position, and to get true AP films of both the contralateral left, and the affected right hip. This is for comparison. A longitudinal incision was made starting approximately 1 cm distal to the ASIS, and 3-4 cm lateral. The incision was extended distally aiming toward the lateral border the patella. Sharp incision through skin and bovie cautery through the subcutaneous tissue allowed identification of the TFL fascia. This was sharply divided, and the fascia bluntly released from the muscle fibers as we dissected medial. Upon coming to the medial border, we were able to retract the TFL laterally, and penetrated the deeper fascia and identify the crossing circumflex vessels. These were ligated/cauterized. The rectus was elevated from the capsule, and retractors placed laterally and medially along the femoral neck to help with visualization of the capsule. We then performed an inverted T capsulotomy. The capsule was tagged for later repair. Retractors were placed inside the capsule. The femoral neck was visualized after releasing medially down to the lesser trochanter, along the saddle laterally, and up onto the acetabulum. The femoral neck cut was made in line with our preoperative templating. The head was removed in a single piece, and sized. We turned our attention to acetabular preparation. Initially, the labrum was resected from around the perimeter, the pulvinar was excised, allowing us to visualize the false wall. We started the reaming with a 43 mm reamer. This was medialized down to the true wall. We then enlarged our reamers sequentially up to one size less than the selected cup size. We trialed at the same size and found it to have an excellent fit. The selected cup was then opened, inserted, and impacted in line with the goal of 40? of abduction, and 20-25? of anteversion. This was confirmed on C-arm fluoroscopic imaging to be in the appropriate/goal position. Once the cup was placed we placed a hole eliminator and a liner consistent with preop planning. Attention was turned to the femoral preparation. The limb was extended, externally rotated, and adducted. The posteromedial capsule was released, as retractors were placed allowing excellent access to the proximal femur. Initially a farebox repairer was followed by canal finder followed by various broaches. We broached sequentially up to the size noted above, found it to have excellent rotational control, and trialing various heads and necks, revealed that appropriate neck offset, and the above noted head size provided the greatest stability, and anabaptism of length, and offset. C-arm fluoroscopic imaging confirmed position of the stem, as well as leg lengths, which were compared with the pre procedure all fluoroscopic images. Trial implants were removed, the real femoral stem inserted, as was the appropriate head. After reducing, the leg was placed through range of motion and stability was confirmed anterior, posterior, and lateral. A 3 min Betadine soak was then performed, and thorough irrigation with normal saline followed. Closure of the capsule was performed with #1 PDS. Bleeding was confirmed to be controlled at this stage, and the TFL fascia was closed with #0 strata fix. Subcutaneous, and subcuticular closure was performed with 2-0 Vicryl and 4-0 Monocryl, respectively. Dressings were applied, and the patient was awoken from anesthesia and transferred the PACU in stable condition. A skilled fws faculty assistant was critical for this case to aid in patient positioning, tissue retraction, acetabular and proximal femoral exposure, limb manipulation/positioning, dislocation/relocation, patient safety, and closure. PLAN: 1. Weight bear as tolerated operative extremity. 2. 23 hr perioperative antibiotics. 3. Ice. 4. PT/OT consults for ambulation assistance/mobility education. 5. Social work consult for discharge planning. 6. DVT prophylaxis with at SCDs and Xarelto x5 days followed by aspirin for a total of 1 month..
--- NOTE | 2024-08-13 13:50 | W.ANESCHARGE ---
Anesthesia Charges Start Date/Time Anesthesia Start Date: 08/13/24 Anesthesia Start Time: 11:40 Stop Date/Time Anesthesia Stop Date: 08/13/24 Anesthesia Stop Time: 13:43 Summary Extremes of Age - Over 70 or under 1: CORPORATE DEVELOPMENT INTERN
--- NOTE | 2024-08-13 14:16 | P.NB_ITS ---
Nerve Block Nerve Block Time Seen by Provider: 11:34 Date Seen: 08/13/24 Type of block requested by surgeon for post-operative analgesia: CHARI/LFCN Side: right Time out performed: Yes Verification of patient name: Yes Verification of date of : Yes Site marking: site marked Name of person performing procedure: Anurag Continuous monitoring Was continuous monitoring of O2 sat, B/P, strategy execution consultant, recorded every 15 minutes?: Yes Procedure Checklist: sterile prep, needles and gloves Ultrasound guided. Images saved: Yes Medications given in 5ml increments after negative aspiration: Ropivicaine %: 0.5 mL: 30 Needle gauge: 20 Precedex (mcg): 25 Patient tolerated procedure well: Yes Additional comments: Needle noted below psoas tendon needle noted adjacent to LFCN Block Charges Block Charge (with Pro Fee): Other Periph Nerve Block Use of Ultrasound Machine for Block: Yes- US Guidance/pain block
--- NOTE | 2024-08-13 14:17 | W.ANESCHARGE ---
Anesthesia Charges Start Date/Time Anesthesia Start Date: 08/13/24 Anesthesia Start Time: 11:40 Stop Date/Time Anesthesia Stop Date: 08/13/24 Anesthesia Stop Time: 13:43 Summary Extremes of Age - Over 70 or under 1: MDA
[2024-08-13] MEDS: LACTATED RINGERS 1000 ML 1,000 ML 75 ML IV (15:23)
[2024-08-13] MEDS: HYDROmorphone 0.5 mg/0.5 ml inj IVP (15:24)
[2024-08-13] MEDS: OXYCODONE 5 MG TABLET PO (16:20)
--- NOTE | 2024-08-13 16:40 | P.IMCN_ITS ---
Date of Consult Consult date: 08/13/24 Primary Care Provider: Rogers Ho PA-C Consult Narrative Narrative: Jerica Layton is a 74 year old female with past medical history of hypertension, hyperlipidemia, IFG, GERD, and Parkinson's disease/parkinsonism following with Neurology, in addition patient has history of right hip avascular necrosis who was admitted for elective right total hip replacement. Patient does not have history of bleeding or blood clotting. Patient tolerated the surgery well. Estimated blood loss about 250 mL. Pain controlled with pain killers. Patient still have not urinated after surgery and I met her. All medications were reviewed and will resume part of the list of her medication. Review of Systems Status of ROS: Reports: 6 or more systems reviewed and unremarkable except as noted in History and below [facility] Medical History (Updated 08/13/24 @ 16:58 by Ca Lucia MD) Essential tremor ?G25.0 - Essential tremor (ICD-10) Gastroesophageal reflux disease ?K21.9 - Gastro-esophageal reflux disease without esophagitis (ICD-10) Osteopenia ?M85.80 - Other specified disorders of bone density and structure, unspecified site (ICD-10) Peripheral neuropathy ?G62.9 - Polyneuropathy, unspecified (ICD-10) Scoliosis ?M41.9 - Scoliosis, unspecified (ICD-10) Stage 3 chronic kidney disease ?N18.30 - Chronic kidney disease, stage 3 unspecified (ICD-10) Systolic murmur of aorta ?I35.8 - Other nonrheumatic aortic valve disorders (ICD-10) Atopic dermatitis ?L20.9 - Atopic dermatitis, unspecified (ICD-10) Parkinsonism ?G20 - Parkinson's disease (ICD-10) Cobalamin deficiency ?E53.8 - Deficiency of other specified B group vitamins (ICD-10) Depression ?F32.A - Depression, unspecified (ICD-10) Hyperlipidemia ?E78.5 - Hyperlipidemia, unspecified (ICD-10) Hypertension ?I10 - Essential (primary) hypertension (ICD-10) Tendinitis involving right hip abductors ?M76.891 - Other specified enthesopathies of right lower limb, excluding foot (ICD-10) Greater trochanteric bursitis of right hip ?M70.61 - Trochanteric bursitis, right hip (ICD-10) Osteoarthritis ?M19.90 - Unspecified osteoarthritis, unspecified site (ICD-10) Insomnia ?G47.00 - Insomnia, unspecified (ICD-10) Chronic back pain ?M54.9 - Dorsalgia, unspecified (ICD-10) ?G89.29 - Other chronic pain (ICD-10) New onset type 2 diabetes mellitus ?E11.9 - Type 2 diabetes mellitus without complications (ICD-10) Avascular necrosis of bone of right hip ?M87.051 - Idiopathic aseptic necrosis of right femur (ICD-10) Incontinence of feces ?R15.9 - Full incontinence of feces (ICD-10) Familial heart disease ?I51.89 - Other ill-defined heart diseases (ICD-10) Candidal intertrigo ?B37.2 - Candidiasis of skin and nail (ICD-10) Surgical History (Updated 08/13/24 @ 18:40 by Ca Lucia MD) History of lumbar fusion ?Z98.1 - Arthrodesis status (ICD-10) History of left hip hemiarthroplasty (11/24/22) ?Z96.642 - Presence of left artificial hip joint (ICD-10) Status post appendectomy ?Z90.49 - Acquired absence of other specified parts of digestive tract (ICD- 10) History of rotator cuff surgery ?Z98.890 - Other specified postprocedural states (ICD-10) History of laminectomy ?Z98.890 - Other specified postprocedural states (ICD-10) History of finger joint replacement ?Z96.698 - Presence of other orthopedic joint implants (ICD-10) History of colonoscopy ?Z98.890 - Other specified postprocedural states (ICD-10) Family History Mother Family history of stroke or transient ischemic attack in mother Social History (Updated 07/14/23 @ 15:19 by Sia Mott ~ [facility]) Narrative: Does not use illicit drugs Non-smoker What is your current living situation?: I presently have a place to live Problems where you live: no known problems In the past 12 months, utilities in danger of being shut off: no In the past 12 mos, have been you worried that your food would run out before you had money to buy more?: never true In the past 12 mos, the food you bought just didn't last and you didn't have money to buy more?: never true Smoking Status: Current every day smoker What tobacco products do you use: cigarettes Do you use any of these nicotine containing products: None Second hand tobacco smoke exposure: Yes How often do you have a drink containing alcohol: 4 or more times a week Alcohol type: wine How many standard drinks containing alcohol do you have on a typical day: 1 or 2 How often do you have six or more drinks on one occasion: Never AUDIT-C Alcohol total score: 4 Non-prescribed substance use: denies use Caffeine: Yes How often does anyone, including family, friends and others, physically hurt you : never How often does anyone, including family, friends and others, insult or talk down to you: never How often does anyone, including family, friends and others, threaten you with harm: never How often does anyone, including family, friends and others, scream or curse at you: never Meds Home Medications and Allergies Home Medications ?Medication ?Instructions ?Recorded ?Confirmed ?Type aspirin 81 mg tablet,delayed 81 mg PO HS 05/20/22 08/13/24 History release carbidopa 25 mg-levodopa 100 mg 1 tab PO TID 05/20/22 08/13/24 History tablet mecobalamin (vitamin B12) 5,000 5,000 tab PO DAILY 05/20/22 08/13/24 History mcg disintegrating tablet gabapentin 300 mg capsule 900 mg PO HS 06/02/22 08/13/24 History cetirizine 10 mg capsule (All Day 20 mg PO BID PRN 10/12/22 08/13/24 History Allergy (cetirizine)) latanoprost 0.005 % eye drops 1 drp ophthalmic (eye) 04/26/24 08/13/24 History chlorthalidone 25 mg tablet 12.5 mg PO DAILY 08/13/24 08/13/24 History clonazepam 0.5 mg tablet 0.5 mg PO HS 08/13/24 08/13/24 History duloxetine 60 mg capsule,delayed 60 mg PO DAILY 08/13/24 08/13/24 History release gabapentin 300 mg capsule 600 mg PO QAM 08/13/24 08/13/24 History pravastatin 40 mg tablet 40 mg PO HS 08/13/24 08/13/24 History Allergies Allergy/AdvReac Type Severity Reaction Status Date / Time No Known Allergies Allergy Unknown Verified 08/01/24 13:15 Exam Narrative: Exam Narrative: Physical exam GENERAL: Comfortable, no acute distress. HEAD AND NECK: Atraumatic, normocephalic CARDIOVASCULAR: RRR. Normal S1, S2. No murmurs. RESPIRATORY: Clear to auscultation B/L. Good air entry B/L. No wheezes or rhonchi. GASTROINTESTINAL: not tender to palpation. NEUROLOGY: Alert, awake, oriented X 3. Normal speech. PSYCH: Normal mood, normal affect. Const: Vital Signs, click to edit/add: Vital Signs - 24 hr 08/13/24 11:13 08/13/24 11:29 08/13/24 11:35 Temperature 97.8 F Pulse Rate 74 69 69 Respiratory Rate 16 16 16 Blood Pressure 111/81 109/68 98/64 Pulse Oximetry 93 94 93 Oxygen Delivery Me thod Room Air Nasal Cannula Nasal Cannula Oxygen Flow Rate 3 3 Fraction of Inspir ed Oxygen 08/13/24 13:40 08/13/24 13:45 08/13/24 13:50 Temperature 98.6 F Pulse Rate 72 73 72 Respiratory Rate 14 14 16 Blood Pressure 91/49 L 93/52 L 98/60 Pulse Oximetry 100 100 100 Oxygen Delivery Me thod Nasal Cannula Nasal Cannula Room Air Oxygen Flow Rate 6 6 Fraction of Inspir ed Oxygen 100 100 08/13/24 13:55 08/13/24 14:00 08/13/24 14:05 Temperature Pulse Rate 73 73 70 Respiratory Rate 16 16 16 Blood Pressure 99/49 L 99/55 L 96/53 L Pulse Oximetry 97 98 98 Oxygen Delivery Me thod Room Air Nasal Cannula Nasal Cannula Oxygen Flow Rate 3 3 Fraction of Inspir ed Oxygen 100 100 08/13/24 14:10 08/13/24 14:15 Temperature 98.2 F Pulse Rate 64 66 Respiratory Rate 16 16 Blood Pressure 118/63 101/54 L Pulse Oximetry 99 99 Oxygen Delivery Me thod Room Air Room Air Oxygen Flow Rate Fraction of Inspir ed Oxygen Assessment and Plan Assessment and plan (1) Status post total hip replacement, right: Problem comment: -Start early ambulation with physical therapy as tolerated. -Monitor for urine output postoperatively, bladder scan if needed. -Encourage incentive spirometry. -DVT prophylaxis with at SCDs and Xarelto x5 days followed by aspirin for a total of 1 month. -PT/OT Status: Acute (2) Avascular necrosis of bone of right hip: Problem comment: Status post total hip replacement August 13. Status: Acute (3) Hypertension: Problem comment: Holding home medications due to soft blood pressure Status: Acute (4) Hyperlipidemia: Problem comment: Continue statin Status: Acute (5) Depression: Problem comment: Continue bupropion and duloxetine Continue clonazepam Status: Acute (6) Parkinsonism: Problem comment: Following neurology Continue carbidopa-levodopa Status: Acute (7) Stage 3 chronic kidney disease: Problem comment: Monitor with labs Status: Acute (8) Peripheral neuropathy: Problem comment: Continue gabapentin Status: Acute (9) Gastroesophageal reflux disease: Problem comment: Continue PPI orally Status: Acute Plan As above Total Time Spent Total Time Spent: Time spent: Today I spent 75 minutes seeing the patient, discussing the patient with ER staff, reviewing Expanse and EPIC notes/diagnostics, discussing the care plan with our care time that includes social work, PT/OT, pharmacy, RT, group home and documenting my impressions and plan in the medical record.
--- NOTE | 2024-08-13 19:56 | PC.NURSE ---
End of shift-- Pleasant and cooperative, alert and oriented patient. VSS and pt is afebrile. SPO2 initially dropped to low 80s on RA and O2 was applied at 2L per n.c. and quickly increased to 4L. Shortly thereafter, pt was able to be weaned down to 1L and maintained sats >90% on 1L. Pain appears well managed with Oxycodone and Tylenol. Dressing to right hip is C/D/I and CMS WNL. LS CTA. She denied nausea and tolerated a regular diet without difficulty. Son was at bedside and appears loving and supportive. Pt was up to chair with walker, belt and assist of 2 and tolerated it well. Report to IBIS Beaulieu and all questions were answered.
[2024-08-13] MEDS: GABAPENTIN 300 MG CAPSULE 900 MG PO (21:05)
[2024-08-13] MEDS: PRAVASTATIN SODIUM 20 MG TABLET 40 MG PO (21:06)
[2024-08-13] MEDS: clonazePAM 0.5 MG TABLET PO (21:06)
[2024-08-13] MEDS: CARBIDOPA-LEVODOPA 25-100 TABLET 1 TAB PO (21:06)
[2024-08-13] MEDS: SENNOSIDES 1 TAB TABLET 2 TAB PO (21:06)
[2024-08-13] MEDS: LATANOPROST 0.005% OPHTH 1 DROP EYE-BOTH (21:10)
[2024-08-14] MEDS: CEFAZOLIN 2 GM in 0.9 % SODIUM CHLORIDE Mini-bag 100 ML IVPB (00:32)
[2024-08-14 01:56] VITALS: BP 97/67; PULSE 69; RESP 14; TEMP 36.4; O2SAT 92
[2024-08-14] MEDS: ACETAMINOPHEN 500 MG TABLET 1000 MG PO (04:18)
--- NOTE | 2024-08-14 06:15 | PC.NURSE ---
End of shift: Pt AxOx4, pleasant, and cooperative. VSS on RA. Dressing to right hip is C/D/I and CMS WNL. LS CTA. She denied nausea, Tolerating reg diet/fluids well. Continent of the bladder. A1 GB W. Tolerating activity well. Pt rated no pain throughout the shift. Active ice applied. Pt appears resting with call light in reach.
[2024-08-14] MEDS: OMEPRAZOLE 20 MG CAPSULE DR 40 MG PO (06:32)
[2024-08-14 06:41] LABS: Basophils Percent Auto 0.1 % (0.0-3.0); Hematocrit 29.3 % (33.0-51.0); Hemoglobin* 9.4 gm/dL (12.0-16.0); Mean Corpuscular HGB Conc 32 gm/dL (32-36); Mean Corpuscular Hemoglobin 33 pg (26-34); Mean Corpuscular Volume 102 fL (80-100); Monocytes Percent Auto 7.6 % (0.0-11.0); Neutrophils Percent Auto 84.3 % (42.0-72.0); Platelet Count* 224 K/uL (140-440); Red Blood Count 2.88 m/uL (4.00-5.20); White Blood Count* 11.07 K/uL (4.50-11.00)
[2024-08-14 06:49] LABS: Slide Review Reflex No
[2024-08-14 06:51] LABS: Potassium* 5.7 mmol/L (3.6-5.1); Sodium* 132 mmol/L (135-149)
[2024-08-14 06:54] LABS: Creatinine* 2.1 mg/dL (0.5-1.5); Est. Creatinine Clearance* 21.15; Estimated Glomerular Filt Rate 24 ml/min
[2024-08-14 06:55] LABS: Blood Urea Nitrogen* 43 mg/dL (7-30)
[2024-08-14 08:29] VITALS: BP 96/62; PULSE 70; RESP 18; TEMP 36.9; O2SAT 94
[2024-08-14 08:31] VITALS: RESP 18; O2SAT 94
[2024-08-14] MEDS: DULOXETINE 30 MG CAPSULE DR 60 MG PO (08:32)
[2024-08-14] MEDS: SENNOSIDES 1 TAB TABLET 2 TAB PO (08:32)
[2024-08-14] MEDS: CARBIDOPA-LEVODOPA 25-100 TABLET 1 TAB PO (08:32)
[2024-08-14] MEDS: GABAPENTIN 300 MG CAPSULE 600 MG PO (08:33)
[2024-08-14] MEDS: buPROPion XL 150 MG TABLET 300 MG PO (08:33)
--- NOTE | 2024-08-14 08:33 | PM.ORPN ---
Subjective Subjective Date Seen: 08/14/24 Principal diagnosis: Status postop day 1, right total hip arthroplasty - anterior approach Interval history: Patient reports doing well. No acute events over night. States she feels quite good. Pain managed with scheduled and PRN medications, ice. DVT prophylaxis: Rivaroxaban, SCDs, walking. Denies fevers, chills, aches, N/V, CP, SOB/WOODALL, or lightheadedness. Plans to go home today, her son will stay with her. No stairs. Ortho Exam Narrative Exam Narrative: -Patient appears comfortable in bed; no apparent acute distress -Alert and oriented times 3 -Operative hip swollen; soft tissues supple; no obvious erythema. No ecchymosis. Warmth appropriate -Surgical dressing clean, dry, intact; no obvious drainage, no erythematous streaking peripheral to the bandage -Bilateral calves soft and supple; no significant swelling, edema, tenderness, erythema, discoloration, warmth, or palpable cords -2+ DP/PT pulses, intact dermatomes and myotomes distally (5/5 strength). No numbness about the lateral femoral cutaneous nerve distribution. Const Vital Signs, click to edit/add: Vital Signs - 24 hr 08/13/24 11:13 08/13/24 11:29 08/13/24 11:35 Temperature 97.8 F Pulse Rate 74 69 69 Pulse Rate [Left Pulse Oximeter] Respiratory Rate 16 16 16 Blood Pressure 111/81 109/68 98/64 Blood Pressure [Left Arm] Pulse Oximetry 93 94 93 Oxygen Delivery Method Room Air Nasal Cannula Nasal Cannula Oxygen Flow Rate 3 3 Fraction of Inspired Oxygen 08/13/24 13:40 08/13/24 13:45 08/13/24 13:50 Temperature 98.6 F Pulse Rate 72 73 72 Pulse Rate [Left Pulse Oximeter] Respiratory Rate 14 14 16 Blood Pressure 91/49 L 93/52 L 98/60 Blood Pressure [Left Arm] Pulse Oximetry 100 100 100 Oxygen Delivery Method Nasal Cannula Nasal Cannula Room Air Oxygen Flow Rate 6 6 Fraction of Inspired Oxygen 100 100 08/13/24 13:55 08/13/24 14:00 08/13/24 14:05 Temperature Pulse Rate 73 73 70 Pulse Rate [Left Pulse Oximeter] Respiratory Rate 16 16 16 Blood Pressure 99/49 L 99/55 L 96/53 L Blood Pressure [Left Arm] Pulse Oximetry 97 98 98 Oxygen Delivery Method Room Air Nasal Cannula Nasal Cannula Oxygen Flow Rate 3 3 Fraction of Inspired Oxygen 100 100 08/13/24 14:10 08/13/24 14:15 08/13/24 14:20 Temperature 98.2 F 98.1 F Pulse Rate 64 66 66 Pulse Rate [Left Pulse Oximeter] Respiratory Rate 16 16 12 Blood Pressure 118/63 101/54 L 93/39 L Blood Pressure [Left Arm] Pulse Oximetry 99 99 93 Oxygen Delivery Method Room Air Room Air Room Air Oxygen Flow Rate Fraction of Inspired Oxygen 08/13/24 14:30 08/13/24 14:45 08/13/24 15:00 Temperature 97.5 F L 97.5 F L Pulse Rate 66 65 Pulse Rate [Left Pulse Oximeter] Respiratory Rate 12 12 Blood Pressure 94/51 L 104/53 L Blood Pressure [Left Arm] Pulse Oximetry 84 L 97 97 Oxygen Delivery Method Room Air Nasal Cannula Nasal Cannula Oxygen Flow Rate 2 1 Fraction of Inspired Oxygen 08/13/24 15:00 08/13/24 15:15 08/13/24 15:45 Temperature 98.1 F Pulse Rate 60 67 68 Pulse Rate [Left Pulse Oximeter] Respiratory Rate 14 12 14 Blood Pressure 93/39 L 104/53 L 98/61 Blood Pressure [Left Arm] Pulse Oximetry 96 97 96 Oxygen Delivery Method Nasal Cannula Nasal Cannula Nasal Cannula Oxygen Flow Rate 1 1 1 Fraction of Inspired Oxygen 08/13/24 16:15 08/13/24 17:15 08/13/24 18:00 Temperature 96.6 F L 98.1 F Pulse Rate 73 71 100 Pulse Rate [Left Pulse Oximeter] Respiratory Rate 16 16 16 Blood Pressure 100/56 L 95/59 L 105/62 Blood Pressure [Left Arm] Pulse Oximetry 96 97 96 Oxygen Delivery Method Nasal Cannula Nasal Cannula Nasal Cannula Oxygen Flow Rate 1 1 1 Fraction of Inspired Oxygen 08/13/24 19:00 08/13/24 20:00 08/13/24 22:46 Temperature 97.3 F L Pulse Rate 76 79 Pulse Rate [Left Pulse Oximeter] Respiratory Rate 16 16 Blood Pressure 91/50 L 135/61 Blood Pressure [Left Arm] Pulse Oximetry 97 95 98 Oxygen Delivery Method Room Air Room Air Room Air Oxygen Flow Rate Fraction of Inspired Oxygen 08/13/24 22:46 08/14/24 01:56 08/14/24 08:29 Temperature 97.6 F 97.6 F 98.5 F Pulse Rate Pulse Rate [Left Pulse Oximeter] 80 69 70 Respiratory Rate 18 14 18 Blood Pressure Blood Pressure [Left Arm] 127/69 97/67 96/62 Pulse Oximetry 98 92 94 Oxygen Delivery Method Room Air Room Air Room Air Oxygen Flow Rate Fraction of Inspired Oxygen 08/14/24 08:31 Temperature Pulse Rate Pulse Rate [Left Pulse Oximeter] Respiratory Rate 18 Blood Pressure Blood Pressure [Left Arm] Pulse Oximetry 94 Oxygen Delivery Method Room Air Oxygen Flow Rate Fraction of Inspired Oxygen Assessment and Plan Assessment and plan (1) Status post total hip replacement, right: Problem details: -Start early ambulation with physical therapy as tolerated. -Monitor for urine output postoperatively, bladder scan if needed. -Encourage incentive spirometry. -DVT prophylaxis with at SCDs and Xarelto x5 days followed by 81mg BID aspirin for a total of 1 month. -PT/OT Status: Acute (2) Avascular necrosis of bone of right hip: Problem details: Status post total hip replacement August 13. Status: Acute (3) Hypertension: Problem details: Holding home medications due to soft blood pressure Status: Acute (4) Hyperlipidemia: Problem details: Continue statin Status: Acute (5) Depression: Problem details: Continue bupropion and duloxetine Continue clonazepam Status: Acute (6) Parkinsonism: Problem details: Following neurology Continue carbidopa-levodopa Status: Acute (7) Stage 3 chronic kidney disease: Problem details: Monitor with labs Status: Acute (8) Peripheral neuropathy: Problem details: Continue gabapentin Status: Acute (9) Gastroesophageal reflux disease: Problem details: Continue PPI orally Status: Acute Plan - Complete 23 hour perioperative antibiotics. - PT/OT consult for education and assistance. - Social work consult for discharge planning - Prescribed analgesics as needed - DVT prophylaxis: Rivaroxaban, walking, and SCDs - Anticipation is for discharge to home with son today 08/14/2024 if the patient remains medically stable, pain is controlled, and they are safe with mobilization.
[2024-08-14 09:28] VITALS: PULSE 70; RESP 18
--- NOTE | 2024-08-14 11:29 | PC.NURSE ---
Discharge: Patient pleasant and cooperative, A&O. VSS, afebrile. Discharge instructions provided, all questions answered. Discharged to home with son. IV removed with tip intact.
== END 2024-08-14 10:26 | disposition home or self-care (01) ==
LOC: OR 10:03 → MEDSURG 10:05
PROVIDERS: PCP Physician Assistant Medical; Visit Provider Orthopaedic Surgery Sports Medicine
PROC: (CPT 27130; principal; 2024-08-13 11:45)
DX: M16.11 Unilateral primary osteoarthritis, right hip (principal); G89.18 Other acute postprocedural pain; M87.851 Other osteonecrosis, right femur; G20.C Parkinsonism, unspecified; I12.9 Hypertensive chronic kidney disease with stage 1 through stage 4 chronic kidney disease, or unspecified chronic kidney disease; E11.22 Type 2 diabetes mellitus with diabetic chronic kidney disease; N18.30 Chronic kidney disease, stage 3 unspecified; E11.42 Type 2 diabetes mellitus with diabetic polyneuropathy; F32.A Depression, unspecified; K21.9 Gastro-esophageal reflux disease without esophagitis; E78.5 Hyperlipidemia, unspecified
CPT/HCPCS: 27130; 01214; 36415; 64450; 73501; 76942; 82565; 84132; 84295; 84520; 85025; 86850; 86900; 86901; 97110; 97116; 97162; 97165; 97535; 99100; A9270; C1776; J0330; J0690; J1100; J1171; J2250; J2371; J2405; J2704; J2795; J3010; J3490; J7120

== ENCOUNTER 2024-09-08 04:03 | Inpatient (IN) | payer MEDICARE, BC, SELFPAY ==
[2024-09-08] VITALS (32 sets, daily range): BP systolic 103–139; BP diastolic 54–73; PULSE 68–86; RESP 18–22; TEMP 36.5–37.3; O2SAT 80–100; BMI 29.1; BMI 29.7
--- NOTE | 2024-09-08 04:33 | CRLHL7_ITS ---
For Patients: As a result of the Century Cures Act, medical imaging exams and procedure reports are released immediately into your electronic medical record. You may view this report before your referring provider. If you have questions, please contact your health care provider. INDICATION: Fall,. TECHNIQUE: CT head without contrast. COMPARISON: MRI brain August 2020 FINDINGS: : No acute intracranial hemorrhage or large vascular territory infarct. No abnormal extra-axial fluid collection. Chronic lacunar infarct in right thalamus. Scattered white matter hypodensities are nonspecific, likely related to chronic microvascular ischemic changes. Paranasal sinuses and mastoid air cells are well pneumatized. Bilateral intra-ocular lens implantation. No calvarial fracture. IMPRESSION: Chronic changes without acute intracranial traumatic injury. Please note that all CT scans at this facility use dose modulation, iterative reconstruction, and/or weight-based dosing when appropriate to reduce radiation dose to as low as reasonably achievable. Dictated by Bruno Ho MD @ 09/08/2024 6:41:07 AM (Electronically Signed)
--- NOTE | 2024-09-08 04:33 | CRLHL7_ITS ---
For Patients: As a result of the Cures Act, medical imaging exams and procedure reports are released immediately into your electronic medical record. You may view this report before your referring provider. If you have questions, please contact your health care provider. Indication: Fall, hip pain post recent JACQUI. Technique: Pelvis and right hip l hip 3 view. Comparison: X-ray pelvis August 13, 2024 Findings: Stable postoperative changes related to right total hip arthroplasty and left hip hemiarthroplasty. Extensive postsurgical changes of lumbar spine with bi iliac screw fixation. There is no periprosthetic fracture. No interval change in the arthroplasty. No localized soft tissue swelling about right hip. Impression: Unchanged alignment of the right total hip arthroplasty with no periprosthetic fracture. Dictated by Bruno Ho MD @ 09/08/2024 6:27:08 AM (Electronically Signed)
--- NOTE | 2024-09-08 04:33 | CRLHL7_ITS ---
For Patients: As a result of the Century Cures Act, medical imaging exams and procedure reports are released immediately into your electronic medical record. You may view this report before your referring provider. If you have questions, please contact your health care provider. INDICATION: Fall. TECHNIQUE: CT cervical spine without contrast. COMPARISON: MRI cervical spine April 2020 FINDINGS: No acute vertebral compression fracture or traumatic malalignment. Minimal anterolisthesis of C4 over C5, similar to previous MRI. Bilateral occipital condyles are intact. Atlantooccipital and atlanto odontoid interval is maintained. Multilevel mild degenerative changes of the spine with reduction of intervertebral disc height at C6-7 and C7-T1 levels with multilevel uncovertebral and facet arthropathy. No paravertebral hematoma or fluid collection. Biapical pleural thickening. IMPRESSION: Multi-level degenerative changes of the cervical spine without acute traumatic injury. Please note that all CT scans at this facility use dose modulation, iterative reconstruction, and/or weight-based dosing when appropriate to reduce radiation dose to as low as reasonably achievable. Dictated by Bruno Ho MD @ 09/08/2024 6:46:00 AM (Electronically Signed)
--- NOTE | 2024-09-08 04:41 | ED_ITS ---
HPI - General Adult General Chief complaint: Fall/Minor Trauma Stated complaint: Fall Time Seen by Provider: 09/08/24 04:08 Source: patient Mode of arrival: EMS Limitations: no limitations History of Present Illness HPI narrative: 74-year-old female with history of Parkinson's presents the emergency department after mechanical fall in her home. Reports that she was a little uncomfortable in bed at 3:00 a.m.. She decided she would get up and go to living room to sit in her recliner. She did not turn on the lights and remembers tripping over something she could not see and landing on the ground. No loss of consciousness. Hit her left forehead area and right hip area. Has tenderness in both areas. Was able to get herself up and call 911 for help. No neurological deficits. Does have a headache. She is currently anticoagulated because of a recent total right hip arthroplasty with twice daily aspirin. No other anticoagulants. Those notes are reviewed. No fever. Has had a cough for the past 2 days. Denies a history of COPD but she did smoke for 40 years. Does not have nebulizer or inhalers at home. Low O2 sats noted by EMS as well. No obvious deformity noted to the hip. Did not try any interventions prior to coming to ED. Postoperative course had otherwise been going well. Past medical history notable for Parkinson's disease, hypertension, depression, anxiety. Home meds reviewed, do seem accurate as listed. Current nonsmoker but smoked for 40 years. Denies alcohol intake. ROS is notable for headache, right hip pain and cough as stated above. Otherwise denies times 12 systems. Related Data Home Medications ?Medication ?Instructions ?Recorded ?Confirmed aspirin 81 mg tablet,delayed 81 mg PO HS 05/20/22 09/08/24 release carbidopa 25 mg-levodopa 100 mg 1 tab PO TID 05/20/22 09/08/24 tablet mecobalamin (vitamin B12) 5,000 5,000 tab PO DAILY 05/20/22 09/08/24 mcg disintegrating tablet gabapentin 300 mg capsule 900 mg PO HS 06/02/22 09/08/24 cetirizine 10 mg capsule (All Day 20 mg PO BID PRN 10/12/22 09/08/24 Allergy (cetirizine)) latanoprost 0.005 % eye drops 1 drp ophthalmic (eye) HS 04/26/24 09/08/24 chlorthalidone 25 mg tablet 12.5 mg PO DAILY 08/13/24 09/08/24 clonazepam 0.5 mg tablet 0.5 mg PO HS 08/13/24 09/08/24 duloxetine 60 mg capsule,delayed 60 mg PO DAILY 08/13/24 09/08/24 release gabapentin 300 mg capsule 600 mg PO QAM 08/13/24 09/08/24 pravastatin 40 mg tablet 40 mg PO HS 08/13/24 09/08/24 Previous Rx's ?Medication ?Instructions ?Recorded omeprazole 40 mg capsule,delayed 40 mg PO DAILY #90 caps 01/26/24 release meloxicam 15 mg tablet 15 mg PO DAILY #90 tabs 04/04/24 bupropion HCl 300 mg 24 hr tablet, 300 mg PO QAM #90 tabs 07/03/24 extended release lisinopril 40 mg tablet 40 mg PO DAILY #90 tabs 08/01/24 acetaminophen 500 mg capsule 500 - 1,000 mg (1 - 2 x 500 mg) PO 08/14/24 Q6H PRN #100 caps aspirin 81 mg tablet,delayed 81 mg PO BID #50 tabs 08/14/24 release Allergies Allergy/AdvReac Type Severity Reaction Status Date / Time No Known Allergies Allergy Unknown Verified 08/21/24 10:52 [facility] Medical History Essential tremor ?G25.0 - Essential tremor (ICD-10) Gastroesophageal reflux disease ?K21.9 - Gastro-esophageal reflux disease without esophagitis (ICD-10) Osteopenia ?M85.80 - Other specified disorders of bone density and structure, unspecified site (ICD-10) Peripheral neuropathy ?G62.9 - Polyneuropathy, unspecified (ICD-10) Scoliosis ?M41.9 - Scoliosis, unspecified (ICD-10) Stage 3 chronic kidney disease ?N18.30 - Chronic kidney disease, stage 3 unspecified (ICD-10) Systolic murmur of aorta ?I35.8 - Other nonrheumatic aortic valve disorders (ICD-10) Atopic dermatitis ?L20.9 - Atopic dermatitis, unspecified (ICD-10) Parkinsonism ?G20 - Parkinson's disease (ICD-10) Cobalamin deficiency ?E53.8 - Deficiency of other specified B group vitamins (ICD-10) Depression ?F32.A - Depression, unspecified (ICD-10) Hyperlipidemia ?E78.5 - Hyperlipidemia, unspecified (ICD-10) Hypertension ?I10 - Essential (primary) hypertension (ICD-10) Tendinitis involving right hip abductors ?M76.891 - Other specified enthesopathies of right lower limb, excluding foot (ICD-10) Greater trochanteric bursitis of right hip ?M70.61 - Trochanteric bursitis, right hip (ICD-10) Osteoarthritis ?M19.90 - Unspecified osteoarthritis, unspecified site (ICD-10) Insomnia ?G47.00 - Insomnia, unspecified (ICD-10) Chronic back pain ?M54.9 - Dorsalgia, unspecified (ICD-10) ?G89.29 - Other chronic pain (ICD-10) New onset type 2 diabetes mellitus ?E11.9 - Type 2 diabetes mellitus without complications (ICD-10) Avascular necrosis of bone of right hip ?M87.051 - Idiopathic aseptic necrosis of right femur (ICD-10) Incontinence of feces ?R15.9 - Full incontinence of feces (ICD-10) Familial heart disease ?I51.89 - Other ill-defined heart diseases (ICD-10) Candidal intertrigo ?B37.2 - Candidiasis of skin and nail (ICD-10) Surgical History History of lumbar fusion ?Z98.1 - Arthrodesis status (ICD-10) History of left hip hemiarthroplasty (11/24/22) ?Z96.642 - Presence of left artificial hip joint (ICD-10) Status post appendectomy ?Z90.49 - Acquired absence of other specified parts of digestive tract (ICD- 10) History of rotator cuff surgery ?Z98.890 - Other specified postprocedural states (ICD-10) History of laminectomy ?Z98.890 - Other specified postprocedural states (ICD-10) History of finger joint replacement ?Z96.698 - Presence of other orthopedic joint implants (ICD-10) History of colonoscopy ?Z98.890 - Other specified postprocedural states (ICD-10) Family History Mother Family history of stroke or transient ischemic attack in mother Social History Narrative: Does not use illicit drugs Non-smoker What is your current living situation?: I presently have a place to live Problems where you live: no known problems Problems where you live details: NA In the past 12 months, utilities in danger of being shut off: no In past 12 months, lack of transportation kept you from medical appts, meetings, work, or getting things needed for daily living: no In the past 12 mos, have been you worried that your food would run out before you had money to buy more?: never true In the past 12 mos, the food you bought just didn't last and you didn't have money to buy more?: never true Highest level of school completed/degree received: some college, no degree Smoking Status: Former smoker What tobacco products do you use: cigarettes Smoking quit date/years: <= 15 years ago Do you use any of these nicotine containing products: None Second hand tobacco smoke exposure: No How often do you have a drink containing alcohol: 4 or more times a week Alcohol type: wine How many standard drinks containing alcohol do you have on a typical day: 1 or 2 How often do you have six or more drinks on one occasion: Never AUDIT-C Alcohol total score: 4 Non-prescribed substance use: denies use Caffeine: Yes (ice tea) How often does anyone, including family, friends and others, physically hurt you : never How often does anyone, including family, friends and others, insult or talk down to you: never How often does anyone, including family, friends and others, threaten you with harm: never How often does anyone, including family, friends and others, scream or curse at you: never service: No Exam Const: Vital Signs, click to edit/add: Vital Signs - 24 hr 09/08/24 04:03 09/08/24 04:17 09/08/24 05:34 Temperature 99.0 F Pulse Rate 73 Pulse Rate [Left P ulse Oximeter] 79 Respiratory Rate 22 Blood Pressure 114/60 Blood Pressure [Ri ght Upper Arm] 103/54 L Pulse Oximetry 89 80 L 100 Oxygen Delivery Me thod Nasal Cannula Room Air Oxygen Flow Rate 4 09/08/24 05:35 09/08/24 05:45 09/08/24 06:00 Temperature Pulse Rate 73 71 76 Pulse Rate [Left P ulse Oximeter] Respiratory Rate Blood Pressure Blood Pressure [Ri ght Upper Arm] Pulse Oximetry 100 94 95 Oxygen Delivery Me thod Oxygen Flow Rate 09/08/24 06:02 09/08/24 06:15 09/08/24 06:30 Temperature Pulse Rate 75 77 76 Pulse Rate [Left P ulse Oximeter] Respiratory Rate Blood Pressure 118/69 Blood Pressure [Ri ght Upper Arm] Pulse Oximetry 94 96 95 Oxygen Delivery Me thod Oxygen Flow Rate 09/08/24 06:32 09/08/24 06:45 09/08/24 07:00 Temperature Pulse Rate 77 78 75 Pulse Rate [Left P ulse Oximeter] Respiratory Rate Blood Pressure 129/67 Blood Pressure [Ri ght Upper Arm] Pulse Oximetry 96 95 94 Oxygen Delivery Me thod Oxygen Flow Rate 09/08/24 07:02 09/08/24 07:15 09/08/24 07:30 Temperature Pulse Rate 76 77 75 Pulse Rate [Left P ulse Oximeter] Respiratory Rate Blood Pressure 123/64 Blood Pressure [Ri ght Upper Arm] Pulse Oximetry 96 100 98 Oxygen Delivery Me thod Oxygen Flow Rate 09/08/24 07:32 09/08/24 07:33 09/08/24 07:33 Temperature Pulse Rate 75 80 Pulse Rate [Left P ulse Oximeter] Respiratory Rate Blood Pressure 123/60 Blood Pressure [Ri ght Upper Arm] Pulse Oximetry 95 94 93 Oxygen Delivery Me thod Nasal Cannula Oxygen Flow Rate 2 09/08/24 07:45 09/08/24 08:00 09/08/24 08:02 Temperature Pulse Rate 76 77 77 Pulse Rate [Left P ulse Oximeter] Respiratory Rate Blood Pressure 121/70 Blood Pressure [Ri ght Upper Arm] Pulse Oximetry 94 94 93 Oxygen Delivery Me thod Oxygen Flow Rate 09/08/24 08:15 09/08/24 08:30 09/08/24 08:32 Temperature Pulse Rate 77 77 86 Pulse Rate [Left P ulse Oximeter] Respiratory Rate Blood Pressure 129/65 Blood Pressure [Ri ght Upper Arm] Pulse Oximetry 94 94 92 Oxygen Delivery Me thod Oxygen Flow Rate Documenting provider has reviewed patient's vital signs: yes Common normals: no apparent distress and oriented x3 General appearance: cooperative and well kempt HENMT: Other: No skull deformity. Has bruising around left orbit. Normal extraocular movement. Can open and close live without difficulty. Dentition without signs of injury. Oropharynx with acyanotic lips, moist membranes, normal tongue. Normal appearance of facial bones and nose. Eye: Common normals: PERRL, EOMs intact bilaterally and conjunctivae normal Conjunctiva: conjunctiva(e) normal Pupil: PERRL Neck & C-Spine: Common normals: full ROM and no lymphadenopathy Cervical spine: cervical ROM normal; no cervical spine tenderness Chest: Common normals: inspection of chest normal Resp: Common normals: normal respiratory effort and no retractions Effort & inspection: able to speak in complete sentences Other: Coarse expiratory wheeze bilaterally. Mild prolongation of expiration. No crackles. Cardio: Common normals: regular rate, regular rhythm, S1 normal heart sound, S2 normal heart sound and no murmurs Rate: regular rate Rhythm: regular rhythm Heart sounds: S1 normal and S2 normal GI: Common normals: Normal to inspection, nondistended, normoactive bowel sounds present, soft to palpation, non-tender, no hepatosplenomegaly and no masses Palpation: soft and no hepatosplenomegaly Extremity: Other: Recent incision on right hip consistent with total hip arthroplasty as described. No redness, drainage or significant swelling. No deformity. Has some rigidity to her muscle movements but relatively normal range of motion in hip with no point bony tenderness. Neuro: Common normals: oriented x3, CN's II-XII intact bilaterally and moves all extremities Other: Rigidity consistent with Parkinson's. Psych: Common normals: cooperative Appearance: well kempt Attitude: engaged Insight: insight good Judgement: judgment good Skin: Common normals: no rashes or lesions noted General skin exam: no rashes or lesions noted Course Course ED Course: 74-year-old female with mechanical fall subsequent mild head injury and right hip pain. Potential for intracranial hemorrhage, concussion, right hip fracture, dislocation of hip. Has low oxygen levels. Most likely COPD ex acerbation in the setting of viral illness but cannot exclude rib fracture, a cardiomyopathy, pulmonary embolism, pneumonia, amongst others. She is not tachycardic and does not take beta-blockers that would mask list. Will treat with supplemental oxygen, placed on oximetry. Start azithromycin for suspected COPD exacerbation. Chest x-ray, head and C-spine CT, right hip x-ray. Will likely need hospitalization for her COPD exacerbation due to hypoxia. Await findings. Reevaluation(s) Time of Reevaluation #1: 08:21 Reevaluation #1: Patient is feeling a little bit better after the 2nd neb. Counseled on findings. Borderline troponins of undetermined significance. EKGs are perfectly stable though. Counseled patient that I do think she is be admitted for COPD exacerbation and respiratory failure but I think that there is probably not acute coronary syndrome going on right now. Nonetheless, it gets really important that we get an echo and learn a little bit more about her heart with these borderline troponins and continue to trend them. Patient was in agreement with this. Spoke with hospitalist who accepts admission. Echo ordered. Would need to consult Cardiology of troponins continue to elevate. Patient remains asymptomatic to any chest pain or symptoms at rest. Is already taking appropriate anti-platelet agents. Vital Signs Vital signs: Initial Vital Signs Respiratory Effort Normal, Spontaneous, Non-Labored 09/08/24 04:03 Respiratory Depth Normal 09/08/24 04:03 Respiratory Pattern Normal 09/08/24 04:03 Pulse Oximetry 89 09/08/24 04:03 Oxygen Delivery Method Nasal Cannula 09/08/24 04:03 Oxygen Flow Rate 4 09/08/24 04:03 Vital Signs Pulse Oximetry 89 09/08/24 04:03 Oxygen Delivery Method Nasal Cannula 09/08/24 04:03 Oxygen Flow Rate 4 09/08/24 04:03 Temperature 98.0 F 09/08/24 23:23 Pulse Rate 68 09/08/24 23:23 Respiratory Rate 18 09/08/24 23:23 Blood Pressure 135/71 09/08/24 23:23 Pulse Oximetry 97 09/08/24 23:23 Oxygen Delivery Method Nasal Cannula 09/08/24 23:23 Oxygen Flow Rate 0.5 09/08/24 23:23 Medications Administered Medications: Generic Name Dose Route Start Last Admin Trade Name Freq PRN Reason Stop Dose Admin Acetaminophen 1,000 mg 09/08/24 15:06 09/08/24 15:09 Acetaminophen 500 Mg Tablet PO 1,000 mg Q6H PRN Administration Albuterol/Ipratropium 1 neb 09/08/24 11:24 09/08/24 23:20 Iprat-Albut 0.5-2.5 Mg/3 Ml Neb IH 1 neb Q6H MEDARDO Administration Bupropion HCl 300 mg 09/08/24 11:24 09/08/24 13:32 Bupropion Xl 150 Mg Tablet PO 300 mg QAM MEDARDO Administration Carbidopa/Levodopa 1 tab 09/08/24 14:00 09/08/24 20:57 Carbidopa-Levodopa 25-100 Tablet PO 1 tab TID MEDARDO Administration Clonazepam 0.5 mg 09/08/24 21:00 09/08/24 20:57 Clonazepam 0.5 Mg Tablet PO 0.5 mg HS MEDARDO Administration Doxycycline Hyclate 100 mg 09/08/24 21:00 09/08/24 20:56 Doxycycline Hyclate 100 Mg PO 100 mg BID MEDARDO Administration Gabapentin 900 mg 09/08/24 21:00 09/08/24 20:56 Gabapentin 300 Mg Capsule PO 900 mg HS MEDARDO Administration Gabapentin 600 mg 09/08/24 11:24 09/08/24 13:32 Gabapentin 300 Mg Capsule PO 600 mg QAM MEDARDO Administration Guaifenesin 1,200 mg 09/08/24 11:24 09/08/24 20:56 Guaifenesin 600 Mg Tab.Er.12h PO 1,200 mg BID MEDARDO Administration Latanoprost 1 drop 09/08/24 21:00 09/08/24 20:56 Latanoprost 0.005% Ophth EYE-BOTH 1 drop HS MEDARDO Administration Loperamide HCl 4 mg 09/08/24 14:10 09/08/24 15:08 Loperamide Hcl 2 Mg Capsule PO 4 mg DAILY MEDARDO Administration Pravastatin Sodium 40 mg 09/08/24 21:00 09/08/24 20:56 Pravastatin Sodium 20 Mg Tablet PO 40 mg HS MEDARDO Administration Sodium Chloride 5 ml 09/08/24 21:00 09/08/24 23:20 Sodium Chloride 0.9 % (Flush) 10 Ml Syringe IVF 5 ml BID MEDARDO Administration Discontinued Medications Generic Name Dose Route Start Last Admin Trade Name Freq PRN Reason Stop Dose Admin Albuterol 2.5 mg 09/08/24 06:55 09/08/24 07:03 Albuterol Sulfate 2.5 Mg/3 Ml Vial.Neb NEB 09/08/24 06:56 2.5 mg ONCE ONE Administration Albuterol/Ipratropium 1 [facility] 09/08/24 04:33 09/08/24 05:25 Iprat-Albut 0.5-2.5 Mg/3 Ml Neb 09/08/24 04:34 1 neb ONCE ONE Administration Aspirin 324 mg 09/08/24 08:22 09/08/24 08:34 Aspirin 81 Mg Tab.Chew PO 09/08/24 08:23 324 mg ONCE ONE Administration Azithromycin 500 mg 09/08/24 04:33 09/08/24 05:25 Azithromycin 250 Mg Tablet PO 09/08/24 04:34 500 mg ONCE ONE Administration Prednisone 40 mg 09/08/24 06:55 09/08/24 07:03 Prednisone 20 Mg Tablet PO 09/08/24 06:56 40 mg ONCE ONE Administration Medical Decision Making Lab Data Lab results reviewed: Yes I reviewed the patient's lab results Lab results narrative: Mildly elevated troponin. No prior comparison. No EKG changes. Hemoglobin stable for patient. No significant electrolyte abnormalities. Creatinine stable. Update: 2nd troponin 0.1 Labs: Lab Results 09/08/24 09/08/24 09/08/24 Range/Units 05:30 06:23 07:24 WBC 5.03 (4.50-11.00) K/uL RBC 2.85 L (4.00-5.20) m/uL Hgb 9.0 L (12.0-16.0) gm/dL Hct 28.6 L (33.0-51.0) % MCV 100 (80-100) fL MCH 32 (26-34) pg MCHC 32 (32-36) gm/dL RDW Coeff of Clementine 12.5 (11.5-15.5) % Plt Count 190 (140-440) K/uL Neut % (Auto) 78.4 H (42.0-72.0) % Lymph % (Auto) 9.5 L (20-44) % Clark % (Auto) 8.7 (0.0-11.0) % Eos % (Auto) 1.8 (0.0-7.0) % Baso % (Auto) 0.6 (0.0-3.0) % Neut # (Auto) 3.90 (1.7-7.0) K/uL Lymph # (Auto) 0.50 L (0.90-2.90) K/uL Clark # (Auto) 0.40 (0.00-0.90) K/UL Eos # (Auto) 0.09 (0.00-0.50) K/uL Baso # (Auto) 0.03 (0.00-0.30) K/uL Abs Immat Gran (auto) 0.05 (0.00-0.30) K/uL Imm/Tot Granulo (auto) 1.0 % VBG pH 7.374 (7.32-7.43) VBG pCO2 50 (40-50) mmHG VBG pO2 61.2 H (25-47) mmHG VBG HCO3 29 H (21-28) mmol/L Sodium 132 L (135-149) mmol/L Potassium 4.2 (3.6-5.1) mmol/L Chloride 97 (96-114) mmol/L Carbon Dioxide 29 (20-32) mmol/L Anion Gap 6 L (7-15) mEq/L BUN 15 (7-30) mg/dL Creatinine 1.2 (0.5-1.5) mg/dL Estimated Creat Clear 37.01 Estimated GFR 48 ml/min Glucose 127 H (60-115) mg/dL Lactate 1.6 (0.5-1.9) mmol/L Calcium 8.3 L (8.4-10.6) mg/dL C-Reactive Protein 3.1 H (0.5-1.0) mg/dL NT-Pro-B Natriuret Pep 1480 pg/mL Procalcitonin 0.08 (<0.50) ng/mL Urine Color (Yellow) Urine Appearance (Clear) Urine pH (5.0-8.5) Ur Specific Henriette (1.000-1.030) Urine Protein (Negative) Urine Glucose (UA) (Negative) Urine Ketones (Negative) Urine Blood (Negative) Urine Nitrite (Negative) Urine Bilirubin (Negative) Urine Urobilinogen (0.2-1.0) Ur Leukocyte Esterase (Negative) Urine L. pneumophilia Ag (Negative) Urine Strep pneumoniae Ag (Negative) SARS-CoV-2 (PCR) Negative SARS-CoV-2 (Negative) Influenza Type A (PCR) Negative PCR FLU A (Negative) Influenza Type B (PCR) Negative PCR FLU B (Negative) RSV (PCR) Negative PCR RSV (Negative) Lab Acknowledgement Test Added POC Troponin I 0.07 H 0.10 H (0.01-0.04) ng/ml 09/08/24 Range/Units 08:45 WBC (4.50-11.00) K/uL RBC (4.00-5.20) m/uL Hgb (12.0-16.0) gm/dL Hct (33.0-51.0) % MCV (80-100) fL MCH (26-34) pg MCHC (32-36) gm/dL RDW Coeff of Clementine (11.5-15.5) % Plt Count (140-440) K/uL Neut % (Auto) (42.0-72.0) % Lymph % (Auto) (20-44) % Clark % (Auto) (0.0-11.0) % Eos % (Auto) (0.0-7.0) % Baso % (Auto) (0.0-3.0) % Neut # (Auto) (1.7-7.0) K/uL Lymph # (Auto) (0.90-2.90) K/uL Clark # (Auto) (0.00-0.90) K/UL Eos # (Auto) (0.00-0.50) K/uL Baso # (Auto) (0.00-0.30) K/uL Abs Immat Gran (auto) (0.00-0.30) K/uL Imm/Tot Granulo (auto) % VBG pH (7.32-7.43) VBG pCO2 (40-50) mmHG VBG pO2 (25-47) mmHG VBG HCO3 (21-28) mmol/L Sodium (135-149) mmol/L Potassium (3.6-5.1) mmol/L Chloride (96-114) mmol/L Carbon Dioxide (20-32) mmol/L Anion Gap (7-15) mEq/L BUN (7-30) mg/dL Creatinine (0.5-1.5) mg/dL Estimated Creat Clear Estimated GFR ml/min Glucose (60-115) mg/dL Lactate (0.5-1.9) mmol/L Calcium (8.4-10.6) mg/dL C-Reactive Protein (0.5-1.0) mg/dL NT-Pro-B Natriuret Pep pg/mL Procalcitonin (<0.50) ng/mL Urine Color Yellow (Yellow) Urine Appearance Clear (Clear) Urine pH 7.0 (5.0-8.5) Ur Specific Henriette 1.015 (1.000-1.030) Urine Protein Negative (Negative) Urine Glucose (UA) Negative (Negative) Urine Ketones Negative (Negative) Urine Blood Negative (Negative) Urine Nitrite Negative (Negative) Urine Bilirubin Negative (Negative) Urine Urobilinogen 0.2 (0.2-1.0) Ur Leukocyte Esterase Negative (Negative) Urine L. pneumophilia Ag L. pneumo Negative (Negative) Urine Strep pneumoniae Ag S. pneumo Negative (Negative) SARS-CoV-2 (PCR) (Negative) Influenza Type A (PCR) (Negative) Influenza Type B (PCR) (Negative) RSV (PCR) (Negative) Lab Acknowledgement POC Troponin I (0.01-0.04) ng/ml Imaging Data Right hip x-ray: Attestation: I have reviewed the pertinent imaging results. My impression: Normal total hip arthroplasty Radiologist's impression: Impression: Unchanged alignment of the right total hip arthroplasty with no periprosthetic fracture. Dictated by Bruno Ho MD @ 09/08/2024 6:27:[address] scan - head: Attestation: I have reviewed the pertinent imaging results. My impression: Normal head CT for age, no skull fracture or bleed Radiologist's impression: IMPRESSION: Chronic changes without acute intracranial traumatic injury. Please note that all CT scans at this facility use dose modulation, iterative reconstruction, and/or weight-based dosing when appropriate to reduce radiation dose to as low as reasonably achievable. Dictated by Bruno Ho MD @ 09/08/2024 6:41:07 AM Chest x-ray: Attestation: I have reviewed the pertinent imaging results. My impression: Impressive prior spinal fixation but no signs of pneumothorax, rib fracture, pulmonary edema, pneumonia or pleural effusion Radiologist's impression: FINDINGS/ IMPRESSION: No focal consolidation, effusion or pneumothorax. Cardiac size is within normal limit without pulmonary edema. Extensive posterior spinal fusion. CT cervical spine: Attestation: I have reviewed the pertinent imaging results. My impression: Degenerative changes but no signs of fracture Radiologist's impression: IMPRESSION: Multi-level degenerative changes of the cervical spine without acute traumatic injury. Please note that all CT scans at this facility use dose modulation, iterative reconstruction, and/or weight-based dosing when appropriate to reduce radiation dose to as low as reasonably achievable. Dictated by Bruno Ho MD @ 09/08/2024 6:46:00 AM ECG Data Attestation: I personally reviewed and interpreted this ECG as follows: Prior ECG tracings: available for review Interpretation: Sinus rhythm, rate 81. Comparison 08/01/2024. Normal intervals and axis. There are some chronic septal changes that are unchanged from last month. Otherwise no acute ischemic changes. Discharge Plan Discharge Clinical Impression: Acute respiratory failure with hypoxemia, Acute exacerbation of chronic obstructive pulmonary disease, Elevated troponin level
--- NOTE | 2024-09-08 04:43 | CRLHL7_ITS ---
For Patients: As a result of the Century Cures Act, medical imaging exams and procedure reports are released immediately into your electronic medical record. You may view this report before your referring provider. If you have questions, please contact your health care provider. INDICATION: Hypoxia, cough. TECHNIQUE: Chest 2 views. COMPARISON: X-ray chest June 23, 2019 FINDINGS/ IMPRESSION: No focal consolidation, effusion or pneumothorax. Cardiac size is within normal limit without pulmonary edema. Extensive posterior spinal fusion. Dictated by Bruno Ho MD @ 09/08/2024 6:28:24 AM (Electronically Signed)
[2024-09-08] MEDS: IPRAT-ALBUT 0.5-2.5 MG/3 ML NEB 1 NEB IH ×4 (05:25→23:20)
[2024-09-08] MEDS: AZITHROMYCIN 250 MG TABLET 500 MG PO (05:25)
[2024-09-08 05:46] LABS: HCO3 VBG 29 mmol/L (21-28); Lactate* 1.6 mmol/L (0.5-1.9); PCO2 VBG 50 mmHG (40-50); PO2 VBG 61.2 mmHG (25-47); pH VBG 7.374 (7.32-7.43)
[2024-09-08 05:59] LABS: Troponin, Point-of-Care* 0.07 ng/ml (0.01-0.04)
[2024-09-08 06:01] LABS: Basophils Absolute Auto 0.03 K/uL (0.00-0.30); Basophils Percent Auto 0.6 % (0.0-3.0); Chloride* 97 mmol/L (96-114); Eosinophils Absolute Auto 0.09 K/uL (0.00-0.50); Eosinophils Percent Auto 1.8 % (0.0-7.0); Hematocrit 28.6 % (33.0-51.0); Immature Granulocytes Abs Auto 0.05 K/uL (0.00-0.30); Lymphocytes Percent Auto 9.5 % (20-44); Mean Corpuscular HGB Conc 32 gm/dL (32-36); Mean Corpuscular Hemoglobin 32 pg (26-34); Mean Corpuscular Volume 100 fL (80-100); Monocytes Percent Auto 8.7 % (0.0-11.0); Neutrophils Percent Auto 78.4 % (42.0-72.0); Platelet Count* 190 K/uL (140-440); Potassium* 4.2 mmol/L (3.6-5.1); RDW Coefficient of Variation % 12.5 % (11.5-15.5); Red Blood Count 2.85 m/uL (4.00-5.20); Sodium* 132 mmol/L (135-149); White Blood Count* 5.03 K/uL (4.50-11.00)
[2024-09-08 06:04] LABS: Creatinine* 1.2 mg/dL (0.5-1.5); Est. Creatinine Clearance* 37.01; Estimated Glomerular Filt Rate 48 ml/min
[2024-09-08 06:05] LABS: Anion Gap 6 mEq/L (7-15); Blood Urea Nitrogen* 15 mg/dL (7-30); Calcium* 8.3 mg/dL (8.4-10.6); Carbon Dioxide* 29 mmol/L (20-32); Glucose* 127 mg/dL (60-115)
[2024-09-08 06:07] LABS: Slide Review Reflex No
[2024-09-08 06:08] LABS: C Reactive Protein* 3.1 mg/dL (0.5-1.0)
[2024-09-08 06:20] LABS: PCR FLU A Negative PCR FLU A (Negative); PCR FLU B Negative PCR FLU B (Negative); PCR RSV Negative PCR RSV (Negative); SARS PCR* Negative SARS-CoV-2 (Negative)
[2024-09-08 07:01] LABS: NT Pro B Type NatriureticPept* 1480 pg/mL
[2024-09-08] MEDS: predniSONE 20 MG TABLET 40 MG PO (07:03)
[2024-09-08] MEDS: ALBUTEROL SULFATE 2.5 MG/3 ML VIAL.NEB NEB (07:03)
[2024-09-08] MEDS: ASPIRIN 81 MG TAB.CHEW 324 MG PO (08:34)
[2024-09-08 09:55] LABS: Appearance Urine Clear (Clear); Bilirubin Urine Negative (Negative); Blood Urine Negative (Negative); Color Urine Yellow (Yellow); Glucose Urine Negative (Negative); Ketones Urine Negative (Negative); Leukocyte Esterase Urine Negative (Negative); Nitrite Urine Negative (Negative); Protein Urine Negative (Negative); Specific Gravity Urine 1.015 (1.000-1.030); Urobilinogen Urine 0.2 (0.2-1.0)
[2024-09-08 12:15] LABS: Troponin I* 0.13 ng/mL (0.01-0.04)
[2024-09-08 12:36] LABS: Legionella pneumo Ag Urine L. pneumo Negative (Negative); S pneumo Ag Urine S. pneumo Negative (Negative)
[2024-09-08] MEDS: GABAPENTIN 300 MG CAPSULE 600 MG PO (13:32)
[2024-09-08] MEDS: buPROPion XL 150 MG TABLET 300 MG PO (13:32)
[2024-09-08] MEDS: guaiFENesin 600 MG TAB.ER.12H 1200 MG PO ×2 (13:32→20:56)
[2024-09-08] MEDS: CARBIDOPA-LEVODOPA 25-100 TABLET 1 TAB PO ×2 (13:32→20:57)
--- NOTE | 2024-09-08 13:54 | PM.IMHP1 ---
Hospitalist- H&P: HPI History of Present Illness Date Seen: 09/08/24 Chief complaint: Fall Narrative: Jerica Layton is a 74 year old female past medical history significant for new onset type 2 diabetes mellitus, chronic back pain, osteoarthritis, insomnia, chronic diarrhea, hypertension, hyperlipidemia, essential tremors, parkinsonism, CKD stage 3, peripheral neuropathy, GERD is admitted to the medical floor from the ED for further management acute hypoxic respiratory failure. Patient presented to the ED following a mechanical fall at home. She got up in the middle the night to move from her bed to her recliner, did not turn the lights on, tripped over something on the floor. She struck the left side of her head and landed on her hip. Radiologic findings are negative in the ED. currently has a mild frontal headache. Denies visual changes. Has no nausea or vomiting. Has a history of chronic diarrhea managed with Imodium daily. Denies recent fevers. Admits to chest congestion over the last several days with a productive cough. Denies chest pain or tightness. Admits to recent increasing shortness of breath. Is not oxygen dependent at home. Had been a heavy smoker previously but quit, restarting smoking while her was ill this past year. She continues to smoke 1 cigarette daily. Status post right JACQUI, 08/13/2024. In the ED, oxygen saturation noted to be 80% on room air. Breathing and saturations improved following 2 nebs in the ED. she received 1 dose of azithromycin as well as prednisone. Patient lives alone, her in May. Smokes 1 cigarette daily per report. Drinks 2 glasses of wine nightly. Denies history of withdrawals or seizures. PCP is Rogers Ho. Review of Systems Narrative: REVIEW OF SYSTEMS: Complete review of systems performed and negative unless otherwise stated in HPI or below. [facility] Medical History Essential tremor ?G25.0 - Essential tremor (ICD-10) Gastroesophageal reflux disease ?K21.9 - Gastro-esophageal reflux disease without esophagitis (ICD-10) Osteopenia ?M85.80 - Other specified disorders of bone density and structure, unspecified site (ICD-10) Peripheral neuropathy ?G62.9 - Polyneuropathy, unspecified (ICD-10) Scoliosis ?M41.9 - Scoliosis, unspecified (ICD-10) Stage 3 chronic kidney disease ?N18.30 - Chronic kidney disease, stage 3 unspecified (ICD-10) Systolic murmur of aorta ?I35.8 - Other nonrheumatic aortic valve disorders (ICD-10) Atopic dermatitis ?L20.9 - Atopic dermatitis, unspecified (ICD-10) Parkinsonism ?G20 - Parkinson's disease (ICD-10) Cobalamin deficiency ?E53.8 - Deficiency of other specified B group vitamins (ICD-10) Depression ?F32.A - Depression, unspecified (ICD-10) Hyperlipidemia ?E78.5 - Hyperlipidemia, unspecified (ICD-10) Hypertension ?I10 - Essential (primary) hypertension (ICD-10) Tendinitis involving right hip abductors ?M76.891 - Other specified enthesopathies of right lower limb, excluding foot (ICD-10) Greater trochanteric bursitis of right hip ?M70.61 - Trochanteric bursitis, right hip (ICD-10) Osteoarthritis ?M19.90 - Unspecified osteoarthritis, unspecified site (ICD-10) Insomnia ?G47.00 - Insomnia, unspecified (ICD-10) Chronic back pain ?M54.9 - Dorsalgia, unspecified (ICD-10) ?G89.29 - Other chronic pain (ICD-10) New onset type 2 diabetes mellitus ?E11.9 - Type 2 diabetes mellitus without complications (ICD-10) Avascular necrosis of bone of right hip ?M87.051 - Idiopathic aseptic necrosis of right femur (ICD-10) Incontinence of feces ?R15.9 - Full incontinence of feces (ICD-10) Familial heart disease ?I51.89 - Other ill-defined heart diseases (ICD-10) Candidal intertrigo ?B37.2 - Candidiasis of skin and nail (ICD-10) Surgical History History of lumbar fusion ?Z98.1 - Arthrodesis status (ICD-10) History of left hip hemiarthroplasty (11/24/22) ?Z96.642 - Presence of left artificial hip joint (ICD-10) Status post appendectomy ?Z90.49 - Acquired absence of other specified parts of digestive tract (ICD-10) History of rotator cuff surgery ?Z98.890 - Other specified postprocedural states (ICD-10) History of laminectomy ?Z98.890 - Other specified postprocedural states (ICD-10) History of finger joint replacement ?Z96.698 - Presence of other orthopedic joint implants (ICD-10) History of colonoscopy ?Z98.890 - Other specified postprocedural states (ICD-10) Family History Mother Family history of stroke or transient ischemic attack in mother Social History Narrative: Does not use illicit drugs Non-smoker What is your current living situation?: I presently have a place to live Problems where you live: no known problems Problems where you live details: NA In the past 12 months, utilities in danger of being shut off: no In past 12 months, lack of transportation kept you from medical appts, meetings, work, or getting things needed for daily living: no In the past 12 mos, have been you worried that your food would run out before you had money to buy more?: never true In the past 12 mos, the food you bought just didn't last and you didn't have money to buy more?: never true Highest level of school completed/degree received: some college, no degree Smoking Status: Former smoker What tobacco products do you use: cigarettes Smoking quit date/years: <= 15 years ago Do you use any of these nicotine containing products: None Second hand tobacco smoke exposure: No How often do you have a drink containing alcohol: 4 or more times a week Alcohol type: wine How many standard drinks containing alcohol do you have on a typical day: 1 or 2 How often do you have six or more drinks on one occasion: Never AUDIT-C Alcohol total score: 4 Non-prescribed substance use: denies use Caffeine: Yes (ice tea) How often does anyone, including family, friends and others, physically hurt you: never How often does anyone, including family, friends and others, insult or talk down to you: never How often does anyone, including family, friends and others, threaten you with harm: never How often does anyone, including family, friends and others, scream or curse at you: never service: No Meds Home Medications and Allergies Home Medications ?Medication ?Instructions ?Recorded ?Confirmed ?Type aspirin 81 mg tablet,delayed 81 mg PO HS 05/20/22 09/08/24 History release carbidopa 25 mg-levodopa 100 mg 1 tab PO TID 05/20/22 09/08/24 History tablet mecobalamin (vitamin B12) 5,000 5,000 tab PO DAILY 05/20/22 09/08/24 History mcg disintegrating tablet gabapentin 300 mg capsule 900 mg PO HS 06/02/22 09/08/24 History cetirizine 10 mg capsule (All Day 20 mg PO BID PRN 10/12/22 09/08/24 History Allergy (cetirizine)) latanoprost 0.005 % eye drops 1 drp ophthalmic (eye) HS 04/26/24 09/08/24 History chlorthalidone 25 mg tablet 12.5 mg PO DAILY 08/13/24 09/08/24 History clonazepam 0.5 mg tablet 0.5 mg PO HS 08/13/24 09/08/24 History duloxetine 60 mg capsule,delayed 60 mg PO DAILY 08/13/24 09/08/24 History release gabapentin 300 mg capsule 600 mg PO QAM 08/13/24 09/08/24 History pravastatin 40 mg tablet 40 mg PO HS 08/13/24 09/08/24 History Allergies Allergy/AdvReac Type Severity Reaction Status Date / Time No Known Allergies Allergy Unknown Verified 08/21/24 10:52 Exam Narrative: Exam Narrative: PHYSICAL EXAM General: Pleasant, conversant, NAD HEENT: Normocephalic, bruising noted left periorbital area, sclera white, EOMI, oral mucosa moist Cardiovascular: RRR, S1S2. Pulmonary: Diffuse coarse breath sounds with rhonchi and expiratory wheezes throughout Abdominal: Soft, nondistended, NTTP Neurological: Alert, answering questions appropriately, cranial nerves intact, no focal findings Extremities: No gross joint deformity or swelling. AROMI. Neurovascularly intact Skin: Warm, dry. Const: Vital Signs, click to edit/add: Vital Signs - 24 hr 09/08/24 04:03 09/08/24 04:17 09/08/24 05:34 Temperature 99.0 F Pulse Rate 73 Pulse Rate [Left P ulse Oximeter] 79 Respiratory Rate 22 Blood Pressure 114/60 Blood Pressure [Le ft Arm] Blood Pressure [Ri ght Arm] Blood Pressure [Ri ght Upper Arm] 103/54 L Pulse Oximetry 89 80 L 100 Oxygen Delivery Me thod Nasal Cannula Room Air Oxygen Flow Rate 4 09/08/24 05:35 09/08/24 05:45 09/08/24 06:00 Temperature Pulse Rate 73 71 76 Pulse Rate [Left P ulse Oximeter] Respiratory Rate Blood Pressure Blood Pressure [Le ft Arm] Blood Pressure [Ri ght Arm] Blood Pressure [Ri ght Upper Arm] Pulse Oximetry 100 94 95 Oxygen Delivery Me thod Oxygen Flow Rate 09/08/24 06:02 09/08/24 06:15 09/08/24 06:30 Temperature Pulse Rate 75 77 76 Pulse Rate [Left P ulse Oximeter] Respiratory Rate Blood Pressure 118/69 Blood Pressure [Le ft Arm] Blood Pressure [Ri ght Arm] Blood Pressure [Ri ght Upper Arm] Pulse Oximetry 94 96 95 Oxygen Delivery Me thod Oxygen Flow Rate 09/08/24 06:32 09/08/24 06:45 09/08/24 07:00 Temperature Pulse Rate 77 78 75 Pulse Rate [Left P ulse Oximeter] Respiratory Rate Blood Pressure 129/67 Blood Pressure [Le ft Arm] Blood Pressure [Ri ght Arm] Blood Pressure [Ri ght Upper Arm] Pulse Oximetry 96 95 94 Oxygen Delivery Me thod Oxygen Flow Rate 09/08/24 07:02 09/08/24 07:15 09/08/24 07:30 Temperature Pulse Rate 76 77 75 Pulse Rate [Left P ulse Oximeter] Respiratory Rate Blood Pressure 123/64 Blood Pressure [Le ft Arm] Blood Pressure [Ri ght Arm] Blood Pressure [Ri ght Upper Arm] Pulse Oximetry 96 100 98 Oxygen Delivery Me thod Oxygen Flow Rate 09/08/24 07:32 09/08/24 07:33 09/08/24 07:33 Temperature Pulse Rate 75 80 Pulse Rate [Left P ulse Oximeter] Respiratory Rate Blood Pressure 123/60 Blood Pressure [Le ft Arm] Blood Pressure [Ri ght Arm] Blood Pressure [Ri ght Upper Arm] Pulse Oximetry 95 94 93 Oxygen Delivery Me thod Nasal Cannula Oxygen Flow Rate 2 09/08/24 07:45 09/08/24 08:00 09/08/24 08:02 Temperature Pulse Rate 76 77 77 Pulse Rate [Left P ulse Oximeter] Respiratory Rate Blood Pressure 121/70 Blood Pressure [Le ft Arm] Blood Pressure [Ri ght Arm] Blood Pressure [Ri ght Upper Arm] Pulse Oximetry 94 94 93 Oxygen Delivery Me thod Oxygen Flow Rate 09/08/24 08:15 09/08/24 08:30 09/08/24 08:32 Temperature Pulse Rate 77 77 86 Pulse Rate [Left P ulse Oximeter] Respiratory Rate Blood Pressure 129/65 Blood Pressure [Le ft Arm] Blood Pressure [Ri ght Arm] Blood Pressure [Ri ght Upper Arm] Pulse Oximetry 94 94 92 Oxygen Delivery Me thod Oxygen Flow Rate 09/08/24 09:07 09/08/24 09:07 09/08/24 11:24 Temperature 98.3 F Pulse Rate Pulse Rate [Left P ulse Oximeter] 77 Respiratory Rate 18 18 18 Blood Pressure Blood Pressure [Le ft Arm] 139/73 Blood Pressure [Ri ght Arm] Blood Pressure [Ri ght Upper Arm] Pulse Oximetry 92 92 94 Oxygen Delivery Me thod Nasal Cannula Nasal Cannula Nasal Cannula Oxygen Flow Rate 1 1 1.5 09/08/24 11:24 09/08/24 11:24 Temperature 99.1 F Pulse Rate 70 Pulse Rate [Left P ulse Oximeter] 71 Respiratory Rate 18 Blood Pressure Blood Pressure [Le ft Arm] Blood Pressure [Ri ght Arm] 121/61 Blood Pressure [Ri ght Upper Arm] Pulse Oximetry 94 Oxygen Delivery Me thod Nasal Cannula Oxygen Flow Rate 1.5 Hospitalist - H&P: Result Labs Labs: Short CBC 09/08/24 Range/Units 05:30 WBC 5.03 (4.50-11.00) K/uL Hgb 9.0 L (12.0-16.0) gm/dL Hct 28.6 L (33.0-51.0) % Plt Count 190 (140-440) K/uL BMP 09/08/24 05:30 Sodium 132 L Potassium 4.2 Chloride 97 Carbon Dioxide 29 BUN 15 Creatinine 1.2 Glucose 127 H Calcium 8.3 L Cardiac Enzymes 09/08/24 Range/Units 11:30 Troponin I 0.13 H* (0.01-0.04) ng/mL Urine 09/08/24 Range/Units 08:45 Urine Color Yellow (Yellow) Urine Appearance Clear (Clear) Urine pH 7.0 (5.0-8.5) Ur Specific [place] 1.015 (1.000-1.030) Urine Protein Negative (Negative) Urine Glucose (UA) Negative (Negative) Imaging Chest x-ray: Attestation: I have reviewed the pertinent imaging results. Radiologist's impression: Chest 2 views. COMPARISON: X-ray chest June 23, 2019 FINDINGS/ IMPRESSION: No focal consolidation, effusion or pneumothorax. Cardiac size is within normal limit without pulmonary edema. Extensive posterior spinal fusion. Right hip and pelvis: Attestation: I have reviewed the pertinent imaging results. Radiologist's impression: Stable postoperative changes related to right total hip arthroplasty and left hip hemiarthroplasty. Extensive postsurgical changes of lumbar spine with bi iliac screw fixation. There is no periprosthetic fracture. No interval change in the arthroplasty. No localized soft tissue swelling about right hip. Impression: Unchanged alignment of the right total hip arthroplasty with no periprosthetic fracture. CT head: Attestation: I have reviewed the pertinent imaging results. Radiologist's impression: No acute intracranial hemorrhage or large vascular territory infarct. No abnormal extra-axial fluid collection. Chronic lacunar infarct in right thalamus. Scattered white matter hypodensities are nonspecific, likely related to chronic microvascular ischemic changes. Paranasal sinuses and mastoid air cells are well pneumatized. Bilateral intra-ocular lens implantation. No calvarial fracture. IMPRESSION: Chronic changes without acute intracranial traumatic injury. Please note that all CT scans at this facility use dose modulation, iterative reconstruction, and/or weight-based dosing when appropriate to reduce radiation dose to as low as reasonably achievable CT C-spine: Attestation: I have reviewed the pertinent imaging results. Radiologist's impression: No acute vertebral compression fracture or traumatic malalignment. Minimal anterolisthesis of C4 over C5, similar to previous MRI. Bilateral occipital condyles are intact. Atlantooccipital and atlanto odontoid interval is maintained. Multilevel mild degenerative changes of the spine with reduction of intervertebral disc height at C6-7 and C7-T1 levels with multilevel uncovertebral and facet arthropathy. No paravertebral hematoma or fluid collection. Biapical pleural thickening. IMPRESSION: Multi-level degenerative changes of the cervical spine without acute traumatic injury. Assessment and Plan Assessment and plan (1) Fall: Problem comment: Mechanical fall after tripping in the dark Resulting in left facial bruising and right hip pain - no acute radiologic findings Given that patient is currently on aspirin b.i.d. postoperatively, continue to monitor for neurological changes with repeat head CT if necessary Hold today's aspirin, restart tomorrow if no new findings PT/OT consults Status: Acute (2) Acute respiratory failure with hypoxemia: Problem comment: Oxygen saturation in ED 80% No leukocytosis, lactate 1.6, CRP 3.1 VBG pH 7.374, pCO2 50, PO2 61, HC03 29 BNP 1480 Triple swab negative CXR without focal consolidation, effusion, pneumothorax. Cardiac size WNL without pulmonary edema Active smoker reporting 1 cigarette daily following a 40 year history No formal diagnosis of asthma, emphysema, COPD - though no previous workup - would benefit following hospital stay Suspect URI, atypical pneumonia given several day history of congestion with productive cough Start doxycycline b.i.d. (receive 1 dose of azithromycin in ED) Continue prednisone 40 mg daily x5 days DuoNebs q.6 hours scheduled, albuterol nebs p.r.n., incentive spirometry, aerobika, Mucinex RT for pulmonary support Echo ordered Status: Acute (3) URI (upper respiratory infection): Problem comment: In setting of acute hypoxic respiratory failure, active smoker Doxycycline, prednisone, Mucinex, nebs Strep pneumo/Legionella negative Procalcitonin ordered Status: Acute (4) Elevated troponin level: Problem comment: Without report of chest pain, no tachycardia, in setting of hypoxia, likely undiagnosed COPD, ischemic demand Initial troponin 0.07 -> 0.10 -> 0.13. Trend Repeat EKGs NSR Echo ordered Telemetry, orthostatics Status: Acute (5) Chronic diarrhea: Problem comment: Will see GI in late August 2024, early September 2024 - continue Imodium and fiber rich diet Status: Acute (6) Hypertension: Problem comment: Continue home medications Status: Acute (7) Hyperlipidemia: Problem comment: Continue statin Status: Acute (8) Depression: Problem comment: Continue bupropion and duloxetine Continue clonazepam Status: Acute (9) Parkinsonism: Problem comment: Following neurology Continue carbidopa-levodopa Status: Acute (10) Stage 3 chronic kidney disease: Problem comment: Creatinine 1.2, baseline for her Monitor with labs Status: Acute (11) Essential tremor: Problem comment: Chronic, noted Status: Acute (12) Status post total hip replacement, right: Problem comment: Right total hip arthroplasty-anterior approach (08/13/24, Dr. Mcclain) Currently on aspirin 81 mg b.i.d. postoperatively Hip x-ray in ED shows Unchanged alignment of the right total hip arthroplasty with no periprosthetic fracture Hemoglobin 9.0, 9.4 postoperatively. Monitor Status: Acute (13) New onset type 2 diabetes mellitus: Problem comment: A1c 7.1 on 07/03/2024 Not currently on medications. Diet and exercise management currently - has met with Nutrition in June. Is being monitored by PCP Glucose on admission 127. Follow daily glucose while on prednisone Status: Acute Total Time Spent Total Time Spent: Total time spent caring for the patient today was 75 minutes. This includes time spent for the visit reviewing the chart, time spent during the visit, time spent after the visit and documentation and planning in coordination of care.
[2024-09-08 14:40] LABS: Procalcitonin* 0.08 ng/mL (<0.50)
[2024-09-08] MEDS: LOPERAMIDE HCL 2 MG CAPSULE 4 MG PO (15:08)
[2024-09-08] MEDS: ACETAMINOPHEN 500 MG TABLET 1000 MG PO (15:09)
--- NOTE | 2024-09-08 19:10 | PC.NURSE ---
Nursing Care Hours: [id number] pt this shift arrived to unit from ED post fall at home. Large bruise to L eye increased over the shift encircling the eye. Bruise to right elbow and right hand. Mild headache rated 1-2/10, treated with acetaminophen. Bilat PERRLA, equal strength in bilat UE, RLE weaker than L d/t recent hip surgery. New productive cough, green sputum. Afebrile. Intermittent nebs given per schedule. Came up on 2L NC, titrate to 0.5L while sitting up. Does require 1-1.5L NC laying down. Walking with Ax1 with walker and gait belt.
[2024-09-08] MEDS: DOXYCYCLINE HYCLATE 100 MG PO (20:56)
[2024-09-08] MEDS: LATANOPROST 0.005% OPHTH 1 DROP EYE-BOTH (20:56)
[2024-09-08] MEDS: GABAPENTIN 300 MG CAPSULE 900 MG PO (20:56)
[2024-09-08] MEDS: PRAVASTATIN SODIUM 20 MG TABLET 40 MG PO (20:56)
[2024-09-08] MEDS: clonazePAM 0.5 MG TABLET PO (20:57)
[2024-09-08] MEDS: SODIUM CHLORIDE 0.9 % (FLUSH) 10 ML SYRINGE 5 ML IVF (23:20)
[2024-09-09] VITALS (9 sets, daily range): BP systolic 131–145; BP diastolic 58–85; PULSE 63–90; RESP 16–22; TEMP 35.9–36.8; O2SAT 90–96
[2024-09-09] MEDS: IPRAT-ALBUT 0.5-2.5 MG/3 ML NEB 1 NEB IH ×4 (05:05→23:39)
--- NOTE | 2024-09-09 06:45 | PC.NURSE ---
Pt is alert and oriented x3. Afebrile. Pt denies pain, chest pain, SOB, and N/V. Pt has bilateral equal strength in both extremities and facial expressions are symmetrical and controlled. Pt was on 0.5L O2 via nasal cannula throughout night, attempted titration down to room air but pt O2 stats dropped down to 85-87%. Pt reports cough as reduced. Pt is up SBA with walker and gait belt, voiding, and tolerating a regular diet. ?
[2024-09-09 07:15] LABS: Hematocrit 28.6 % (33.0-51.0); Hemoglobin* 9.1 gm/dL (12.0-16.0); Mean Corpuscular HGB Conc 32 gm/dL (32-36); Mean Corpuscular Hemoglobin 32 pg (26-34); Mean Corpuscular Volume 101 fL (80-100); Platelet Count* 181 K/uL (140-440); Red Blood Count 2.84 m/uL (4.00-5.20); White Blood Count* 4.04 K/uL (4.50-11.00)
[2024-09-09 07:19] LABS: Slide Review Reflex No
[2024-09-09 07:26] LABS: Chloride* 98 mmol/L (96-114); Potassium* 3.5 mmol/L (3.6-5.1); Sodium* 133 mmol/L (135-149)
[2024-09-09 07:29] LABS: Creatinine* 1.2 mg/dL (0.5-1.5); Est. Creatinine Clearance* 37.01; Estimated Glomerular Filt Rate 48 ml/min
[2024-09-09 07:30] LABS: Anion Gap 4 mEq/L (7-15); Blood Urea Nitrogen* 19 mg/dL (7-30); Calcium* 8.5 mg/dL (8.4-10.6); Carbon Dioxide* 31 mmol/L (20-32); Glucose* 113 mg/dL (60-115)
[2024-09-09 07:33] LABS: C Reactive Protein* 3.2 mg/dL (0.5-1.0)
--- NOTE | 2024-09-09 07:37 | PM.IMPN1 ---
Progress Note: A&P Assessment and plan (1) Fall: Problem details: Mechanical fall after tripping in the dark Resulting in left facial bruising and right hip pain - no acute radiologic findings Given that patient is currently on aspirin b.i.d. postoperatively, continue to monitor for neurological changes with repeat head CT if necessary PT/OT consults 09/09 resume postoperative aspirin Status: Acute (2) Acute respiratory failure with hypoxemia: Problem details: Oxygen saturation in ED 80% No leukocytosis, lactate 1.6, CRP 3.1 VBG pH 7.374, pCO2 50, PO2 61, HC03 29 BNP 1480 Triple swab negative CXR without focal consolidation, effusion, pneumothorax. Cardiac size WNL without pulmonary edema Active smoker reporting 1 cigarette daily following a 40 year history No formal diagnosis of asthma, emphysema, COPD - though no previous workup - would benefit following hospital stay Suspect URI, atypical pneumonia given several day history of congestion with productive cough Start doxycycline b.i.d. (receive 1 dose of azithromycin in ED) Continue prednisone 40 mg daily x5 days DuoNebs q.6 hours scheduled, albuterol nebs p.r.n., incentive spirometry, aerobika, Mucinex RT for pulmonary support Echo 09/08/24 report Final Impressions: 1. Normal left ventricular size, normal wall thickness, normal global systolic function, calculated EF of 76 %. 2. Mildly enlarged left atrium. 3. Right ventricular cavity size is normal, global systolic RV function is normal. 4. The mitral valve is normal, mild mitral regurgitation. 5. No significant valve disease detected. 6. The ascending aorta is dilated with a maximal diameter of 4.0 cm. Post hospital follow up with PCP, further pulmonary testing Status: Acute (3) URI (upper respiratory infection): Problem details: In setting of acute hypoxic respiratory failure, active smoker Doxycycline, prednisone, Mucinex, nebs Strep pneumo/Legionella negative Procalcitonin 0.08 Status: Acute (4) Elevated troponin level: Problem details: Without report of chest pain, no tachycardia, in setting of hypoxia, likely undiagnosed COPD, ischemic demand Initial troponin 0.07 -> 0.10 -> 0.13. Trend Repeat EKGs NSR Echo findings as above Telemetry, orthostatics Status: Acute (5) Chronic diarrhea: Problem details: Will see GI in late August 2024, early September 2024 - continue Imodium and fiber rich diet Status: Acute (6) Hypertension: Problem details: Continue home medications Status: Acute (7) Hyperlipidemia: Problem details: Continue statin Status: Acute (8) Depression: Problem details: Continue bupropion and duloxetine Continue clonazepam Status: Acute (9) Parkinsonism: Problem details: Following neurology Continue carbidopa-levodopa Status: Acute (10) Stage 3 chronic kidney disease: Problem details: Creatinine 1.2, baseline for her Monitor with labs Status: Acute (11) Essential tremor: Problem details: Chronic, noted Status: Acute (12) Status post total hip replacement, right: Problem details: Right total hip arthroplasty-anterior approach (08/13/24, Dr. Mcclain) Currently on aspirin 81 mg b.i.d. postoperatively Hip x-ray in ED shows Unchanged alignment of the right total hip arthroplasty with no periprosthetic fracture Hemoglobin 9.0, 9.4 postoperatively. Monitor Status: Acute (13) New onset type 2 diabetes mellitus: Problem details: A1c 7.1 on 07/03/2024 Not currently on medications. Diet and exercise management currently - has met with Nutrition in June. Is being monitored by PCP Glucose on admission 127. Follow daily glucose while on prednisone Status: Acute (14) Ascending aorta dilation: Problem details: Noted to be 4 cm on echocardiogram. Will need outpatient cardiology evaluation. Repeat Echo at some point Status: Acute Plan Possible discharge 09/10 pending ongoing clinical improvement, assessment for oxygen needs. Close outpatient follow-up with PCP, further pulmonary testing. Time Spent With Patient Total time spent: Total time spent caring for the patient today was 45 minutes. This includes time spent for the visit reviewing the chart, time spent during the visit, time spent after the visit and documentation and planning in coordination of care. Subjective Date Seen: 09/09/24 Interval history: Patient is seen sitting up in a chair this morning. Feeling better than yesterday. Has been on 0.5 L O2 supplement overnight. Oxygen saturations have remained in the low-mid 90s. Continues with a productive cough. Denies chest pain. Shortness of breath is improving. Denies headache or dizziness. Remains afebrile. No worsening headache or mental status changes overnight. Bruise over left eye is deepening. Exam Narrative: Exam Narrative: PHYSICAL EXAM General: Pleasant, conversant, NAD HEENT: Normocephalic, bruising noted left periorbital area, sclera white, EOMI, oral mucosa moist Cardiovascular: RRR, S1S2. Pulmonary: Diffuse coarse breath sounds with rhonchi and expiratory wheezes - decreased from yesterday Neurological: Alert, answering questions appropriately, cranial nerves intact, no focal findings Extremities: No gross joint deformity or swelling. AROMI. Neurovascularly intact Skin: Warm, dry. Const: Vital Signs, click to edit/add: Vital Signs - 24 hr 09/08/24 07:45 09/08/24 08:00 09/08/24 08:02 Temperature Pulse Rate 76 77 77 Pulse Rate [Left P ulse Oximeter] Pulse Rate [Right Dorsalis Pedis] Respiratory Rate Blood Pressure 121/70 Blood Pressure [Le ft Arm] Blood Pressure [Ri ght Arm] Pulse Oximetry 94 94 93 Oxygen Delivery Me thod Oxygen Flow Rate 09/08/24 08:15 09/08/24 08:30 09/08/24 08:32 Temperature Pulse Rate 77 77 86 Pulse Rate [Left P ulse Oximeter] Pulse Rate [Right Dorsalis Pedis] Respiratory Rate Blood Pressure 129/65 Blood Pressure [Le ft Arm] Blood Pressure [Ri ght Arm] Pulse Oximetry 94 94 92 Oxygen Delivery Me thod Oxygen Flow Rate 09/08/24 09:07 09/08/24 09:07 09/08/24 11:24 Temperature 98.3 F Pulse Rate Pulse Rate [Left P ulse Oximeter] 77 Pulse Rate [Right Dorsalis Pedis] Respiratory Rate 18 18 18 Blood Pressure Blood Pressure [Le ft Arm] 139/73 Blood Pressure [Ri ght Arm] Pulse Oximetry 92 92 94 Oxygen Delivery Me thod Nasal Cannula Nasal Cannula Nasal Cannula Oxygen Flow Rate 1 1 1.5 09/08/24 11:24 09/08/24 11:24 09/08/24 15:00 Temperature 99.1 F Pulse Rate 70 Pulse Rate [Left P ulse Oximeter] 71 71 Pulse Rate [Right Dorsalis Pedis] Respiratory Rate 18 18 Blood Pressure Blood Pressure [Le ft Arm] Blood Pressure [Ri ght Arm] 121/61 Pulse Oximetry 94 Oxygen Delivery Me thod Nasal Cannula Oxygen Flow Rate 1.5 09/08/24 15:00 09/08/24 15:00 09/08/24 15:20 Temperature Pulse Rate 76 Pulse Rate [Left P ulse Oximeter] 79 79 Pulse Rate [Right Dorsalis Pedis] Respiratory Rate 18 Blood Pressure Blood Pressure [Le ft Arm] 128/63 Blood Pressure [Ri ght Arm] Pulse Oximetry 90 Oxygen Delivery Me thod Nasal Cannula Oxygen Flow Rate 0.5 09/08/24 19:53 09/08/24 19:53 09/08/24 23:00 Temperature 97.7 F Pulse Rate Pulse Rate [Left P ulse Oximeter] 76 68 Pulse Rate [Right Dorsalis Pedis] 76 Respiratory Rate 18 18 Blood Pressure Blood Pressure [Le ft Arm] 131/66 Blood Pressure [Ri ght Arm] Pulse Oximetry 94 Oxygen Delivery Me thod Nasal Cannula Oxygen Flow Rate 0.5 09/08/24 23:02 09/08/24 23:23 09/08/24 23:39 Temperature 98.0 F Pulse Rate 69 Pulse Rate [Left P ulse Oximeter] 68 68 Pulse Rate [Right Dorsalis Pedis] Respiratory Rate 18 Blood Pressure Blood Pressure [Le ft Arm] 135/71 Blood Pressure [Ri ght Arm] Pulse Oximetry 97 Oxygen Delivery Me thod Nasal Cannula Oxygen Flow Rate 0.5 09/09/24 03:00 Temperature 96.7 F L Pulse Rate Pulse Rate [Left P ulse Oximeter] 68 Pulse Rate [Right Dorsalis Pedis] Respiratory Rate 16 Blood Pressure Blood Pressure [Le ft Arm] 138/85 Blood Pressure [Ri ght Arm] Pulse Oximetry 95 Oxygen Delivery Me thod Nasal Cannula Oxygen Flow Rate 0.5 Labs Labs: Laboratory Results - last 24 hr 09/08/24 09/08/24 09/08/24 05:30 07:24 08:45 WBC RBC Hgb Hct MCV MCH MCHC Plt Count Sodium Potassium Chloride Carbon Dioxide Anion Gap BUN Creatinine Estimated Creat Clear Estimated GFR Glucose Calcium Troponin I C-Reactive Protein Procalcitonin 0.08 Urine Color Yellow Urine Appearance Clear Urine pH 7.0 Ur Specific [place] 1.015 Urine Protein Negative Urine Glucose (UA) Negative Urine Ketones Negative Urine Blood Negative Urine Nitrite Negative Urine Bilirubin Negative Urine Urobilinogen 0.2 Ur Leukocyte Esterase Negative Urine L. pneumophilia Ag L. pneumo Negative Urine Strep pneumoniae Ag S. pneumo Negative Lab Acknowledgement POC Troponin I 0.10 H 09/08/24 09/08/24 09/08/24 11:30 14:00 17:36 WBC RBC Hgb Hct MCV MCH MCHC Plt Count Sodium Potassium Chloride Carbon Dioxide Anion Gap BUN Creatinine Estimated Creat Clear Estimated GFR Glucose Calcium Troponin I 0.13 H* 0.10 H* C-Reactive Protein Procalcitonin Urine Color Urine Appearance Urine pH Ur Specific [place] Urine Protein Urine Glucose (UA) Urine Ketones Urine Blood Urine Nitrite Urine Bilirubin Urine Urobilinogen Ur Leukocyte Esterase Urine L. pneumophilia Ag Urine Strep pneumoniae Ag Lab Acknowledgement Test Added POC Troponin I 09/09/24 06:37 WBC 4.04 L RBC 2.84 L Hgb 9.1 L Hct 28.6 L MCV 101 H MCH 32 MCHC 32 Plt Count 181 Sodium 133 L Potassium 3.5 L Chloride 98 Carbon Dioxide 31 Anion Gap 4 L BUN 19 Creatinine 1.2 Estimated Creat Clear 37.01 Estimated GFR 48 Glucose 113 Calcium 8.5 Troponin I C-Reactive Protein 3.2 H Procalcitonin Urine Color Urine Appearance Urine pH Ur Specific [place] Urine Protein Urine Glucose (UA) Urine Ketones Urine Blood Urine Nitrite Urine Bilirubin Urine Urobilinogen Ur Leukocyte Esterase Urine L. pneumophilia Ag Urine Strep pneumoniae Ag Lab Acknowledgement POC Troponin I
[2024-09-09] MEDS: predniSONE 20 MG TABLET 40 MG PO (09:08)
[2024-09-09] MEDS: GABAPENTIN 300 MG CAPSULE 600 MG PO (09:09)
[2024-09-09] MEDS: OMEPRAZOLE 20 MG CAPSULE DR 40 MG PO (09:09)
[2024-09-09] MEDS: buPROPion XL 150 MG TABLET 300 MG PO (09:09)
[2024-09-09] MEDS: lisinopriL 20 MG TABLET 40 MG PO (09:09)
[2024-09-09] MEDS: DULOXETINE 30 MG CAPSULE DR 60 MG PO (09:09)
[2024-09-09] MEDS: LOPERAMIDE HCL 2 MG CAPSULE 4 MG PO (09:09)
[2024-09-09] MEDS: ASPIRIN 81 MG TABLET EC PO ×2 (09:10→21:13)
[2024-09-09] MEDS: guaiFENesin 600 MG TAB.ER.12H 1200 MG PO ×2 (09:10→21:13)
[2024-09-09] MEDS: CHLORTHALIDONE 25 MG TABLET 12.5 MG PO (09:10)
[2024-09-09] MEDS: DOXYCYCLINE HYCLATE 100 MG PO ×2 (09:10→21:13)
[2024-09-09] MEDS: CARBIDOPA-LEVODOPA 25-100 TABLET 1 TAB PO ×3 (09:10→21:13)
[2024-09-09] MEDS: SODIUM CHLORIDE 0.9 % (FLUSH) 10 ML SYRINGE 5 ML IVF ×2 (11:26→21:14)
--- NOTE | 2024-09-09 12:00 | RESP.RT ---
Patient was walked 150 to Shower room and 150 return to room, on room air, heart rate 82-91/minute. SaO2 at rest on room air 93%, on walk to Shower room dropped to 82%, patient was asked numerous times if she felt SOB, patient denied. At Shower room patient sat and after a couple of deep breaths, in just over a minute, SaO2 returned to 93%. Walking back to room SaO2 again decreased to 82%, in room patient sat and SaO2 returned to 93% after couple deep breaths. Patient denied being SOB at any time. Patient instructed on PEP with Aerobika, used well with good exhalation and chest shake. Promoted good Non-productive cough, able to clear secretions when present.
[2024-09-09] MEDS: MENTHOL 57 GM GEL 1 APPLIC TOPICAL ×2 (15:20→21:14)
--- NOTE | 2024-09-09 19:39 | PC.NURSE ---
Nursing Care Hours: [id number] Pt this shift calm and cooperative. Alert and oriented. No c/o headache or neuro changes. SB assit with walker and gait belt. VSS. Titrate from 0.5L to RA. Walked with OT and RT on RA. SpO2 reported to have dropped to 82% and pt asymptomatic, able to talk through conversation, no c/o SOB. Pt using Aerobika, and IS. Scheduled nebs given. Pt feels she is able to clear more secretions.
[2024-09-09] MEDS: GABAPENTIN 300 MG CAPSULE 900 MG PO (21:13)
[2024-09-09] MEDS: clonazePAM 0.5 MG TABLET PO (21:13)
[2024-09-09] MEDS: PRAVASTATIN SODIUM 20 MG TABLET 40 MG PO (21:13)
[2024-09-09] MEDS: LATANOPROST 0.005% OPHTH 1 DROP EYE-BOTH (21:13)
[2024-09-10 04:37] VITALS: BP 172/90; PULSE 89; RESP 18; TEMP 36.4; O2SAT 98
[2024-09-10] MEDS: MENTHOL 57 GM GEL 1 APPLIC TOPICAL (04:41)
[2024-09-10] MEDS: IPRAT-ALBUT 0.5-2.5 MG/3 ML NEB 1 NEB IH (04:55)
[2024-09-10 06:43] LABS: Hematocrit 30.4 % (33.0-51.0); Hemoglobin* 9.6 gm/dL (12.0-16.0); Mean Corpuscular HGB Conc 32 gm/dL (32-36); Mean Corpuscular Hemoglobin 32 pg (26-34); Mean Corpuscular Volume 101 fL (80-100); Platelet Count* 198 K/uL (140-440); Red Blood Count 3.02 m/uL (4.00-5.20); White Blood Count* 4.63 K/uL (4.50-11.00)
[2024-09-10 06:49] LABS: Slide Review Reflex No
[2024-09-10 06:58] LABS: Chloride* 98 mmol/L (96-114); Potassium* 3.9 mmol/L (3.6-5.1); Sodium* 136 mmol/L (135-149)
[2024-09-10 07:00] VITALS: PULSE 63
[2024-09-10 07:00] LABS: Creatinine* 1.2 mg/dL (0.5-1.5); Est. Creatinine Clearance* 37.01; Estimated Glomerular Filt Rate 48 ml/min
--- NOTE | 2024-09-10 07:00 | PC.NURSE ---
Pt is alert and oriented x3. Afebrile. Room air. Pt denies pain, chest pain, SOB, and N/V. Pt continues to have cough but pt?reports cough?is reducing. Pt posterior lung bases have expiratory wheezes, nebs Q6H pt tolerating well.?Pt is up SBA with walker and gait belt, voiding, and tolerating a regular diet. ?
[2024-09-10 07:01] LABS: Anion Gap 7 mEq/L (7-15); Blood Urea Nitrogen* 24 mg/dL (7-30); Calcium* 8.8 mg/dL (8.4-10.6); Carbon Dioxide* 31 mmol/L (20-32); Glucose* 102 mg/dL (60-115)
[2024-09-10 07:04] LABS: C Reactive Protein* 1.5 mg/dL (0.5-1.0)
[2024-09-10 08:45] VITALS: BP 144/78; PULSE 67; RESP 18; TEMP 36.7; O2SAT 92
[2024-09-10] MEDS: predniSONE 20 MG TABLET 40 MG PO (09:14)
[2024-09-10] MEDS: LOPERAMIDE HCL 2 MG CAPSULE 4 MG PO (09:14)
[2024-09-10] MEDS: buPROPion XL 150 MG TABLET 300 MG PO (09:14)
[2024-09-10] MEDS: DULOXETINE 30 MG CAPSULE DR 60 MG PO (09:15)
[2024-09-10] MEDS: DOXYCYCLINE HYCLATE 100 MG PO (09:15)
[2024-09-10] MEDS: GABAPENTIN 300 MG CAPSULE 600 MG PO (09:15)
[2024-09-10] MEDS: CARBIDOPA-LEVODOPA 25-100 TABLET 1 TAB PO (09:15)
[2024-09-10] MEDS: lisinopriL 20 MG TABLET 40 MG PO (09:16)
[2024-09-10] MEDS: CHLORTHALIDONE 25 MG TABLET 12.5 MG PO (09:16)
[2024-09-10] MEDS: ASPIRIN 81 MG TABLET EC PO (09:16)
[2024-09-10] MEDS: OMEPRAZOLE 20 MG CAPSULE DR 40 MG PO (09:16)
[2024-09-10] MEDS: SODIUM CHLORIDE 0.9 % (FLUSH) 10 ML SYRINGE 5 ML IVF (09:17)
[2024-09-10] MEDS: guaiFENesin 600 MG TAB.ER.12H 1200 MG PO (09:25)
[2024-09-10 11:20] VITALS: O2SAT 97
[2024-09-10 11:23] VITALS: O2SAT 82; O2SAT 90; O2SAT 91
[2024-09-10 11:25] VITALS: BP 131/73; PULSE 72; RESP 20; TEMP 36.7; O2SAT 93
--- NOTE | 2024-09-10 11:28 | RESP.RT ---
Resting in chair SaO2 91% on .21. Walked patient 75 feet on .21 SaO2 82%, placed on NC 2 Lpm SaO2 91% on walk back to room.
--- NOTE | 2024-09-10 13:47 | PM.DS1 ---
DS: Providers Provider Date Seen: 09/10/24 Date of admission: 09/08/24 08:50 Primary care physician: Rogers Ho PA-C Admitting Clinician: Mary Day MD Consults: 09/08/24 11:24 Consult to Occupational Therapy [CONS] Routine Comment: Reason(s) for OT Consult:: Evaluate and Treat Any Restrictions?:: No Restrictions Consult to Physical Therapy [CONS] Routine Comment: Reason(s) for PT Consult:: Evaluate and Treat Any Restrictions?:: No Restrictions Consult to Respiratory Therapy [CONS] Routine Comment: Reason(s) for RT Consult:: Consult Consult to Jelly Filter Tender [CONS] Routine Comment: Reason for Consult:: Social Service Consult Attending Physician on discharge: [facility] Stevenson [facility] Date of Discharge: 09/10/24 DS: Diagnosis Discharge Diagnosis (1) Fall: Status: Acute Problem details: Mechanical fall after tripping in the dark Resulting in left facial bruising and right hip pain - no acute radiologic findings Given that patient is currently on aspirin b.i.d. postoperatively, continue to monitor for neurological changes with repeat head CT if necessary PT/OT consults 09/09 resume postoperative aspirin Stable, no further headaches, no neurological changes prior to discharge. Postoperative Aspirin has been resumed. (2) Acute respiratory failure with hypoxemia: Status: Acute Problem details: Oxygen saturation in ED 80% No leukocytosis, lactate 1.6, CRP 3.1 VBG pH 7.374, pCO2 50, PO2 61, HC03 29 BNP 1480 Triple swab negative CXR without focal consolidation, effusion, pneumothorax. Cardiac size WNL without pulmonary edema Active smoker reporting 1 cigarette daily following a 40 year history No formal diagnosis of asthma, emphysema, COPD - though no previous workup - would benefit following hospital stay Suspect URI, atypical pneumonia given several day history of congestion with productive cough Start doxycycline b.i.d. (receive 1 dose of azithromycin in ED) Continue prednisone 40 mg daily x5 days DuoNebs q.6 hours scheduled, albuterol nebs p.r.n., incentive spirometry, aerobika, Mucinex RT for pulmonary support Echo 09/08/24 report Final Impressions: 1. Normal left ventricular size, normal wall thickness, normal global systolic function, calculated EF of 76 %. 2. Mildly enlarged left atrium. 3. Right ventricular cavity size is normal, global systolic RV function is normal. 4. The mitral valve is normal, mild mitral regurgitation. 5. No significant valve disease detected. 6. The ascending aorta is dilated with a maximal diameter of 4.0 cm. Remains mildly hypoxic with ambulation prior to discharge, requiring home oxygen. At rest, saturations > 90%. Post hospital follow up with PCP, further pulmonary testing recommended for further evaluation and qualifying diagnosis. (3) URI (upper respiratory infection): Status: Acute Problem details: In setting of acute hypoxic respiratory failure, active smoker Doxycycline, prednisone, Mucinex, nebs Strep pneumo/Legionella negative Procalcitonin 0.08 Patient is discharged to complete course of doxycycline and prednisone. (4) Elevated troponin level: Status: Acute Problem details: Without report of chest pain, no tachycardia, in setting of hypoxia, likely undiagnosed COPD, ischemic demand Initial troponin 0.07 -> 0.10 -> 0.13 -> 0.10 Repeat EKGs NSR Echo findings as above Telemetry, orthostatics (5) Chronic diarrhea: Status: Acute Problem details: Will see GI in late August 2024, early September 2024 - continue Imodium and fiber rich diet (6) Hypertension: Status: Acute Problem details: Continue home medications (7) Hyperlipidemia: Status: Acute Problem details: Continue statin (8) Depression: Status: Acute Problem details: Continue bupropion and duloxetine Continue clonazepam (9) Parkinsonism: Status: Acute Problem details: Following neurology Continue carbidopa-levodopa (10) Stage 3 chronic kidney disease: Status: Acute Problem details: Creatinine 1.2, baseline for her - stable Monitor with labs (11) Essential tremor: Status: Acute Problem details: Chronic, noted (12) Status post total hip replacement, right: Status: Acute Problem details: Right total hip arthroplasty-anterior approach (08/13/24, Dr. Mcclain) Currently on aspirin 81 mg b.i.d. postoperatively Hip x-ray in ED shows Unchanged alignment of the right total hip arthroplasty with no periprosthetic fracture Hemoglobin 9.0, 9.4 postoperatively. Monitor (13) New onset type 2 diabetes mellitus: Status: Acute Problem details: A1c 7.1 on 07/03/2024 Not currently on medications. Diet and exercise management currently - has met with Nutrition in June. Is being monitored by PCP Glucose on admission 127. Follow daily glucose while on prednisone. Glucose 102 on day of discharge. (14) Ascending aorta dilation: Status: Acute Problem details: Noted to be 4 cm on echocardiogram. Will need outpatient cardiology evaluation. Repeat Echo at some point DS: Summary Hospital Course Hospital Course: [age] year old female was admitted to the medical floor for acute hypoxic respiratory failure in setting of suspected undiagnosed COPD with atypical pneumonia. Course of care and details as noted above. Suspected undiagnosed COPD, requiring further outpatient evaluation and testing, admitted for acute hypoxic respiratory failure. Initiated on doxycycline and oral prednisone with clinical improvement. Still requiring small amount of oxygen during ambulation prior to discharge. Noted to have elevated troponins in setting of suspected demand ischemia, down trending prior to discharge. Echocardiogram was obtained notable for 4 cm ascending aortic dilation. Outpatient follow-up with PCP and Cardiology. Remainder of chronic medical comorbidities were monitored and managed with home medications. Status at Discharge Functional status at discharge: independent ambulation Overall status at discharge: patient is progressing back to baseline Time Spent with Patient Time attestation: Total time spent providing and/or coordinating discharge services: Time spent: Greater than 30 minutes Exam Narrative: Exam Narrative: PHYSICAL EXAM General: Pleasant, conversant, NAD Cardiovascular: RRR Pulmonary: No dyspnea at rest Neurological: Alert, answering questions appropriately Skin: Warm, dry. Const: Vital Signs, click to edit/add: Vital Signs - 24 hr 09/09/24 15:00 09/09/24 15:00 09/09/24 15:00 Temperature Pulse Rate 70 Pulse Rate [Left P ulse Oximeter] 78 90 Respiratory Rate 16 16 Blood Pressure [Le ft Arm] 138/58 L Pulse Oximetry 90 Oxygen Delivery Me thod Room Air Oxygen Flow Rate 09/09/24 21:06 09/09/24 23:42 09/09/24 23:42 Temperature 98.1 F 98.2 F Pulse Rate 71 Pulse Rate [Left P ulse Oximeter] 67 75 Respiratory Rate 16 18 Blood Pressure [Le ft Arm] 131/68 133/73 Pulse Oximetry 96 94 Oxygen Delivery Me thod Room Air Room Air Oxygen Flow Rate 0.5 09/09/24 23:42 09/10/24 04:37 09/10/24 08:45 Temperature 97.6 F Pulse Rate Pulse Rate [Left P ulse Oximeter] 75 89 67 Respiratory Rate 18 18 18 Blood Pressure [Le ft Arm] 172/90 H Pulse Oximetry 98 Oxygen Delivery Me thod Room Air Oxygen Flow Rate 09/10/24 08:45 09/10/24 11:20 09/10/24 11:25 Temperature 98.0 F 98.0 F Pulse Rate Pulse Rate [Left P ulse Oximeter] 67 72 Respiratory Rate 18 20 Blood Pressure [Le ft Arm] 144/78 H 131/73 Pulse Oximetry 92 97 93 Oxygen Delivery Me thod Room Air Nasal Cannula Room Air Oxygen Flow Rate 2 DS: Data Data Completed and Pending Labs on day of discharge: Labs from last 24 hours 09/10/24 05:52 WBC 4.63 RBC 3.02 L Hgb 9.6 L Hct 30.4 L MCV 101 H MCH 32 MCHC 32 Plt Count 198 Sodium 136 Potassium 3.9 Chloride 98 Carbon Dioxide 31 Anion Gap 7 BUN 24 Creatinine 1.2 Estimated Creat Clear 37.01 Estimated GFR 48 Glucose 102 Calcium 8.8 C-Reactive Protein 1.5 H Imaging Chest x-ray: Attestation: I have reviewed the pertinent imaging results. Radiologist's impression: No focal consolidation, effusion or pneumothorax. Cardiac size is within normal limit without pulmonary edema. Extensive posterior spinal fusion. Hip x-ray: Attestation: I have reviewed the pertinent imaging results. Radiologist's impression: Stable postoperative changes related to right total hip arthroplasty and left hip hemiarthroplasty. Extensive postsurgical changes of lumbar spine with bi iliac screw fixation. There is no periprosthetic fracture. No interval change in the arthroplasty. No localized soft tissue swelling about right hip. Impression: Unchanged alignment of the right total hip arthroplasty with no periprosthetic fracture. CT scan - head: Attestation: I have reviewed the pertinent imaging results. Radiologist's impression: No acute intracranial hemorrhage or large vascular territory infarct. No abnormal extra-axial fluid collection. Chronic lacunar infarct in right thalamus. Scattered white matter hypodensities are nonspecific, likely related to chronic microvascular ischemic changes. Paranasal sinuses and mastoid air cells are well pneumatized. Bilateral intra-ocular lens implantation. No calvarial fracture. IMPRESSION: Chronic changes without acute intracranial traumatic injury. Please note that all CT scans at this facility use dose modulation, iterative reconstruction, and/or weight-based dosing when appropriate to reduce radiation dose to as low as reasonably achievable. CT C-spine: Attestation: I have reviewed the pertinent imaging results. Radiologist's impression: No acute vertebral compression fracture or traumatic malalignment. Minimal anterolisthesis of C4 over C5, similar to previous MRI. Bilateral occipital condyles are intact. Atlantooccipital and atlanto odontoid interval is maintained. Multilevel mild degenerative changes of the spine with reduction of intervertebral disc height at C6-7 and C7-T1 levels with multilevel uncovertebral and facet arthropathy. No paravertebral hematoma or fluid collection. Biapical pleural thickening. IMPRESSION: Multi-level degenerative changes of the cervical spine without acute traumatic injury. Discharge Plan Discharge Disposition: Home, Self-Care Date of Admission: 09/08/24 08:50 Attending Provider on Discharge: Candi Kimball Primary Care Provider: Rogers Ho Condition: Improved Anticipated Discharge Date/Time: 09/10/24 13:42 Discharge Medications: New prednisone 20 mg Tablet 40 mg PO DAILYWM 3 Days Qty: 6 0RF doxycycline hyclate 100 mg Tablet 100 mg PO BID 5 Days Qty: 10 0RF guaifenesin [Mucinex] 600 mg Tablet Extended Release 12hr 1,200 mg PO BID Qty: 30 0RF Continued meloxicam 15 mg tablet 15 mg PO DAILY Qty: 90 3RF latanoprost 0.005 % drops 1 drp ophthalmic (eye) HS bupropion HCl 300 mg tablet extended release 24 hr 300 mg PO QAM Qty: 90 3RF carbidopa-levodopa 25-100 mg tablet 1 tab PO TID mecobalamin (vitamin B12) 5,000 mcg tablet,disintegrating 5,000 tab PO DAILY gabapentin 300 mg capsule 900 mg PO HS Patient Comments: 2 in am and 3 at bedtime All Day Allergy (cetirizine) 10 mg capsule 20 mg PO BID PRN gabapentin 300 mg capsule 600 mg PO QAM pravastatin 40 mg tablet 40 mg PO HS clonazepam 0.5 mg tablet 0.5 mg PO HS Rx Instructions: administer 30 minutes before bedtime chlorthalidone 25 mg tablet 12.5 mg PO DAILY duloxetine 60 mg capsule,delayed release(DR/EC) 60 mg PO DAILY aspirin 81 mg tablet,delayed release (DR/EC) 81 mg PO BID Qty: 50 0RF Rx Instructions: Medication to help prevent blood clots postoperatively; take TWICE daily. acetaminophen 500 mg capsule 500 - 1,000 mg PO Q6H MDD 4000mg PRNQty: 100 0RF omeprazole 40 mg capsule,delayed release(DR/EC) 40 mg PO DAILY Qty: 90 3RF lisinopril 40 mg tablet 40 mg PO DAILY Qty: 90 3RF Discontinued aspirin 81 mg tablet,delayed release (DR/EC) 81 mg PO HS Discharge Orders: Discharge Order (Routine); Ordered 09/10/24 Ordered By: Candi Kimball Patient Education: Doxycycline (By mouth), Guaifenesin (By mouth), Prednisolone (By mouth), Bacterial Pneumonia (GEN) Additional Instructions: Finish doxycycline and prednisone. You will need oxygen at home. Follow-up with PCP for further pulmonary testing and evaluation. Activity Level: Activity as Tolerated Discharge Diet: Regular Follow Up Appointments: Rogers Ho PA-C [Primary Care Provider] - (Post hospital follow-up 3-5 days) Kody Altamirano MD [Staff Physician] - 09/14/24 12:45 pm ([facility] for Post hospital follow-up appointment. ) Forms: [email or web address] Info Instructions
--- NOTE | 2024-09-10 14:48 | RESP.RT ---
Face to face done with Client and Son on use and safety, of [employer], and [employer], both verbally state they understand use and safety.
--- NOTE | 2024-09-10 15:34 | PC.NURSE ---
Pt up independently in room. Per RT pt needs, O2 with ambulation, O2 orders in and education complete by RT August. IV DC'd, cath tip intact. DC instructions given verbally and in writing, all questions answered. Pt left via w/c to return home by pt driving her home @ 6925.
== END 2024-09-10 14:49 | disposition home or self-care (01) | DRG 189 ==
LOC: ED 05:48 → MEDSURG 08:46
PROVIDERS: Admitting Provider Physician Assistant; Emergency Provider Family Medicine; PCP Physician Assistant Medical; Visit Provider Family Medicine
DX: J96.01 Acute respiratory failure with hypoxia (principal); W01.10XA Fall on same level from slipping, tripping and stumbling with subsequent striking against unspecified object, initial encounter; Z91.81 History of falling; Z72.0 Tobacco use; J06.9 Acute upper respiratory infection, unspecified; R79.89 Other specified abnormal findings of blood chemistry; K52.9 Noninfective gastroenteritis and colitis, unspecified; E78.5 Hyperlipidemia, unspecified; F32.A Depression, unspecified; E11.22 Type 2 diabetes mellitus with diabetic chronic kidney disease; I12.9 Hypertensive chronic kidney disease with stage 1 through stage 4 chronic kidney disease, or unspecified chronic kidney disease; N18.30 Chronic kidney disease, stage 3 unspecified; G20.C Parkinsonism, unspecified; G25.0 Essential tremor; Z96.642 Presence of left artificial hip joint; Z96.641 Presence of right artificial hip joint; I77.819 Aortic ectasia, unspecified site; S00.83XA Contusion of other part of head, initial encounter
CPT/HCPCS: 36415; 70450; 71046; 72125; 73502; 80048; 81003; 82803; 83605; 83880; 84145; 84484; 85025; 85027; 86140; 87449; 87631; 87899; 93005; 93306; 94640; 94664; 97116; 97162; 97165; 97535; 99284; 99285; A9270; J7512

== ENCOUNTER 2024-10-09 13:15 | Outpatient (RCR) | payer MEDICARE, BC, SELFPAY | END 2024-11-13 10:42 | disposition home or self-care (01) | PROVIDERS: PCP Physician Assistant Medical; Visit Provider Orthopaedic Surgery Sports Medicine | DX: M16.11 Unilateral primary osteoarthritis, right hip (principal); Z96.641 Presence of right artificial hip joint; R26.9 Unspecified abnormalities of gait and mobility; R53.1 Weakness; Z51.89 Encounter for other specified aftercare | CPT/HCPCS: 97110; 97140; 97162; 97164 ==

== ENCOUNTER 2025-01-28 13:45 | Outpatient (RCR) | payer MEDICARE, BC, SELFPAY | END 2025-03-18 11:51 | disposition home or self-care (01) | PROVIDERS: PCP Physician Assistant Medical; Visit Provider Orthopaedic Surgery Sports Medicine | DX: Z48.89 Encounter for other specified surgical aftercare (principal); M76.31 Iliotibial band syndrome, right leg; Z96.641 Presence of right artificial hip joint; Z51.89 Encounter for other specified aftercare | CPT/HCPCS: 97110; 97140; 97161 ==

== ENCOUNTER 2025-07-08 13:49 | Outpatient (CLI) | payer MEDICARE, BC, SELFPAY | END 2025-07-08 13:50 | disposition home or self-care (01) | LOC: NFLDREF 07-10 18:56 | PROVIDERS: PCP Physician Assistant Medical; Referring Provider Physician Assistant Medical; Visit Provider Physician Assistant Medical | DX: E78.2 Mixed hyperlipidemia (principal); E11.22 Type 2 diabetes mellitus with diabetic chronic kidney disease; I12.9 Hypertensive chronic kidney disease with stage 1 through stage 4 chronic kidney disease, or unspecified chronic kidney disease; N18.31 Chronic kidney disease, stage 3a | CPT/HCPCS: 80053; 80061; 84443 ==

== ENCOUNTER 2025-07-24 19:35 | Observation (INO) | payer MEDICARE, BC, SELFPAY ==
--- OUTSIDE RECORDS SUMMARY | 2017-01-05 10:14 | XMS_ITS | Continuity of Care Document ---
Author Organization [facility] Address [address] [place] [address] Phone Care Team Providers Care C.O.D. Clerk Name Role Phone Souleymane Glez MD Unavailable Unavailable Medications Medication Instructions Dosage Effective Dates (start - stop) Status Comments CHLORTHALIDONE 25MG TAB Take one-half tablet by mouth every day - Active omeprazole 40 mg capsule,delayed release take 1 capsule by oral route every day before a meal 40 MG - Active Aspir-81 81 mg tablet,delayed release take 1 tablet by oral route every day - Active Forfivo XL 450 mg tablet,extended release take 1 tablet by oral route every day swallowing whole. Do not crush, chew and/or divide. 450 MG - Active Cymbalta 60 mg capsule,delayed release take 1 capsule by oral route every day - Active lisinopril 40 mg tablet take 1 tablet by oral route every day 40 MG - Active Crestor 20 mg tablet take 1 tablet by oral route every day 20 MG - Active CHLORTHALIDONE 25MG TAB Take one-half tablet by mouth every day - No Longer Active Procedures Procedure Date OFFICE/OUTPATIENT VISIT, EST ECHO COMPLETE W/DPLR & CF VASCULAR STUDY AORTA COMPLETE 5 OFFICE/OUTPATIENT VISIT, NEW ELECTROCARDIOGRAM, COMPLETE CARDIOVASCULAR STRESS TEST HOSP OP Advance Directives Directive Yes / No Effective Date File Name No Information Encounters Encounter Description Practice Location Reason(s) For Visit Diagnoses Date Provider Providers Copied on Encounter [facility], [address], [place], [address], [place] tel:[phone] [place] [facility] No Information Newton Comer . [address], [address], [place], [address]. tel:[phone] [facility], [address], [place], [address], [place] tel:[phone] [place] [facility] No Information Newtno Comer . [address] [facility], [address], [place], [address]. tel:[phone] OFFICE/OUTPAT IENT VISIT, EST [facility], [address], [place], [address], [place] tel:[phone] [place] [facility] 1 Murmur (chief complaint) General Cardiac Concerns (chief complaint) Chest pain, unspecified chest pain typeFormer smokerCardiac murmurEssential hypertension Newton Comer . [address], [address], [place], [address]. tel:[phone] Referring Provider: Veronica Brady MD, [address], [place], [address]. tel:[phone] [facility], [address], [place], [address], [place] tel:[phone] [place] [facility] 1 No Information Newton Comer . [address] [facility], [address], [place], [address]. tel:[phone] Referring Provider: Souleymane Yanes, [address], [place], [address]. tel:[phone] [facility], [address], [place], [address], [place] tel:[phone] [place] [facility] 1 No Information BERNARDA ROOT. [address], [address], [place], [facility], . tel:[phone] Referring Provider: Souleymane Yanes, [address], [place], [place], [facility]. tel:[phone] OFFICE/OUTPAT IENT VISIT, NEW [facility], [address], [place], [facility], tel:[phone] [place] [facility] 1 Follow Up of Hospital (chief complaint) Chest pain, unspecified chest pain typePAD (peripheral artery disease)Soila Umaña, cardiac Oct-0 5 Newton Comer . [address], [address], [place], [place], [facility]. tel:[phone] Referring Provider: Veronica Brady MD, [address], [place], [place], [facility]. tel:[phone] [facility], [address] [facility] [place], [place], [address], [place] tel:[phone] [facility] Other chest pain Sep-2 5 Newton Comer . [address], [address], [place], [place], [facility]. tel:[phone] Referring Provider: Fuad Sosa MD [facility], [address], [place], [facility]. tel:[phone] Family History Family Member Type Diagnosis Age At Onset No Information Payers Payer name Insurance type Covered alliance party ID Authoriza tion(s) [facility] CI [id number] Social History Type Description Quantity Date Captured Comments Sex Female Smoking Status No Information Chief Complaint And Reason For Visit No Information Reason For Referral Reason For Referral No Information Plan Of Treatment Date Type Action Status Goal Tobacco cessation counseling completed History Of Present Illness Encounter Date Complaint History Of Prese nt Illness Murmur General Cardiac Concerns Follow Up of Hospital Functional Status Date Functional Assessmen t No Information Instructions Date Instruction Additional Infor mation Blood Pressure Diary Assessments Type Assessment Date No Information Patient Care Teams Name Effective Dates (start - stop) Status Members No Information
--- OUTSIDE RECORDS SUMMARY | 2017-01-05 10:14 | XMS_ITS | Continuity of Care Document ---
Author Organization [facility] Address [address] [place] [address] Phone Care Team Providers Care Tea Bag Machine Tender Name Role Phone Souleymane Glez MD Unavailable [...] Diagnoses Date Provider Providers Copied on Encounter [facility], [address], [place], [address], [place] tel:[phone] [place] [facility] No Information Newton Comer . [address], [address], [place], [address]. tel:[phone] [facility], [address], [place], [address], [place] tel:[phone] [place] [facility] No Information Newton Comer . [address] [facility], [address], [place], [address]. tel:[phone] OFFICE/OUTPAT IENT VISIT, EST [facility], [address], [place], [address], [place] tel:[phone] [place] [facility] 1 Murmur (chief complaint) General Cardiac Concerns (chief complaint) Chest pain, unspecified chest pain typeFormer smokerCardiac murmurEssential hypertension Newton Comer . [address] [facility], [address], [place], [address]. tel:[phone] Referring Provider: Veronica Brady MD, [address], [place], [address]. tel:[phone] [facility], [address], [place], [address], [place] tel:[phone] [place] [facility] 1 No Information Newton Comer . [address] [facility], [address], [place], [address]. tel:[phone] Referring Provider: Souleymane Yanes, [address] [facility], [place], [address]. tel:[phone] [facility], [address], [place], [address], [place] tel:[phone] [place] [facility] 1 No Information BERNARDA ROOT. [address] [facility] [address] [facility], [address], [place], [facility], . tel:[phone] Referring Provider: Souleymane Yanes, [address] [facility], [place], [place], [facility]. tel:[phone] OFFICE/OUTPAT IENT VISIT, NEW [facility], [address], [place], [place], [facility], tel:[phone] [place] [facility] 1 Follow Up of Hospital (chief complaint) Chest pain, unspecified chest pain typePAD (peripheral artery disease)Soila Umaña, cardiac Oct-0 5 Newton Comer . [address] [facility] [address], [address], [place], [place], [facility]. tel:[phone] Referring Provider: Veronica Brady MD, [address] [facility] [address], [place], [place], [facility]. tel:[phone] [facility], [address] [facility], [place], [address], [place] tel:[phone] [facility] Other chest pain Sep-2 5 Newton Comer . [address] [facility], [address], [place], [place], [facility]. tel:[phone] Referring Provider: Fuad Sosa MD [facility], [address], [place], [facility]. tel:[phone] Family History Family Member Type Diagnosis Age At Onset No Information Payers Payer name Insurance type Covered alliance party ID Authoriza tion(s) [facility] CI [id number] Social History Type Description Quantity Date Captured [...]
--- OUTSIDE RECORDS SUMMARY | 2022-06-03 06:45 | XMS_ITS | Continuity of Care Document ---
Author Organization [facility] enter Address [address] [place] [address] [address] [place] [address] Phone Care Team Providers Care Professor Of Apologetics Name Role Phone [facility] Unavailable Unava ilable Procedures Procedure Date RF Cerv/Thor Single Level RIGHT RF Cerv/Thor 2nd Level RIGHT RF Cerv/Thor 3rd Level RIGHT Facet Jt Inj Cervical/Thoracic RIGHT January Facet Jt Inj Cerv/Thor 2nd Level RIGHT M Facet Jt Inj Cerv/Thor 3rd Level RIGHT M Facet Jt Inj Cervical/Thoracic RIGHT Nov Facet Jt Inj Cerv/Thor 2nd Level RIGHT M Facet Jt Inj Cerv/Thor 3rd Level RIGHT M Pt doc no events on discharg Pt w/o preop order iv ab pro INTERLAMINAR CRV OR THRC INTERLAMINAR CRV OR THRC Pt doc no events on discharg Pt w/o preop order iv ab pro Advance Directives Directive Yes / No Effective Date File Name No Information Encounters Encounter Description Practice Location Reason(s) For Visit Diagnoses Date Provider Providers Copied on Encounter [facility], [address] [place] [address] 11 [facility] [address], [place], [id number], [place] tel:[phone] [facility] No Information [facility]. [address] [place] [address] 11 [facility] [address] [place] [address], [id number], . tel:[phone] Referring Provider: Anny Levy, [address] [facility] [place], [address] . tel:[phone] [facility], [address] [place] [address], [id number], tel:[phone] [place] [address] No Information 2 [facility]. [address] [place] [address], [id number], . tel:[phone] Referring Provider: Anny Levy, [address] [place], [address] . tel:[phone] [facility], [address] [place] [address], [id number], tel:[phone] [place] [address] No Information 2 [facility]. [address] [place] [address], [id number], . tel:[phone] Referring Provider: Anny Levy, [address] [place], [address] . tel:[phone] [facility], [address] [place] [address], [id number], tel:[phone] [place] [address] No Information 2 [facility]. [address] [place] [address], [id number], . tel:[phone] Referring Provider: Anny Levy, [address] [place], [address] . tel:[phone] Family History Family Member Type Diagnosis Age At Onset No Information Payers Payer name Insurance type Covered constitution party ID Willy freeman(s) Medicare MB [id number] Social History Type Description Quantity Date Captured Comments Sex Female Smoking Status No Information Chief Complaint And Reason For Visit No Information Reason For Referral Reason For Referral No Information History Of Present Illness Encounter Date Complaint History Of Prese nt Illness No Information Functional Status Date Functional Assessmen t No Information Instructions Date Instruction Additional Infor mation No Information Assessments Type Assessment Date No Information Patient Care Teams Name Effective Dates (start - stop) Status Members No Information
--- OUTSIDE RECORDS SUMMARY | 2022-06-03 06:45 | XMS_ITS | Continuity of Care Document ---
Author Organization [facility] enter Address [address] [place] [address] [address] [place] [address] Phone Care Team Providers Care Advertising Supervisor Name Role Phone [facility] Unavailable Unava ilable Procedures Procedure Date RF [...] Diagnoses Date Provider Providers Copied on Encounter [facility], [address] [place] [address] 11 [facility] [address], [place], [id number], [place] tel:[phone] [facility] No Information [facility]. [address] [place] [address] 11 [facility] [address] [place] [address], [id number], . tel:[phone] Referring Provider: Anny Levy, [address] [facility] [place], [address] . tel:[phone] [facility], [address] [place] [address], [id number], tel:[phone] [place] [address] No Information 2 [facility]. [address] [place] [address], [id number], . tel:[phone] Referring Provider: Anny Levy, [address] [facility], [address] . tel:[phone] [facility], [address] [place] [address], [id number], tel:[phone] [place] [address] No Information 2 [facility]. [address] [place] [address], [id number], . tel:[phone] Referring Provider: Anny Levy, [address] [facility] [place], [address] . tel:[phone] [facility], [address] [place] [address], [id number], tel:[phone] [place] [address] No Information 2 [facility]. [address] [place] [address], [id number], . tel:[phone] Referring Provider: Anny Levy, [address] [place], [address] . tel:[phone] Family History Family Member Type Diagnosis Age At Onset No Information Payers Payer name Insurance type Covered green party ID Willy freeman(s) Medicare MB [id number] Social History Type Description Quantity Date Captured [...]
--- OUTSIDE RECORDS SUMMARY | 2022-06-03 06:45 | XMS_ITS | Continuity of Care Document ---
Author Organization [facility] melissa Address [address] [facility] [place] [address] Phone Care Team Providers Care Equip Tech Name Role Phone Anny Levy MD Unavailable Unavailable Allergies, Adverse Reactions, Alerts Substance Reaction Status Criticality No Known Allergies Active No Inform ation Medications Medication Instructions Dosage Effective Dates (start - stop) Status Comments Neli-D 24 Hour 180 mg-240 mg tablet,extended release take 1 tablet by oral route every day on an empty stomach with glass of water 1.00 tablet - Active clonazepam 0.5 mg tablet take 1 tablet by oral route every day 0.5 MG - Active Thalitone 15 mg tablet take .5 tablet by oral route every day - Active gabapentin 300 mg capsule take 1 capsule by ORAL route every day 300 MG - Active Sinemet 25 mg-100 mg tablet take 1 tablet by oral route 3 times every day 1 tablet - Active Cymbalta 60 mg capsule,delayed release take 1 capsule by oral route every day - Active bupropion HCl XL 300 mg 24 hr tablet, extended release take 1 tablet by oral route every day 300 MG - Active omeprazole 40 mg capsule,delayed release take 1 capsule by oral route every day before a meal 40 MG - Active lisinopril 40 mg tablet take 1 tablet by oral route every day 40 MG - Active pravastatin 40 mg tablet take 1 tablet by oral route every day 40 MG - Active meloxicam 15 mg tablet take 1 tablet by oral route every day 15 MG - Active aspirin 81 mg tablet,delayed release take 1 tablet by oral route every day 81 MG - Active Procedures Procedure Date RF Cerv/Thor Single Level RIGHT 022 RF Cerv/Thor 2nd Level RIGHT RF Cerv/Thor 3rd Level RIGHT OFFICE/OUTPATIENT VISIT, EST Facet Jt Inj Or MBB Cervical/Thoracic RI GHT Facet Jt Inj Or MBB Cerv/Thor 2nd Level RIGHT Facet Jt Inj Or MBB Cerv/Thor 3rd Level RIGHT OFFICE/OUTPATIENT VISIT, EST Facet Jt Inj Or MBB Cervical/Thoracic RI GHT Facet Jt Inj Or MBB Cerv/Thor 2nd Level RIGHT Facet Jt Inj Or MBB Cerv/Thor 3rd Level RIGHT OFFICE/OUTPATIENT VISIT, EST INTERLAMINAR CRV OR THRC PT-FOCUSED HLTH RISK ASSMT OFFICE/OUTPATIENT VISIT, NEW Advance Directives Directive Yes / No Effective Date File Name No Information Encounters Encounter Description Practice Location Reason(s) For Visit Diagnoses Date Provider Providers Copied on Encounter [facility], [address], [place], [id number] , [place] tel:[phone] [facility] Other spondylosis, cervical region May- 2 Mildred Mccormick. [address], [place], [id number] , [place]. tel:[phone] Referring Provider: [facility] [address], [place], [address]. tel:[phone] OFFICE/OUTPA TIENT VISIT, EST [facility], [address], [place], [id number] , [place] tel:[phone] [facility] [place] Pain (chief complaint) Parkinson's diseaseChronic pain syndromeScoliosi sOther spondylosis, cervical regionRadiculopa thy, cervical regionPostlamine ctomy syndrome, not elsewhere classifiedOther photograph enlarger (current) drug therapy Sep- 2 Kat Restrepo, [address] [place], [address], [place]. [phone] Referring Provider: [facility] [address] [place] [address] [address], [place], [address]. tel:[phone] [facility], [address] [place] [address] [place]ven[place], [id number] , [place] tel:[phone] [facility] Other spondylosis, cervical region January-0 2 Mildred Mccormick. [address] [place] [address] Feliz Edwards [place], [id number] , [place]. tel:[phone] Referring Provider: [facility] [address] [place] [address] [address], [place], [address]. tel:[phone] OFFICE/OUTPA TIENT VISIT, EST [facility], [address] [place] [address], [id number] , [place] tel:[phone] [facility] Neck Pain (chief complaint) Parkinson's diseaseChronic pain syndromeScoliosi sOther spondylosis, cervical regionRadiculopa thy, cervical regionPostlamine ctomy syndrome, not elsewhere classifiedOther usp (current) drug therapy Apr-2 2 Kat Siddiqui. [place], [address] [place] [place], [address], [place]. [phone] Referring Provider: [facility] [address] [place] [address] [address], [place], [address]. [phone] [facility], [address] [place] [address] [place], [id number] , [place] tel:[phone] [facility] Other spondylosis, cervical region Nov-3 2 Mildred Mccormick. [address] [place] [address] [place], [id number] , [place]. tel:[phone] Referring Provider: Aj [facility] [address] [place] [address] [address], [place], [address]. tel:[phone] OFFICE/OUTPA TIENT VISIT, EST [facility], [address] [place] [address] [place], [place], [id number] , [place] tel: [phone] [facility] [place] Pain (chief complaint) Parkinson's diseaseChronic pain syndromeScoliosi sOther spondylosis, cervical regionRadiculopa thy, cervical regionPostlamine ctomy syndrome, not elsewhere classifiedOther photograph enlarger (current) drug therapy 2 Stephens Artur. [place], [address] [place], [address], [place]. [phone] Referring Provider: [facility] [address], [place], [address]. tel:[phone] [facility], [address], [place], [id number] , [place] tel:[phone] [facility] [place] No Information 2 Mildred Mccormick. [address], [place], [id number] , [place]. tel:[phone] Referring Provider: [facility] [address], [place], [address]. tel:[phone] OFFICE/OUTPA TIENT VISIT, NEW [facility], [address], [place], [id number] , [place] tel:[phone] [facility] [place] Pain (chief complaint) Chronic pain syndromePostlami nectomy syndrome, not elsewhere classifiedOther spondylosis, cervical regionRadiculopa thy, cervical regionScoliosisO ther photograph enlarger (current) drug therapyEncounter for screening for other disorderParkinso n's disease 2 Kat Siddiqui. [place], [address] [place], [address], [place]. [phone] Referring Provider: [facility] [address], [place], [address]. tel:[phone] Family History Family Member Type Diagnosis Age At Onset No Information Payers Payer name Insurance type Covered alliance party ID Authorjayda freeman(s) Medicare MB [id number] Social History Type Description Quantity Date Captured Comments Sex Female Smoking Status No Information Chief Complaint And Reason For Visit No Information Reason For Referral Reason For Referral No Information Plan Of Treatment Date Type Action Status Goal FIT. Due on due Goal Hepatitis C screening. Due o n due Goal Update Social History. Due o n due Goal Zoster vaccine (). Due on due Goal Review Allergy List. Due on due Goal PHQ-9. Due on du e Goal Unhealthy drug use screening . Due on due Goal Height. Due on d ue Goal FIT-DNA. Due on due Goal Medication Reconciliation. D ue on due Goal Tobacco Use. Due on due Goal Lipid panel. Due on due Goal CT-Colonography. Due on due Goal Weight. Due on d ue Goal FIT-DNA. Due on due Goal Weight. Due on d ue Goal Zoster vaccine (1st). Due on due Goal FIT. Due on due Goal Lipid panel. Due on due Goal CT-Colonography. Due on due Goal Update Social History. Due o n due Goal Tobacco Use. Due on due Goal Height. Due on d ue Goal Unhealthy drug use screening . Due on due Goal Review Allergy List. Due on due Goal PHQ-9. Due on du e Goal Hepatitis C screening. Due o n due Goal Medication Reconciliation. D ue on due Goal Unhealthy drug use screening . Due on due Goal FIT. Due on due Goal Medication Reconciliation. D ue on due Goal Height. Due on d ue Goal FIT-DNA. Due on due Goal Tobacco Use. Due on due Goal Weight. Due on d ue Goal Review Allergy List. Due on due Goal Hepatitis C screening. Due o n due Goal CT-Colonography. Due on due Goal Lipid panel. Due on due Goal Zoster vaccine (1st). Due on due Goal Update Social History. Due o n due Goal PHQ-9. Due on du e Goal Height. Due on d ue Goal Tobacco Use. Due on due Goal Weight. Due on d ue Goal Medication Reconciliation. D ue on due Goal Review Allergy List. Due on due Goal PHQ-9. Due on du e Goal Update Social History. Due o n due Goal CT-Colonography. Due on due Goal FIT. Due on due Goal FIT-DNA. Due on due Goal Hepatitis C screening. Due o n due Goal Lipid panel. Due on due Goal Unhealthy drug use screening . Due on due Goal Zoster vaccine (). Due on due Goal PHQ-9. Due on du e Goal Medication Reconciliation. D ue on due Goal Weight. Due on d ue Goal Review Allergy List. Due on due Goal Tobacco Use. Due on due Goal Height. Due on d ue Goal Update Social History. Due o n due Goal PHQ-9. Due on du e Goal Medication Reconciliation. D ue on due Goal Weight. Due on d ue Goal Review Allergy List. Due on due Goal Tobacco Use. Due on due Goal Height. Due on d ue Goal Update Social History. Due o n due Goal PHQ-9. Due on du e Goal Medication Reconciliation. D ue on due Goal Weight. Due on d ue Goal Review Allergy List. Due on due Goal Tobacco Use. Due on 022 due Goal Height. Due on d ue Goal Update Social History. Due o n due History Of Present Illness Encounter Date Complaint History Of Prese nt Illness Neck Pain Duration: chroni c. The problem has worsened. The frequency of pain is intermittent. Location of pain is upper back. The client describes the pain as Aching and Sharp. Aggravating factors include bending and housework. Relieving factors include changing positions. Pertinent negatives include bladder incontinence. Comments: Paola ramirez is here for an in office follow up and medications refill.The patient states their chronic pain has been worse. Her neck pain is worse with bending over. She inquires about completing a cervical RFA. The patient is staying active. Reports current medication regimen provides 50+% pain relief, decreasing their pain to a 5/10. Medications allow for increased functionality. Denies side effects from current medication regimen. No other concerns today. Neck Pain Duration: chroni c. The problem has worsened. The frequency of pain is constant. Location of pain is bilateral posterior neck. Aggravating factors include daily activities. Relieving factors include narcotic analgesics and rest. Pertinent negatives include bladder incontinence. Comments: Jerica presents for a follow up. S/p extensive fusion for scoliosis in 2009, patient details an additional revision surgery. S/p right cervical RFW, It has helped some. She expressed interest in moving forward with the next steps to ablation. The patient is currently managed on Cymbalta 60mg QD, gabapentin 300mg QD, and meloxicam 15mg QD with good benefit. She is not accompanied and has no other concerns today. Neck Pain (comments) Jerica is he re for a follow up after initial consult for neck pain. Pain started around 11 years ago. S/p extensive fusion for scoliosis in 2009, patient details an additional revision surgery. Presents following aborted [facility] by Dr. Aj on 11/26/21. Most of today's OV was spent discussing available treatment options. Specifically discussed RFW and patient is agreeable.The patient is currently managed on Cymbalta 60mg QD, gabapentin 300mg QD, and meloxicam 15mg QD with good benefit. She is not accompanied and has no other concerns today. Neck Pain Duration: chroni c. The problem has not changed. The frequency of pain is constant. Location of pain is bilateral posterior neck. The patient describes the pain as Aching, Burning and Sharp. Aggravating factors include bending, lifting, standing, twisting and walking. Relieving factors include medications and rest. Pertinent negatives include bladder incontinence. Neck Pain The severity of the problem is 4/10. Duration: chronic. Location of pain is bilateral posterior neck. The patient describes the pain as Aching, Sharp and deep. Aggravating factors include lifting, housework and movement. Denies relieving factors. Pertinent negatives include bladder incontinence. Neck Pain (comments) Jerica is he re for initial consult for neck pain. She is referred by Dr. Parveen Hill MD through [facility]. The patient is a 71y/o female who presents with chronic neck pain. Pain started around 11 years ago. S/p extensive fusion for scoliosis in 2009, patient details an additional revision surgery. Denies hx of injections. Details some benefit with past PT. Pain is described as aching, deep, and sharp. Pain averages 4/10. Of note, patient carries diagnosis of Parkinson's disease, established with Aj. The patient is currently managed on Cymbalta 60mg QD, gabapentin 300mg QD, and meloxicam 15mg QD. Patient is interested in pain management options offered through [facility]. Specifically, she is interested in injections. She is not accompanied and has no other concerns today. Functional Status Date Functional Assessmen t No Information Instructions Date Instruction Additional Infor mation No Information Assessments Type Assessment Date No Information Patient Care Teams Name Effective Dates (start - stop) Status Members No Information
--- OUTSIDE RECORDS SUMMARY | 2022-06-03 06:45 | XMS_ITS | Continuity of Care Document ---
Author Organization [facility] melissa Address [address] [address] Phone Care Team Providers Care Ring Sorter Name Role Phone Anny Levy MD Unavailable [...] Diagnoses Date Provider Providers Copied on Encounter [facility], [address], [place], [id number] , [place] tel:[phone] [facility] Other spondylosis, cervical region May- 2 Mildred Mccormick. [address], [place], [id number] , [place]. tel:[phone] Referring Provider: [facility] [address], [place], [address]. tel:[phone] OFFICE/OUTPA TIENT VISIT, EST [facility], [address] [place] [address], [place], [id number] , [place] tel:[phone] [facility] [place] Pain (chief complaint) Parkinson's diseaseChronic pain syndromeScoliosi sOther spondylosis, cervical regionRadiculopa thy, cervical regionPostlamine ctomy syndrome, not elsewhere classifiedOther delineator (current) drug therapy Sep- 2 Kat Restrepo, [address] [place], [address], [place]. [phone] Referring Provider: [facility] [address] [place] [address] [address], [place], [address]. tel:[phone] [facility], [address] [place] [address] [place], [id number] , [place] tel:[phone] [facility] Other spondylosis, cervical region January-0 2 Mildred Mccormick. [address] [place] [address] Feliz Edwards [place], [id number] , [place]. tel:[phone] Referring Provider: [facility] [address] [place] [address] [address], [place], [address]. tel:[phone] OFFICE/OUTPA TIENT VISIT, EST [facility], [address] [place] [address], [id number] , [place] tel:[phone] [facility] Neck Pain (chief complaint) Parkinson's diseaseChronic pain syndromeScoliosi sOther spondylosis, cervical regionRadiculopa thy, cervical regionPostlamine ctomy syndrome, not elsewhere classifiedOther prison (current) drug therapy Apr-2 2 Kat Siddiqui. [place], [address] [place], [address], [place]. [phone] Referring Provider: [facility] [address] [place] [address] [address], [place], [address]. tel:[phone] [facility], [address] [place] [address] [place], [id number] , [place] tel:[phone] [facility] Other spondylosis, cervical region Nov-3 2 Mildred Mccormick. [address] [place] [address] [place], [id number] , [place]. tel:[phone] Referring Provider: Aj [facility] [address] [place] [address] [address], [place], [address]. tel:[phone] OFFICE/OUTPA TIENT VISIT, EST [facility], [address] [place] [address] [place], [id number] , [place] [phone] [facility] [place] Pain (chief complaint) Parkinson's diseaseChronic pain syndromeScoliosi sOther spondylosis, cervical regionRadiculopa thy, cervical regionPostlamine ctomy syndrome, not elsewhere classifiedOther delineator (current) drug therapy 2 Stephens Artur. [place], [address] [place], [address], [place]. [phone] Referring Provider: [facility] [address], [place], [address]. tel:[phone] [facility], [address], [place], [id number] , [place] tel:[phone] [facility] [place] No Information 2 Mildred Mccormick. [address], [place], [id number] , [place]. [phone] Referring Provider: [facility] [address], [place], [address]. tel:[phone] OFFICE/OUTPA TIENT VISIT, NEW [facility], [address], [place], [id number] , [place] tel:[phone] [facility] [place] Pain (chief complaint) Chronic pain syndromePostlami nectomy syndrome, not elsewhere classifiedOther spondylosis, cervical regionRadiculopa thy, cervical regionScoliosisO ther delineator (current) drug therapyEncounter for screening for other disorderParkinso n's disease 2 Kat Siddiqui. [place], [address] [place], [address], [place]. [phone] Referring Provider: [facility] [address], [place], [address]. tel:[phone] Family History Family Member Type Diagnosis Age At Onset No Information Payers Payer name Insurance type Covered alliance party ID Authorjayda freeman(s) Medicare MB [id number] Social History Type Description Quantity Date Captured Comments Sex Female Smoking Status No Information Chief Complaint And Reason For Visit No Information Reason For Referral Reason For Referral No Information Plan Of Treatment Date Type Action Status Goal FIT. Due on due Goal Hepatitis C screening. Due o n due Goal Update Social History. Due o n due Goal Zoster vaccine (1st). Due on due Goal Review Allergy List. [...] Medication Reconciliation. D ue on due Goal Hepatitis C screening. Due o n due Goal PHQ-9. Due on du e Goal Review Allergy List. Due on due Goal Unhealthy drug use screening . Due on due Goal Height. Due on d ue Goal Tobacco Use. Due on due Goal Update Social History. Due o n due Goal CT-Colonography. Due on due Goal Lipid panel. Due on due Goal FIT. Due on due Goal Zoster vaccine (). Due on due Goal Weight. Due on d ue Goal FIT-DNA. Due on due Goal Weight. Due on d ue Goal Review Allergy List. Due on due Goal Hepatitis C screening. Due o n due Goal CT-Colonography. Due on due Goal Lipid panel. Due on due Goal Zoster vaccine (). Due on due Goal Update Social History. Due o n due Goal PHQ-9. Due on du e Goal Tobacco Use. Due on due Goal FIT-DNA. Due on due Goal Height. Due on d ue Goal Medication Reconciliation. D ue on due Goal FIT. Due on due Goal Unhealthy drug use screening . Due on due Goal PHQ-9. Due on du e Goal Height. Due on d ue Goal Tobacco Use. Due on due Goal Weight. Due on d ue Goal Medication Reconciliation. D ue on due Goal Review Allergy List. Due on due Goal Update Social History. Due o n due Goal CT-Colonography. Due on due Goal FIT. Due on due Goal FIT-DNA. Due on due Goal Hepatitis C screening. Due o n due Goal Lipid panel. Due on due Goal Unhealthy drug use screening . Due on due Goal Zoster vaccine (). Due on due Goal Update Social History. Due o n due Goal PHQ-9. Due on du e Goal Medication Reconciliation. D ue on due Goal Weight. Due on d ue Goal Review Allergy List. Due on due Goal Tobacco Use. Due on due Goal Height. Due on d ue Goal Weight. Due on d ue Goal Review Allergy List. Due on due Goal Tobacco Use. Due on due Goal Height. Due on d ue Goal Update Social History. Due o n due Goal PHQ-9. Due on du e Goal Medication Reconciliation. D ue on due Goal PHQ-9. Due on du e Goal Medication Reconciliation. D ue on due Goal Weight. Due on d ue Goal Review Allergy List. Due on due Goal Tobacco Use. Due on 022 due Goal Height. Due on d ue Goal Update Social History. Due o n due History Of Present Illness Encounter Date Complaint History Of Prese nt Illness Comments: Paola ramirez is here for an [...] changing positions. Pertinent negatives include bladder incontinence. Neck Pain Duration: chroni c. The problem [...] referred by Dr. Parveen Hill MD through [facility]. The patient is a 71y/o female who [...] interested in pain management options offered through [facility]. Specifically, she is interested in injections. She is not accompanied and has no other concerns today. Neck Pain The severity of the problem is 4/10. Duration: chronic. Location of pain is bilateral posterior neck. The patient describes the pain as Aching, Sharp and deep. Aggravating factors include lifting, housework and movement. Denies relieving factors. Pertinent negatives include bladder incontinence. Functional Status Date Functional Assessmen t No Information Instructions Date Instruction Additional Infor mation No Information Assessments Type Assessment Date No Information Patient Care Teams Name Effective Dates (start - stop) Status Members No Information
[2025-07-24] VITALS (14 sets, daily range): BP systolic 102–133; BP diastolic 63–71; PULSE 75–81; RESP 13–18; TEMP 36.8–36.9; O2SAT 89–98; BMI 29.1; BMI 30.5
--- OUTSIDE RECORDS SUMMARY | 2025-07-24 08:13 | XMS_ITS | Continuity of Care Document ---
Author Organization [facility] Address [address] [address] [place] [address] Phone Care Team Providers Care Resin Painter Name Role Phone Domenic Evans MD, Riley Unavailable Unavailabl e Allergies, Adverse Reactions, Alerts Substance Reaction Status Criticality No Known Allergies Active No Inform ation Medications Medication Instructions Dosage Effective Dates (start - stop) Status Comments GABAPENTIN (unknown strength) take 1 tablet by oral route 3 times every day Not Available - Active aspirin 81 mg chewable tablet chew 1 Tablet by oral route every day 81 MG - Active carbidopa 25 mg-levodopa 100 mg tablet take 1 tablet by oral route every day 1 tablet - Active pravastatin 40 mg tablet take 1 tablet by oral route every day 40 MG - Active clonazepam 0.5 mg tablet take 1 tablet by ORAL route every day 0.5 MG - Active Zyrtec 10 mg tablet take 1 tablet by oral route every day as needed 10 MG - Active VITAMIN B-12 (unknown strength) take 1 tablet by oral route every day Not Available - Active omeprazole 40 mg capsule,delayed release take 1 capsule by oral route every day before a meal 40 MG - Active Cymbalta 60 mg capsule,delayed release take 1 capsule by oral route every day 60 MG - Active bupropion HCl XL 300 mg 24 hr tablet, extended release take 1 tablet by oral route every day 300 MG - Active chlorthalidone 25 mg tablet take 1 tablet by oral route every day 25 MG - Active lisinopril 40 mg tablet take 1 tablet by oral route every day 40 MG - Active CLONAZEPAM (unknown strength) take 1 tablet by oral route 3 times every day Not Available - Active gabapentin 300 mg capsule take 1 Capsule by ORAL route 3 times every day 300 MG - Active Procedures Procedure Date Offic/outpt E&m Estab Moderate 25 Offic/outpt E&m Estab Mod-hi 2 Colonoscopy Flex; W/bx 1/mx Level Iv-surg Path Gross/micro Offic/outpt E&m New Mod-hi Routine Serum Collection Advance Directives Directive Yes / No Effective Date File Name No Information Encounters Encounter Description Practice Location Reason(s) For Visit Diagnoses Date Provider Providers Copied on Encounter [facility], [address] [address], [place], [place], [id number], tel:[phone] [facility] No Information 5 Domenic Lin. [address] [facility], [facility] [address], [place], [place], [id number] , [place]. tel:[phone] Offic/outpt E&m Estab Moderate [facility], [address] [address], [place], [place], [id number], [place] tel:[phone] [facility] GI Symptoms or Concerns (chief complaint) Chronic diarrhea 5 Rafiq Javier. [address] [facility], [address], [place], [place], [id number] , [place]. tel:[phone] Referring Provider: Referral Self, USE FOR SELF REFERRALS. Offic/outpt E&m Estab Mod-hi 2 [facility], [address] [address], [place], [place], [id number], [place] tel:[phone] [facility] GI Symptoms or Concerns (chief complaint) Frequent fecal incontinence 5 Rafiq [address]avier. [address] [place] [address], [facility] [address], [place], [id number] , [place]. tel:[phone] Referring Provider: Rogers RAMON, [address], [place], [address]. tel:[phone] [facility], [address] [address], [place], [address], tel:[phone] [facility] GI Symptoms or Concerns (chief complaint) Internal hemorrhoidsDiarrh ea, unspecifiedOther hemorrhoids 5 Rafiq Javier. [address] [place] [address], [facility] [address], [place], [id number] , [place]. tel:[phone] Referring Provider: Rogers RAMON, [address], [place], [address]. tel:[phone] Offic/outpt E&m [facility] [place], [address] [address], [place], [address], [place] tel:[phone] [facility] GI Symptoms or Concerns (chief complaint) Dietary counseling and surveillanceDiarr hea, unspecified typeFrequent fecal incontinence 5 Rafiq Javier. [address] [place] [address], [id number] , [place]. tel:[phone] Referring Provider: Rogers RAMON, [address], [place], [address]. tel:[phone] [facility] [place], [address] [address], [place], [address], [place] tel:[phone] [facility] No Information 4 Domenic Lin. [address] [place] [address], [id number] , [place]. tel:[phone] Family History Family Member Type Diagnosis Age At Onset Father Problem (finding) Alcoholism Immunizations Vaccine Date Status Comments Influenza, high-dose, split virus, trivalent, injectable, preservative free administered Note: [facility] bi-direct ional interface ; Source: Other Registry SARS-COV-2 (COVID-19) vaccin e, mRNA, spike protein, LNP, preservative free, rhoda-sucrose, 30 mcg/0.3 mL dose administered Note: [facility] bi-direct ional interface ; Source: Other Registry SARS-COV-2 (COVID-19) vaccin e, mRNA, spike protein, LNP, preservative free, 50 mcg/0.5 mL dose administered Note: [facility] bi-direct ional interface ; Source: Other Registry Respiratory syncytial virus (RSV), vaccine, recombinant, protein subunit RSV prefusion F, adjuvant reconstituted, 0.5 mL, preservative free administered Note: [facility] bi-direct ional interface ; Source: Other Registry Influenza, high-dose, split virus, quadrivalent, injectable, preservative free administered Note: [facility] bi-direct ional interface ; Source: Other Registry tetanus toxoid, reduced diphtheria toxoid, and acellular pertussis vaccine, adsorbed administered Note: [facility] b i-directional interface ; Source: Other Registry SARS-COV-2 (COVID-19) vaccin e, mRNA, spike protein, LNP, preservative free, 100 mcg/0.5mL dose or 50 mcg/0.25mL dose administered Note: [facility] bi -directional interface ; Source: Other Registry SARS-COV-2 (COVID-19) vaccin e, mRNA, spike protein, LNP, preservative free, 100 mcg/0.5mL dose or 50 mcg/0.25mL dose administered Note: [facility] bi -directional interface ; Source: Other Registry SARS-COV-2 (COVID-19) vaccin e, mRNA, spike protein, LNP, preservative free, 100 mcg/0.5mL dose or 50 mcg/0.25mL dose administered Note: [facility] bi -directional interface ; Source: Other Registry SARS-COV-2 (COVID-19) vaccin e, mRNA, spike protein, LNP, preservative free, 100 mcg/0.5mL dose or 50 mcg/0.25mL dose Feb-27-2021 administered Note: [facility] bi -directional interface ; Source: Other Registry zoster vaccine recombinant administered N ote: [facility] bi-directional interface ; Source: Other Registry zoster vaccine recombinant administered N ote: [facility] bi-directional interface ; Source: Other Registry zoster vaccine recombinant administered N ote: [facility] bi-directional interface ; Source: Other Registry Influenza, high-dose, split virus, quadrivalent, injectable, preservative free administered Note: [facility] bi-direct ional interface ; Source: Other Registry Influenza, high-dose, split virus, trivalent, injectable, preservative free administered Note: [facility] bi-direct ional interface ; Source: Other Registry Prevnar 13 administered Note: [facility] bi-d irectional interface ; Source: Other Registry Influenza, high-dose, split virus, trivalent, injectable, preservative free administered Note: [facility] bi-direct ional interface ; Source: Other Registry Pneumovax 23 administered Note: [facility] bi-d irectional interface ; Source: Other Registry Payers Payer name Insurance type Covered republican ID Authoriza tion(s) Medicare NGS MB [id number] [facility] Medicare Supplement BL [id number] Social History Type Description Quantity Date Captured Comments Sex Female Smoking Status No Information Chief Complaint And Reason For Visit No Information Reason For Referral Reason For Referral No Information Plan Of Treatment Date Type Action Status Goal Lifestyle education regardin g diet completed Referral Ordered: referred to Pelvic floor center Consultation and testing -anorectal mano Appointment date/timeframe: 01/17/2025 ordered Referral Ordered: Colonoscopy Appointment date/timeframe: 10/04/2024 ordered Appointment Jerica Layton BOOKED History Of Present Illness Encounter Date Complaint History Of Prese nt Illness GI Symptoms or Concerns I had a follow-up visit with Estelle today. She has previously seen me for diarrhea. Workup to date including testing for celiac disease, thyroid abnormalities, inflammatory bowel disease, and microscopic colitis have been negative. At our last visit she had reported episodes of fecal incontinence as well. I had recommended that we increase the cholestyramine to 4 g in the morning and 2 g in the evening. I also placed a referral for the pelvic floor center.She notes that she has had significant improvement. She states in the past 2 months she has had only 2 episodes of diarrhea. She does state that 1 of these episodes was associated with incontinence. Outside of these 2 episodes she reports normal formed bowel movements, generally twice a day. She is not having urgency. She states she had 1 day where she had hard stools, and denies any days where she did not have a bowel movement. She does report 2 episodes of seeing spotting of blood on the toilet tissue over the past few days. She denies any abdominal pain, nausea, vomiting, decreased appetite, or weight loss.She notes that because of the improvement of her symptoms, she did not schedule the appointments at the pelvic floor center. GI Symptoms or Concerns I had a follow-up visit with Estelle today. She was first seen by myself in September with diarrhea and frequent fecal incontinence. We did lab testing which showed a normal TSH and celiac panel. She underwent a colonoscopy which showed internal hemorrhoids but was otherwise normal, random biopsies were negative for microscopic colitis. At that time we started her on cholestyramine 4 g/day.She states that she has had significant improvement but not resolution of her symptoms on the cholestyramine. She states that she will go 2 to 3 weeks where she feels very good. At these times she will have "normal formed stools 1-3 times per day. She does not have urgency or incontinence. Occasionally she will have a day where she does not have a bowel movement, and occasionally she will have hard stools.Unfortunately she does still have episodes of semiformed or loose stools. This will last 1 or 2 days, and during these times she will frequently have incontinence. Sometimes she will have an urge and not be able to get to the bathroom in time. Other times she will have incontinence immediately upon standing. She denies any abdominal pain or blood in her stools. GI Symptoms or Concerns GI Symptoms or Concerns I was as ked to see Jerica by [facility] for consultation of incontinence. She states that this issue has been ongoing for years, however she has never had an evaluation for it. She notes that her stools are frequently loose or liquid, and rarely solid. As a result she takes Imodium at least 2 tablets every morning. If she is going to leave the house, she may take 3 or 4 tablets in the morning. With this regimen sometimes she can go 4 to 5 days without a bowel movement. However this will be followed by another 5 days of loose or liquid stools. At these times she will generally have urgency and frequently have incontinence. She always has a sensation of needing to go to the bathroom prior to an episode of incontinence. She denies having hard stools or straining to pass stools. Rarely she will see some spotting of blood on the toilet tissue.She denies abdominal pain, nausea, or vomiting. She takes omeprazole for acid reflux, and has good control without breakthrough symptoms as long as she takes this medication. She denies any dysphagia. Her appetite is good and her weight is stable.She states her last colonoscopy was over 5 years ago. At that time she was not having diarrhea or incontinence. Functional Status Date Functional Assessmen t No Information Instructions Date Instruction Additional Infor joceline Colon Cancer Prevention Related to Internal hemorrhoids Hemorrhoids Related to Inter nal hemorrhoids Lifestyle education regarding di et Related to Dietary counseling and surveillance Assessments Type Assessment Date No Information Patient Care Teams Name Effective Dates (start - stop) Status Members No Information
--- OUTSIDE RECORDS SUMMARY | 2025-07-24 08:13 | XMS_ITS | Continuity of Care Document ---
Author Organization [facility] Address [address] [address] [place] [address] Phone Care Team Providers Care Professor Of Literacy Name Role Phone Domenic Evans MD, Riley [...] Provider Providers Copied on Encounter [facility], [address] [address], [place], [place], [id number], tel:[phone] [facility] No Information 5 Domenic Lin. [address] [facility], [facility] [address], [place], [place], [id number] , [place]. tel:[phone] Offic/outpt E&m Estab Moderate [facility], [address] [address], [place], [place], [id number], [place] tel:[phone] [facility] GI Symptoms or Concerns (chief complaint) Chronic diarrhea 5 Rafiq Javier. [address] [facility], [address], [place], [place], [id number] , [place]. tel:[phone] Referring Provider: Referral Self, USE FOR SELF REFERRALS. Offic/outpt E&m Estab Mod-hi 2 [facility], [address] [address], [place], [place], [id number], [place] tel:[phone] [facility] GI Symptoms or Concerns (chief complaint) Frequent fecal incontinence 5 Rafiq Javier. [address] [place] [address], [facility] [address], [place], [address] , [place]. tel:[phone] Referring Provider: Rogers RAMON, [address], [place], [address]. tel:[phone] [facility], [address] [address], [place], [address], tel:[phone] [facility] GI Symptoms or Concerns (chief complaint) Internal hemorrhoidsDiarrh ea, unspecifiedOther hemorrhoids 5 Rafiq Javier. [address] [place] [address], [facility] [address], [place], [id number] , [place]. tel:[phone] Referring Provider: Rogers RAMON, [address], [place], [address]. tel:[phone] Offic/outpt E&m [facility] [place], [address] [address], [place], [address], [place] tel:[phone] [facility] GI Symptoms or Concerns (chief complaint) Dietary counseling and surveillanceDiarr hea, unspecified typeFrequent fecal incontinence 5 Rafiq Javier. [address] [place] [address], [id number] , [place]. [phone] Referring Provider: Rogers RAMON, [address], [place], [address]. tel:[phone] [facility] [place], [address] [address], [place], [address], [place] tel:[phone] [facility] No Information 4 Domenic Lin. [address] [place] [address], [id number] , [place]. tel:[phone] Family History Family Member Type Diagnosis Age [...] Registry Payers Payer name Insurance type Covered alliance party ID Authoriza tion(s) Medicare NGS MB [id number] [facility] Medicare Supplement BL [id number] Social History Type Description Quantity Date Captured [...]
--- OUTSIDE RECORDS SUMMARY | 2025-07-24 19:37 | XMS_ITS | Clinical Summary ---
Author Organization [facility] Address [address], [place] [address] Care Team Providers Care Rockboard Lather Name Role Phone Unassigned, Provider Primary Care Provider Unava ilable Source Comments You are receiving this document as you are listed as the primary care provider,follow-up provider, or the patient has been referred to you for consultation.This is in compliance with the Medicare and[facility] EHR Incentive Program,which states Providers who transition their patient to another setting of careor provider of care or refers their patient to another provider of care shouldprovide summary care record for each transition of care or referral. [employer] Allergies No known active allergies Medications DULoxetine (CYMBALTA) 60 MG capsule Take 1 Capsule (60 mg) by mouth daily. Active buPROPion (WELLBUTRIN XL) 300 MG 24 hour release tablet Take 1 Tablet (300 mg) by mouth daily. 09/15/2024 Active omeprazole (PRILOSEC) 40 MG capsule Take 1 Capsule (40 mg) by mouth daily. Active chlorthalidone (HYGROTON) 25 MG tablet Take 0.5 Tablets (12.5 mg) by mouth every morning. 08/08/2024 Active pravastatin (PRAVACHOL) 40 MG tablet Take 1 Tablet (40 mg) by mouth daily. Active lisinopril (ZESTRIL) 40 MG tablet Take 1 Tablet (40 mg) by mouth daily. Active clonazePAM (KLONOPIN) 0.5 MG tablet Take 1 Tablet (0.5 mg) by mouth daily at bedtime. 07/03/2024 Active gabapentin (NEURONTIN) 300 MG capsule Take 1 Capsule (300 mg) by mouth. Take 2 capsules in the am, and 3 caps in the pm 09/23/2024 Active cyanocobalamin (VITAMIN B12) 100 MCG tablet Take 25 Tablets (2,500 mcg) by mouth daily. Active magnesium oxide 250 MG tablet Take 1 Tablet (250 mg) by mouth two times a day. Active ASPIRIN LOW DOSE 81 MG enteric coated tablet Take 1 Tablet (81 mg) by mouth two times a day. 08/14/2024 Active Bioflavonoid Products (BIOFLEX) TABS Take 2 Tablets by mouth daily. Active carbidopa-levod opa (SINEMET) 25-100 MG tablet Take 2 Tablets by mouth three times a day. 540 Tablet 3 06/13/2025 06/13/20 Active Encounters Date Type Department Care Team Description 06/13/2025 Telephone [facility] [address] [place] [address] Genoveva Sol, RN UPDATE from Last 3 Months Social History Tobacco Use Types Packs/Day Years Used Date Smoking Tobacco: Never Assessed Comments Unknown Sex and Gender Information Value Date Recorded Sex Assigned at Not on file Legal Sex Female 4:41 AM CDT Gender Identity Not on file Sexual Orientation Not on file Last Filed Vital Signs Vital Sign Reading Time Taken Comments Blood Pressure 94/67 03/11/2025 2:44 PM CDT Pulse 99 03/11/2025 2:44 PM CDT Temperature - - Respiratory Rate - - Oxygen Saturation - - Inhaled Oxygen Concentration - - Weight 80.7 kg (178 lb) 03/11/2025 2:40 PM CDT s hoes on Height - - Body Mass Index - - Plan of Treatment Upcoming Encounters Date Type Department Care Team (Late st Contact Info) Description 09/23/2025 3:30 PM HOME SECURITY ALARM INSTALLER Appointment [facility] [address] [place] [address] Riley Preciado MD [address] [facility] [address] [place] [address] Health Maintenance Due Date Last Done Comments Colon Cancer Screening Plan Due 1950 Hep C Screening (Preventive Services) 1950 Medicare Annual Wellness Visit 1950 Mammogram 1950 Dexa 2015 COVID-19 Vaccine ( season) 2025 08/16/2023, 12/23/2021, 07/13/2021, Additional history exists Influenza Vaccine (#1) 2025 , 07/09/2020, 07/04/2018, Additional history exists RSV Vaccine (1 - 1-dose 75+ series) 2025 DTaP/Tdap/Td Vaccine (2 - Tdap) 07/14/2033 07/14/2023 Pneumococcal Vaccine 50+ Yrs Completed 03/21/2018, 06/20/2015 Zoster/Shingles Vaccine Completed 09/23/19 21, 08/27/2020, 07/16/2020 HepA Vaccine Aged Out No longer eligi ble based on patient's age to complete this topic HepB Vaccine Aged Out No longer eligi ble based on patient's age to complete this topic Hib Vaccine Aged Out No longer eligi ble based on patient's age to complete this topic MCV4 Vaccine Aged Out No longer eligi ble based on patient's age to complete this topic Meningococcal B Vaccine Aged Out No l onger eligible based on patient's age to complete this topic Insurance [address] [place] [id number] MEDICARE BCBS MEDICARE SUPPLEMENT MEDICARE [facility] MEDICARE SUPPLEMENT [address] [id number] Care Teams Rockboard Lather Relationship Specialty Start Date End Date Unassigned, Provider [address] [place] [address] PCP - General 06/14/00
--- OUTSIDE RECORDS SUMMARY | 2025-07-24 19:37 | XMS_ITS | Encounter Summary ---
Author Organization [facility] Address [address], [place] [address] Care Team Providers Care Geospatial Information Scientist Name Role Phone Unassigned, Provider Primary Care Provider Unava ilable Reason for Visit * Reason Comments UPDATE Encounter Details Date Type Department Care Team (Late st Contact Info) Description 06/13/2025 Telephone [facility] [address] [place] [phone] Genoveva Sol, RN UPDATE Social History Tobacco Use Types Packs/Day Years Used Date Smoking Tobacco: Never Assessed Comments Unknown Sex and Gender Information Value Date Recorded Sex Assigned at Not on file Legal Sex Female 4:41 AM CDT Gender Identity Not on file Sexual Orientation Not on file documented as of this encounter Nursing Notes * Riley Preciado MD - 06/13/2025 4:30 PM CDT Signed, thank you * Genoveva Sol RN - 06/13/2025 3:53 PM CDT Jerica called nurseline to update that she has increased from 1.5 tabs TID to 2 tabs TID as suggesting in visit note from February. Dr. Preciado please sign pended updated Rx-thank you documented in this encounter Plan of Treatment Upcoming Encounters Date Type Department Care Team (Late st Contact Info) Description 09/23/2025 3:30 PM UPHOLSTERY RESTORER Appointment [facility] [address] [place] [phone] Riley Preciado MD [address] [facility] [address] [place] [address] documented as of this encounter Visit Diagnoses Not on filedocumented in this encounter Care Teams Geospatial Information Scientist Relationship Specialty Start Date End Date Unassigned, Provider [address] [place] [address] PCP - General 06/14/00 documented as of this encounter
--- OUTSIDE RECORDS SUMMARY | 2025-07-24 19:38 | XMS_ITS | Patient Health Record ---
Author Organization [facility] Address [address] [facility] [address] [place] [address] Care Team Providers Care Bottle Blower Name Role Phone Dano Lennon Primary Care Provider Allergies No Known Allergies Reason For Referral No Information Medications Medication SIG (Take, Route, Frequency, Duration) Notes Start Date End Date Status pravastatin 40 mg 1 tab(s) orally once a day; Duration: 30 day(s) Active melatonin 5 mg 1 cap(s) orally once a day (at bedtime) Active Aspir 81 81 mg 1 tab(s) orally once a day; Duration: 30 day(s) Active lisinopril 40 mg 1 tab(s) orally once a day; Duration: 30 day(s) Active chlorthalidone 25 mg 1 tab(s) orally onc e a day; Duration: 30 day(s) Active bupropion 150 mg 2 tabs orally daily; Duration: 90 days Active omeprazole 40 mg 1 cap(s) orally once a day; Duration: 30 day(s) Active Sinemet 25 mg-100 mg 1 tab(s) orally 3 t imes a day; Duration: 30 day(s) Active Imodium Active Cymbalta 60 mg 1 cap(s) orally once a day; Duration: 30 day(s) Active magnesium gluconate 250 mg 1 tab(s) orally daily Active Calcium 600+D 600 mg-200 units 1 tab(s) orally daily Active meloxicam 15 mg 1 tab(s) orally once a day; Duration: 30 day(s) Active Osteo Bi-Flex 1500 mg/1200 mg 2 tab BID Active Immunizations Vaccine Route Administration Date Status Comme nts Sars Covid19- 100 mcg/0.5mL IM Intramuscular 12/06/2020 Administered Sars Covid19- 100 mcg/0.5mL IM Intramuscular 11/08/2020 Administered Social History Tobacco Use: Social History Observation Description Date Details (start date - stop date) Former Smoker NA - NA Tobacco assessment Question Answer Notes Are you [...] Have you ever had an STD? No Section Notes: Dentist - [facility] 6 months Vision - cheaters - [facility] Plan Of Treatment No Information Insurance Providers Payer Name Payer Address Payer Phone Subscriber Number Group Number Insured Name Patient Relationship to Insured Coverage Start Date Coverage End Date Medicare [employer] 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
--- OUTSIDE RECORDS SUMMARY | 2025-07-24 19:38 | XMS_ITS | Clinical Summary ---
Author Organization [facility] Address [address] [place] [address] Care Team Providers Care Marketing Information Coordinator Name Role Phone Rogers Ho PA-C Primary Care Provider [phone] Allergies No known active allergies Medications WELLBUTRIN SR## 150 MG OR TB12 450 mg a day Ac tive CYMBALTA 60 MG OR CPEP 1 CAPSULE [...] 2 tablets by mouth every morning Active carbidopa-levod opa (SINEMET) 25-100 MG tablet Take 1 tablet by mouth 3 times daily Active chlorthalidone (HYGROTON) 12.5 mg TABS half-tab Take 12.5 mg by mouth every morning Active acetaminophen (TYLENOL) 325 MG tabletIndicatio ns:Hip fracture, left, closed, initial encounter (H) Take 3 tablets (975 mg) by mouth every 8 hours as needed for mild pain 100 tablet 11/25/2022 Active HYDROmorphone (DILAUDID) 2 MG tabletIndicatio ns:Hip fracture, left, closed, initial encounter (H) Take 0.5 tablets (1 mg) by mouth every 4 hours as needed for severe pain (7-10) 12 tablet 11/25/2022 Active ondansetron (ZOFRAN ODT) 4 MG ODT tabIndications: Hip fracture, left, closed, initial encounter (H) Take 1 tablet (4 mg) by mouth every 6 hours as needed for nausea or vomiting 5 tablet 11/25/2022 Active senna-docusate (SENOKOT-S/REUBEN COLACE) 8.6-50 MG tabletIndicatio ns:Hip fracture, left, closed, initial encounter (H) Take 1 tablet by mouth 2 times daily 21 tablet 11/25/2022 Active clonazePAM (KLONOPIN) 0.5 MG tabletIndicatio ns:Hip fracture, left, closed, initial encounter (H) Take 1 tablet (0.5 mg) by mouth At Bedtime 10 tablet 11/26/2022 Active gabapentin (NEURONTIN) 100 MG capsuleIndicati ons:Hip fracture, left, closed, initial encounter (H) Take [...] School Help Needed Not on file 06/10 Comments No Sex and Gender Information Value Date Recorded Sex Assigned at Not on file 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 Gender Identity Not on file Sexual Orientation Not on file Last Filed Vital Signs Vital Sign Reading Time Taken Comments Blood Pressure 129/64 11/26/2022 7:39 AM CDT Pulse 86 11/26/2022 7:39 AM CDT Temperature 36.7 C (98.1 F) 11/26/2022 7:39 AM CDT Respiratory Rate 16 11/26/2022 7:39 AM CDT [...] DEXA 1950 FIT 1950 FLEX SIG 1950 sDNA (Cologuard) 1950 COLONOSCOPY 1960 COLORECTAL CANCER SCREENING 1960 HEPATITIS C SCREENING 1968 DTAP/TDAP/TD VACCINE (1 - Tdap) 1975 LUNG CANCER SCREENING 2000 MEDICARE ANNUAL WELLNESS VISIT 2015 LIPID 04/29/2021 04/29/2020 FALL RISK ASSESSMENT 05/29/2021 05/29/2020 PHQ-2 (once per calendar year) 2024 COVID-19 VACCINE ( season) 2025 12/23/2021, 07/13/2021, 12/06/2020, Additional history exists INFLUENZA VACCINE (#1) 2025 , 07/04/2018, 07/18/2017 RSV VACCINE (1 - 1-dose 75+ series) 2025 DIABETES SCREENING 12/02/2025 12/02/2022, 0 11/26/2022, 11/25/2022, Additional history exists PNEUMOCOCCAL VACCINE 50+ YEARS Completed 03/21/2018, 06/20/2015 ZOSTER VACCINE Completed 09/23/2020, 08/12, 07/16/2020 HPV VACCINE (No Doses Required) Completed MENINGITIS VACCINE Aged Out No longer eligible based on patient's age to complete this topic Medical Devices Implanted Type Area Supervisor Grower Device Identifier Shelf Expiration Date Model / Serial / Lot Bone Cement Simplex Full Dose 6191-1-001 - [id number] Implanted:Qty: 1 on 11/24/2022 by Jean Ayala MD at [facility] Cement, Bone Left: Hip [employer] [id number] 1 / / [id number] Bone Cement Simplex Full Dose 6191-1-001 - [id number] Implanted:Qty: 1 on 11/24/2022 by Jean Ayala MD at [facility] Cement, Bone Left: Hip [employer] [id number] 1 / / [id number] Bone Cement Restrictor Donovan Femoral 18.5mm [id number] - [id number] Implanted:Qty: 1 on 11/24/2022 by Jean Ayala MD at [facility] Cement, Bone Left: Hip [employer]-R [id number] 07/19/2032 [id number] / / [id number] Imp Head Strk Femoral Uhr Bipolar 42x63qw Uh1-47-28 - [id number] Implanted:Qty: 1 on 11/24/2022 by Jean Ayala MD at [facility] Total Joint Component /Insert Left: Hip [employer] [id number] 05/31/2026 UH1-47-28 / / [id number] Imp Stem Femoral Hip Strk Ofst 125x37.5mm 1 0580-3-371 - [id number] Implanted:Qty: 1 on 11/24/2022 by Jean Ayala MD at [facility] Total Joint Component /Insert Left: Hip [employer] [id number] 06/09/2027 0580-3-37 [id number] / [id number] Imp Head Femoral Strk V40 Vitallim Cocr 28mm -4mm 6260-5-028 - [id number] Implanted:Qty: 1 on 11/24/2022 by Jean Ayala MD at [facility] Total Joint Component /Insert Left: Hip [employer] [id number] 10/31/2026 6260-5-02 [id number] Procedures Procedure Name Priority Date/Time Associated Diagnosis [...] 2:05 PM CDT [facility] Comment:eGFR calculated us2020 CKD-EPI equation. Blood STRUCTURE OF RIGHT UPPER LIMB / Unknown Venipuncture / Unknown 12/02/2022 6:18 AM CDT 12/02/2022 10:57 AM CDT us Heidy Phillips MD LAB - BLOOD ORDERABLES Final Result [facility] [place] [facility] [address], [address] [place] [address] [phone] * (ABNORMAL) Lipid Profile (04/29/2020) Cholesterol 261(A) 90 - 200 mg/dL [facility] Triglycerides 190 40 - 197 mg/dL [facility] HDL Cholesterol 118 >=50 mg/dL [facility] LDL Cholesterol Calculated 105(A) <100 mg/dL [facility] Blood specimen (specimen) 04/29/2020 Narrative [facility] - 04/29/2020 LAB RESULT [facility] us Provider Outside LAB - BLOOD ORDERABLES Final Re sult [facility] [address] [place] [address], [facility] [phone] from Last 3 Months or Most Recently Relevant to Health [place] [id number] [facility] MEDICARE SUPPLEMENT Advance Directives For more information, please contact: [phone] * Full Code (Latest Code Status on File) Date Activated Date Inactivated Comments 11/23/2022 10:30 PM 11/26/2022 2:53 PM All basic a nd advanced life-sustaining interventions are performed as appropriate Question Answer Comments Code status determined by: Unable to dis cuss and no AD/POLST on file; continue PREVIOUSLY ORDERED code status Care Teams Marketing Information Coordinator Relationship Specialty Start Date End Date Rogers Ho PA-C [place] [address] [place] [address] PCP - General 11/23/22
--- OUTSIDE RECORDS SUMMARY | 2025-07-24 19:38 | XMS_ITS | Clinical Summary ---
Author Organization [facility] Address [address] [place] [address] Care Team Providers Care Filter Press Supervisor Name Role Phone Rogers Ho PA-C Primary Care Provider [phone] Allergies No known active allergies Medications buPROPion (WELLBUTRIN XL) 150 mg Extended-Releas e tablet Take 450 mg by mouth once daily. 7 Active DULoxetine (CYMBALTA) 60 mg Delayed-release capsule Take 60 mg by mouth once daily. 7 Active omeprazole (PRILOSEC) 20 mg Delayed-Release capsule Take 1 capsule by mouth once daily before a meal. 0 7 Active lisinopril (PRINIVIL; ZESTRIL) 40 mg tablet Take 1 tablet by mouth once daily. 0 7 Active aspirin (ECOTRIN) 81 mg enteric coated tablet Take 1 tablet by mouth once daily with a meal. 0 7 Active chlorthalidone (HYGROTON) 25 mg tablet Take 1 tablet by mouth once daily. 0 9 Active propranolol (INDERAL) 40 mg tablet Take 1 tablet by mouth 2 times daily. 0 9 Active pravastatin (PRAVACHOL) 40 mg tablet Take 1 tablet by mouth at bedtime. 0 9 Active Glucosamine-Cho nd-MSM-Vit C-Mn tablet Take 1 tablet by mouth 3 times daily with meals. 0 9 Active loperamide (IMODIUM) 2 mg capsule Take 4mg by mouth with 1st loose stool, then 2mg with each subsequent loose stool. 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 Gender Identity Not on file Sexual Orientation Not on file Obstetrics History Last Filed Vital Signs Vital Sign Reading Time Taken Comments Blood Pressure 98/62 03/29/2019 3:09 PM CDT Pulse 82 03/29/2019 3:09 PM CDT Temperature - - Respiratory Rate 16 07/19/2017 1:13 PM ELEMENTARY CLASSROOM TEACHER Oxygen Saturation 97% 03/29/2019 3:09 PM CDT Inhaled Oxygen Concentration - - Weight 71.6 kg (157 lb 12.8 oz) 03/29/2019 3:09 PM CDT Height 165 cm (5' 4.96) 07/19/2017 1:13 PM ELEMENTARY CLASSROOM TEACHER Body Mass Index 26.29 07/19/2017 1:13 PM ELEMENTARY CLASSROOM TEACHER Plan of Treatment Health Maintenance Due Date Last Done Comments Tetanus booster 1961 Depression screening for age 12+ 1962 Hepatitis C screening for ag e 18-79 1968 Pneumococcal series for age 50+ (1 of 1 - PCV) 2000 Zoster (shingles) series for age 50+ (1 of 2) 2000 Lipids for age 45-75 09/28/2009 09/28/2004 DEXA/DXA scan for age 65+ 2015 Medicare Wellness for age 65+ 2015 BMI (ht and wt on same day) for age 18+ 07/19/2018 07/19/2017, 06/28/2017 Influenza Vaccine (#1) 2025 RSV vaccine for adults or (1 - 1-dose 75+ series) 2025 Colonoscopy through age 75 05/29/202905/29, 05/29/2019, 05/29/2019 Hepatitis B series for 19+ Aged Out N o longer eligible based on patient's age to complete this topic Procedures Procedure Name Priority Date/Time Associated Diagnosis Comments COLONOSCOPY SCREENING Routine 05/29/2019 1:05 PM CDT Incontinence of feces, unspecified fecal incontinence type Screen for colon cancer LIPID PANEL Timed 09/28/2004 10:57 AM ELEMENTARY CLASSROOM TEACHER from Last 3 Months or Most Recently Relevant to Health Maintenance Results * COLONOSCOPY SCREENING (05/29/2019 1:05 PM CDT) us Henrique Caldera MD GI PROCEDURE ORD Final Re sult * (ABNORMAL) LIPID PANEL (09/28/2004 10:57 AM ELEMENTARY CLASSROOM TEACHER) CHOLESTEROL,TOTAL 256(H) 110 - 199 mg/dL [facility] TRIGLYCERIDES 62 40 - 149 mg/dL [facility] HDL CHOLESTEROL 82 41 - 95 mg/dL [facility] CHOL/HDL RATIO 3.12 <4.51 [facility] LDL CHOLESTEROL 162(H) 60 - 130 mg/dL [facility] PATIENT STATUS Fasting [facility] 09/28/2004 10:5 7 AM ELEMENTARY CLASSROOM TEACHER 09/28/2004 10:47 AM ELEMENTARY CLASSROOM TEACHER us Jeremy Castellanos MD CHEMISTRY Final Resu lt [facility] [place]NAL ZIP [address] [address] from Last 3 Months or Most Recently Relevant to Health Maintenance Insurance HPI-OPEN ACCESS MEDICARE PART B HB ONLY MEDICARE PB ONLY [facility] Care Teams Filter Press Supervisor Relationship Specialty Start Date End Date Rogers Ho PA-C PCP - General Physician [place] [employer] 06/20/17
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
--- NOTE | 2025-07-24 20:08 | ED.FALL ---
HPI - Fall General Time Seen by Provider: 20:08 Date Seen: 07/24/25 Chief Complaint: Fall/Minor Trauma Stated Complaint: Fall Time Seen by Provider: 07/24/25 20:10 Source: patient, family (son) and EMS Mode of arrival: EMS History of Present Illness HPI Narrative: Jerica is a 75 yo female who has a past medical history of HTN, Parkinsons who presents to the ED by EMS for evaluation of fall and generalized weakness. Patient reports for the past 2 days she has had some generalized weakness, feeling lethargic, and has mostly been in bed. Patient reports that this evening she got up to go to the kitchen to get a glass of water when she felt weak, wobbly/spinae, and fell. Patient states that she fell onto her right side but denies any injuries. Patient is not on chronic anticoagulation. Patient states she did not hit her head or lose consciousness. Patient states she scooted herself to her phone to call her son/EMS. Patient denies any headache, vision changes, neck pain, back pain, chest pain, shortness of breath, abdominal pain, nausea, vomiting. Patient denies any diarrhea but does note some looser stools recently. Patient denies any recent cough or cold-like symptoms, no sick contacts. Patient reports history of similar episode about a year ago in which she had pneumonia. Patient normally walks with a walker. Son reports that currently in the process of looking to get her a life alert as well as possibly into an independent living with some assisted when needed. Patient reports decreased oral intake over the past few days. Related Data Home Medications ?Medication ?Instructions ?Recorded ?Confirmed carbidopa 25 mg-levodopa 100 mg 1 tab PO TID 05/20/22 01/31/25 tablet mecobalamin (vitamin B12) 5,000 5,000 tab PO DAILY 05/20/22 01/31/25 mcg disintegrating tablet cetirizine 10 mg capsule (All Day 20 mg PO BID PRN 10/12/22 01/31/25 Allergy (cetirizine)) latanoprost 0.005 % eye drops 1 drp ophthalmic (eye) HS 04/26/24 01/31/25 duloxetine 60 mg capsule,delayed 60 mg PO DAILY 08/13/24 01/31/25 release Calcium PO 12/13/24 01/31/25 Magnesium PO 12/13/24 01/31/25 Vitamin D3 PO 12/13/24 01/31/25 cholestyramine 4 gram oral powder g PO 01/30/25 01/30/25 for suspension in a packet (Cholestyramine Light) meloxicam 15 mg tablet 15 mg PO DAILY 01/30/25 cholestyramine 4 gram oral powder 4 g PO BID 03/28/25 (Cholestyramine Light) Previous Rx's ?Medication ?Instructions ?Recorded acetaminophen 500 mg capsule 500 - 1,000 mg (1 - 2 x 500 mg) PO 08/14/24 Q6H PRN #100 caps aspirin 81 mg tablet,delayed 81 mg PO BID #50 tabs 08/14/24 release gabapentin 300 mg capsule 900 mg (3 x 300 mg) PO .ud #450 01/23/25 caps indomethacin 50 mg capsule 50 mg PO BID #14 caps 02/06/25 clonazepam 1 mg tablet 1 mg PO QHS #90 tabs 03/05/25 pravastatin 40 mg tablet 40 mg PO QPM #90 tabs 05/09/25 lisinopril 40 mg tablet 40 mg PO DAILY #90 tabs 05/20/25 chlorthalidone 25 mg tablet 12.5 mg (1/2 x 25 mg) PO DAILY #45 05/29/25 tabs omeprazole 40 mg capsule,delayed 40 mg PO DAILY #90 caps 06/14/25 release bupropion HCl 300 mg 24 hr tablet, 300 mg PO QAM #60 tabs 06/28/25 extended release Allergies Allergy/AdvReac Type Severity Reaction Status Date / Time No Known Allergies Allergy Unknown Verified 07/24/25 19:40 Review of Systems Narrative: Past medical history, past surgical history, medications, allergies, family history, and social history were reviewed with the patient. No additional pertinent items. A medically appropriate review of systems was performed with pertinent positives and negatives noted in HPI, all other systems negative. [facility] Medical History Fall ?W19.XXXA - Unspecified fall, initial encounter (ICD-10) Acute exacerbation of chronic obstructive pulmonary disease ?J44.1 - Chronic obstructive pulmonary disease with (acute) exacerbation (ICD-10) Acute respiratory failure with hypoxemia ?J96.01 - Acute respiratory failure with hypoxia (ICD-10) URI (upper respiratory infection) ?J06.9 - Acute upper respiratory infection, unspecified (ICD-10) Elevated troponin level ?R79.89 - Other specified abnormal findings of blood chemistry (ICD-10) Incontinence of feces ?R15.9 - Full incontinence of feces (ICD-10) Familial heart disease ?I51.89 - Other ill-defined heart diseases (ICD-10) Candidal intertrigo ?B37.2 - Candidiasis of skin and nail (ICD-10) Surgical History Status post total hip replacement, 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) ?Z96.641 - Presence of right artificial hip joint (ICD-10) History of finger joint replacement ?Z96.698 - Presence of other orthopedic joint implants (ICD-10) History of lumbar fusion ?Z98.1 - Arthrodesis status (ICD-10) History of left hip hemiarthroplasty (11/24/22) ?Z96.642 - Presence of left artificial hip joint (ICD-10) Status post appendectomy ?Z90.49 - Acquired absence of other specified parts of digestive tract (ICD-10) History of rotator cuff surgery ?Z98.890 - Other specified postprocedural states (ICD-10) History of laminectomy ?Z98.890 - Other specified postprocedural states (ICD-10) History of colonoscopy ?Z98.890 - Other specified postprocedural states (ICD-10) Family History Mother Family history of stroke or transient ischemic attack in mother Social History Narrative: Does not use illicit drugs Non-smoker What is your current living situation?: I presently have a place to live Problems where you live: no known problems Problems where you live details: NA In the past 12 months, utilities in danger of being shut off: no In past 12 months, lack of transportation kept you from medical appts, meetings, work, or getting things needed for daily living: no In the past 12 mos, have been you worried that your food would run out before you had money to buy more?: never true In the past 12 mos, the food you bought just didn't last and you didn't have money to buy more?: never true Highest level of school completed/degree received: some college, no degree Smoking Status: Former smoker What tobacco products do you use: cigarettes Smoking quit date/years: <= 15 years ago Do you use any of these nicotine containing products: None Second hand tobacco smoke exposure: No How often do you have a drink containing alcohol: 4 or more times a week Alcohol type: wine How many standard drinks containing alcohol do you have on a typical day: 1 or 2 How often do you have six or more drinks on one occasion: Never AUDIT-C Alcohol total score: 4 Non-prescribed substance use: denies use Caffeine: No How often does anyone, including family, friends and others, physically hurt you: never How often does anyone, including family, friends and others, insult or talk down to you: never How often does anyone, including family, friends and others, threaten you with harm: never How often does anyone, including family, friends and others, scream or curse at you: never service: No Exam Narrative: Exam Narrative: General: Afebrile, no acute distress HEENT: Normocephalic, atraumatic, conjunctiva normal. MMM Neck: non-tender, supple, no midline tenderness to palpation Cardio: regular rate. regular rhythm Resp: Normal work of breathing, no respiratory distress, lungs clear bilaterally, no wheezing, rhonchi, rales Chest/Back: no visual signs of trauma, no midline tenderness, no CVA tenderness Abdomen: soft, non distension, no tenderness, no peritoneal signs Neuro: alert and fully oriented. CN II-XII intact. Normal strength and sensation in all extremities. MSK: no deformities. Normal range of motion Integumentary/Skin: no rash visualized, normal color Psych: normal affect, normal behavior Const: Vital Signs, click to edit/add: Vital Signs - 24 hr 07/24/25 19:41 07/24/25 19:46 07/24/25 20:00 Temperature 98.5 F Pulse Rate 76 78 Pulse Rate [Pulse Oximeter] 77 Respiratory Rate 16 Blood Pressure Blood Pressure [Ri ght Upper Arm] 102/69 Pulse Oximetry 91 92 89 Oxygen Delivery Me thod Room Air 07/24/25 20:15 07/24/25 20:30 07/24/25 20:45 Temperature Pulse Rate 78 78 76 Pulse Rate [Pulse Oximeter] Respiratory Rate Blood Pressure Blood Pressure [Ri ght Upper Arm] Pulse Oximetry 92 96 94 Oxygen Delivery Me thod 07/24/25 21:15 07/24/25 21:23 07/24/25 21:30 Temperature Pulse Rate 78 77 77 Pulse Rate [Pulse Oximeter] Respiratory Rate 15 18 Blood Pressure 119/63 Blood Pressure [Ri ght Upper Arm] Pulse Oximetry 94 96 96 Oxygen Delivery Me thod 07/24/25 21:32 07/24/25 21:33 07/24/25 21:45 Temperature Pulse Rate 76 76 76 Pulse Rate [Pulse Oximeter] Respiratory Rate 13 14 15 Blood Pressure 123/63 Blood Pressure [Ri ght Upper Arm] Pulse Oximetry 94 97 95 Oxygen Delivery Me thod 07/24/25 22:24 Temperature Pulse Rate 79 Pulse Rate [Pulse Oximeter] Respiratory Rate 16 Blood Pressure Blood Pressure [Ri ght Upper Arm] Pulse Oximetry 98 Oxygen Delivery Me thod Course Vital Signs Vital signs: Initial Vital Signs Temperature 98.5 F 07/24/25 19:41 Temperature Source Temporal Artery Scan 07/24/25 19:41 Pulse Rate 77 07/24/25 19:41 Respiratory Rate 16 07/24/25 19:41 Blood Pressure 102/69 07/24/25 19:41 Blood Pressure Mean 80 07/24/25 19:41 Blood Pressure Position High-Fowlers 07/24/25 19:41 Pulse Oximetry 91 07/24/25 19:41 Oxygen Delivery Method Room Air 07/24/25 19:41 Vital Signs Temperature 98.5 F 07/24/25 19:41 Pulse Rate 77 07/24/25 19:41 Respiratory Rate 16 07/24/25 19:41 Blood Pressure 102/69 07/24/25 19:41 Pulse Oximetry 91 07/24/25 19:41 Oxygen Delivery Method Room Air 07/24/25 19:41 Temperature 98.5 F 07/24/25 19:41 Pulse Rate 79 07/24/25 22:24 Respiratory Rate 16 07/24/25 22:24 Blood Pressure 123/63 07/24/25 21:32 Pulse Oximetry 98 07/24/25 22:24 Oxygen Delivery Method Room Air 07/24/25 19:41 Medications Administered Medications: Discontinued Medications Generic Name Dose Route Start Last Admin Trade Name Sherrie PRN Reason Stop Dose Admin Sodium Chloride 1,000 mls @ 1,000 mls/hr 07/24/25 20:45 07/24/25 22:38 0.9 % Sodium Chloride 1000 Ml IV 07/24/25 21:44 Infused .Q1H MEDARDO Infusion MDM - Fall MDM Narrative Medical decision making narrative: Jerica is a 75 yo female who presents to the ED by EMS for evaluation of fall and generalized weakness. Upon arrival patient is nontoxic appearing, afebrile, no distress. Patient hemodynamically stable vital signs within normal limits. Patient is not on chronic anticoagulation, denies hitting her head, no loss of consciousness, denies any traumatic injuries, pain. Differential diagnosis includes but is not limited to infectious - viral illness versus pneumonia versus UTI versus metabolic electrolyte abnormality versus dehydration among others. Upon arrival EKG, comprehensive labs performed. Patient was treated with 1 L normal saline IV fluid bolus. I reviewed EKG demonstrates sinus rhythm with first-degree AV block with a ventricular rate of 75 beats per minute, no acute ischemic change, QTC 433, no significant change when compared to prior EKG. I personally interpreted chest x-ray which is unremarkable with no focal infiltrate, no evidence of pleural effusion, pneumothorax. Comprehensive labs with no leukocytosis white blood cell count 7.9, hemoglobin 10.8, sodium 128 which per chart review is acutely low, prior sodium on 07/08/2025 was 137, potassium 4.5, chloride low at 90, creatinine 1.3, no transaminitis, negative troponin. Viral testing negative for influenza/COVID/RSV. Patient pending urinalysis. Given patient's generalized weakness, fall, acute hyponatremia, I discussed patient management with hospitalist who agree with admission. Patient and son understand and agree with the plan. Medical Records Attestation: I reviewed the patient's medical records. Lab Data Attestation: I reviewed the patient's lab results. Labs: Lab Results 07/24/25 07/24/25 Range/Units 20:50 20:52 WBC 7.90 (4.50-11.00) K/uL RBC 3.36 L (4.00-5.20) m/uL Hgb 10.8 L (12.0-16.0) gm/dL Hct 33.7 (33.0-51.0) % MCV 100 (80-100) fL MCH 32 (26-34) pg MCHC 32 (32-36) gm/dL RDW Coeff of Clementine 12.2 (11.5-15.5) % Plt Count 271 (140-440) K/uL Neut % (Auto) 77.2 H (42.0-72.0) % Lymph % (Auto) 12.3 L (20-44) % Cedar % (Auto) 7.6 (0.0-11.0) % Eos % (Auto) 2.0 (0.0-7.0) % Baso % (Auto) 0.5 (0.0-3.0) % Neut # (Auto) 6.10 (1.7-7.0) K/uL Lymph # (Auto) 1.00 (0.90-2.90) K/uL Cedar # (Auto) 0.60 (0.00-0.90) K/UL Eos # (Auto) 0.16 (0.00-0.50) K/uL Baso # (Auto) 0.04 (0.00-0.30) K/uL Abs Immat Gran (auto) 0.03 (0.00-0.30) K/uL Imm/Tot Granulo (auto) 0.4 % Sodium 128 L (135-149) mmol/L Potassium 4.5 (3.6-5.1) mmol/L Chloride 90 L (96-114) mmol/L Carbon Dioxide 27 (20-32) mmol/L Anion Gap 11 (7-15) mEq/L BUN 21 (7-30) mg/dL Creatinine 1.3 (0.5-1.5) mg/dL Estimated Creat Clear 33.65 Estimated GFR 43 ml/min Glucose 154 H (60-115) mg/dL Calcium 9.4 (8.4-10.6) mg/dL Magnesium 2.4 (1.5-2.6) mg/dL Total Bilirubin 0.6 (0.1-1.5) mg/dL AST 28 (12-35) U/L ALT 9 (4-35) U/L Alkaline Phosphatase 148 (40-150) U/L Troponin I < 0.01 (0.01-0.04) ng/mL NT-Pro-B Natriuret Pep 48 (See Note) pg/mL Total Protein 6.4 (6.0-8.3) g/dL Albumin 3.9 (3.3-5.0) g/dL SARS-CoV-2 (PCR) Negative SARS-CoV-2 (Negative) Influenza Type A (PCR) Negative PCR FLU A (Negative) Influenza Type B (PCR) Negative PCR FLU B (Negative) RSV (PCR) Negative PCR RSV (Negative) Imaging Data Chest x-ray: Attestation: I have reviewed the pertinent imaging results. Radiologist's impression: INDICATION: Weakness, shortness of breath. TECHNIQUE: Chest 2 views. COMPARISON: September 08, 2024. FINDINGS: Cardiovascular and mediastinum: Heart size and vasculature are normal in caliber and appearance. Lungs and pleural spaces: Lungs are clear. No sign of infiltrate or mass. No sign of pleural effusion. No pneumothorax. Bones and soft tissues: Posterior thoracolumbar hardware fixation. IMPRESSION: No acute or significant findings. Dictated by Kye Mena MD @ 07/24/2025 9:16:08 PM Discharge Plan Discharge Clinical Impression: Weakness, Fall, Acute hyponatremia Patient Disposition: Admitted As Observation Condition: Stable
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
--- NOTE | 2025-07-24 20:42 | CRLHL7_ITS ---
For Patients: As a result of the Century Cures Act, medical imaging exams and procedure reports are released immediately into your electronic medical record. You may view this report before your referring provider. If you have questions, please contact your health care provider. INDICATION: Weakness, shortness of breath. TECHNIQUE: Chest 2 views. COMPARISON: September 08, 2024. FINDINGS: Cardiovascular and mediastinum: Heart size and vasculature are normal in caliber and appearance. Lungs and pleural spaces: Lungs are clear. No sign of infiltrate or mass. No sign of pleural effusion. No pneumothorax. Bones and soft tissues: Posterior thoracolumbar hardware fixation. IMPRESSION: No acute or significant findings. Dictated by Kye Mena MD @ 07/24/2025 9:16:08 PM (Electronically Signed)
[2025-07-24 20:59] LABS: Hematocrit* 33.7 % (33.0-51.0); Hemoglobin* 10.8 gm/dL (12.0-16.0); Immature Granulocytes Abs Auto 0.03 K/uL (0.00-0.30); Immature Granulocytes Pct Auto 0.4 %; Mean Corpuscular HGB Conc 32 gm/dL (32-36); Mean Corpuscular Hemoglobin 32 pg (26-34); Mean Corpuscular Volume 100 fL (80-100); RDW Coefficient of Variation % 12.2 % (11.5-15.5); Red Blood Count* 3.36 m/uL (4.00-5.20); White Blood Count* 7.90 K/uL (4.50-11.00)
[2025-07-24 21:02] LABS: Lymphocytes Absolute Auto 1.00 K/uL (0.90-2.90); Slide Review Reflex No
[2025-07-24 21:11] LABS: Albumin* 3.9 g/dL (3.3-5.0); Chloride* 90 mmol/L (96-114); Sodium* 128 mmol/L (135-149)
[2025-07-24 21:12] LABS: Potassium* 4.5 mmol/L (3.6-5.1)
[2025-07-24 21:14] LABS: Alanine Aminotransferase* 9 U/L (4-35); Alkaline Phosphatase* 148 U/L (40-150); Anion Gap 11 mEq/L (7-15); Aspartate Amino Transferase* 28 U/L (12-35); Bilirubin Total* 0.6 mg/dL (0.1-1.5); Blood Urea Nitrogen* 21 mg/dL (7-30); Calcium* 9.4 mg/dL (8.4-10.6); Carbon Dioxide* 27 mmol/L (20-32); Creatinine* 1.3 mg/dL (0.5-1.5); Est. Creatinine Clearance* 33.65; Estimated Glomerular Filt Rate 43 ml/min; Glucose* 154 mg/dL (60-115); Total Protein* 6.4 g/dL (6.0-8.3)
[2025-07-24 21:32] LABS: NT Pro B Type NatriureticPept* 48 pg/mL (See Note)
[2025-07-24 22:15] LABS: PCR FLU A Negative PCR FLU A (Negative); PCR FLU B Negative PCR FLU B (Negative); PCR RSV Negative PCR RSV (Negative); SARS PCR* Negative SARS-CoV-2 (Negative)
--- NOTE | 2025-07-24 22:44 | PM.IMHP1 ---
Assessment and Plan Assessment and plan (1) Fall: Problem comment: -acute on chronic recurrent (typically once a month) -PT/OT consults -currently looking into [facility] facility as well as [facility] Status: Acute (2) Dizziness: Problem comment: -onset 07/21 -CT head ordered. Shows No evidence of an acute intracranial abnormality. No significant interval change compared to the prior exam -PT/OT consults Status: Acute (3) Acute hyponatremia: Problem comment: -sodium 128 in ED, received 1 L NS bolus, 129 on recheck -likely in setting of decreased oral intake and increase of free water at home -NS 125ml/hr for 1 L and recheck in a.m.; free water fluid restriction - encouraged electrolytes Status: Acute (4) Weakness: Problem comment: -generalized -no acute infectious etiology identified. UA needs to be collected -PT/OT consults Status: Acute (5) Parkinsonism: Problem comment: -followed by neurology -on carbidopa-levodopa, no recent dose adjustments -denies historically hypotensive episodes Status: Acute (6) Hypertension: Problem comment: -hold home meds for now -orthostatics ordered Status: Acute (7) New onset type 2 diabetes mellitus: Problem comment: -most recent A1c 7.0 -Not currently on medications. Diet and exercise management currently Status: Acute (8) Peripheral neuropathy: Problem comment: -hold tonight's dose Status: Acute (9) Hyperlipidemia: Problem comment: -continue statin Status: Acute (10) Stage 3 chronic kidney disease: Problem comment: -Creatinine 1.3, baseline, monitor Status: Acute (11) Depression: Problem comment: -hold tonight's doses Status: Acute (12) Dyspnea on exertion: Problem comment: -onset over the last several weeks -last echo August 2024 shows normal left ventricular size, EF 76%, mild mitral regurgitation, no significant valve disease; BNP 48; CXR without acute findings -outpatient follow-up for further workup Status: Acute Total Time Spent Total Time Spent: Today I spent 75 minutes seeing the patient, reviewing Expanse and EPIC notes/diagnostics, discussing the care plan with our care time that includes social work, PT/OT, pharmacy, RT, half-way and documenting my impressions and plan in the medical record. Hospitalist- H&P: HPI History of Present Illness Date Seen: 07/24/25 Chief complaint: Fall Narrative: Jerica Layton is a 75 year old female past medical history significant for hypertension, hyperlipidemia, type 2 diabetes mellitus, neuropathy, stage III CKD, parkinsonism, chronic back pain, scoliosis, history of falls is admitted to the medical floor from the ED following a fall and 3 day history of weakness with acute hyponatremia. Patient is seen with son at bedside. Tells me she began feeling unwell Tuesday evening. Can not really describe it other than feeling dizzy and unsteady. Denies vertiginous like symptoms. No confusion. Has had to hold on to furniture throughout the house while walking over the last 3 days. This evening, was walking through her living room where she had nothing to hold onto and ended up falling onto her right side. She was not able to get up on her own which is baseline for her. She scooted to her cellphone and called 911. Denies pain or injury related to fall. No loss of consciousness. She denies current or recent headaches. Denies neck pain outside of her normal. Denies recent chest pains. Has had some dyspnea on exertion over the past several weeks. No recent fevers. No recent cough or cold symptoms. No recent abdominal pain, nausea, vomiting. Has a history of loose stools which is chronic for her. Denies UTI symptoms. No recent change in medications. Has a history of falls. Maybe once a month. Lives alone in her own home. She and her son are looking for new living arrangements. Planning on getting a [facility] as well. PCP is Dr. Ganesh Ho. Quit smoking years ago, restarted while her was ill, and has since stopped again. Drinks 2 glasses of wine nightly. None for the past 2 days. Denies history of withdrawals or seizures. Review of Systems Narrative: REVIEW OF SYSTEMS: Complete review of systems performed and negative unless otherwise stated in HPI or below. Medical Decision Making Medical Decision Making Has patient completed a Health Care Directive: Yes [facility] Medical History Fall ?W19.XXXA - Unspecified fall, initial encounter (ICD-10) Acute exacerbation of chronic obstructive pulmonary disease ?J44.1 - Chronic obstructive pulmonary disease with (acute) exacerbation (ICD-10) Acute respiratory failure with hypoxemia ?J96.01 - Acute respiratory failure with hypoxia (ICD-10) URI (upper respiratory infection) ?J06.9 - Acute upper respiratory infection, unspecified (ICD-10) Elevated troponin level ?R79.89 - Other specified abnormal findings of blood chemistry (ICD-10) Incontinence of feces ?R15.9 - Full incontinence of feces (ICD-10) Familial heart disease ?I51.89 - Other ill-defined heart diseases (ICD-10) Candidal intertrigo ?B37.2 - Candidiasis of skin and nail (ICD-10) Surgical History Status post total hip replacement, 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) ?Z96.641 - Presence of right artificial hip joint (ICD-10) History of finger joint replacement ?Z96.698 - Presence of other orthopedic joint implants (ICD-10) History of lumbar fusion ?Z98.1 - Arthrodesis status (ICD-10) History of left hip hemiarthroplasty (11/24/22) ?Z96.642 - Presence of left artificial hip joint (ICD-10) Status post appendectomy ?Z90.49 - Acquired absence of other specified parts of digestive tract (ICD-10) History of rotator cuff surgery ?Z98.890 - Other specified postprocedural states (ICD-10) History of laminectomy ?Z98.890 - Other specified postprocedural states (ICD-10) History of colonoscopy ?Z98.890 - Other specified postprocedural states (ICD-10) Family History Mother Family history of stroke or transient ischemic attack in mother Social History Narrative: Does not use illicit drugs Non-smoker What is your current living situation?: I presently have a place to live Problems where you live: no known problems Problems where you live details: NA In the past 12 months, utilities in danger of being shut off: no In past 12 months, lack of transportation kept you from medical appts, meetings, work, or getting things needed for daily living: no In the past 12 mos, have been you worried that your food would run out before you had money to buy more?: never true In the past 12 mos, the food you bought just didn't last and you didn't have money to buy more?: never true Highest level of school completed/degree received: some college, no degree Smoking Status: Former smoker What tobacco products do you use: cigarettes Smoking quit date/years: <= 15 years ago Do you use any of these nicotine containing products: None Second hand tobacco smoke exposure: No How often do you have a drink containing alcohol: 4 or more times a week Alcohol type: wine How many standard drinks containing alcohol do you have on a typical day: 1 or 2 How often do you have six or more drinks on one occasion: Never AUDIT-C Alcohol total score: 4 Non-prescribed substance use: denies use Caffeine: No How often does anyone, including family, friends and others, physically hurt you: never How often does anyone, including family, friends and others, insult or talk down to you: never How often does anyone, including family, friends and others, threaten you with harm: never How often does anyone, including family, friends and others, scream or curse at you: never service: No Meds Home Medications and Allergies Home Medications ?Medication ?Instructions ?Recorded ?Confirmed ?Type carbidopa 25 mg-levodopa 100 mg 1 tab PO TID 05/20/22 01/31/25 History tablet mecobalamin (vitamin B12) 5,000 5,000 tab PO DAILY 05/20/22 01/31/25 History mcg disintegrating tablet cetirizine 10 mg capsule (All Day 20 mg PO BID PRN 10/12/22 01/31/25 History Allergy (cetirizine)) latanoprost 0.005 % eye drops 1 drp ophthalmic (eye) HS 04/26/24 01/31/25 History duloxetine 60 mg capsule,delayed 60 mg PO DAILY 08/13/24 01/31/25 History release acetaminophen 500 mg capsule 500 - 1,000 mg (1 - 2 x 500 mg) PO 08/14/24 01/31/25 Rx Q6H PRN #100 caps aspirin 81 mg tablet,delayed 81 mg PO BID #50 tabs 08/14/24 01/31/25 Rx release Calcium PO 12/13/24 01/31/25 History Magnesium PO 12/13/24 01/31/25 History Vitamin D3 PO 12/13/24 01/31/25 History gabapentin 300 mg capsule 900 mg (3 x 300 mg) PO .ud #450 01/23/25 01/31/25 Rx caps cholestyramine 4 gram oral powder g PO 01/30/25 01/30/25 History for suspension in a packet (Cholestyramine Light) meloxicam 15 mg tablet 15 mg PO DAILY 01/30/25 History indomethacin 50 mg capsule 50 mg PO BID #14 caps 02/06/25 Rx clonazepam 1 mg tablet 1 mg PO QHS #90 tabs 03/05/25 Rx cholestyramine 4 gram oral powder 4 g PO BID 03/28/25 History (Cholestyramine Light) pravastatin 40 mg tablet 40 mg PO QPM #90 tabs 05/09/25 Rx lisinopril 40 mg tablet 40 mg PO DAILY #90 tabs 05/20/25 Rx chlorthalidone 25 mg tablet 12.5 mg (1/2 x 25 mg) PO DAILY #45 05/29/25 Rx tabs omeprazole 40 mg capsule,delayed 40 mg PO DAILY #90 caps 06/14/25 Rx release bupropion HCl 300 mg 24 hr tablet, 300 mg PO QAM #60 tabs 06/28/25 Rx extended release Allergies Allergy/AdvReac Type Severity Reaction Status Date / Time No Known Allergies Allergy Unknown Verified 07/24/25 19:40 Exam Narrative: Exam Narrative: PHYSICAL EXAM General: Pleasant, conversant, NAD HEENT: Normocephalic, atraumatic, sclera white, EOMI, oral mucosa moist Cardiovascular: RRR, S1S2. No pitting edema Pulmonary: CTA bilaterally without rhonchi, rales, expiratory wheezes. No dyspnea on room air Abdominal: Soft, nondistended, NTTP Neurological: Alert, answering questions appropriately, cranial nerves intact, no focal findings Extremities: No gross joint deformity or swelling. AROMI without pain. Neurovascularly intact Skin: Warm, dry. Const: Vital Signs, click to edit/add: Vital Signs - 24 hr 07/24/25 19:41 07/24/25 19:46 07/24/25 20:00 Temperature 98.5 F Pulse Rate 76 78 Pulse Rate [Pulse Oximeter] 77 Respiratory Rate 16 Blood Pressure Blood Pressure [Ri ght Upper Arm] 102/69 Pulse Oximetry 91 92 89 Oxygen Delivery Me thod Room Air 07/24/25 20:15 07/24/25 20:30 07/24/25 20:45 Temperature Pulse Rate 78 78 76 Pulse Rate [Pulse Oximeter] Respiratory Rate Blood Pressure Blood Pressure [Ri ght Upper Arm] Pulse Oximetry 92 96 94 Oxygen Delivery [facility] 07/24/25 21:15 07/24/25 21:23 07/24/25 21:30 Temperature Pulse Rate 78 77 77 Pulse Rate [Pulse Oximeter] Respiratory Rate 15 18 Blood Pressure 119/63 Blood Pressure [Ri ght Upper Arm] Pulse Oximetry 94 96 96 Oxygen Delivery [facility] 07/24/25 21:32 07/24/25 21:33 07/24/25 21:45 Temperature Pulse Rate 76 76 76 Pulse Rate [Pulse Oximeter] Respiratory Rate 13 14 15 Blood Pressure 123/63 Blood Pressure [Ri ght Upper Arm] Pulse Oximetry 94 97 95 Oxygen Delivery [facility] 07/24/25 22:24 Temperature Pulse Rate 79 Pulse Rate [Pulse Oximeter] Respiratory Rate 16 Blood Pressure Blood Pressure [Ri ght Upper Arm] Pulse Oximetry 98 Oxygen Delivery [facility] Hospitalist - H&P: Result Labs Labs: Short CBC 07/24/25 Range/Units 20:52 WBC 7.90 (4.50-11.00) K/uL Hgb 10.8 L (12.0-16.0) gm/dL Hct 33.7 (33.0-51.0) % Plt Count 271 (140-440) K/uL BMP 07/24/25 20:52 Sodium 128 L Potassium 4.5 Chloride 90 L Carbon Dioxide 27 BUN 21 Creatinine 1.3 Glucose 154 H Calcium 9.4 Cardiac Enzymes 07/24/25 Range/Units 20:52 Troponin I < 0.01 (0.01-0.04) ng/mL Liver Function 07/24/25 Range/Units 20:52 Total Bilirubin 0.6 (0.1-1.5) mg/dL AST 28 (12-35) U/L ALT 9 (4-35) U/L Alkaline Phosphatase 148 (40-150) U/L Albumin 3.9 (3.3-5.0) g/dL Imaging Chest x-ray: Attestation: I have reviewed the pertinent imaging results. Radiologist's impression: Cardiovascular and mediastinum: Heart size and vasculature are normal in caliber and appearance. Lungs and pleural spaces: Lungs are clear. No sign of infiltrate or mass. No sign of pleural effusion. No pneumothorax. Bones and soft tissues: Posterior thoracolumbar hardware fixation. IMPRESSION: No acute or significant findings.
--- NOTE | 2025-07-24 23:07 | CRLHL7_ITS ---
For Patients: As a result of the Century Cures Act, medical imaging exams and procedure reports are released immediately into your electronic medical record. You may view this report before your referring provider. If you have questions, please contact your health care provider. INDICATION: Fall, balance problems. TECHNIQUE: CT head without contrast. COMPARISON: 09/08/2024. FINDINGS: Brain parenchyma, CSF spaces, and extra-axial spaces: Mild global brain parenchymal volume loss with commensurate sulcal and ventricular enlargement. Areas of mild hypoattenuation within the bilateral periventricular and deep white matter, consistent with chronic small vessel ischemic disease. Old right thalamus lacunar infarct.The cardenas-white differentiation is normal. No sign of mass, hemorrhage, or midline shift. No hydrocephalus. No extra-axial fluid collection. Skull base and calvarium: Mild mucosal thickening of the left frontal sinus the mastoid air cells are clear. Bilateral lens replacement. No skull fracture. Left TMJ degenerative changes. IMPRESSION: No evidence of an acute intracranial abnormality. No significant interval change compared to the prior exam. Please note that all CT scans at this facility use dose modulation, iterative reconstruction, and/or weight-based dosing when appropriate to reduce radiation dose to as low as reasonably achievable. Dictated by Nathan Fuentes MD @ 07/25/2025 12:03:02 AM (Electronically Signed)
[2025-07-24 23:28] LABS: Sodium* 129 mmol/L (135-149)
[2025-07-24] MEDS: SODIUM CHLORIDE 0.9 % (FLUSH) 10 ML SYRINGE 5 ML IVF (23:46)
[2025-07-25 02:07] LABS: Appearance Urine Clear (Clear)
[2025-07-25 03:00] VITALS: BP 124/68; PULSE 79; RESP 18; TEMP 36.8; O2SAT 94
[2025-07-25 04:17] VITALS: BMI 30.5
--- NOTE | 2025-07-25 05:37 | PC.NURSE ---
End of Shift Note 249 Patient has been very pleasant and cooperative throughout shift. VSS. Afebrile. Denies any pain. SBA with gait belt and walker. Fluid restriction 1800. Patient currently sitting on recliner. Uses call light appropriately. Call light within reach.
[2025-07-25 06:15] LABS: Hematocrit* 32.0 % (33.0-51.0); Hemoglobin* 10.2 gm/dL (12.0-16.0); Mean Corpuscular HGB Conc 32 gm/dL (32-36); Mean Corpuscular Hemoglobin 32 pg (26-34); Mean Corpuscular Volume 102 fL (80-100); Red Blood Count* 3.15 m/uL (4.00-5.20); White Blood Count* 6.06 K/uL (4.50-11.00)
[2025-07-25 06:19] LABS: Slide Review Reflex No
[2025-07-25 06:28] LABS: Chloride* 100 mmol/L (96-114); Potassium* 4.1 mmol/L (3.6-5.1); Sodium* 133 mmol/L (135-149)
[2025-07-25 06:31] LABS: Blood Urea Nitrogen* 20 mg/dL (7-30); Creatinine* 1.3 mg/dL (0.5-1.5); Est. Creatinine Clearance* 33.65; Estimated Glomerular Filt Rate 43 ml/min
[2025-07-25 06:32] LABS: Anion Gap 5 mEq/L (7-15); Calcium* 9.2 mg/dL (8.4-10.6); Carbon Dioxide* 28 mmol/L (20-32); Glucose* 157 mg/dL (60-115)
[2025-07-25 07:29] VITALS: PULSE 82
[2025-07-25 08:00] VITALS: BP 122/58; PULSE 86; RESP 16; TEMP 36.6; O2SAT 93
[2025-07-25] MEDS: OMEPRAZOLE 20 MG CAPSULE DR 40 MG PO (08:12)
[2025-07-25] MEDS: CARBIDOPA-LEVODOPA 25-100 TABLET 1 TAB PO (08:13)
[2025-07-25] MEDS: SODIUM CHLORIDE 0.9 % (FLUSH) 10 ML SYRINGE 5 ML IVF (08:13)
--- NOTE | 2025-07-25 10:37 | P.DS_ITS ---
DS: Providers Provider Date Seen: 07/25/25 Date of admission: 07/24/25 22:32 Primary care physician: Rogers Ho PA-C Admitting Clinician: Mary Day MD Consults: 07/24/25 22:48 Consult to Occupational Therapy [CONS] Routine Comment: Reason(s) for OT Consult:: Evaluate and Treat Any Restrictions?:: No Restrictions Consult to Physical Therapy [CONS] Routine Comment: Reason(s) for PT Consult:: Evaluate and Treat Any Restrictions?:: No Restrictions Consult to Loading Rack Supervisor [CONS] Routine Comment: Reason for Consult:: Social Service Consult Attending Physician on discharge: Mary Day MD DS: Diagnosis Discharge Diagnosis (1) Fall: Status: Acute Problem details: -acute on chronic recurrent (typically once a month) -PT/OT consults -currently looking into retirement facility as well as [facility], also working with [facility] (2) Dizziness: Status: Acute Problem details: -onset 07/21 -CT head ordered. Shows No evidence of an acute intracranial abnormality. No significant interval change compared to the prior exam -resolved 07/25; possibly iatrogenic (BP on the low side, had been taking 20mg of Zyrtec BID for a previous skin reaction/rash) -PT/OT followed during stay (3) Dyspnea on exertion: Status: Acute Problem details: -onset over several weeks prior to admission -negative troponin, reassuring CXR, reassuring BNP, reassuring EKG -last echo August 2024 shows normal left ventricular size, EF 76%, mild mitral regurgitation, no significant valve disease -symptoms improved 07/25/25 -outpatient follow-up for further workup (4) Acute hyponatremia: Status: Acute Problem details: -sodium 128 in ED 07/24, received 1 L NS bolus, 129 on recheck -likely in setting of decreased oral intake and increase of free water at home -improved to 133 on 07/25; discussed increasing solute intake at home, will also HOLD Chlorthalidone (5) Weakness: Status: Acute Problem details: -generalized -no acute infectious etiology identified. UA needs to be collected -PT/OT consults (6) Parkinsonism: Status: Acute Problem details: -followed by neurology -on carbidopa-levodopa, no recent dose adjustments (7) Hypertension: Status: Acute Problem details: -held home medications during stay -no true orthostasis, but high risk for hypotension given age and Parkinson's (unmedicated BPs here 100s-130s); stopping Chlorthalidone upon d/c (8) New onset type 2 diabetes mellitus: Status: Acute Problem details: -most recent A1c 7.0 -Not currently on medications. Diet and exercise management currently (9) Peripheral neuropathy: Status: Acute (10) Hyperlipidemia: Status: Acute Problem details: -continue statin (11) Stage 3 chronic kidney disease: Status: Acute Problem details: -Creatinine 1.3, baseline, monitor (12) Depression: Status: Acute DS: Summary Hospital Course Hospital Course: Estelle was admitted to the hospital on 07/24/25 after a mechanical fall at home + weakness in the setting of new hyponatremia. In the ER: head CT, CXR, and EKG reassuring. Hgb baseline of 10.2 (Hgb between 9-10 since 07/2024), UA reassuring, Sodium 128. Sodium improved to 133 on hospital day 1 with mild fluid restriction + holding of Chlorthalidone and patient did well with therapies. She was appropriate for d/c home on 07/25/25 with close PCP f/u. She and her son are looking into alternative living locations given age and comorbidities. Medication management upon discharge: - DECREASE Cetirizine (taking 20mg BID) to 10mg/24 hours - STOP Chlorthalidone given lower BPs during stay (no true orthostasis) and hyponatremia Status at Discharge Overall status at discharge: patient is progressing back to baseline Time Spent with Patient Time attestation: Total time spent providing and/or coordinating discharge services: Time spent: Greater than 30 minutes Specific discharge activities: Multidisciplinary team discussion, medication reconciliation, patient education Exam Narrative: Exam Narrative: GEN: Alert and oriented, sitting comfortably in bedside chair HEENT: EOMIs bilaterally, no scleral icterus CV: RRR, No concerning murmurs R: LCTA bilaterally Ext: wwp, no concerning edema Skin: No concerning skin lesions or rashes on exposed skin Neuro: Resting tremor noted, consistent with history of Parkinson's Psych: Appropriate Const: Vital Signs, click to edit/add: Vital Signs - 24 hr 07/24/25 19:41 07/24/25 19:46 07/24/25 20:00 Temperature 98.5 F Pulse Rate 76 78 Pulse Rate [Left P ulse Oximeter] Pulse Rate [Pulse Oximeter] 77 Respiratory Rate 16 Blood Pressure Blood Pressure [Le ft Arm] Blood Pressure [Ri ght Upper Arm] 102/69 Pulse Oximetry 91 92 89 Oxygen Delivery Me thod Room Air 07/24/25 20:15 07/24/25 20:30 07/24/25 20:45 Temperature Pulse Rate 78 78 76 Pulse Rate [Left P ulse Oximeter] Pulse Rate [Pulse Oximeter] Respiratory Rate Blood Pressure Blood Pressure [Le ft Arm] Blood Pressure [Ri ght Upper Arm] Pulse Oximetry 92 96 94 Oxygen Delivery Me thod 07/24/25 21:15 07/24/25 21:23 07/24/25 21:30 Temperature Pulse Rate 78 77 77 Pulse Rate [Left P ulse Oximeter] Pulse Rate [Pulse Oximeter] Respiratory Rate 15 18 Blood Pressure 119/63 Blood Pressure [Le ft Arm] Blood Pressure [Ri ght Upper Arm] Pulse Oximetry 94 96 96 Oxygen Delivery Me thod 07/24/25 21:32 07/24/25 21:33 07/24/25 21:45 Temperature Pulse Rate 76 76 76 Pulse Rate [Left P ulse Oximeter] Pulse Rate [Pulse Oximeter] Respiratory Rate 13 14 15 Blood Pressure 123/63 Blood Pressure [Le ft Arm] Blood Pressure [Ri ght Upper Arm] Pulse Oximetry 94 97 95 Oxygen Delivery Me thod 07/24/25 22:24 07/24/25 22:48 07/24/25 22:48 Temperature 98.3 F Pulse Rate 79 75 Pulse Rate [Left P ulse Oximeter] 81 Pulse Rate [Pulse Oximeter] Respiratory Rate 16 18 Blood Pressure Blood Pressure [Le ft Arm] 133/71 Blood Pressure [Ri ght Upper Arm] Pulse Oximetry 98 91 Oxygen Delivery Me thod Room Air 07/25/25 03:00 07/25/25 07:29 07/25/25 08:00 Temperature 98.2 F 97.9 F Pulse Rate 82 Pulse Rate [Left P ulse Oximeter] 79 86 Pulse Rate [Pulse Oximeter] Respiratory Rate 18 16 Blood Pressure Blood Pressure [Le ft Arm] 124/68 122/58 L Blood Pressure [Ri ght Upper Arm] Pulse Oximetry 94 93 Oxygen Delivery Me thod Room Air Room Air DS: Data Data Completed and Pending Completed studies during hospitalization: Procedures Introduction of Other Therapeutic Substance into Respiratory Tract, Via Natural or Artificial Opening (09/08/24) Labs on day of discharge: Labs from last 24 hours 07/25/25 07/25/25 07/24/25 05:57 02:00 23:05 WBC 6.06 RBC 3.15 L Hgb 10.2 L Hct 32.0 L MCV 102 H MCH 32 MCHC 32 RDW Coeff of Clementine Plt Count 246 Neut % (Auto) Lymph % (Auto) [place] % (Auto) Eos % (Auto) Baso % (Auto) Neut # (Auto) Lymph # (Auto) [place] # (Auto) Eos # (Auto) Baso # (Auto) Abs Immat Gran (auto) Imm/Tot Granulo (auto) Sodium 133 L 129 L Potassium 4.1 Chloride 100 Carbon Dioxide 28 Anion Gap 5 L BUN 20 Creatinine 1.3 Estimated Creat Clear 33.65 Estimated GFR 43 Glucose 157 H Calcium 9.2 Magnesium Total Bilirubin AST ALT Alkaline Phosphatase Troponin I NT-Pro-B Natriuret Pep Total Protein Albumin Urine Color Yellow Urine Appearance Clear Urine pH 5.5 Ur Specific [place] 1.010 Urine Protein Negative Urine Glucose (UA) Negative Urine Ketones Negative Urine Blood Negative Urine Nitrite Negative Urine Bilirubin Negative Urine Urobilinogen 0.2 Ur Leukocyte Esterase Trace A Urine RBC 0-2 Urine WBC 0-2 Ur Squamous Epith Cells Few Urine Bacteria Few A SARS-CoV-2 (PCR) Influenza Type A (PCR) Influenza Type B (PCR) RSV (PCR) 07/24/25 07/24/25 20:52 20:50 WBC 7.90 RBC 3.36 L Hgb 10.8 L Hct 33.7 MCV 100 MCH 32 MCHC 32 RDW Coeff of Clementine 12.2 Plt Count 271 Neut % (Auto) 77.2 H Lymph % (Auto) 12.[address] [place] % (Auto) 7.6 Eos % (Auto) 2.0 Baso % (Auto) 0.5 Neut # (Auto) 6.10 Lymph # (Auto) 1.00 [place] # (Auto) 0.60 Eos # (Auto) 0.16 Baso # (Auto) 0.04 Abs Immat Gran (auto) 0.03 Imm/Tot Granulo (auto) 0.4 Sodium 128 L Potassium 4.5 Chloride 90 L Carbon Dioxide 27 Anion Gap 11 BUN 21 Creatinine 1.3 Estimated Creat Clear 33.65 Estimated GFR 43 Glucose 154 H Calcium 9.4 Magnesium 2.4 Total Bilirubin 0.6 AST 28 ALT 9 Alkaline Phosphatase 148 Troponin I < 0.01 NT-Pro-B Natriuret Pep 48 Total Protein 6.4 Albumin 3.9 Urine Color Urine Appearance Urine pH Ur Specific [place] Urine Protein Urine Glucose (UA) Urine Ketones Urine Blood Urine Nitrite Urine Bilirubin Urine Urobilinogen Ur Leukocyte Esterase Urine RBC Urine WBC Ur Squamous Epith Cells Urine Bacteria SARS-CoV-2 (PCR) Negative SARS-CoV-2 Influenza Type A (PCR) Negative PCR FLU A Influenza Type B (PCR) Negative PCR FLU B RSV (PCR) Negative PCR RSV Preliminary micro results at discharge 07/25/25 02:00 Urine Culture - Preliminary Urine,Clean Catch Culture in Progress Discharge Plan Discharge Disposition: Home, Self-Care Date of Admission: 07/24/25 22:32 Attending Provider on Discharge: Jossie Martinez Primary Care Provider: Rogers Ho Condition: Improved Anticipated Discharge Date/Time: 07/25/25 10:02 Discharge Medications: Continued latanoprost 0.005 % drops 1 drp ophthalmic (eye) HS carbidopa-levodopa 25-100 mg tablet 2 tab PO TID mecobalamin (vitamin B12) 5,000 mcg tablet,disintegrating 5,000 tab PO DAILY duloxetine 60 mg capsule,delayed release(DR/EC) 60 mg PO DAILY Cholestyramine Light 4 gram powder in packet 4 g PO BID clonazepam 1 mg tablet 0.5 mg PO QHS aspirin 81 mg tablet,delayed release (DR/EC) 81 mg PO BID gabapentin 300 mg capsule 600 - 900 mg PO BID Rx Instructions: 600MG AM, 900MG HS lisinopril 40 mg tablet 40 mg PO HS pravastatin 40 mg tablet 40 mg PO QPM Qty: 90 3RF omeprazole 40 mg capsule,delayed release(DR/EC) 40 mg PO DAILY Qty: 90 0RF bupropion HCl 300 mg tablet extended release 24 hr 300 mg PO QAM Qty: 60 0RF Discontinued All Day Allergy (cetirizine) 10 mg capsule 20 mg PO BID chlorthalidone 25 mg tablet 12.5 mg PO DAILY Qty: 45 3RF Discharge Orders: Discharge Order (Routine); Ordered 07/25/25 Ordered By: Jossie Martinez Patient Education: Hyponatremia (DC) Additional Instructions: 1. You have been taking large doses of Zyrtec (Cetirizine), which could be contributing to your feeling poorly. Maximum daily dose of this is 10mg daily, so if you need it for any rashes, I wouldn't take more than this amount. 2. Your Blood Pressure has been on the low side, and I wonder if this is also contributing to your feeling poorly. I have STOPPED your Chlorthalidone (it can also decrease your sodium), you can continue your Lisinopril and have Rogers recheck your BP at your next appointment. If you have a cuff and can check your Blood Pressure at home 3-4 times/week, that would be great data to share with her. Activity Level: Activity as Tolerated Discharge Diet: Regular Diet Detail: Make sure you're getting enough protein and not drinking too much water Follow Up Appointments: Rogers Ho PA-C [Primary Care Provider, Family Practice] - 07/29/25 10:45 am Referral Note: [facility] for hospital follow-up, have BMP, BP check at this visit. Forms: Jogg Info Instructions
--- NOTE | 2025-07-25 11:22 | PC.NURSE ---
PATIENT DISCHARGED TO HOME AT 1120. UP SBA WITH WALKER AND BELT, DECLINES DIZZINESS OR LIGHTHEADEDNESS, DECLINING PAIN THIS MORNING, PATIENT VERBALIZED UNDERSTANDING OF DISCHARGE INSTRUCTIONS AND HAD NO FURTHER QUESTIONS AT THIS TIME.
== END 2025-07-25 11:20 | disposition home or self-care (01) ==
LOC: ED 21:59 → MEDSURG 22:34
PROVIDERS: Physician Assistant; Admitting Provider Family Medicine; Emergency Provider Emergency Medicine; PCP Physician Assistant Medical; Visit Provider Family Medicine
DX: R42 Dizziness and giddiness (principal); E87.1 Hypo-osmolality and hyponatremia; G20.C Parkinsonism, unspecified; I10 Essential (primary) hypertension; E11.65 Type 2 diabetes mellitus with hyperglycemia; E11.40 Type 2 diabetes mellitus with diabetic neuropathy, unspecified; F32.9 Major depressive disorder, single episode, unspecified; R06.09 Other forms of dyspnea; W19.XXXA Unspecified fall, initial encounter
CPT/HCPCS: 36415; 70450; 71046; 80048; 80053; 81001; 83735; 83880; 84295; 84484; 85025; 85027; 87086; 87631; 93005; 94761; 96360; 97161; 97165; 97530; 99285; A9270; G0378; J7030

== ENCOUNTER 2025-08-16 13:39 | Outpatient (CLI) | payer MEDICARE, BC, SELFPAY ==
--- NOTE | 2025-08-16 14:00 | CRLHL7_ITS ---
For Patients: As a result of the Century Cures Act, medical imaging exams and procedure reports are released immediately into your electronic medical record. You may view this report before your referring provider. If you have questions, please contact your health care provider. INDICATION: Thoracic spine lump. Comparison none available. TECHNIQUE: Noncontrast CT cervical spine. FINDINGS: Midthoracic curve convex right. Thoracolumbar curve convex the left. Extensive postop changes of posterior fusion hardware from T2 through the lumbar spine. Hardware appears well seated. There is kyphosis of the upper thoracic spine with a chronic compression fracture and anterior wedging of the T4 vertebral body. Less severe chronic mild loss of height of the T8 and T11 vertebral bodies. Mild thoracic spondylosis. No prominent disc protrusions or herniations. Allowing for artifact, no severe spinal canal or neural foraminal narrowing at all levels of the thoracic spine. There is no abnormal soft tissue mass within the posterior soft tissues. No fractures visualized posterior ribs. Visualized lungs are clear. Vascular calcifications. IMPRESSION: 1. Thoracic scoliotic curvature. 2. Extensive postop changes T2 through the lumbar spine. 3. Kyphosis of the upper thoracic spine. Underlying chronic compression fracture and anterior wedging of T4. No retropulsion of fracture fragments. 4. Similar but less severe chronic mild loss of height of T8 and T11. 5. Mild thoracic spondylosis. 6. No severe spinal canal or neural foraminal narrowing at the levels Please note that all CT scans at this facility use dose modulation, iterative reconstruction, and/or weight-based dosing when appropriate to reduce radiation dose to as low as reasonably achievable. Dictated by Samuel Morton MD @ 08/17/2025 10:24:37 AM (Electronically Signed)
== END 2025-08-16 13:40 | disposition home or self-care (01) ==
LOC: CT 13:40
PROVIDERS: PCP Physician Assistant Medical; Visit Provider Physician Assistant Medical
DX: M89.8X8 Other specified disorders of bone, other site (principal); M51.24 Other intervertebral disc displacement, thoracic region; M47.814 Spondylosis without myelopathy or radiculopathy, thoracic region
CPT/HCPCS: 72128